=== PATIENT | male | born 1940 | race Caucasian/White ===

== ENCOUNTER → 2018-03-02 02:04 | Outpatient (CLI) | payer MEDICARE, BC, SELFPAY ==
[2018-03-02 11:38] LABS: Hemoglobin A1C 7.3 % (4.5-6.2)
== END ==
DX: E11.9 Type 2 diabetes mellitus without complications (principal)
CPT/HCPCS: 36415; 83036

== ENCOUNTER 2018-08-09 09:39 | Outpatient (CLI) | payer MEDICARE, BC, SELFPAY ==
[2018-08-09 11:16] LABS: HCT 36.9 % (40.0-50.0); HGB 11.6 g/dL (13.5-17.5); Mean Corp. HGB Concentration 31.4 g/dL (32.0-36.0); Mean Corpuscular Hemoglobin 30.1 pg (27.0-33.0); Mean Corpuscular Volume 95.8 fL (80-95); Mean Platelet Volume 10.7 fL (8.0-11.0); Platelet Count 170 x1000/uL (130-400); RBC 3.85 m/cumm (4.50-6.00); White Blood Cell Count 6.81 k/cumm (4.4-10.8)
[2018-08-09 11:45] LABS: Hemoglobin A1C 8.4 % (4.5-6.2)
[2018-08-09 12:01] LABS: ALT 23 U/L (12-78); AST 20 U/L (15-37); Albumin 3.6 g/dL (3.4-5.0); Alkaline Phosphatase 124 U/L (46-116); Anion Gap 9.2 mmol/L (3-11); BUN 42 mg/dL (7-18); Bilirubin, Total 0.6 mg/dL (0.2-1.0); CO2 24.8 mmol/L (21.0-32.0); Calcium 8.9 mg/dL (8.5-10.1); Chloride 106 mmol/L (98-107); Cholesterol 119 mg/dL (50-200); Estimated GFR 32.48 (mL/min/1.73m2); Glucose 217 mg/dL (70-100); HDL Cholesterol 46 mg/dL (40-60); LDL CHOLESTEROL 55 mg/dL (<100); Potassium 5.5 mmol/L (3.5-5.1); Sodium 140 mmol/L (136-145); Total Protein 7.5 g/dL (6.4-8.2); Triglyceride 82 mg/dL (30-150)
== END 2018-08-09 09:59 ==
DX: I10 Essential (primary) hypertension (principal); E11.9 Type 2 diabetes mellitus without complications; E78.5 Hyperlipidemia, unspecified; R06.3 Periodic breathing; R63.4 Abnormal weight loss; E03.9 Hypothyroidism, unspecified; F06.31 Mood disorder due to known physiological condition with depressive features
CPT/HCPCS: 36415; 80053; 80061; 83721; 85027; 83036

== ENCOUNTER 2019-02-19 08:56 | Outpatient (CLI) | payer MEDICARE, BC, SELFPAY ==
[2019-02-19 12:13] LABS: Hemoglobin A1C 8.6 % (4.5-6.2)
[2019-02-19 13:05] LABS: COMMENT (LAB VIEW ONLY) 88.33 mg/dL
[2019-02-19 13:06] LABS: Microalb ug/mg Crea 335.2 ug/mg Cr
[2019-02-19 14:34] LABS: ALT 22 U/L (12-78); AST 12 U/L (15-37); Alkaline Phosphatase 120 U/L (46-116); Anion Gap 11.3 mmol/L (3-11); BUN 44 mg/dL (7-18); Bilirubin, Total 0.8 mg/dL (0.2-1.0); CO2 19.7 mmol/L (21.0-32.0); CREATININE 2.28 mg/dL (0.70-1.30); Calcium 8.1 mg/dL (8.5-10.1); Chloride 106 mmol/L (98-107); Estimated GFR 27.92 (mL/min/1.73m2); Glucose 220 mg/dL (70-100); Magnesium 1.7 mg/dL (1.8-2.4); Potassium 5.3 mmol/L (3.5-5.1); Sodium 137 mmol/L (136-145); Total Protein 7.5 g/dL (6.4-8.2)
== END 2019-02-19 09:16 ==
DX: E11.9 Type 2 diabetes mellitus without complications (principal); E03.9 Hypothyroidism, unspecified; I10 Essential (primary) hypertension
CPT/HCPCS: 36415; 80053; 82043; 82570; 83036; 83735

== ENCOUNTER 2019-04-20 01:32 | Outpatient (CLI) | payer MEDICARE, BC, SELFPAY ==
[2019-04-20 11:16] LABS: Anion Gap 11.9 mmol/L (3-11); BUN 35 mg/dL (7-18); CO2 24.1 mmol/L (21.0-32.0); CREATININE 2.24 mg/dL (0.70-1.30); Calcium 7.8 mg/dL (8.5-10.1); Chloride 107 mmol/L (98-107); Estimated GFR 28.42 (mL/min/1.73m2); Glucose 270 mg/dL (70-100); Sodium 143 mmol/L (136-145)
== END 2019-04-20 01:52 ==
PROVIDERS: Nurse Practitioner
DX: R60.0 Localized edema (principal)
CPT/HCPCS: 36415; 80048

== ENCOUNTER 2019-05-03 01:10 | Outpatient (CLI) | payer MEDICARE, BC, SELFPAY ==
--- NOTE | 2019-05-03 08:30 | ETT_ITS ---
APPROVED REPORT Exam: Exercise Treadmill Patient Location: In-Patient Stress Nurse: Meme Fatima RN Baseline Rhythm: Bradycardia BMI: 27.45 Indications: Patient reports having intermittent chest pressure with exertion that resolves with rest . Medical History Medical History: Diabetes, HTN, Hyperlipidemia Cardiac Medications: Metoprolol tartrate/ Lopressor, Atorvastatin, Aspirin, Nitroglycerin sublingual tablet PRN. Allergies: Penicillin, metoclopramide Cardiac Risk Factors: FHX of CAD, HTN, Hyperlipidemia, DM Previous Cardiac Procedures: CABG--5 way bypass, and stent placement Pretest Chest Pain Characteristics: No chest pain Exercise History: Physically active Lung Sounds: Clear to auscultation Heart Sounds: Murmur Stress Test Details Test: Exercise stress testing was performed using a Jimbo protocol. Rest Stress HR Max Heart Rate (APMHR): 141 bpm Resting HR Supine: 50 bpm Target HR (85% APMHR): 119 bpm Resting HR Standin bpm Max HR Achieved: 122 bpm % of APMHR: 86 HR response to stress: Normal HR response to stress BP Resting BP Supine: 174/68 mmHg Resting BP Standin/70 mmHg Max BP: 190/70 mmHg BP response to stress: Normal blood pressure response to stress. ECG Resting ECG: Sinus Bradycardia with anterior Q-waves ST Change: ST segment depressions Lead(s): II, III, aVF, V4, V5, V6 Time of Change: 0223 Stage: [address] Deviation: 4 mm Arrhythmia: None Recovery ECG: Sinus Bradycardia Recovery ST Change: ST segment changes return to preexercise baseline at 11 minutes 51 seconds of rec overy Clinical Reason for Termination: Leg fatigue Stress Symptoms: Leg Fatigue Exercise duration: 5 min26 sec Highest Stage Achieved: Stage 1: 1.7 mph at 10% grade. Exercise capacity: 7.05 METs Functional Capacity: Mildly deminished capacity Scale: Active Stress ECG Conclusion 1. The patient exercised for 5 minutes and 26 seconds (7 METS) this represents reasonable exercise ca pacity. 2. The patient had no symptoms consistent with ischemia. 3. Patient had significant ST depressions in the inferior leads as well as the precordial leads. The se depressions resolved by 4 minutes into recovery 4. This represents an abnormal exercise stress test results will be relayed to the ordering provider. Test Summary 1 3 minutes 10 1.7 103 170/74 99 2 2.26 12 2.5 1 minute of recovery 106 180/60 3 minutes of recovery 52 180/70 6 minutes of recovery 51 190/70 Postexercise SBP response is delayed. 9 minutes of recovery 58 180/74 12 minutes of recovery 62 168/74 15 minutes of recovery 62 152/74
== END 2019-05-03 01:30 ==
PROVIDERS: Visit Provider Nurse Practitioner
DX: R07.9 Chest pain, unspecified (principal); R94.30 Abnormal result of cardiovascular function study, unspecified; I10 Essential (primary) hypertension; E78.5 Hyperlipidemia, unspecified; E11.9 Type 2 diabetes mellitus without complications; Z95.1 Presence of aortocoronary bypass graft; Z82.49 Family history of ischemic heart disease and other diseases of the circulatory system
CPT/HCPCS: 93016; 93018; 93017

== ENCOUNTER 2019-05-10 02:46 | Outpatient (CLI) | payer MEDICARE, BC, SELFPAY ==
--- NOTE | 2019-05-10 07:23 | DI.US_ITS ---
APPROVED REPORT EXAM: Comprehensive 2D, Doppler, and color-flow Echocardiogram Patient Location: Out-Patient Business Lawyer: [place] [facility] ([place]) Rhythm: Bradycardia Indications: edema r60.9 Conclusion Left Ventricle : The left ventricle is normal size. Left ventricular systolic function is normal. Bor derline concentric left ventricular hypertrophy. There is normal LV segmental wall motion. LVEF is 55 -60%. There is grade 2 diastolic dysfunction. Right Ventricle : The right ventricle is normal size. The right ventricular systolic function is low normal. Atria : Left atrium is mildly dilated. Right atrium is mildly dilated. Aortic Valve : Aortic valve leaflets are sclerotic but open well. Aortic valve is trileaflet. Aortic valve annulus has some calcification. There is no aortic valvular stenosis. No aortic regurgitation i s present. Mitral Valve : The mitral valve is moderately thickened. Mitral valve leaflets appear myxomatous. Mil d mitral annular calcification. No evidence of mitral valve stenosis. Mild to Moderate mitral regurgi tation. There appear to be multiple parallel jets which makes quantification challenging. Tricuspid Valve : Tricuspid valve leaflets are thickened but open well. Mild tricuspid regurgitation. Pulmonic Valve : Pulmonic valve is not well visualized. Great Vessels : The IVC was not well visualized. RVSP is greater than 35 mmHg but cannot say for tommy e without visualizing the IVC. There is no prior echocardiogram available for comparison. Wall motion Left Ventricle The left ventricle is normal size. Left ventricular systolic function is normal Borderline concentric left ventricular hypertrophy. There is normal LV segmental wall motion. There is grade 2 diastolic d ysfunction. LVEF is 55-60%. Right Ventricle The right ventricle is normal size. The right ventricular systolic function is low normal. Atria Left atrium is mildly dilated. Right atrium is mildly dilated. Aortic Valve Aortic valve leaflets are sclerotic but open well. Aortic valve is trileaflet. Aortic valve annulus h as some calcification There is no aortic valvular stenosis. No aortic regurgitation is present. Mitral Valve The mitral valve is moderately thickened. Mitral valve leaflets appear myxomatous. Mild mitral annula r calcification. No evidence of mitral valve stenosis. Mild to Moderate mitral regurgitation. There a ppear to be multiple parallel jets which makes quantification challenging. Tricuspid Valve Tricuspid valve leaflets are thickened but open well. Mild tricuspid regurgitation. TV bend without p rolapse. Pulmonic Valve Pulmonic valve is not well visualized. Trivial to mild pulmonic regurgitation. Great Vessels The aortic root is normal in size. Aortic arch is mildly dilated The IVC was not well visualized. RVS P is greater than 35 mmHg but cannot say for sure without visualizing the IVC. Pericardium There is no pericardial effusion. 2D Dimensions IVSd 1.09 cm M: 0.6-1.2 LV EDV A2C 74.70 mL PWd 1.20 cm M: 0.6 - 1.2 LV EDV A4C 130.80 mL LVDd 5.31 cm M: 4.2 - 5.9 LA Volume Index A2C 32.69 mL/m2 LVDs 3.45 cm M: 2.5 - 4.0 LA Volume Index A4C 49.09 mL/m2 Aortic Root 3.04 cm M: 3.1 - 3.7 LA Volume Index Biplane 40.57 mL/m2 RA Area A4C 19.01 cm2 LA Area A4C 24.07 cm2 LVOT 2.12 cm (M/F) 1.5-2.5 LA Area A2C 19.89 cm2 Ascending Aorta 3.40 cm M: 2.6 - 3.4 EF AP4 63.91 % LVEF (Teich) 63.93 % EF AP2 53.82 % LVEF (Montano's) 59.02 % M: 52 - 72 EF BP 59.02 % LV Volume 76.58 mL M: 62 - 150 LV Volume Index 41.84 mL/m2 M: 34 - 74 FS 35.08 % LV Diastology E Decel Time 227.00 (160-240 msec) E/A Ratio 0.8 MED E' 0.05 (>0.07 m/s) LV E/e MED 19.68 (<14) LAT E' 0.10 (>0.1 m/s) LV E/e LAT 10.17 (<14) Pulm Vein s 0.72 m/s PV S/D Ratio 1.06 Pulm Vein d 0.68 m/s Pulm Vein a 0.30 m/s Aortic Valve LVOT Area 3.55 cm2 LVOT Peak David. 0.88 m/s LVOT Mean David. 0.53 m/s LVOT Peak Gr. 3.08 mmHg AL Vmax Index 1.31 cm2/m2 LVOT Mean Gr. 1.36 mmHg LVOT VTI 0.23 m AL Mean David. Index 1.14 cm2/m2 AoV Peak David. 1.30 (0.5-1.3 m/s) AoV Mean David. 0.91 m/s AO Peak GR. 6.76 mmHg AO Mean GR. 3.60 (<5 mmHg) AO VTI 0.32 (0.18-0.25 m) AL (VTI) 2.47 (2.5-4.5 cm2) AL (VTI) Index 1.35 cm/m2 Mitral Valve MV E Max David. 1.00 (0.4-1.3 m/s) MV A Velocity 1.31 (0.4-1.3 m/s) E/A Ratio 0.76 MV Decel. Time 277.46 (160-240 msec) MV Regurg Volume 62.63 mL MV PHT 80.46 msec MV RF 43.96 % MVA PHT 2.73 cm2 Tricuspid Valve TR P. Velocity 3.01 m/s TV Regurg Vmax 3.01 m/s TR P. Gradient 36.28 mmHg
== END 2019-05-10 03:06 ==
PROVIDERS: Visit Provider Nurse Practitioner
DX: R60.9 Edema, unspecified (principal); I50.1 Left ventricular failure, unspecified; I25.10 Atherosclerotic heart disease of native coronary artery without angina pectoris; R07.89 Other chest pain
CPT/HCPCS: 93306

== ENCOUNTER 2019-05-18 08:40 | Outpatient (CLI) | payer MEDICARE, BC, SELFPAY | END 2019-05-18 09:00 | PROVIDERS: Visit Provider Internal Medicine Cardiovascular Disease | DX: I25.10 Atherosclerotic heart disease of native coronary artery without angina pectoris (principal); Z95.1 Presence of aortocoronary bypass graft; I11.0 Hypertensive heart disease with heart failure; I50.30 Unspecified diastolic (congestive) heart failure; E11.9 Type 2 diabetes mellitus without complications; Z79.84 Long term (current) use of oral hypoglycemic drugs | CPT/HCPCS: 99204; 99215; 93005; 93010 ==

== ENCOUNTER 2019-05-25 01:42 | Outpatient (CLI) | payer MEDICARE, BC, SELFPAY ==
[2019-05-25 10:52] LABS: Anion Gap 10.2 mmol/L (3-11); BUN 43 mg/dL (7-18); CO2 24.8 mmol/L (21.0-32.0); CREATININE 2.18 mg/dL (0.70-1.30); Calcium 8.1 mg/dL (8.5-10.1); Chloride 107 mmol/L (98-107); Estimated GFR 29.33 (mL/min/1.73m2); Glucose 183 mg/dL (74-106); Potassium 4.8 mmol/L (3.5-5.1); Sodium 142 mmol/L (136-145)
== END 2019-05-25 02:02 ==
PROVIDERS: Visit Provider Internal Medicine Cardiovascular Disease
DX: I10 Essential (primary) hypertension (principal)
CPT/HCPCS: 36415; 80048

== ENCOUNTER → 2019-06-21 10:23 | Outpatient (BNVA) | payer MEDICARE, BC, SELFPAY | PROVIDERS: Visit Provider Internal Medicine Cardiovascular Disease | DX: I25.10 Atherosclerotic heart disease of native coronary artery without angina pectoris (principal); E78.5 Hyperlipidemia, unspecified; I11.0 Hypertensive heart disease with heart failure; Z95.1 Presence of aortocoronary bypass graft; R60.0 Localized edema; I50.30 Unspecified diastolic (congestive) heart failure; E11.9 Type 2 diabetes mellitus without complications; Z79.84 Long term (current) use of oral hypoglycemic drugs | CPT/HCPCS: 99214 ==

== ENCOUNTER 2019-08-20 11:36 | Outpatient (CLI) | payer MEDICARE, BC, SELFPAY ==
[2019-08-20 13:38] LABS: ALT 24 U/L (16-63); AST 14 U/L (15-37); Albumin 4.2 g/dL (3.4-5.0); Alkaline Phosphatase 138 U/L (46-116); Anion Gap 11.5 mmol/L (3-11); BUN 59 mg/dL (7-18); Bilirubin, Total 0.8 mg/dL (0.2-1.0); CO2 23.5 mmol/L (21.0-32.0); CREATININE 2.23 mg/dL (0.70-1.30); Calcium 8.7 mg/dL (8.5-10.1); Calculated LDL 73 mg/dL (<100); Chloride 104 mmol/L (98-107); Cholesterol 132 mg/dL (<200); Estimated GFR 28.57 (mL/min/1.73m2); Glucose 235 mg/dL (74-106); HDL Cholesterol 37 mg/dL (40-60); Potassium 4.9 mmol/L (3.5-5.1); Sodium 139 mmol/L (136-145); Total Protein 7.9 g/dL (6.4-8.2); Triglyceride 111 mg/dL (<150)
[2019-08-20 14:01] LABS: Hemoglobin A1C 9.4 % (3.8-5.6)
== END 2019-08-20 11:56 ==
DX: E78.5 Hyperlipidemia, unspecified (principal); E11.9 Type 2 diabetes mellitus without complications; I10 Essential (primary) hypertension
CPT/HCPCS: 36415; 80053; 80061; 83036

== ENCOUNTER → 2019-09-11 15:26 | Outpatient (BNVA) | payer MEDICARE, BC, SELFPAY | PROVIDERS: Visit Provider Internal Medicine Cardiovascular Disease | DX: I25.10 Atherosclerotic heart disease of native coronary artery without angina pectoris (principal); E11.22 Type 2 diabetes mellitus with diabetic chronic kidney disease; N18.4 Chronic kidney disease, stage 4 (severe); I13.0 Hypertensive heart and chronic kidney disease with heart failure and stage 1 through stage 4 chronic kidney disease, or unspecified chronic kidney disease; E78.5 Hyperlipidemia, unspecified; Z95.1 Presence of aortocoronary bypass graft; Z79.84 Long term (current) use of oral hypoglycemic drugs | CPT/HCPCS: 99214 ==

== ENCOUNTER → 2020-03-18 11:31 | Outpatient (BNVA) | payer MEDICARE, BC, SELFPAY | PROVIDERS: Visit Provider Internal Medicine Cardiovascular Disease | DX: I25.10 Atherosclerotic heart disease of native coronary artery without angina pectoris (principal); N18.4 Chronic kidney disease, stage 4 (severe); R60.0 Localized edema; I13.0 Hypertensive heart and chronic kidney disease with heart failure and stage 1 through stage 4 chronic kidney disease, or unspecified chronic kidney disease; Z95.1 Presence of aortocoronary bypass graft; I50.9 Heart failure, unspecified; Z79.84 Long term (current) use of oral hypoglycemic drugs | CPT/HCPCS: 99214 ==

== ENCOUNTER 2020-08-27 02:21 | Outpatient (CLI) | payer MEDICARE, BC, SELFPAY ==
[2020-08-27 12:46] LABS: ALT 38 U/L (16-63); AST 24 U/L (15-37); Albumin 4.2 g/dL (3.4-5.0); Alkaline Phosphatase 113 U/L (46-116); Anion Gap 10.1 mmol/L (3-11); BUN 57 mg/dL (7-18); Bilirubin, Total 0.8 mg/dL (0.2-1.0); CO2 22.9 mmol/L (21.0-32.0); CREATININE 2.2 mg/dL (0.70-1.30); Calcium 8.6 mg/dL (8.5-10.1); Chloride 106 mmol/L (98-107); Estimated GFR 28.94 (mL/min/1.73m2); Glucose 161 mg/dL (74-106); Potassium 5.2 mmol/L (3.5-5.1); Sodium 139 mmol/L (136-145); Total Protein 7.9 g/dL (6.4-8.2)
== END 2020-08-27 02:22 | disposition home or self-care (01) ==
LOC: LOS 02:22
DX: I25.10 Atherosclerotic heart disease of native coronary artery without angina pectoris (principal); I15.2 Hypertension secondary to endocrine disorders; E11.65 Type 2 diabetes mellitus with hyperglycemia; Z79.4 Long term (current) use of insulin
CPT/HCPCS: 36415; 80053

== ENCOUNTER → 2020-09-22 10:52 | Outpatient (BNVA) | payer MEDICARE, BC, SELFPAY | PROVIDERS: Visit Provider Internal Medicine Cardiovascular Disease | DX: I25.810 Atherosclerosis of coronary artery bypass graft(s) without angina pectoris (principal); N18.4 Chronic kidney disease, stage 4 (severe); E11.22 Type 2 diabetes mellitus with diabetic chronic kidney disease; Z79.4 Long term (current) use of insulin; I12.9 Hypertensive chronic kidney disease with stage 1 through stage 4 chronic kidney disease, or unspecified chronic kidney disease; R60.0 Localized edema | CPT/HCPCS: 99214 ==

== ENCOUNTER 2020-11-11 00:52 | Emergency (ER) | payer MEDICARE, BC, SELFPAY ==
[2020-11-11 00:55] VITALS: BP 173/75; PULSE 57; RESP 18; TEMP 36.9; O2SAT 99
--- NOTE | 2020-11-11 01:00 | DI.CT_ITS ---
Exam(s) CT RENAL COLIC WO EXAM: CT RENAL COLIC WO INDICATION: hematuria, new. COMPARISON: CT ABD PELVIS WO CONTRAST from 09/01/2016 TECHNIQUE: CT examination was performed without contrast administration. FINDINGS: Images obtained through the lung bases are unremarkable. There is moderate gastric distention. Prior surgery noted in the epigastric region. Visualized port ions of the liver and spleen appear intact. Visualized portions of the pancreas are unremarkable. Prior cholecystectomy noted. No biliary dilatation. Abdominal aorta is of normal diameter. No significant abdominal wall hernia. No significant abdominal or pelvic adenopathy. Adrenals appear normal bilaterally. The kidneys are normal in size and shape. There is no evidence of a renal mass, hydronephrosis, or n ephrolithiasis. There is an apparent small hyperdense left renal cortical cyst measuring less than 1 cm in diameter. No ureteral dilatation or calcification identified. Urinary bladder is unremarkable in appearance. IMPRESSION: Negative noncontrast abdominal and pelvic CT. No urinary tract calcification or obstruction. RADIATION DOSE DELIVERED: 861.4mGy.cm DLP 861.4mGy.cm Total DLP RADIATION OPTIMIZATION: All CT scans at this facility use at least one of these dose optimization te chniques: automated exposure control; mA and/or kV adjustment per patient size (includes targeted exa ms where dose is matched to clinical indication); or iterative reconstruction.
[2020-11-11 01:17] LABS: Abs Immature Grans 0.01 10^3/uL (0.0-0.06); Absolute Basophil Count 0.05 10^3/uL (0.0-0.2); Absolute Eosinophil Count 0.17 10^3/uL (0.0-0.7); Absolute Lymphocyte Count 1.16 10^3/uL (1.2-3.4); Absolute Monocyte Count 0.53 10^3/uL (0.1-0.8); Absolute Neutrophil Count 3.41 10^3/uL (1.2-6.7); Basophils % 0.9; Eosinophils % 3.2; HCT 38.3 % (40.0-50.0); HGB 12.2 g/dL (13.5-17.5); Immature Grans % 0.2; Lymphocytes % 21.8; MCH 30.1 pg (27.0-33.0); MCHC 31.9 % (32.0-36.0); MCV 94.6 fL (80-95); MPV 10.5 fL (8.0-11.0); Monocytes % 9.9; Nucleated RBC 0 %; Platelet Count 150 10^3/uL (130-400); RBC 4.05 10^6/uL (4.36-5.78); RDW 13.6 % (11.8-14.1); RDW-SD 47.3 fL; WBC 5.33 10^3/uL (4.4-10.8)
--- NOTE | 2020-11-11 01:21 | ED.GENADUL_ITS ---
Discharge Plan Disposition Patient Disposition: HOME Condition: Good Discharge Details Clinical Impression: Hematuria Primary Care Provider: Pricilla Kline ED Provider: Imtiaz Mirza Home Meds and New Rx's Prescriptions: Continued atorvastatin [Lipitor] 40 mg tablet 40 mg PO DAILY Qty: 90 RF: 4 glipizide 10 mg tablet extended release 24hr 10 mg PO DAILY Qty: 90 RF: 3 hydrochlorothiazide 25 mg tablet 25 mg PO DAILY Qty: 90 RF: 3 isosorbide dinitrate 30 mg tablet 30 mg PO DAILY Qty: 90 RF: 4 metoprolol tartrate 50 mg tablet 25 mg PO BID Qty: 90 RF: 4 nitroglycerin [Nitrostat] 0.4 mg tablet, sublingual 0.4 mg Sublingual PRN Qty: 10 RF: 0 (DME) Blood Glucose Test Strip 1 ea Miscellaneous DAILY Qty: 100 RF: 4 (DME) lancets 28 gauge misc 1 ea Miscellaneous DAILY Qty: 100 RF: 4 ASPIRIN 81 MG tablet 1 tab PO DAILY RF: 0 (DME) blood-glucose meter 1 EACH misc 1 ea Miscellaneous DAILY Qty: 1 RF: 0 Discharge Instructions Instructions: Hematuria (ED) Additional Instructions: At this time there is no clear source on our work-up for your bleeding. It is likely from a small polyp or ulcer in your bladder, or potentially from your kidneys. At this time the next step is to follow-up closely with the urologist Dr. Wei, at which point he will likely schedule a cystoscopy of your bladder for further evaluation. Currently your blood levels are normal. If you notice any worsening of your symptoms, lightheadedness, feeling like you are going to pass out, pain, fever, or sensation that your urinary tract is clogged and you cannot urinate please return immediately for reassessment. Please follow-up closely with Dr. Wei's office and your primary care provider. As always it is a pleasure participating in your care today Referrals: Pricilla Kline NP [Primary Care Provider] - Neo Wei MD [ [facility] STAFF PHYSICIAN] - Medical Decision Making 80-year-old male with past medical history of chronic kidney disease, diabetes, previous heart attack, presents today for hematuria. He takes a daily aspirin but no blood thinners. He states that yesterday noticed a small amount of blood around 4 PM, that has continued until this evening when it became fairly notable and profound. He denies any pain in his abdomen flanks or in the urinary tract. He does admit to seeing occasional clots. He denies any history of this in the past. No other complaints no other complaints at this time. No other modifying factors he denies lightheadedness or syncope Genital exam is unremarkable, no abdominal tenderness. Will get labs to make sure hemoglobin is stable, and a CT scan to evaluate for mass or less likely kidney stone. Will monitor closely and reassess. I suspect the patient will need close follow-up with urology. 2:06 AM Laboratory work-up is returned, hemoglobin is notably stable and actually higher than normal at 12.2. Platelets are unremarkable, PT PTT and INR are unremarkable. Electrolytes normal, BUN and creatinine are both elevated at 61 and 2.6 but this actually appears to be at the patient's baseline. Urinalysis shows blood but no evidence of infection. Patient feels well and remains hemodynamically stable, no evidence of tachycardia or hypotension. He has not had any evidence of large clots causing obstruction. No indication for Acevedo at this time. As the patient is notably stable, I do feel that he can be discharged home in the setting of an unremarkable CAT scan. We will place a referral to Dr. Wei for prompt and close follow-up for his hematuria for further evaluation with cystoscopy. Discussed red flags with the patient and his for which to return including signs of obstruction, lightheadedness or worsening of the bleeding. I have extensively reviewed the treatment plan and discharge instructions with the patient and their family. I have addressed all patient concerns at this time. The patient and family was made aware of what symptoms to monitor for that would warrant a return to the emergency department. Discussed the plan with the patient and family, they demonstrate verbal understanding and agreement with our assessment and plan at this time. The documentation in this chart was dictated using SaySwap dictation software. Please excuse any dictation errors. FINDINGS: Minimal subsegmental atelectasis versus scarring Liver: No mass. Gallbladder and bile ducts: Prior cholecystectomy. No ductal dilation. Pancreas: No ductal dilation. Spleen: No splenomegaly. Adrenal glands: Normal. No mass. Kidneys and ureters: Hyperdense cyst in the left kidney No hydronephrosis. Stomach and bowel: Postsurgical changes in the epigastrium/gastroesophageal junction and distal stomach/duodenum No obstruction. Mild mucosal thickening. Colonic diverticulosis noted Appendix: No evidence of appendicitis. Intraperitoneal space: . No free air. No significant fluid collection. Vasculature: No abdominal aortic aneurysm. Lymph nodes: No enlarged lymph nodes. Urinary bladder: Unremarkable as visualized. Reproductive: Unremarkable as visualized. Bones/joints: Degenerative changes in the spine No acute fracture. Soft tissues: Unremarkable. IMPRESSION: No CT evidence for obstructive uropathy Hyperdense cyst in the left kidney Nonspecific nonobstructed bowel gas pattern which may represent enteritis/ileus. No discrete transition point to suggest bowel obstruction Colonic diverticulosis without diverticulitis Thank you for allowing us to participate in the care of your patient. Dictated and Authenticated by: Elder Piper MD 11/11/2020 1:59 AM Eastern Time ([place] & [place]) HPI General Date/Time Provider Initiated Documentation: 11/11/20 00:53 . HPI Narrative: 80-year-old male with past medical history of chronic kidney disease, diabetes, previous heart attack, presents today for hematuria. He takes a daily aspirin but no blood thinners. He states that yesterday noticed a small amount of blood around 4 PM, that has continued until this evening when it became fairly notable and profound. He denies any pain in his abdomen flanks or in the urinary tract. He does admit to seeing occasional clots. He denies any history of this in the past. No other complaints no other complaints at this time. No other modifying factors he denies lightheadedness or syncope Related Data Home Medications Medication Instructions Recorded Confirmed Aspirin 1 tab PO DAILY tab-cap 09/26/12 11/11/20 blood-glucose meter #1 ea 11/04/16 11/11/20 blood sugar diagnostic #100 strip 08/20/19 11/11/20 lancets 28 gauge #100 ea 08/20/19 11/11/20 atorvastatin 40 mg tablet 40 mg PO DAILY #90 tab 08/25/20 11/11/20 glipizide 10 mg tablet, extended 10 mg PO DAILY #90 tab 08/25/20 11/11/20 release 24 hr hydrochlorothiazide 25 mg tablet 25 mg PO DAILY #90 tab 08/25/20 11/11/20 isosorbide dinitrate 30 mg tablet 30 mg PO DAILY #90 tab 08/25/20 11/11/20 metoprolol tartrate 50 mg tablet 25 mg PO BID #90 tab 08/25/20 11/11/20 nitroglycerin 0.4 mg sublingual 0.4 mg SUBLINGUAL PRN #10 tab 08/25/20 11/11/20 tablet Previous Rx's Medication Instructions Recorded blood sugar diagnostic #100 strip 08/20/19 lancets 28 gauge #100 ea 08/20/19 atorvastatin 40 mg tablet 40 mg PO DAILY #90 tab 08/25/20 glipizide 10 mg tablet, extended 10 mg PO DAILY #90 tab 08/25/20 release 24 hr hydrochlorothiazide 25 mg tablet 25 mg PO DAILY #90 tab 08/25/20 isosorbide dinitrate 30 mg tablet 30 mg PO DAILY #90 tab 08/25/20 metoprolol tartrate 50 mg tablet 25 mg PO BID #90 tab 08/25/20 nitroglycerin 0.4 mg sublingual 0.4 mg SUBLINGUAL PRN #10 tab 08/25/20 tablet Allergies Allergy/AdvReac Type Severity Reaction Status Date / Time metoclopramide Allergy Intermediate Verified 11/11/20 00:58 Penicillins Allergy Unknown Verified 11/11/20 00:58 General Stated Complaint: Urinary MANDI: 3 Review of Systems All systems reviewed & are unremarkable except as noted in HPI and below PFSH Medical History Abdominal discomfort (04/12/17) Anxiety Chest pain CKD (chronic kidney disease) stage 4, GFR 15-29 ml/min 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 Stent placement 2001 x1 Family History Mother , 78 Diabetes Essential hypertension Father , 66 Heart disease Sister Diabetes Maternal Grandfather , 93 Diabetes Maternal Grandmother Heart disease Paternal Grandfather , 77 Heart disease Paternal Grandmother No problems noted. Son No problems noted. Social History Smoking/Tobacco Use Status: Never Second Hand Exposure: Yes Smoking risk assessment performed?: Yes Alcohol Intake: never Drug use: Never Substance use type: does not use Counseling given: No Counseling provided: none Caregiver/Support person: No Household members: spouse Housing: house Communication Needs: Hard of Hearing Do you need help understanding health information?: Never Pets and animals: Yes Pets and animals: dog(s) Sexually active: Yes Do you think of yourself as: straight/heterosexual Current gender identity: male What is your relationship status?: How often do you talk on the phone with friends or family?: once per week How often do you get together with friends or relatives?: once per week How often do you attend orthodoxy or alevism services?: decline to answer Do you belong to any clubs or organized social groups?: decline to answer Panel score (0-1 are the most socially isolated patients): 1 What type of physical activity do you participate in: weight lifting Duration: 30-45 minutes/day Frequency: 1-2 times per week Pilar/Yazdanism: Jew Special pilar needs: No Seatbelt use: always Helmet use: Yes Helmet use: always Drive intox or ride w/intox coach tour driver: No Do you feel safe at home: Yes Do you feel safe in your relationship?: Yes Exam Narrative Exam Narrative: 1.Const: Well-nourished, Well-developed, appearing stated age 2.Eyes: PERRL, no conjunctival injection, and symmetrical lids. 3.ENT: Atraumatic external nose and ears. Moist MM. Neck: Symmetric, trachea midline, No thyromegaly. 4.CVS: +S1/S2, No murmurs or gallops. Peripheral pulses 2+ and equal in all extremities. Brisk capillary refill in all extremities. 5.RESP: Unlabored respiratory effort. Clear to auscultation bilaterally. No wheezes rales or rhonchi 6.GI: Soft, Nontender/Nondistended, No hepatosplenomegaly. No guarding or rebound. No flank or CVA tenderness, genital exam demonstrates normal male genitalia, no blood at the urethral meatus. No tenderness for the penis or testicles 7.MSK: Normocephalic/Atraumatic, Extremities w/o deformity or ttp No cyanosis or clubbing, Normal movement of all extremities 8.Skin: Warm, Dry. No rashes or lesions. 9.Neuro: unloader operator II-XII grossly intact. Sensation grossly intact, no focal neurologic deficits. 10.Psych: (AAO) x3. Appropriate mood and affect Course Vital Signs Vital signs: Vital Signs Temperature 36.9 C 11/11/20 00:55 Pulse 57 L 11/11/20 00:55 Respiratory Rate 18 11/11/20 00:55 Blood Pressure 173/75 H 11/11/20 00:55 Pulse Oximetry 99 11/11/20 00:55 Temperature 36.9 C 11/11/20 00:55 Temperature Source Temporal Artery Scan 11/11/20 00:55 Pulse 57 L 11/11/20 00:55 Respiratory Rate 18 11/11/20 00:55 Respiratory Effort Non-Labored 11/11/20 00:59 Blood Pressure 173/75 H 11/11/20 00:55 Pulse Oximetry 99 11/11/20 00:55 Oxygen Delivery Method Room Air 11/11/20 00:55 Oxygen Flow Rate 0 11/11/20 00:55 Pain Level 0 11/11/20 00:59 Lab/Test Results Lab/Test Results: Laboratory Tests Range/Units 11/11/20 01:05 WBC (4.4-10.8) 10^3/uL 5.33 RBC (4.36-5.78) 10^6/uL 4.05 L Hgb (13.5-17.5) g/dL 12.2 L Hct (40.0-50.0) % 38.3 L MCV (80-95) fL 94.6 MCH (27.0-33.0) pg 30.1 MCHC (32.0-36.0) % 31.9 L RDW (11.8-14.1) % 13.6 Plt Count (130-400) 10^3/uL 150 MPV (8.0-11.0) fL 10.5 Immature Gran % 0.2 Neutrophils % 64.0 Lymphocytes % 21.8 Monocytes % 9.9 Eosinophils % 3.2 Basophils % 0.9 Nucleated RBC % % 0 Absolute Neutrophils (1.2-6.7) 10^3/uL 3.41 Absolute Lymphocytes (1.2-3.4) 10^3/uL 1.16 L Absolute Monocytes (0.1-0.8) 10^3/uL 0.53 Absolute Eosinophils (0.0-0.7) 10^3/uL 0.17 Absolute Basophils (0.0-0.2) 10^3/uL 0.05
[2020-11-11 01:29] LABS: ALT 37 U/L (16-63); AST 26 U/L (15-37); Albumin 4.3 g/dL (3.4-5.0); Alkaline Phosphatase 130 U/L (46-116); Anion Gap 10.3 mmol/L (3-11); BUN 61 mg/dL (7-18); Bilirubin, Total 0.6 mg/dL (0.2-1.0); CO2 26.7 mmol/L (21.0-32.0); CREATININE 2.6 mg/dL (0.70-1.30); Calcium 8.5 mg/dL (8.5-10.1); Chloride 105 mmol/L (98-107); Estimated GFR 23.87 (mL/min/1.73m2); Glucose 177 mg/dL (74-106); INR 1.1 (0.9-1.1); PTT Activated 23.3 sec (21.0-27.5); Sodium 142 mmol/L (136-145); Total Protein 8.6 g/dL (6.4-8.2)
[2020-11-11 01:31] LABS: Bilirubin Negative (Negative); Blood Large (Negative); Clarity Cloudy (Clear); Glucose Negative (Negative); Ketones Negative (Negative); Leukocyte Esterase Trace (Negative); Nitrite Negative (Negative); Specific Gravity 1.025 (1.005-1.025); pH 5.5 (5-8)
[2020-11-11 01:40] LABS: C & S Indicated? Yes; RBC >50 HPF (0-2)
--- NOTE | 2020-11-11 02:00 | DI.VRAD_ITS ---
PROCEDURE INFORMATION: Exam: CT Abdomen And Pelvis Without Contrast Exam date and time: 11/11/2020 1:31 AM Age: 80 years old Clinical indication: Patient HX: New onset hematuria TECHNIQUE: Imaging protocol: Computed tomography of the abdomen and pelvis without contrast. Radiation optimization: All CT scans at this facility use at least one of these dose optimization techniques: automated exposure control; mA and/or kV adjustment per patient size (includes targeted exams where dose is matched to clinical indication); or iterative reconstruction. COMPARISON: CT ABD PELVIS WO CONTRAST 09/01/2016 2:39 AM FINDINGS: Minimal subsegmental atelectasis versus scarring Liver: No mass. Gallbladder and bile ducts: Prior cholecystectomy. No ductal dilation. Pancreas: No ductal dilation. Spleen: No splenomegaly. Adrenal glands: Normal. No mass. Kidneys and ureters: Hyperdense cyst in the left kidney No hydronephrosis. Stomach and bowel: Postsurgical changes in the epigastrium/gastroesophageal junction and distal stomach/duodenum No obstruction. Mild mucosal thickening. Colonic diverticulosis noted Appendix: No evidence of appendicitis. Intraperitoneal space: . No free air. No significant fluid collection. Vasculature: No abdominal aortic aneurysm. Lymph nodes: No enlarged lymph nodes. Urinary bladder: Unremarkable as visualized. Reproductive: Unremarkable as visualized. Bones/joints: Degenerative changes in the spine No acute fracture. Soft tissues: Unremarkable. IMPRESSION: No CT evidence for obstructive uropathy Hyperdense cyst in the left kidney Nonspecific nonobstructed bowel gas pattern which may represent enteritis/ileus. No discrete transition point to suggest bowel obstruction Colonic diverticulosis without diverticulitis Dictated and Authenticated by: Elder Piper MD. Ordering:HORTENCIA Kitchen MD
[2020-11-11 02:13] VITALS: BP 173/75; PULSE 57; RESP 18; TEMP 36.9; O2SAT 99
--- NOTE | 2020-11-11 02:15 | NUR.NOTE ---
Referral to Urology Dr. Wei for hematuria follow up by the end of week of 11/10/20.Nursing Note:
== END 2020-11-11 02:28 | disposition home or self-care (01) ==
PROVIDERS: Emergency Provider Student in an Organized Health Care Education/Training Program
DX: R31.0 Gross hematuria (principal)
CPT/HCPCS: 36415; 80053; 99284; 74176; 81003; 81015; 85025; 85610; 85730; 87086

== ENCOUNTER → 2020-11-13 14:44 | Outpatient (BNVA) | payer MEDICARE, BC, SELFPAY | PROVIDERS: Visit Provider Urology | DX: R31.0 Gross hematuria (principal); N18.4 Chronic kidney disease, stage 4 (severe); I12.9 Hypertensive chronic kidney disease with stage 1 through stage 4 chronic kidney disease, or unspecified chronic kidney disease | CPT/HCPCS: 99204; 99215 ==

== ENCOUNTER 2020-11-20 20:03 | Inpatient (IN) | payer MEDICARE, BC, SELFPAY ==
[2020-11-20 20:08] VITALS: BP 136/62; PULSE 86; RESP 20; TEMP 37.1; O2SAT 97
--- NOTE | 2020-11-20 20:45 | DI.CT_ITS ---
Exam(s) CT RENAL COLIC WO EXAM: CT RENAL COLIC WO INDICATION: lower abd pain, fever, uti, r/o pyelo, stone. COMPARISON: CT CT RENAL COLIC WO from 11/11/2020 TECHNIQUE: CT examination was performed without contrast administration. FINDINGS: Images obtained through the lung bases are unremarkable. Visualized portions of the liver and splee n appear intact. Note is made of a prior cholecystectomy and prior surgery in the epigastric region. Note is made of coronary artery calcifications. Visualized portions of the pancreas are unremarkable. Bile ducts are nondilated. Abdominal aorta is of normal diameter. No significant abdominal wall hernia. No significant abdominal or pelvic adenopathy. No focal bowel pathology. Appendix nonvisualized but there is no specific evidence of appendicitis o r diverticulitis. Adrenals appear normal bilaterally. The kidneys are normal in size and shape. There is no evidence of a renal mass, hydronephrosis, or n ephrolithiasis. No ureteral dilatation or calcification identified. Urinary bladder is unremarkable in appearance al though nearly empty.. IMPRESSION: No evidence of acute process on this noncontrast abdominal and pelvic CT. No urinary tract calcifica tion or obstruction. RADIATION DOSE DELIVERED: 780.35mGy.cm DLP 780.35mGy.cm Total DLP RADIATION OPTIMIZATION: All CT scans at this facility use at least one of these dose optimization te chniques: automated exposure control; mA and/or kV adjustment per patient size (includes targeted exa ms where dose is matched to clinical indication); or iterative reconstruction.
[2020-11-20 21:06] LABS: Abs Immature Grans 0.06 10^3/uL (0.0-0.06); Absolute Basophil Count 0.03 10^3/uL (0.0-0.2); Absolute Eosinophil Count 0.04 10^3/uL (0.0-0.7); Absolute Lymphocyte Count 0.26 10^3/uL (1.2-3.4); Absolute Monocyte Count 0.27 10^3/uL (0.1-0.8); Absolute Neutrophil Count 8.46 10^3/uL (1.2-6.7); Basophils % 0.3; Eosinophils % 0.4; HCT 32.9 % (40.0-50.0); HGB 10.9 g/dL (13.5-17.5); Immature Grans % 0.7; Lymphocytes % 2.9; MCH 29.8 pg (27.0-33.0); MCHC 33.1 % (32.0-36.0); MCV 89.9 fL (80-95); MPV 10.9 fL (8.0-11.0); Neutrophils % 92.7; Nucleated RBC 0 %; Platelet Count 179 10^3/uL (130-400); RBC 3.66 10^6/uL (4.36-5.78); RDW 13.4 % (11.8-14.1); RDW-SD 44.2 fL; WBC 9.12 10^3/uL (4.4-10.8)
[2020-11-20 21:07] LABS: Lactate 0.9 mmol/L (0.6-1.4)
[2020-11-20 21:25] LABS: ALT 59 U/L (16-63); AST 29 U/L (15-37); Alkaline Phosphatase 148 U/L (46-116); Anion Gap 12.8 mmol/L (3-11); Bilirubin, Total 0.9 mg/dL (0.2-1.0); CO2 20.2 mmol/L (21.0-32.0); CREATININE 3.5 mg/dL (0.70-1.30); Calcium 8.6 mg/dL (8.5-10.1); Chloride 99 mmol/L (98-107); Estimated GFR 16.94 (mL/min/1.73m2); Glucose 432 mg/dL (74-106); Potassium 5.2 mmol/L (3.5-5.1); Sodium 132 mmol/L (136-145); Total Protein 7.9 g/dL (6.4-8.2)
[2020-11-20 21:28] LABS: BUN 93 mg/dL (7-18)
[2020-11-20] MEDS: Lidocaine 2% Jelly 6 ML SYR (21:30)
--- NOTE | 2020-11-20 21:33 | W.ED.GENAD ---
Discharge Plan Disposition Patient Disposition: [facility] INPATIENT Condition: Stable Discharge Details Clinical Impression: UTI (urinary tract infection), Acute kidney injury superimposed on chronic kidney disease Admit Date/Time: 11/22/20 09:14 Admit Provider: Jahaira Martinez Attending Provider: Jahaira Martinez Primary Care Provider: Unknown,Unknown ED Provider: Aspen Weathers Discharge Data Discharge Date/Time-TO BE ENTERED AT DEPARTURE: 11/20/20 23:15 Medical Decision Making 80-year-old male with a history of chronic kidney disease, diabetes, hypertension, hyperlipidemia presents for fever and bilateral lower groin pain for the past 2 days. He was sent here by [facility] with concern for urosepsis. T-max 103.8 at urgent care today. Temp 98.8 on arrival. Patient appears comfortable and nontoxic. Normal exam. Abdomen soft and nontender. Patient was seen here recently for hematuria and urinalysis noted blood but no infection at that time. Subsequently his urine culture was positive but this was not treated. He recently has seen Dr. Wei with plan for scope on December 04. We will check screening labs and repeat CT renal colic. Labs and imaging reviewed. White blood cell count 9. Sodium 132. Potassium 5.2, which is similar to previous recent results. Bicarb 20. Anion gap 12. BUN 93. Creatinine 3.5. GFR 16. Glucose 432. No acute findings on CT. Patient initially refused straight cath and complained of too much pain. Attempted again with Urojet and Ativan p.o. which he refused again. Able to obtain a clean-catch urine which noted greater than 50 RBCs and WBCs but many epithelial cells and appears contaminated. Patient is refusing any further attempted straight cath. Suspect most likely UTI. He has no other infectious symptoms and denies sore throat, cough, shortness of breath. We will plan for admission for SHAINA on CKD for IV fluids and IV antibiotics with recheck of labs in the a.m. Case discussed with hospitalist accepts patient for admission. Patient and agreeable with plan. Bladder scan noted 80 cc. Patient's Covid swab negative. Medical Records Medical records reviewed: Yes I reviewed the patient's medical records. Imaging Data Radiologic Study: Radiologist's impression: CT Abdomen And Pelvis Without Contrast Exam date and time: 11/20/2020 8:54 PM Age: 80 years old Clinical indication: Abdominal pain; Other: Lower ab pain , fever, UTI, R/O pyelo, stone TECHNIQUE: Imaging protocol: Computed tomography of the abdomen and pelvis without contrast. COMPARISON: CT RENAL COLIC WO 11/11/2020 1:34 AM FINDINGS: Lungs: There is a calcified granuloma within the right lower lobe medially. Heart:? The patient is status post CABG. Liver: The liver is within normal limits. Gallbladder and bile ducts: The patient is status post cholecystectomy. Pancreas:? The pancreas is within normal limits. Spleen: The spleen is within normal limits. Adrenal glands: The adrenal glands are unremarkable. Kidneys and ureters: The kidneys are within normal limits. Stomach and bowel: There is no evidence of bowel obstruction. There are diverticulum the colon. The patient is status post surgery a at the GE junction. Appendix: No evidence of appendicitis. Intraperitoneal space: Unremarkable. No free air. No significant fluid collection. Vasculature: There are coronary artery calcifications. There are arteriosclerotic changes of the aorta. Lymph nodes:? No enlarged lymph nodes. Urinary bladder: The urinary bladder is unremarkable. Reproductive: The prostate and seminal vesicles appear within normal limits. Bones/joints: There are degenerative changes of both hips. There are degenerative changes of the thoracic and lumbar spines. There is a slight levoscoliosis of the lumbar spine. There is degenerative disc disease at multiple levels. The patient is status post sternotomy. Soft tissues: Unremarkable. Other findings: The right hemidiaphragm is elevated. IMPRESSION: Status post sternotomy and CABG. Coronary artery calcifications. Status post cholecystectomy. Osseous findings as above.? Arteriosclerotic changes of the aorta.? Diverticulosis of the colon.? Status post surgery at the GE junction. HPI General Mode of arrival: ambulatory. Date/Time Provider Initiated Documentation: 11/20/20 20:34. Limitations to Documentation: no limitations. Information obtained by: patient. HPI Narrative: Patient is an 80-year-old male with a history of high cholesterol, ND, diabetes, CABG, cholecystectomy presents to the ED with complaint of fever and chills for the past few days. He also admits to some lower abdominal and groin pain. He has been urinating frequently but denies any dysuria. [facility] and they noted a temperature of 103.8 and referred him here for potential urosepsis. Patient denies any chest pain, cough, shortness of breath or known Covid exposures. Patient was seen here last month for hematuria and urinalysis at that time did not note any evidence of infection. Urine culture subsequently did grow greater than 100,000 colonies of gram-negatives but patient was not started on antibiotics. He states he did follow-up with Dr. Wei recently and has a plan for a cystoscopy on December 04. Related Data Home Medications Medication Instructions Recorded Confirmed Aspirin 1 tab PO DAILY tab-cap 09/26/12 11/20/20 blood-glucose meter #1 ea 11/04/16 11/20/20 blood sugar diagnostic #100 strip 08/20/19 11/20/20 lancets 28 gauge #100 ea 08/20/19 11/20/20 atorvastatin 40 mg tablet 40 mg PO DAILY #90 tab 08/25/20 11/20/20 glipizide 10 mg tablet, extended 10 mg PO DAILY #90 tab 08/25/20 11/20/20 release 24 hr hydrochlorothiazide 25 mg tablet 25 mg PO DAILY #90 tab 08/25/20 11/20/20 isosorbide dinitrate 30 mg tablet 30 mg PO DAILY #90 tab 08/25/20 11/20/20 metoprolol tartrate 50 mg tablet 25 mg PO BID #90 tab 08/25/20 11/20/20 nitroglycerin 0.4 mg sublingual 0.4 mg SUBLINGUAL PRN #10 tab 08/25/20 11/20/20 tablet Previous Rx's Medication Instructions Recorded blood sugar diagnostic #100 strip 08/20/19 lancets 28 gauge #100 ea 08/20/19 atorvastatin 40 mg tablet 40 mg PO DAILY #90 tab 08/25/20 glipizide 10 mg tablet, extended 10 mg PO DAILY #90 tab 08/25/20 release 24 hr hydrochlorothiazide 25 mg tablet 25 mg PO DAILY #90 tab 08/25/20 isosorbide dinitrate 30 mg tablet 30 mg PO DAILY #90 tab 08/25/20 metoprolol tartrate 50 mg tablet 25 mg PO BID #90 tab 08/25/20 nitroglycerin 0.4 mg sublingual 0.4 mg SUBLINGUAL PRN #10 tab 08/25/20 tablet Allergies Allergy/AdvReac Type Severity Reaction Status Date / Time metoclopramide Allergy Intermediate Verified 11/20/20 20:18 Penicillins Allergy Unknown Verified 11/20/20 20:18 General Stated Complaint: Urinary MANDI: 3 Review of Systems All systems reviewed & are unremarkable except as noted in HPI and below Constitutional Constitutional: Reports as per HPI, Reports chills and Reports fever(s) Eyes Eyes: Denies blurry vision ENT Ears, Nose, Mouth, and Throat: Denies dizziness, Denies sore throat and Denies throat swelling Cardiovascular Cardiovascular: Denies chest pain and Denies dyspnea Respiratory Respiratory: Denies cough and Denies dyspnea Gastrointestinal Gastrointestinal: Denies abdominal pain, Denies diarrhea and Denies vomiting Genitourinary Genitourinary: Denies hematuria and Denies dysuria Musculoskeletal Musculoskeletal: Denies back pain and Denies numbness Integumentary/Breasts Skin/Breast: Denies lesions and Denies rash Neurologic Neurologic: Denies dizziness, Denies localized weakness and Denies numbness Allergic/Immunologic Allergic/Immunologic: Denies throat swelling [facility] Medical History (Updated 11/22/20 @ 12:34 by Prosper Caballero MD) Abdominal discomfort (04/12/17) Anxiety Chest pain CKD (chronic kidney disease) stage 4, GFR 15-29 ml/min 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 S/P cholecystectomy Stent placement 2001 x1 Family History Mother , 78 Diabetes Essential hypertension Father , 66 Heart disease Sister Diabetes Maternal Grandfather , 93 Diabetes Maternal Grandmother Heart disease Paternal Grandfather , 77 Heart disease Paternal Grandmother No problems noted. Son No problems noted. Social History Smoking/Tobacco Use Status: Never Second Hand Exposure: Yes Smoking risk assessment performed?: Yes Alcohol Intake: never Drug use: Never Substance use type: does not use Counseling given: No Counseling provided: none Caregiver/Support person: No Household members: spouse Housing: house Communication Needs: Hard of Hearing Do you need help understanding health information?: Never Pets and animals: Yes Pets and animals: dog(s) Sexually active: Yes Do you think of yourself as: straight/heterosexual Current gender identity: male What is your relationship status?: How often do you talk on the phone with friends or family?: once per week How often do you get together with friends or relatives?: once per week How often do you attend jainism or oriental orthodox services?: decline to answer Do you belong to any clubs or organized social groups?: decline to answer Panel score (0-1 are the most socially isolated patients): 1 What type of physical activity do you participate in: weight lifting Duration: 30-45 minutes/day Frequency: 1-2 times per week Pilar/Confucianist: Taoism Special pilar needs: No Seatbelt use: always Helmet use: Yes Helmet use: always Drive intox or ride w/intox [employer] company flatbed driver: No Do you feel safe at home: Yes Do you feel safe in your relationship?: Yes Exam Const General: cooperative and no acute distress HENMT Head: normal to inspection Face and sinus: normal facial exam Eyes General: appearance normal, both eyes and all related structures EOM: EOM intact bilaterally Neck Neck: normal visual inspection and No submandibular swelling Lymphatic: no lymphadenopathy noted Chest Chest: normal inspection of the chest and no tenderness Resp Effort & Inspection: normal respiratory effort and able to speak in complete sentences Auscultation: clear to auscultation bilaterally Cardio Rate: regular rate Rhythm: regular rhythm GI Inspection: normal to inspection Palpation: soft, not firm, not rigid and nontender Auscultation: normal bowel sounds Male General Exam: Yes normal external exam Scrotum: scrotum normal Testes: no testicular mass and no testicular swelling Skin General skin exam: no rashes or lesions noted Neuro General: patient alert, patient awake and patient oriented x3 Cognition: normal cognition Speech: speech normal Motor: muscle tone normal throughout Sensory Exam: no sensory deficits noted Extrem General: normal to inspection, full ROM, capillary refill normal, no calf tenderness bilaterally and no edema Psych Appearance: grossly normal Mental Status: mental status grossly normal Speech and Movement: speech and movement normal Affect: normal affect Course Vital Signs Vital signs: Vital Signs Temperature 98.8 F 11/20/20 20:08 Pulse 86 11/20/20 20:08 Respiratory Rate 20 11/20/20 20:08 Blood Pressure 136/62 11/20/20 20:08 Pulse Oximetry 97 11/20/20 20:08 Temperature 98.8 F 11/20/20 20:08 Temperature Source Skin 11/20/20 20:08 Pulse 86 11/20/20 20:08 Respiratory Rate 20 11/20/20 20:08 Respiratory Effort Non-Labored 11/20/20 20:14 Blood Pressure 136/62 11/20/20 20:08 Blood Pressure Position Sitting 11/20/20 20:08 Pulse Oximetry 97 11/20/20 20:08 Oxygen Delivery Method Room Air 11/20/20 20:08 Oxygen Flow Rate 0 11/20/20 20:08 Pain Level 8 11/20/20 20:15 Lab/Test Results Lab/Test Results: Laboratory Tests Range/Units 11/20/20 11/20/20 11/20/20 21:00 21:00 21:00 WBC (4.4-10.8) 10^3/uL 9.12 RBC (4.36-5.78) 10^6/uL 3.66 L Hgb (13.5-17.5) g/dL 10.9 L Hct (40.0-50.0) % 32.9 L MCV (80-95) fL 89.9 MCH (27.0-33.0) pg 29.8 MCHC (32.0-36.0) % 33.1 RDW (11.8-14.1) % 13.4 Plt Count (130-400) 10^3/uL 179 MPV (8.0-11.0) fL 10.9 Immature Gran % 0.7 Neutrophils % 92.7 Lymphocytes % 2.9 Monocytes % 3.0 Eosinophils % 0.4 Basophils % 0.3 Nucleated RBC % % 0 Absolute Neutrophils (1.2-6.7) 10^3/uL 8.46 H Absolute Lymphocytes (1.2-3.4) 10^3/uL 0.26 L Absolute Monocytes (0.1-0.8) 10^3/uL 0.27 Absolute Eosinophils (0.0-0.7) 10^3/uL 0.04 Absolute Basophils (0.0-0.2) 10^3/uL 0.03 VBG Lactate (0.6-1.4) mmol/L 0.9 Sodium (136-145) mmol/L 132 L Potassium (3.5-5.1) mmol/L 5.2 H Chloride (98-107) mmol/L 99 Carbon Dioxide (21.0-32.0) mmol/L 20.2 L Anion Gap (3-11) mmol/L 12.8 H BUN (7-18) mg/dL 93 H* Creatinine (0.70-1.30) mg/dL 3.5 H Estimated GFR/1.73 m2 (mL/min/1.73m2) 16.94 Glucose (74-106) mg/dL 432 H Calcium (8.5-10.1) mg/dL 8.6 Total Bilirubin (0.2-1.0) mg/dL 0.9 AST (15-37) U/L 29 ALT (16-63) U/L 59 Alkaline Phosphatase (46-116) U/L 148 H Total Protein (6.4-8.2) g/dL 7.9 Albumin (3.4-5.0) g/dL 3.0 L
[2020-11-20 21:54] LABS: Bilirubin Negative (Negative); Blood Large (Negative); Clarity Clear (Clear); Glucose 250 mg/dL (Negative); Ketones Negative (Negative); Leukocyte Esterase Trace (Negative); Nitrite Negative (Negative); Urobilinogen 0.2 EU/dL (Up TO 0.2); pH 5.5 (5-8)
[2020-11-20] MEDS: Normal Saline 250 ML 500 ML IV (22:00)
[2020-11-20 22:10] LABS: Bacteria Many HPF (Negative); C & S Indicated? No/Sq. Contamination; Crystals Negative HPF (Negative); Epithelial Cells Many HPF (Negative); Mucus Negative (Negative); Other Cells Negative (Negative); RBC >50 HPF (0-2); WBC >50 HPF (0-5)
--- NOTE | 2020-11-20 22:13 | DI.VRAD_ITS ---
PROCEDURE INFORMATION: Exam: CT Abdomen And Pelvis Without Contrast Exam date and time: 11/20/2020 8:54 PM Age: 80 years old Clinical indication: Abdominal pain; Other: Lower ab pain , fever, UTI, R/O pyelo, stone TECHNIQUE: Imaging protocol: Computed tomography of the abdomen and pelvis without contrast. COMPARISON: CT RENAL COLIC WO 11/11/2020 1:34 AM FINDINGS: Lungs: There is a calcified granuloma within the right lower lobe medially. Heart: The patient is status post CABG. Liver: The liver is within normal limits. Gallbladder and bile ducts: The patient is status post cholecystectomy. Pancreas: The pancreas is within normal limits. Spleen: The spleen is within normal limits. Adrenal glands: The adrenal glands are unremarkable. Kidneys and ureters: The kidneys are within normal limits. Stomach and bowel: There is no evidence of bowel obstruction. There are diverticulum the colon. The patient is status post surgery a at the GE junction. Appendix: No evidence of appendicitis. Intraperitoneal space: Unremarkable. No free air. No significant fluid collection. Vasculature: There are coronary artery calcifications. There are arteriosclerotic changes of the aorta. Lymph nodes: No enlarged lymph nodes. Urinary bladder: The urinary bladder is unremarkable. Reproductive: The prostate and seminal vesicles appear within normal limits. Bones/joints: There are degenerative changes of both hips. There are degenerative changes of the thoracic and lumbar spines. There is a slight levoscoliosis of the lumbar spine. There is degenerative disc disease at multiple levels. The patient is status post sternotomy. Soft tissues: Unremarkable. Other findings: The right hemidiaphragm is elevated. IMPRESSION: Status post sternotomy and CABG. Coronary artery calcifications. Status post cholecystectomy. Osseous findings as above. Arteriosclerotic changes of the aorta. Diverticulosis of the colon. Status post surgery at the GE junction. Dictated and Authenticated by: Harman Loza MD. Ordering:SALAZAR Louise MD
[2020-11-20] MEDS: levoFLOXacin 750 MG/150 ML BAG 100 MG IVPB (22:37)
[2020-11-20 22:38] VITALS: BP 138/59; PULSE 81; RESP 16; O2SAT 99
[2020-11-20 22:42] VITALS: TEMP 38.5
[2020-11-20 22:47] VITALS: TEMP 38.5
[2020-11-20] MEDS: ACETAMINOPHEN 1,000 MG/100 ML BTL 400 MG IVPB (22:47)
[2020-11-20 22:54] LABS: Source Nasal/Nares
[2020-11-20 23:06] LABS: Creatine Kinase 65 U/L (39-308)
[2020-11-20 23:23] LABS: Procalcitonin < 0.1 ng/mL
[2020-11-20 23:33] VITALS: BP 125/64; PULSE 80; RESP 18; TEMP 37.1; O2SAT 100
[2020-11-20 23:39] LABS: COVID-19 PCR Negative (Negative)
--- NOTE | 2020-11-20 23:46 | W.PM.HP.N ---
Date of service: 11/20/20 Time of Service: 23:46 Assessment and Plan Assessment and plan (1) UTI (urinary tract infection): Status: Suspected Assessment and plan: Present on admission; however, the patient denies frequency being new and denies dysuria. Did have hematuria, which has now resolved. Urine C&S x 2 from 2017 positive for Klebsiella. Unfortunately, both samples from 11/11/20 and today are contaminated and patient has been refusing a straight cath sample due to pain on attempted insertion. We will continue empiric levofloxacin initiated in the ED while awaiting blood and urine C&S. Procalcitonin negative. Urinary sx could be caused by diuretics +/- process that caused hematuria other than UTI (bladder tumors can cause urinary sx, but in this patient's case, this has not been confirmed). No evidence of obstructive uropathy or stones on CT (preliminary read). Continue to monitor bladder scans. Consider inpatient urology consult. Does have cystoscopy scheduled for 12/04/[address] Wei. (2) Syncope: Status: Acute Assessment and plan: ?vagal due to dehydration or pain vs cardiogenic. Place on tele. Add troponin, proBNP to ER bloodwork. Check EKG. Obtain echo. Check orthostatics. Hold HCTZ. (3) Acute kidney injury superimposed on chronic kidney disease: Status: Acute Assessment and plan: R/o urinary retention. Hold NSAIDS. IV fluids. Hold HCTZ and recheck kidney function in am. (4) Left shoulder pain: Status: Acute Assessment and plan: post fall - r/o fx. Obtain Xr. Obtain CRP. If elevated, would consider CT vs MRI to r/o infectious etiology of left shoulder pain. (5) Back pain: Status: Acute Assessment and plan: Preceding the fall/syncope, per patient. CT with OA/DJD. C/s PT. Trial lidocaine patch. (6) Acute on chronic blood loss anemia: Status: Acute Assessment and plan: In setting of hematuria. Check anemia studies. Avoid chemical DVT ppx. (7) Hematuria: Status: Acute Assessment and plan: Source unclear at this time. Diagnostic cystoscopy is scheduled for 12/04/[address] Wei. ?Bladder tumor (could also explain urinary sx). (8) Diabetes mellitus: Status: Chronic Assessment and plan: A1C in 08/24 was 7.9. Recheck A1C. Hold glipizide in house and cover with SSI. 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 Recheck in am. (10) DVT prophylaxis: Status: Acute Assessment and plan: Hold chemical DVT ppx in setting of hematuria. TEDS + SCDs. (11) Discharge planning issues: Status: Acute Assessment and plan: Full code PT/OT consults Obs. History of Present Illness History of Present Illness Chief Complaint: Fever, urinary frequency Narrative: Mr Lyons is an 80 year old male with PMHx of CAD s/p CABG x5 and a stent, NIDDM2, HTN, CKD 4, hyperlipidemia, who was sent to [facility] ED today from [facility] where he had presented c/o chills (not fever), and bilateral groin pain and lower back pain. He also reported chronic urinary frequency since being initiated on HCTZ with nocturia (wakes up 10x/night to urinate; initiated on HCTZ in 01/[address] Parra). He did have hematuria, but this has resolved two days after his ER visit on 11/11/20. He is supposed to have a diagnostic cystoscopy on 12/04/[address] Wei. Of note, the patient was seen in the ED on 11/11/20 for hematuria. At that time, a urine C&S grew GNR but was mixed/contaminated, so he was not initiated on abx. On his presentation to [facility], he was indeed febrile to 39.9 rectally. He was afebrile in the ED, but given a documented fever and urine C&S from 11/11, he was initiated on empiric levofloxacin. He was also found to be in SHAINA on CKD with a potassium of 5.2, and a Cr of 3.5, up from 2.6 on 11/11/20 and 2.2, which is his baseline. For this, he was initiated on IVF. The patient has refused a urinary catheter sample. His bladder scan was 84 ccs in the ED. Hospitalist admission was requested. On my conversation with the patient, he is very clear that the urinary frequency is not new and, if anything, it has gotten a little bit better over the last couple of days. His major concern bringing him to express care today was that he was not sure that taking advil for pain was a good idea for him - he has been taking advil for his lower back, groin, and left shoulder pain. He was not aware he was having actual fevers at home, but does endorse chills. He reports lower back pain that has started on both sides, but now lateralized to the left. He states it has been going on for at least one week, but is not clear when this started. Denies trauma. He already had the back pain when he went to the ED on 11/11/20. The groin discomfort remains bilateral, and he can reproduce it when he tries to raise his legs in bed. Denies numbness/tingling. Denies difficulties passing stools. The patient states that 2-3 days ago he had passed out, but he does not think he hit his head. He thinks pain may have contributed to the fainting spell. He does endorse noticing 24 hrs later that his left shoulder was hurting. He is able to point to where it hurts. He states that he had lost his balance and then remembers waking up on the floor and not knowing how he got there. Denies chest pain, shortness of breath. Does endorse feeling dizzy before fainting. Patient is being placed in observation status. 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 S/P cholecystectomy Stent placement 2001 x1 Family History Mother , 78 Diabetes Essential hypertension Father , 66 Heart disease Sister Diabetes Maternal Grandfather , 93 Diabetes Maternal Grandmother Heart disease Paternal Grandfather , 77 Heart disease Paternal Grandmother No problems noted. Son No problems noted. Social History Smoking/Tobacco Use Status: Never Second Hand Exposure: Yes Smoking risk assessment performed?: Yes Alcohol Intake: never Drug use: Never Substance use type: does not use Counseling given: No Counseling provided: none Caregiver/Support person: No Household members: spouse Housing: house Communication Needs: Hard of Hearing Do you need help understanding health information?: Never Pets and animals: Yes Pets and animals: dog(s) Sexually active: Yes Do you think of yourself as: straight/heterosexual Current gender identity: male What is your relationship status?: How often do you talk on the phone with friends or family?: once per week How often do you get together with friends or relatives?: once per week How often do you attend muslim or yarsani services?: decline to answer Do you belong to any clubs or organized social groups?: decline to answer Panel score (0-1 are the most socially isolated patients): 1 What type of physical activity do you participate in: weight lifting Duration: 30-45 minutes/day Frequency: 1-2 times per week Pilar/Voodoo: Bahai Special pilar needs: No Seatbelt use: always Helmet use: Yes Helmet use: always 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 Do you feel safe at home: Yes Do you feel safe in your relationship?: Yes Meds Allergies and Home Medications Allergies Allergy/AdvReac Type Severity Reaction Status Date / Time metoclopramide Allergy Intermediate Verified 11/20/20 20:18 Penicillins Allergy Unknown Verified 11/20/20 20:18 Home Medications Medication Instructions Recorded Confirmed Type Aspirin 1 tab PO DAILY tab-cap 09/26/12 11/20/20 History blood-glucose meter #1 ea 11/04/16 11/20/20 History blood sugar diagnostic #100 strip 08/20/19 11/20/20 Rx lancets 28 gauge #100 ea 08/20/19 11/20/20 Rx atorvastatin 40 mg tablet 40 mg PO DAILY #90 tab 08/25/20 11/20/20 Rx glipizide 10 mg tablet, extended 10 mg PO DAILY #90 tab 08/25/20 11/20/20 Rx release 24 hr hydrochlorothiazide 25 mg tablet 25 mg PO DAILY #90 tab 08/25/20 11/20/20 Rx isosorbide dinitrate 30 mg tablet 30 mg PO DAILY #90 tab 08/25/20 11/20/20 Rx metoprolol tartrate 50 mg tablet 25 mg PO BID #90 tab 08/25/20 11/20/20 Rx nitroglycerin 0.4 mg sublingual 0.4 mg SUBLINGUAL PRN #10 tab 08/25/20 11/20/20 Rx tablet Exam Narrative Exam Narrative: General: Pleasant elderly male who is slightly hard of hearing and tangential in his history, but is able to provide it, appears comfortable in bed Neurological: A&Ox3, ENTERPRISE, very subtly forgetful, no focal deficits Psychiatric: Mildly anxious, appropriate speech pattern/content Skin: Visible skin, including on B feet, intact HEENT: Atraumatic, normocephalic, EOMI, MMM, poor dentition, no submandibular or cervical lymphadenopathy, no goiter or JVD Cardiovascular: RRR, no m/r/g Lungs: CTAB Gastrointestinal: soft,nontender, nondistended Genitourinary: no CVA tenderness; otherwise, deferred. Extremities: no edema BLE's, trace pedal pulses B, limited ROM L shoulder - unable to lift past 90 degrees. TTP deltoid LUE. 5/5 strength BLEs. No lesions on B feet. Results Imaging Additional studies: CT abdomen/pelvis: Status post sternotomy and CABG. Coronary artery calcifications. Status post cholecystectomy. Osseous findings as above.? Arteriosclerotic changes of the aorta.? Diverticulosis of the colon.? Status post surgery at the GE junction. Ordered and pending: EKG, XR L shoulder Labs Result diagrams: 11/20/20 21:00 11/20/20 21:00 Labs: Laboratory Results - last 24 hr 11/20/20 11/20/20 11/20/20 21:00 21:00 21:00 WBC 9.12 RBC 3.66 L Hgb 10.9 L Hct 32.9 L MCV 89.9 MCH 29.8 MCHC 33.1 RDW 13.4 Plt Count 179 MPV 10.9 Immature Gran % 0.7 Neutrophils % 92.7 Lymphocytes % 2.9 Monocytes % 3.0 Eosinophils % 0.4 Basophils % 0.3 Nucleated RBC % 0 Absolute Neutrophils 8.46 H Absolute Lymphocytes 0.26 L Absolute Monocytes 0.27 Absolute Eosinophils 0.04 Absolute Basophils 0.03 VBG Lactate 0.9 Sodium 132 L Potassium 5.2 H Chloride 99 Carbon Dioxide 20.2 L Anion Gap 12.8 H BUN 93 H* Creatinine 3.5 H Estimated GFR/1.73 m2 16.94 Glucose 432 H Calcium 8.6 Total Bilirubin 0.9 AST 29 ALT 59 Alkaline Phosphatase 148 H Creatine Kinase 65 Total Protein 7.9 Albumin 3.0 L Procalcitonin < 0.1 Urine Color Urine Clarity Urine pH Ur Specific Merna Urine Protein Urine Ketones Urine Blood Urine Nitrite Urine Bilirubin Urine Urobilinogen Ur Leukocyte Esterase Urine RBC Urine WBC Ur Epithelial Cells Urine Crystals Urine Bacteria Urine Casts Urine Mucus Urine Other Ur Culture Indicated? Urine Glucose COVID-19 Source SARS-CoV-2 (PCR) 11/20/20 11/20/20 21:50 22:44 WBC RBC Hgb Hct MCV MCH MCHC RDW Plt Count MPV Immature Gran % Neutrophils % Lymphocytes % Monocytes % Eosinophils % Basophils % Nucleated RBC % Absolute Neutrophils Absolute Lymphocytes Absolute Monocytes Absolute Eosinophils Absolute Basophils VBG Lactate Sodium Potassium Chloride Carbon Dioxide Anion Gap BUN Creatinine Estimated GFR/1.73 m2 Glucose Calcium Total Bilirubin AST ALT Alkaline Phosphatase Creatine Kinase Total Protein Albumin Procalcitonin Urine Color Yellow Urine Clarity Clear Urine pH 5.5 Ur Specific Merna 1.020 Urine Protein 100 H Urine Ketones Negative Urine Blood Large H Urine Nitrite Negative Urine Bilirubin Negative Urine Urobilinogen 0.2 Ur Leukocyte Esterase Trace H Urine RBC >50 H Urine WBC >50 H Ur Epithelial Cells Many Urine Crystals Negative Urine Bacteria Many Urine Casts 20-50 fine granular Urine Mucus Negative Urine Other Negative Ur Culture Indicated? No/sq. contamination Urine Glucose 250 H COVID-19 Source Nasal/nares SARS-CoV-2 (PCR) Negative Last Vital Signs Temp 37.1 C 11/20/20 23:33 Pulse 80 11/20/20 23:33 Resp 18 11/20/20 23:33 BP 125/64 11/20/20 23:33 Pulse Ox 100 11/20/20 23:33 COVID-19 Screening Have you, or household traveled for leisure in last 14 days?: No Had IN PERSON contact w/suspected or confirmed C-19 person: No Have you had the following symptoms in the past few days?: Yes Symptoms noted since travel?: Fever
[2020-11-21] VITALS (14 sets, daily range): BP systolic 103–170; BP diastolic 58–101; PULSE 58–139; RESP 15–32; TEMP 36.3–38.7; O2SAT 86–100
--- NOTE | 2020-11-21 00:30 | RT.EKG_ITS ---
APPROVED REPORT Exam: Resting ECG Reason for Exam: syncope Patient Location: I HR:60 bpm ECG Measurements Heart Rate 60 AXIS MN 141 P -81 QRSd 93 QRS 9 QT 459 T 128 QTc 457 Conclusion Sinus rhythm...normal P axis, V-rate 60- 99 Anteroseptal infarct, age indeterminate...Q >35mS, T neg, V1-V2 Abnormal T, consider ischemia, lateral leads...T <-0.20mV, I aVL V5 V6
[2020-11-21] MEDS: Sodium Zirconium Cyclosilicate 10 GM PKT PO ×2 (00:45→06:15)
[2020-11-21] MEDS: Normal Saline 1,000 ML 100 ML IV ×3 (00:46→20:25)
[2020-11-21 02:19] LABS: C-Reactive Protein 16.13 mg/dL (0.0-0.3); NT-proBNP 4934 pg/mL (<300)
[2020-11-21 02:22] LABS: Troponin I 0.13 ng/mL (<0.06)
[2020-11-21] MEDS: Aspirin 325 MG TAB (03:34)
[2020-11-21 07:05] LABS: Abs Immature Grans 0.09 10^3/uL (0.0-0.06); Absolute Basophil Count 0.04 10^3/uL (0.0-0.2); Absolute Eosinophil Count 0.06 10^3/uL (0.0-0.7); Absolute Monocyte Count 0.56 10^3/uL (0.1-0.8); Absolute Neutrophil Count 10.47 10^3/uL (1.2-6.7); Basophils % 0.3; Eosinophils % 0.5; HCT 33.4 % (40.0-50.0); HGB 11.1 g/dL (13.5-17.5); Immature Grans % 0.8; Lymphocytes % 4.3; MCH 30.1 pg (27.0-33.0); MCHC 33.2 % (32.0-36.0); MCV 90.5 fL (80-95); Monocytes % 4.8; Neutrophils % 89.3; Nucleated RBC 0 %; Platelet Count 164 10^3/uL (130-400); RBC 3.69 10^6/uL (4.36-5.78); RDW 13.3 % (11.8-14.1); RDW-SD 44.3 fL; WBC 11.72 10^3/uL (4.4-10.8)
[2020-11-21 07:16] LABS: Anion Gap 11.8 mmol/L (3-11); CO2 21.2 mmol/L (21.0-32.0); CREATININE 3.1 mg/dL (0.70-1.30); Calcium 8.3 mg/dL (8.5-10.1); Chloride 102 mmol/L (98-107); Estimated GFR 19.48 (mL/min/1.73m2); Glucose 341 mg/dL (74-106); Potassium 4.4 mmol/L (3.5-5.1); Sodium 135 mmol/L (136-145)
[2020-11-21 07:19] LABS: BUN 85 mg/dL (7-18)
[2020-11-21 07:30] LABS: Troponin I 0.13 ng/mL (<0.06)
[2020-11-21 07:41] LABS: Ferritin 179 ng/mL (26-388); Folate 13.7 ng/mL (8.6-20.0); Magnesium 1.6 mg/dL (1.8-2.4); Vitamin B12 1759 pg/mL (193-986)
--- NOTE | 2020-11-21 08:29 | DI.RAD_ITS ---
Exam(s) XR SHOULDER LT COMPLETE 2+V EXAM: XR SHOULDER LT COMPLETE 2+V CLINICAL HISTORY: left shoulder pain post fall TECHNIQUE: COMPARISON: No exams were available for comparison FINDINGS: Four views were obtained. There are degenerative changes of the glenohumeral and acromioclavicular j oints. There is no evidence of acute fracture or dislocation. IMPRESSION: RADIATION DOSE DELIVERED: Total DLP
[2020-11-21 08:30] LABS: Hemoglobin A1C 8.3 % (<5.7)
--- NOTE | 2020-11-21 08:30 | RT.EKG_ITS ---
APPROVED REPORT Exam: Resting ECG Reason for Exam: syncope Patient Location: I HR:61 bpm ECG Measurements Heart Rate 61 AXIS SC 152 P -74 QRSd 94 QRS 5 QT 457 T 125 QTc 460 Conclusion Sinus or ectopic atrial rhythm...P axis (-45,135) Anteroseptal infarct, age indeterminate...Q >35mS, T neg, V1-V2 Abnormal T, consider ischemia, lateral leads...T <-0.20mV, I aVL V5 V6
[2020-11-21 08:31] LABS: Iron 18 ug/dL (65-175); Total Iron Binding Capacity 220 ug/dL (250-450); Transferrin Sat 8 % (20-55)
[2020-11-21] MEDS: Isosorbide Dinitrate 10 MG TAB 30 MG PO (08:48)
[2020-11-21] MEDS: Lidocaine 5% Patch 1 PATCH TP (08:48)
[2020-11-21] MEDS: Insulin Aspart 300 UNITS/3 ML PEN SC ×4 (08:49→20:41)
[2020-11-21] MEDS: Metoprolol 50 MG TAB 25 MG PO ×2 (08:49→20:26)
[2020-11-21] MEDS: Pantoprazole 40 MG TABCR PO (08:49)
[2020-11-21] MEDS: Diclofenac 1% Gel 100 GM TUBE TP ×4 (08:50→20:26)
--- NOTE | 2020-11-21 08:50 | OT.INIE ---
Occupational Therapy Notes Inpatient Occupational Therapy Evaluation Date: 11/23/20 Referring Doctor:Jahaira Martinez MD OT Orders: Non-URgent Precautions: Fall, standard, Full PATIENT PROFILE/ADMITTING DIAGNOSIS: Pt is an 80 year old male who was admitted through the ED to Med surg with the following dx including hypomagnesemia, elevated troponin, back pain, (L) Shoulder pain, syncope, hyperkalemia, UTI, hematuria, CKD, serum potassium elevated, HTN, hyperlipidemia, DM. 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 He was able to perform all of his ADLs with increased (I) at baseline. His is supportive of his care and helps him as needed. Equipment owned/DME: None SUBJECTIVE: Pt was sitting in chair when OT arrived. He was agreeable to OT consult. OBJECTIVE: General Observation: pleasant and agreeable to OT session. Mental Status: A&Ox4 Pain: no c/o pain ROM: RUE AROM WFL L UE AROM WFL STRENGTH: RUE 4/5 throughout LUE 4/5 throughout FUNCTIONAL MOBILITY/ADLS: BATHING sitting in chair Bathing UE (I) Face and (B) UE Bathing LE NT DRESSING sitting in chair Dressing UE NT Dressing LE Able to perform with increased performance time. GROOMING AROM available and WFL to be able to perform oral hygiene TOILETING NT EATING NT BALANCE: Static sitting Normal Dynamic Sitting Good SPECIAL TESTS: Daily Activity Limitations Standardized Measure [facility] AM -PAC ?6 clicks? Daily Activity Inpatient Short Form: Raw score: 18 INFORMED CONSENT/EDUCATION: Pt instructed in purpose of OT Consult and plan of care. ASSESSMENT: Patient is a 80 -year-old male referred to occupational therapy services with diagnosis of hypomagnesemia, elevated troponin, back pain, (L) Shoulder pain, syncope, hyperkalemia, UTI, hematuria, CKD, serum potassium elevated, HTN, hyperlipidemia, DM. Patient presents with clinical signs and symptoms consistent with dx, as demonstrated by the following impairment level findings/functional limitations: Decreased functional activity tolerance, decreased standing tolerance, fatigue. Patient is assessed as a Moderate [id number] complexity based on the following: History: see above Examination: see functional limitation as noted above Presentation: evolving Decision Making: moderate complexity GOALS Goals x1 week 1. Transfers (I) 2. Dressing (I) 3. Bathing (I) standing at sink 4. Eating (I) PLAN OF CARE/TREATMENT PLAN: 1x/day, 5 days/ week x 1week Initiate Occupational Therapy Services for bathing, dressing, grooming, toileting, eating, transfer training. DISCHARGE RECOMMENDATIONS Home when medically cleared per MD. TREATMENT TIME/MINUTES/CODES [id number] [facility]
--- NOTE | 2020-11-21 09:18 | W.PM.PROGNOT ---
Date of Service Date of service: 11/21/20 Time of Service: 09:18 Assessment and Plan Assessment and plan (1) Acute kidney injury superimposed on chronic kidney disease: Status: Acute Assessment and plan: acute on chronic renal insufficiency. Etiology uncertain but suspect d/t NSAID use (was using Aleve for groin and back and shoulder pain). Baseline creatinine is around 2.5 but was up to 3.5 last night, now down to 3.1 w/ BUN 85). continue to avoid nephrotoxins. Levaquin dose at Q48hr appropriately adjusted for his SHAINA. No evidence of hydronephrosis or stones on renal CT. He may have some issues w/ urinary retention from BPH. Attempts were made to catheterize him but was too painful and difficult. For now will monitor post void residuals. Ordered by Dr. Martinez for every 6hr. continue iv fluids but can decrease the rate (going at 100 mL/hr) (2) UTI (urinary tract infection): Status: Suspected Assessment and plan: urine w/ hematuria and pyuria and bacteruria but neg. nitrites; many epithelial cells so gross contamination. cont. Levaquin empirically. He says that he had a prostate exam while in [facility] and had no pain with this, however can not exclude prostatitis given his complaints of groin pain. Procalcitonin is <0.1 but his CRP is 16 so I suspect in spite of his urine contamination he in fact has an acute cystitis. Dr. Martinez was concerned of another source of infection i.e. low back or shoulder but clinically neither appears to be acute inflamed. I do not think that an MRI of his spine is warranted. Further, his SHAINA/CKD eliminate receiving any gadolinium which would be needed to evaluate for a disciitis. His back pain is much better today. His groin pain is also improved. Qualifiers: Urinary tract infection type: acute cystitis Hematuria presence: with hematuria Qualified Code(s): N30.01 - Acute cystitis with hematuria (3) Hematuria: Status: Acute Qualifiers: Hematuria type: gross Qualified Code(s): R31.0 - Gross hematuria (4) Hyperkalemia: Status: Acute Assessment and plan: combination of use of NSAID in setting of chronic kidney disease. He is not on an ACEI nor ARB. Dr. Martinez put him on LoKelma. His potassium is already down to 4.4 from 5.2. I will repeat his BMP tomorrow but suspect that wew can stop the LoKelma once his renal function improves. (5) Syncope: Status: Acute Assessment and plan: unclear etiology. He can not recall the events around his syncope other than he awoke next to his pellet stove. Rhythm is NSR w/ occasional PVC's some grouped in trigeminy pattern but no runs of VT or SVT or AF. He should have 14 day cardiac event recorder upon discharge. Qualifiers: Syncope type: unspecified Qualified Code(s): R55 - Syncope and collapse (6) Elevated troponin I level: Status: Acute Assessment and plan: patient has asymptomatic elevation of his troponin I level. The levels have remained unchanged overnight at 0.13. Echo was ordered by Dr. Martinez. Serial EKG's shows anteroseptal infarct of indeterminate age but no dynamic changes. (7) Acute on chronic blood loss anemia: Status: Acute Assessment and plan: He has a mild iron deficiency anemia. Hb 11.1 gm appears to be stable however he has an iron deficiency. I will add oral iron to his regimen. I suspect that part of his anemia is d/t CKD but superimposed on this is his recent hematuria. (8) Diabetes mellitus: Status: Chronic Assessment and plan: poorly controlled. A1c is 8.3%. I have added NPH along w/ his sliding scale. he was on glipizide at home and poorly controlled. Given his renal failure he should be taken off sulfonylureas and put on insulin. I would send him home on NPH twice a day to start then as outpatient novolog or human R can be added at meal times. Lantus could be used in place of NPH but NPH is cheaper and given his renal failure might be better for adjustment than a longer acting insulin. Ideally he should be on an SGLT2 inhibitor to reduce his CV risk and renal risk but that ship has already sailed and w/ his CKD I would be concerned about hypoglycemia. 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 I examined his shoulder and he has small contusion to the muscle probabl sustained in his syncopal event a week or so ago. He has some limited motion of the shoulder which may be a rotator cuff injury. I will use topical Voltaren gel and ask ortho to look at this. He may benefit from corticosteroid injection. Qualifiers: Chronicity: acute Qualified Code(s): M25.512 - Pain in left shoulder (10) Back pain: Status: Acute Assessment and plan: I think that this is a chronic issue for him and he says that this is beter w/ lidoderm. For now I am not going to pursue MRI unless he developes exquisite pain or radicular sx. Even then he can only have noncontrast MRI Qualifiers: Back pain location: low back pain Chronicity: chronic Back pain laterality: left Sciatica presence: without sciatica Qualified Code(s): M54.5 - Low back pain; G89.29 - Other chronic pain (11) Skin lesion: Status: Acute Assessment and plan: patient has a painful growth over the right shoulder. This should be excised but can be done as outpatient. (12) DVT prophylaxis: Status: Acute Objective Last Vital Signs Temp 36.5 C 11/21/20 07:33 Pulse 60 11/21/20 07:33 Resp 17 11/21/20 07:33 BP 152/73 H 11/21/20 07:33 Pulse Ox 100 11/21/20 07:33 Laboratory Results - last 24 hr 11/20/20 11/20/20 11/20/20 21:00 21:00 21:00 WBC 9.12 RBC 3.66 L Hgb 10.9 L Hct 32.9 L MCV 89.9 MCH 29.8 MCHC 33.1 RDW 13.4 Plt Count 179 MPV 10.9 Immature Gran % 0.7 Neutrophils % 92.7 Lymphocytes % 2.9 Monocytes % 3.0 Eosinophils % 0.4 Basophils % 0.3 Nucleated RBC % 0 Absolute Neutrophils 8.46 H Absolute Lymphocytes 0.26 L Absolute Monocytes 0.27 Absolute Eosinophils 0.04 Absolute Basophils 0.03 VBG Lactate 0.9 Sodium 132 L Potassium 5.2 H Chloride 99 Carbon Dioxide 20.2 L Anion Gap 12.8 H BUN 93 H* Creatinine 3.5 H Estimated GFR/1.73 m2 16.94 Glucose 432 H Hemoglobin A1c Calcium 8.6 Magnesium Iron TIBC Transferrin % Sat Ferritin Total Bilirubin 0.9 AST 29 ALT 59 Alkaline Phosphatase 148 H Creatine Kinase 65 Troponin I 0.13 H* C-Reactive Protein 16.13 H NT-Pro-B Natriuret Pep 4934 H Total Protein 7.9 Albumin 3.0 L Vitamin B12 Folate Procalcitonin < 0.1 Urine Color Urine Clarity Urine pH Ur Specific [place] Urine Protein Urine Ketones Urine Blood Urine Nitrite Urine Bilirubin Urine Urobilinogen Ur Leukocyte Esterase Urine RBC Urine WBC Ur Epithelial Cells Urine Crystals Urine Bacteria Urine Casts Urine Mucus Urine Other Ur Culture Indicated? Urine Glucose COVID-19 Source SARS-CoV-2 (PCR) 11/20/20 11/20/20 11/21/20 21:50 22:44 06:50 WBC RBC Hgb Hct MCV MCH MCHC RDW Plt Count MPV Immature Gran % Neutrophils % Lymphocytes % Monocytes % Eosinophils % Basophils % Nucleated RBC % Absolute Neutrophils Absolute Lymphocytes Absolute Monocytes Absolute Eosinophils Absolute Basophils VBG Lactate Sodium Potassium Chloride Carbon Dioxide Anion Gap BUN Creatinine Estimated GFR/1.73 m2 Glucose Hemoglobin A1c Calcium Magnesium Iron 18 L TIBC 220 L Transferrin % Sat 8 L Ferritin Total Bilirubin AST ALT Alkaline Phosphatase Creatine Kinase Troponin I C-Reactive Protein NT-Pro-B Natriuret Pep Total Protein Albumin Vitamin B12 Folate Procalcitonin Urine Color Yellow Urine Clarity Clear Urine pH 5.5 Ur Specific [place] 1.020 Urine Protein 100 H Urine Ketones Negative Urine Blood Large H Urine Nitrite Negative Urine Bilirubin Negative Urine Urobilinogen 0.2 Ur Leukocyte Esterase Trace H Urine RBC >50 H Urine WBC >50 H Ur Epithelial Cells Many Urine Crystals Negative Urine Bacteria Many Urine Casts 20-50 fine granular Urine Mucus Negative Urine Other Negative Ur Culture Indicated? No/sq. contamination Urine Glucose 250 H COVID-19 Source Nasal/nares SARS-CoV-2 (PCR) Negative 11/21/20 11/21/20 11/21/20 06:50 06:50 06:50 WBC 11.72 H RBC 3.69 L Hgb 11.1 L Hct 33.4 L MCV 90.5 MCH 30.1 MCHC 33.2 RDW 13.3 Plt Count 164 MPV 11.0 Immature Gran % 0.8 Neutrophils % 89.3 Lymphocytes % 4.3 Monocytes % 4.8 Eosinophils % 0.5 Basophils % 0.3 Nucleated RBC % 0 Absolute Neutrophils 10.47 H Absolute Lymphocytes 0.50 L Absolute Monocytes 0.56 Absolute Eosinophils 0.06 Absolute Basophils 0.04 VBG Lactate Sodium 135 L Potassium 4.4 Chloride 102 Carbon Dioxide 21.2 Anion Gap 11.8 H BUN 85 H* Creatinine 3.1 H Estimated GFR/1.73 m2 19.48 Glucose 341 H Hemoglobin A1c Calcium 8.3 L Magnesium 1.6 L Iron TIBC Transferrin % Sat Ferritin 179 Total Bilirubin AST ALT Alkaline Phosphatase Creatine Kinase Troponin I C-Reactive Protein NT-Pro-B Natriuret Pep Total Protein Albumin Vitamin B12 1759 H Folate 13.7 Procalcitonin Urine Color Urine Clarity Urine pH Ur Specific [place] Urine Protein Urine Ketones Urine Blood Urine Nitrite Urine Bilirubin Urine Urobilinogen Ur Leukocyte Esterase Urine RBC Urine WBC Ur Epithelial Cells Urine Crystals Urine Bacteria Urine Casts Urine Mucus Urine Other Ur Culture Indicated? Urine Glucose COVID-19 Source SARS-CoV-2 (PCR) 11/21/20 11/21/20 06:50 06:50 WBC RBC Hgb Hct MCV MCH MCHC RDW Plt Count MPV Immature Gran % Neutrophils % Lymphocytes % Monocytes % Eosinophils % Basophils % Nucleated RBC % Absolute Neutrophils Absolute Lymphocytes Absolute Monocytes Absolute Eosinophils Absolute Basophils VBG Lactate Sodium Potassium Chloride Carbon Dioxide Anion Gap BUN Creatinine Estimated GFR/1.73 m2 Glucose Hemoglobin A1c 8.3 H Calcium Magnesium Iron TIBC Transferrin % Sat Ferritin Total Bilirubin AST ALT Alkaline Phosphatase Creatine Kinase Troponin I 0.13 H* C-Reactive Protein NT-Pro-B Natriuret Pep Total Protein Albumin Vitamin B12 Folate Procalcitonin Urine Color Urine Clarity Urine pH Ur Specific [place] Urine Protein Urine Ketones Urine Blood Urine Nitrite Urine Bilirubin Urine Urobilinogen Ur Leukocyte Esterase Urine RBC Urine WBC Ur Epithelial Cells Urine Crystals Urine Bacteria Urine Casts Urine Mucus Urine Other Ur Culture Indicated? Urine Glucose COVID-19 Source SARS-CoV-2 (PCR)
--- NOTE | 2020-11-21 11:40 | PT.INIE ---
Date of service: 11/21/20 Time of Service: 11:40 PT Notes Visit Reasons: FEVER, URINARY FREQUENCY, SUSPECTED UTI Physical Therapy Inpatient Initial Evaluation Date: 11/21/2020 Referring Doctor: Jahaira Martinez MD PT Orders: PT CONSULT: Limited ability Precautions: Fall. Standard. Activity as tolerated. Patient Profile/Admitting Diagnosis: Phil is an 80-year-old male who presented to the ED on 11/20/2020 with fever, bilateral lower groin pain, low back pain, and chronic urinary frequency. Patient is diagnosed with urinary tract infection, syncope, acute kidney injury superimposed on chronic kidney injury, left shoulder pain, back pain, acute on chronic blood loss anemia, hematuria, and hyperkalemia. 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 Equipment Owned/DME: Front wheeled walker, single-point cane Subjective: Agreeable to PT consult. Reports feeling a lot better than he did on admission. Hopeful that he can go home as soon as it is safe to do so. 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 Amenable to the fact that his balance skills need to work. Objective: General Observation: IV in left UE. Telemetry monitoring in place. Mental Status: Alert and oriented as to person, place, time, and purpose. Able to pay attention, focus, and respond appropriately. Pain: 07/13 in low back ROM: Right Upper Extremity: Shoulder Flexion WFL. Shoulder abduction WFL. Shoulder ER/IR WFL. Elbow flexion WFL. Forearm pronation/supination WFL. Wrist flexion WFL. Opening and closing of hand WFL. Left Upper Extremity: Shoulder Flexion WFL. Shoulder abduction WFL. Shoulder ER/IR WFL. Elbow flexion WFL. Forearm pronation/supination WFL. Wrist flexion WFL. Opening and closing of hand WFL. Right Lower Extremity: Hip flexion WFL. Hip abduction WFL. Hip ER/IR WFL. Knee flexion WFL. Knee extension. Ankle dorsiflexion/eversion WFL. Ankle plantarflexion/inversion WFL. Left Lower Extremity: Hip flexion WFL. Hip abduction WFL. Hip ER/IR WFL. Knee flexion WFL. Knee extension. Ankle dorsiflexion WFL. Ankle plantarflexion WFL. Strength: Right Upper Extremity: Shoulder flexors 4/5. Shoulder abductors 4/5. Shoulder ER 4/5. Shoulder IR 4/5. Forearm pronators 5/5. Forearm supinators 5/5. Elbow flexors 5/5. Elbow extensors 5/5. Plug Shaper Hand strong. Left Upper Extremity: Shoulder flexors 4/5. Shoulder abductors 4/5. Shoulder ER 4/5. Shoulder IR 4/5. Forearm pronators 5/5. Forearm supinators 5/5. Elbow flexors 5/5. Elbow extensors 5/5. Plug Shaper Hand strong. Right Lower Extremity: Hip flexors 5/5. Hip abductors 5/5. Hip external rotators 5/5. Hip internal rotators 5/5. Knee flexors 5/5. Knee extensors 5/5. Ankle dorsiflexors/evertors 5/5. Ankle plantarflexors/invertors 5/5. Left Lower Extremity: Hip flexors 5/5. Hip abductors 5/5. Hip external rotators 5/5. HIp internal rotators 5/5. Knee flexors 5/5. Knee extensors 5/5. Ankle dorsiflexors/evertors 5/5. Ankle plantarflexors/invertors 5/5. Bed Mobility/Transfers: Sit to stand contact-guard assist Stand to sit standby assist Bed to chair standby assist Gait: Guided patient through level surface ambulation of about 100 feet using front wheeled walker and full weightbearing requiring standby assist with decreased vanessa and report of pain in the left shoulder and 1?2/10 groin pain, but no report of back pain. No LOB seen. No SOB observed. Balance: Static Sitting: Normal Dynamic Sitting: Normal Static Standing: Fair Dynamic Standing: Fair Special Tests: Mobility Limitations Standardized Measure [facility] 6 clicks [facility] Mobility Inpatient Short Form: Raw Score: 18 CMS Score: 47% deficit 4-stage balance test: Tolerated feet together for 10 seconds but was unable to do so with semitandem, full tandem, and 1 legged stance indicating at risk for falls. Informed Consent/Education: Patient was instructed in purpose of PT consult and plan of care. Agreeable to proceed with established PT POC to achieve personal goals. Assessment: At risk for falls as evidenced by 4 stage balance test results however patient does not want any further skilled services at home and at an outpatient basis as he states that he himself will start working on again improving his balance at home on his own. Decreased activity tolerance limited ambulation performance. Will assess for safety of level surface ambulation without an assistive device in the afternoon session. Patient presents with clinical signs and symptoms consistent with current/admitting diagnoses that have resulted to mobility limitations, gait instability, generalized weakness, and impairment of motor control as demonstrated by the following impairment level findings: 1. Impaired standing balance based on the 4 stage balance test 2. Impaired activity tolerance Impairments are contributing to the following functional limitations: 1. Inability to safely ambulate without assistive device and physical assistance 2. Increase completion time for mobility ADL performance 3. Increased fall risk 4. Inability to negotiate steps alone safely Patient is assessed as a 57086 moderate complexity based on the following: History: 80-year-old male with past medical history as indicated above Examination: Demonstrable impairment in strength, balance, and mobility level with underlying impairments and functional limitations as exhibited above as well as deficit score of 47% utilizing the [employer] Mobility Inpatient Short Form Presentation: Evolving Decision Makin moderate complexity Goals: Goals X1 week 1. Supine-Sit independent 2. Sit-Supine independent 3. Sit-Stand independent 4. Stand-Sit independent 5. Bed-Chair independent 6. Chair-Bed independent 7. Independent gait on level surface with use of no assistive device for at least 200 feet without report of pain nor dyspnea 8. Independent stair negotiation while holding onto 1 rail for at least 5 steps without report of pain nor dyspnea 9. Independent with home exercise program 10. Good static and dynamic standing balance/tolerance Plan of Care/Treatment Plan: 1-2x/day, 7 days/week x 1 week. Plan of care has been reviewed with the CERTIFIED NURSE providing the service under Physical Therapy direction. Initiate Physical Therapy intervention for pain management as needed, strengthening, bed mobility, transfers, gait, stairs, balance training, and use of assistive device. DISCHARGE RECOMMENDATIONS: Home when medically cleared by hospitalist. Outpatient PT services in order to improve dynamic balance skills to reduce fall risk and facilitate return to independent community ambulation without an assistive device TREATMENT CODE/TIME: 9716 2 x 28 minutes beginning at 11:40 AM. Thank you for the opportunity to participate in the care of this patient. Amy Han PT, DPT, CLT [employer] [place], [place]
--- NOTE | 2020-11-21 12:07 | INITIAL_ITS ---
- If Service Date Differs Date of service: 11/21/20 Time of Service: 12:07 Care Management Initial Assess REASON FOR HOSPITALIZATION:: Fever, UTI PAST MEDICAL HISTORY/PAST SURGICAL HISTORY:: Medical History. Abdominal discomfort (04/12/17). Anxiety. Chest pain. CKD (chronic kidney disease) stage 4, GFR 15-29 ml/min. Coronary atherosclerosis of [place] coronary vessel. S/P bypass 1993. 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 Diabetes mellitus (09/27/12). Edema. Excessive cerumen in left ear canal. Hyperlipidemia. Hypertension. Muscle cramps at night. Serum potassium elevated (11/15/16). Skin lesion. Weight loss, unintentional (11/02/16). Surgical History. H/O coronary artery bypass surgery (~01/13/94). SCALES to SVG to LAD; SVG to OM1 and Diagonal; SVG to OM2; SVG to RCA. S/P cholecystectomy. Stent placement. 2001 x1 PREVIOUS FUNCTIONAL STATUS/SOCIAL/FAMILY SUPPORTS:: Yuriy lives in [place] with his , Lula. They have one son, Apollo, who lives locally. 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 He likes to stay busy, and helps care for his sister at times. He is independent at baseline with his ADL's. CURRENT FUNCTIONAL STATUS:: Yuriy was sitting up in his chair when CM met with him. He reported that he is feeling better today than when he arrived. He stated that per MD, he will remain overnight for continued observation, but may be ready for discharge tomorrow. He is not interested in services, as he is very independent. CM will continue to follow. ADVANCE DIRECTIVES:: Not completed and patient is not interested in reviewing the document at this time. Has patient been provided with info about the portal/API?: Yes Did the patient sign up for the portal?: No CODE STATUS:: Full Code INSURANCE COVERAGE / FINANCIAL ISSUES:: MCR/ BCBS CURRENT HOME/COMMUNITY SERVICES/EQUIPMENT:: Patient is independent with ADLs, does not use any assistive equipment and does not have any services in place. PRIMARY CARE PHYSICIAN:: Pricilla Kline POTENTIAL DISCHARGE NEEDS:: Evaluation for further needs, follow up appointments. PATIENT/FAMILY EDUCATION NEEDS:: Review discharge instructions regarding activity levels and medications, discussion of self care needs including ask me three. ANTICIPATED BARRIERS TO DISCHARGE:: None identified at this time. TRANSPORTATION:: Via private vehicle by his . PLAN:: Anticipate Yuriy will return home when medically cleared. He will be driven home via private vehicle by his . He will follow up with his PCP and discharge plan of care. CM will continue to follow.
--- NOTE | 2020-11-21 12:21 | W.INDIABCONS ---
Date of service: 11/21/20 Time of Service: 12:22 Diabetes Inpatient Consult DESCRIPTION/ASSESSMENT: Yuriy is an 80 year old male admitted with elevated troponin and UTI. PMH: CKD4, DM2 CAD, HTN. BMI on low end of normal, hx of unintentional weight loss but has maintained current weight for > 1 year. Home DM meds: glipizide 10 mg qd. A1c: 8.3%. Per ADA 202 recommendation for elderly population an A1c goal of < 8.5% is acceptable. Depending on renal function, may benefit from stopping glipizide and starting either a GLP1i or DPP4r. INTERVENTION: CHO/low potassium diet Unable to provide education today, Yuriy was asleep when visited. PLAN: will monitor po intake,labs and weight Time Spent in Nutritional Counseling and Treatment: 0
--- NOTE | 2020-11-21 13:06 | PTTR_ITS ---
Date of service: 11/21/20 Time of Service: 13:06 PT Notes Visit Reasons: FEVER, URINARY FREQUENCY, SUSPECTED UTI Physical Therapy Inpatient Treatment Note Date: 11/21/2020 Precautions: Fall. Standard. Activity as tolerated. Subjective: Agreeable to trying out trial of level surface ambulation without an assistive device. Amenable that his balance skills need a little bit of work. Hopeful that he could go home tomorrow. Objective: General Observation: IV in left UE.? Telemetry monitoring in place. Mental Status: Alert and oriented as to person, place, time, and purpose. Able to pay attention, focus, and respond appropriately. Pain: 07/13 in low back Gait: Guided patient through level surface ambulation of about 260 feet +150 feet using no assistive device with full weight bearing requiring contact-guard assist with minimal path deviation and one near loss of balance that he was able to self-correct. No report of groin or back pain. Stairs: Tolerated up-and-down 18 x 4 inch steps and 12 x 6 inch steps while holding onto 1 rail requiring standby assist with step over step pattern without pain exacerbation. Balance: Static Sitting: Normal Dynamic Sitting: Normal Static Standing: Fair Dynamic Standing: Fair Assessment: Required contact-guard assist ambulation using no assistive device for safety. Was a little short of breath after activity but this resolved with rest. Plan of Care/Treatment Plan: Will plan on continuing with progressing balance skills as well as safety of unassisted ambulation in anticipation of return to home and to community ambulation. DISCHARGE RECOMMENDATIONS: Home when medically cleared by hospitalist.? Outpatient PT services in order to improve dynamic balance skills to reduce fall risk and facilitate return to independent community ambulation without an assistive device TREATMENT CODE/TIME: 86345 x 44 minutes beginning at 13:06 PM. Thank you for the opportunity to participate in the care of this patient. Amy Han PT, DPT, CLT [facility] [place], [place]
[2020-11-21 16:00] LABS: Potassium 4.2 mmol/L (3.5-5.1)
[2020-11-21 16:13] LABS: Troponin I 0.09 ng/mL (<0.06)
[2020-11-21] MEDS: Insulin NPH-Human 300 UNITS/3 ML PEN 10 UNIT SC (16:53)
[2020-11-21] MEDS: Ferrous Sulfate 325 MG TAB PO (20:26)
[2020-11-21] MEDS: Patch Removal 1 EACH TP (20:31)
[2020-11-21] MEDS: oxyCODONE 5 MG TAB PO (20:39)
[2020-11-21] MEDS: Acetaminophen 325 MG TAB 650 MG PO (21:38)
[2020-11-22] VITALS (11 sets, daily range): BP systolic 131–137; BP diastolic 65–74; PULSE 57–77; RESP 17–20; TEMP 36.7–37.2; O2SAT 92–100
[2020-11-22] MEDS: Normal Saline 1,000 ML 100 ML IV (05:16)
[2020-11-22 07:16] LABS: Abs Immature Grans 0.13 10^3/uL (0.0-0.06); HCT 29.9 % (40.0-50.0); HGB 9.9 g/dL (13.5-17.5); MCH 30.1 pg (27.0-33.0); MCHC 33.1 % (32.0-36.0); MCV 90.9 fL (80-95); MPV 11.1 fL (8.0-11.0); Nucleated RBC 0 %; Platelet Count 141 10^3/uL (130-400); RBC 3.29 10^6/uL (4.36-5.78); RDW 13.5 % (11.8-14.1); RDW-SD 45.7 fL; WBC 17.27 10^3/uL (4.4-10.8)
--- NOTE | 2020-11-22 07:30 | RT.EKG_ITS ---
APPROVED REPORT Exam: Resting ECG Reason for Exam: Elevated troponin Patient Location: I HR:66 bpm ECG Measurements Heart Rate 66 AXIS [place] 157 P -59 QRSd 88 QRS 6 QT 464 T 111 QTc 485 Conclusion Sinus or ectopic atrial rhythm...P axis (-45,135) Anteroseptal infarct, age indeterminate...Q >35mS, T neg, V1-V2
[2020-11-22 07:34] LABS: Anion Gap 12.9 mmol/L (3-11); BUN 69 mg/dL (7-18); CO2 18.1 mmol/L (21.0-32.0); Calcium 7.9 mg/dL (8.5-10.1); Chloride 109 mmol/L (98-107); Estimated GFR 20.24 (mL/min/1.73m2); Glucose 227 mg/dL (74-106); Potassium 4.5 mmol/L (3.5-5.1); Sodium 140 mmol/L (136-145)
[2020-11-22 07:36] LABS: Troponin I 1.28 ng/mL (<0.06)
[2020-11-22 07:48] LABS: Absolute Lymphocyte Count 0.52 10^3/uL (1.2-3.4); Absolute Monocyte Count 0.69 10^3/uL (0.1-0.8); Absolute Neutrophil Count 16.06 10^3/uL (1.2-6.7); Bands % 14
[2020-11-22 07:49] LABS: Diff Comment Manual Differential; RBC Morphology Normal
[2020-11-22] MEDS: Aspirin E.C. 81 MG TABEC PO (08:13)
[2020-11-22] MEDS: Ferrous Sulfate 325 MG TAB PO ×2 (08:14→19:58)
[2020-11-22] MEDS: Isosorbide Dinitrate 10 MG TAB 30 MG PO (08:14)
[2020-11-22] MEDS: Lidocaine 5% Patch 1 PATCH TP (08:14)
[2020-11-22] MEDS: Pantoprazole 40 MG TABCR PO (08:14)
[2020-11-22] MEDS: Acetaminophen 325 MG TAB 650 MG PO ×2 (08:14→21:23)
[2020-11-22] MEDS: Metoprolol 50 MG TAB 25 MG PO ×2 (08:15→19:58)
[2020-11-22] MEDS: Insulin Aspart 300 UNITS/3 ML PEN SC ×4 (08:37→21:24)
--- NOTE | 2020-11-22 09:19 | PT.INTREAT ---
PT Notes Visit Reasons: FEVER, URINARY FREQUENCY, SUSPECTED UTI 11/22/2020 SUBJECTIVE: Hudson stating he would like to go home today. He notes that he did have a fever in the night and didn't sleep well. OBJECTIVE: TRANSFERS Sit to stand: I Stand to sit: S GAIT Device: FWW Weight bearing: Full Assist: SBA Distance: 260' Deviation: none ASSESSMENT: Tolerates level ground ambulation well today. He did prefer to use the walker today. No LOB or significant fatigue noted. PLAN: Continue per POC. Treatment time: 20' [id number] Suki Billings PTA Clinic location: [facility] [place], [place]
[2020-11-22 10:32] LABS: Troponin I 0.96 ng/mL (<0.06)
--- NOTE | 2020-11-22 11:57 | W.PM.PROGNOT ---
Date of Service Date of service: 11/22/20 Time of Service: 11:57 Assessment and Plan Assessment and plan (1) Elevated troponin I level: Status: Acute Assessment and plan: Trended to 1.28 today but now down to 0.96. No chest pain. Repeat EKG unchanged from previous; shows anterolat infarct, age indeterminant. (2) Syncope: Status: Acute Assessment and plan: Pt has no recollection of events prior to finding himself on the floor. Cardiac event? Telemetry; no arrhythmias noted to date. Will order ambulatory monitoring on d/c. Qualifiers: Syncope type: unspecified Qualified Code(s): R55 - Syncope and collapse (3) UTI (urinary tract infection): Status: Suspected Assessment and plan: On Levaquin. Urine cx growing 2 species of gram negative rods. Add dose of Rocephin while waiting for final speciation/sensitivities. Qualifiers: Hematuria presence: with hematuria Urinary tract infection type: acute cystitis Qualified Code(s): N30.01 - Acute cystitis with hematuria (4) Acute kidney injury superimposed on chronic kidney disease: Status: Acute Assessment and plan: Improved creatinine to 3.0. Baseline is 2.2 Cont to avoid nephrotoxic agents. Encourage adequate oral intake. Monitor. (5) Diabetes mellitus: Status: Chronic Assessment and plan: A1c of 8.3 Increased NPH from 10 units BID to 12 d/t ongoing elevations in glucose. Monitor. Sulfonylurea was stopped. Diabetic education. Training with insulin injections and monitoring. Qualifiers: Diabetes mellitus complication status: with hyperglycemia Diabetes mellitus senior care insulin use: with equipment operator intermodal yard use Diabetes mellitus type: type 2 Qualified Code(s): E11.65 - Type 2 diabetes mellitus with hyperglycemia; Z79.4 - nursing home (current) use of insulin (6) Hypomagnesemia: Status: Acute Assessment and plan: Oral replacement Monitor. Subjective Subjective Interval history since last seen: Mr Lyons states he feels better and would like to go home. He did have rigors last PM. No abd pain, N/V. He denies CP/palpitations. Exam Const General: cooperative and no acute distress Nutritional Appearance: average body habitus Resp Effort & Inspection: normal respiratory effort Auscultation: clear to auscultation bilaterally Cardio Rate: regular rate Rhythm: regular rhythm Heart Sounds: S1 normal and S2 normal GI Palpation: soft and nontender Extrem General: no pedal edema and no calf tenderness Objective Last Vital Signs Temp 36.7 C 11/22/20 07:32 Pulse 61 11/22/20 08:36 Resp 18 11/22/20 07:32 BP 131/65 11/22/20 07:32 Pulse Ox 92 11/22/20 07:32 Laboratory Results - last 24 hr 11/21/20 11/21/20 11/22/20 15:50 15:50 06:40 WBC RBC Hgb Hct MCV MCH MCHC RDW Plt Count MPV Immature Gran % Neutrophils % Band Neutrophils % Lymphocytes % Monocytes % Eosinophils % Basophils % Nucleated RBC % Absolute Neutrophils Absolute Lymphocytes Absolute Monocytes Absolute Eosinophils Absolute Basophils RBC Morphology Sodium 140 Potassium 4.2 4.5 Chloride 109 H Carbon Dioxide 18.1 L Anion Gap 12.9 H BUN 69 H Creatinine 3.0 H Estimated GFR/1.73 m2 20.24 Glucose 227 H D Calcium 7.9 L Troponin I 0.09 H* 1.28 H* 11/22/20 11/22/20 06:40 10:00 WBC 17.27 H D RBC 3.29 L Hgb 9.9 L Hct 29.9 L MCV 90.9 MCH 30.1 MCHC 33.1 RDW 13.5 Plt Count 141 MPV 11.1 H Immature Gran % 0.0 Neutrophils % 79.0 Band Neutrophils % 14 Lymphocytes % 3.0 Monocytes % 4.0 Eosinophils % 0.0 Basophils % 0.0 Nucleated RBC % 0 Absolute Neutrophils 16.06 H Absolute Lymphocytes 0.52 L Absolute Monocytes 0.69 Absolute Eosinophils 0.00 Absolute Basophils 0.00 RBC Morphology Normal Sodium Potassium Chloride Carbon Dioxide Anion Gap BUN Creatinine Estimated GFR/1.73 m2 Glucose Calcium Troponin I 0.96 H*
[2020-11-22] MEDS: cefTRIAXone 1 GM/50 ML BAG IVPB (12:25)
[2020-11-22] MEDS: Magnesium Oxide 400 MG TAB PO ×2 (14:40→21:24)
[2020-11-22] MEDS: Normal Saline 500 ML IV (17:00)
[2020-11-22] MEDS: Insulin NPH-Human 300 UNITS/3 ML PEN 12 UNIT SC (17:26)
[2020-11-22 18:23] LABS: Bilirubin Negative (Negative); Blood Moderate (Negative); Clarity Clear (Clear); Glucose Negative (Negative); Ketones Negative (Negative); Leukocyte Esterase Trace (Negative); Nitrite Negative (Negative); Urobilinogen 0.2 EU/dL (Up TO 0.2); pH 5.5 (5-8)
[2020-11-22 18:32] LABS: Bacteria Negative HPF (Negative); C & S Indicated? Yes; Casts 0-2 Coarse Granular LPF (Negative); Crystals Negative HPF (Negative); Epithelial Cells Few HPF (Negative); Mucus Negative (Negative); Other Cells Negative (Negative)
--- NOTE | 2020-11-22 19:11 | CMPROGNOTE_ITS ---
- If Service Date Differs Date of service: 11/22/20 Time of Service: 19:11 Care Management Progress Note S/O: Yuriy was sitting up in his chair when CM met with him. He stated that he would like to return home today. Per MD, his WBC has increased, and he has an elevated troponin. He continues to receive antibiotics while his sensitivities are pending. Per report, he will have a stress test on Tuesday. CM will continue to support discharge planning considerations. A: Yuriy is an 80 year old male admitted to [facility] on 11/20/20 with Fever, UTI. P: Anticipate Yuriy will return home when medically cleared. He will be driven home via private vehicle by his . He will follow up with his PCP and vi danielle plan of care. CM will continue to follow.
[2020-11-22] MEDS: Patch Removal 1 EACH TP (19:59)
[2020-11-22] MEDS: levoFLOXacin 500 MG/100 ML BAG 100 MG IVPB (21:22)
[2020-11-22] MEDS: LORazepam 0.5 MG TAB PO (21:23)
[2020-11-22] MEDS: Tamsulosin 0.4 MG CAPCR PO (21:24)
[2020-11-23] VITALS (11 sets, daily range): BP systolic 112–142; BP diastolic 66–90; PULSE 65–126; RESP 16–20; TEMP 36–37.9; O2SAT 94–99
[2020-11-23 06:39] LABS: Absolute Lymphocyte Count 0.41 10^3/uL (1.2-3.4); Basophils % 0.3; Eosinophils % 0.9; HCT 28.8 % (40.0-50.0); HGB 9.4 g/dL (13.5-17.5); Immature Grans % 0.9; Lymphocytes % 3.5; MCH 29.5 pg (27.0-33.0); MCHC 32.6 % (32.0-36.0); MCV 90.3 fL (80-95); MPV 10.8 fL (8.0-11.0); Monocytes % 4.3; Neutrophils % 90.1; Nucleated RBC 0 %; Platelet Count 135 10^3/uL (130-400); RBC 3.19 10^6/uL (4.36-5.78); RDW 13.5 % (11.8-14.1); RDW-SD 44.9 fL; WBC 11.67 10^3/uL (4.4-10.8)
[2020-11-23 06:41] LABS: BUN 68 mg/dL (7-18); CREATININE 2.8 mg/dL (0.70-1.30); Calcium 7.8 mg/dL (8.5-10.1); Chloride 109 mmol/L (98-107); Estimated GFR 21.91 (mL/min/1.73m2); Glucose 136 mg/dL (74-106); Magnesium 1.3 mg/dL (1.8-2.4); Potassium 4.5 mmol/L (3.5-5.1); Sodium 139 mmol/L (136-145)
[2020-11-23 06:43] LABS: Absolute Basophil Count 0.04 10^3/uL (0.0-0.2); Absolute Eosinophil Count 0.11 10^3/uL (0.0-0.7); Absolute Neutrophil Count 10.51 10^3/uL (1.2-6.7)
[2020-11-23] MEDS: Aspirin E.C. 81 MG TABEC PO (08:01)
[2020-11-23] MEDS: Isosorbide Dinitrate 10 MG TAB 30 MG PO (08:01)
[2020-11-23] MEDS: Pantoprazole 40 MG TABCR PO (08:01)
[2020-11-23] MEDS: Ferrous Sulfate 325 MG TAB PO ×2 (08:01→20:34)
[2020-11-23] MEDS: Metoprolol 50 MG TAB 25 MG PO ×2 (08:02→20:34)
[2020-11-23] MEDS: Insulin NPH-Human 300 UNITS/3 ML PEN 12 UNIT SC ×2 (08:03→17:01)
--- NOTE | 2020-11-23 09:44 | PT.INTREAT ---
PT Notes Visit Reasons: FEVER, URINARY FREQUENCY, SUSPECTED UTI 11/23/2020 SUBJECTIVE: Feeling a little fatigued today. Was up a lot in the night. Is looking forward to going home soon. OBJECTIVE: TRANSFERS Sit to stand: I Stand to sit: I Toilets: I GAIT FWW, SBA for 100' No AD, SBA for 150', wide MARISOL, decreased vanessa ASSESSMENT: Does appear to be more fatigued today but tolerates PT well without LOB during gait. He demonstrates wide MARISOL with ambulation without use of walker although no path deviations noted. PLAN: Continue current POC. Treatment time: Suki Billings, ANALYST COMPETITIVE INTELLIGENCE
[2020-11-23] MEDS: Magnesium Oxide 400 MG TAB PO ×2 (10:00→22:02)
--- NOTE | 2020-11-23 10:12 | CMPROGNOTE_ITS ---
- If Service Date Differs Date of service: 11/23/20 Time of Service: 10:12 Care Management Progress Note S/O: Yuriy was sitting up in his chair when CM met with him. He reported that he spoke to the provider, who would like him to remain at [facility] overnight for monitoring. Yuriy stated that he is a bad patient because he doesn't want to be in the hospital, although he has been pleasant and appropriate in interactions. He explained that he lost trust in hospitals after a negative experience that he had at another hospital, so he feels anxious when he has to be in the hospital. CM empathized, and stated that the provider will discharge him as soon as he is medically ready. CM will continue to follow. A: Yuriy is an 80 year old male admitted to [facility] on 11/20/20 with Fever, UTI. P: Anticipate Yuriy will return home when medically cleared. He will be driven home via private vehicle by his . He will follow up with his PCP and discharge plan of care. CM will continue to follow.
[2020-11-23] MEDS: cefTRIAXone 1 GM/50 ML BAG IVPB (10:18)
--- NOTE | 2020-11-23 10:40 | W.PM.PROGNOT ---
Date of Service Date of service: 11/23/20 Time of Service: 10:43 Assessment and Plan Assessment and plan (1) Hypomagnesemia: Status: Acute Assessment and plan: Mg of 1.3; decreased from yest despite oral Mg. Cont oral MgOxide 400mg BID. IV MgSulfate 2g now. Monitor (2) Elevated troponin I level: Status: Acute Assessment and plan: No CP. Remote h/o 5 vessel bypass. Followed by Dr. Parra who was consulted for tomorrow. (3) Acute on chronic blood loss anemia: Status: Acute Assessment and plan: + iron deficiency. Venofer Monitor. (4) Acute kidney injury superimposed on chronic kidney disease: Status: Acute Assessment and plan: Creatine improving; now 2.8. Baseline creatinine of 2.2. Gave IV NS bolus yesterday d/t diminished urine outpt. Encouraged iincreased fluid intake; pt compliant. (5) Diabetes mellitus: Status: Chronic Assessment and plan: Improved control. 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 Diabetic diet. Qualifiers: Diabetes mellitus type: type 2 Diabetes mellitus residential insulin use: with residential use Diabetes mellitus complication status: with hyperglycemia Qualified Code(s): E11.65 - Type 2 diabetes mellitus with hyperglycemia; Z79.4 - terminal manager (current) use of insulin Subjective Subjective Patient reports: no new complaints, feels better and afebrile; denies diarrhea, nausea, vomiting and shortness of breath Exam Const General: cooperative, no acute distress and well groomed Nutritional Appearance: average body habitus Orientation: oriented x3 Resp Effort & Inspection: normal respiratory effort Auscultation: clear to auscultation bilaterally Cardio Rate: regular rate Rhythm: regular rhythm Heart Sounds: S1 normal and S2 normal GI Palpation: soft and nontender Skin General skin exam: no rashes or lesions noted Extrem General: no pedal edema and no calf tenderness Objective Last Vital Signs Temp 36.9 C 11/23/20 08:00 Pulse 71 11/23/20 08:00 Resp 19 11/23/20 08:00 BP 123/72 11/23/20 08:00 Pulse Ox 97 11/23/20 08:00 Laboratory Results - last 24 hr 11/21/20 11/22/20 11/23/20 23:21 18:12 06:24 WBC RBC Hgb Hct MCV MCH MCHC RDW Plt Count MPV Immature Gran % Neutrophils % Lymphocytes % Monocytes % Eosinophils % Basophils % Nucleated RBC % Absolute Neutrophils Absolute Lymphocytes Absolute Monocytes Absolute Eosinophils Absolute Basophils Sodium 139 Potassium 4.5 Chloride 109 H Carbon Dioxide 18.0 L Anion Gap 12.0 H BUN 68 H Creatinine 2.8 H Estimated GFR/1.73 m2 21.91 Glucose 136 H D Calcium 7.8 L Magnesium 1.3 L Urine Color Cancelled Yellow Urine Clarity Cancelled Clear Urine pH Cancelled 5.5 Ur Specific [place] Cancelled 1.020 Urine Protein Cancelled 30 H Urine Ketones Cancelled Negative Urine Blood Cancelled Moderate H Urine Nitrite Cancelled Negative Urine Bilirubin Cancelled Negative Urine Urobilinogen Cancelled 0.2 Ur Leukocyte Esterase Cancelled Trace H Urine RBC 3-5 H Urine WBC 10-20 H Ur Epithelial Cells Few Urine Crystals Negative Urine Bacteria Negative Urine Casts 0-2 coarse granular Urine Mucus Negative Urine Other Negative Ur Culture Indicated? Yes Urine Glucose Cancelled Negative 11/23/20 06:24 WBC 11.67 H D RBC 3.19 L Hgb 9.4 L Hct 28.8 L MCV 90.3 MCH 29.5 MCHC 32.6 RDW 13.5 Plt Count 135 MPV 10.8 Immature Gran % 0.9 Neutrophils % 90.1 Lymphocytes % 3.5 Monocytes % 4.3 Eosinophils % 0.9 Basophils % 0.3 Nucleated RBC % 0 Absolute Neutrophils 10.51 H Absolute Lymphocytes 0.41 L Absolute Monocytes 0.50 Absolute Eosinophils 0.11 Absolute Basophils 0.04 Sodium Potassium Chloride Carbon Dioxide Anion Gap BUN Creatinine Estimated GFR/1.73 m2 Glucose Calcium Magnesium Urine Color Urine Clarity Urine pH Ur Specific [place] Urine Protein Urine Ketones Urine Blood Urine Nitrite Urine Bilirubin Urine Urobilinogen Ur Leukocyte Esterase Urine RBC Urine WBC Ur Epithelial Cells Urine Crystals Urine Bacteria Urine Casts Urine Mucus Urine Other Ur Culture Indicated? Urine Glucose
[2020-11-23] MEDS: MAGNESIUM SULFATE 2 GM/50 ML BAG IVPB (11:01)
[2020-11-23] MEDS: Insulin Aspart 300 UNITS/3 ML PEN SC ×3 (11:58→22:01)
[2020-11-23] MEDS: IRON SUCROSE COMPLEX 300 MG in Normal Saline 250 ML 176.66 MG IVPB (13:42)
[2020-11-23] MEDS: LORazepam 0.5 MG TAB PO (22:02)
[2020-11-23] MEDS: Tamsulosin 0.4 MG CAPCR PO (22:02)
[2020-11-23] MEDS: Acetaminophen 325 MG TAB 650 MG PO (22:02)
[2020-11-24 06:41] LABS: Abs Immature Grans 0.11 10^3/uL (0.0-0.06); Absolute Basophil Count 0.03 10^3/uL (0.0-0.2); Absolute Eosinophil Count 0.12 10^3/uL (0.0-0.7); Absolute Lymphocyte Count 0.56 10^3/uL (1.2-3.4); Absolute Monocyte Count 0.47 10^3/uL (0.1-0.8); Absolute Neutrophil Count 8.25 10^3/uL (1.2-6.7); Basophils % 0.3; Eosinophils % 1.3; HGB 9.1 g/dL (13.5-17.5); Immature Grans % 1.2; Lymphocytes % 5.9; MCH 29.4 pg (27.0-33.0); MCHC 32.5 % (32.0-36.0); MCV 90.3 fL (80-95); Monocytes % 4.9; Neutrophils % 86.4; Nucleated RBC 0 %; Platelet Count 142 10^3/uL (130-400); RDW 13.8 % (11.8-14.1); RDW-SD 45.4 fL; WBC 9.54 10^3/uL (4.4-10.8)
[2020-11-24 06:52] LABS: Anion Gap 10.4 mmol/L (3-11); BUN 70 mg/dL (7-18); CO2 18.6 mmol/L (21.0-32.0); CREATININE 3.2 mg/dL (0.70-1.30); Calcium 7.7 mg/dL (8.5-10.1); Chloride 109 mmol/L (98-107); Estimated GFR 18.78 (mL/min/1.73m2); Glucose 187 mg/dL (74-106); Magnesium 1.7 mg/dL (1.8-2.4); Potassium 4.7 mmol/L (3.5-5.1); Sodium 138 mmol/L (136-145)
[2020-11-24 07:19] VITALS: BP 123/67; PULSE 70; RESP 16; TEMP 36.1; O2SAT 97
--- NOTE | 2020-11-24 08:19 | DI.US_ITS ---
APPROVED REPORT EXAM: Comprehensive 2D, Doppler, and color-flow Echocardiogram Patient Location: In-Patient Room/Bed: [address] Division Officer Weapons Department: Araceli Heaton RDCS (AE) Indications: Syncope Other Information Study Quality: Adequate Conclusion Left Ventricle : The left ventricle is normal size. Left ventricular systolic function is borderline. There is normal left ventricular wall thickness. There is normal LV segmental wall motion. The diast olic function is abnormal. LVEF is 52%. Right Ventricle : The right ventricle is normal size. The right ventricular systolic function is norm al. The RVSP is 36.0 mmHg. Atria : The left atrium size is normal. The right atrium size is normal. Aortic Valve : The aortic valve is normal in structure. Aortic valve is trileaflet. There is no aorti c valvular stenosis. Mitral Valve : The mitral valve is thickened but opens well. Mild mitral regurgitation. No evidence o f mitral valve stenosis. Great Vessels : The aortic root is normal in size. The ascending aorta is normal in size. Aortic arch is not well visualized. IVC is normal in size and collapses >50% with inspiration. Compared to study from 2019, there is no significant change. Wall motion Left Ventricle The left ventricle is normal size. Left ventricular systolic function is borderline. There is normal left ventricular wall thickness. There is normal LV segmental wall motion. The diastolic function is abnormal. There is no ventricular septal defect visualized. LVEF is 52%. Right Ventricle The right ventricle is normal size. The right ventricular systolic function is normal. The RVSP is 36 .0 mmHg. Atria The left atrium size is normal. The right atrium size is normal. The interatrial septum is intact wit h no evidence for an atrial septal defect. Aortic Valve The aortic valve is normal in structure. Aortic valve is trileaflet. There is no aortic valvular sten osis. No aortic regurgitation is present. Mitral Valve The mitral valve is thickened but opens well. No evidence of mitral valve stenosis. Mild mitral regur gitation. Tricuspid Valve The tricuspid valve is normal in structure. There is no tricuspid valve stenosis. Trace to mild tricu spid regurgitation. Pulmonic Valve The pulmonary valve is normal in structure. There is no pulmonic valvular stenosis. Trace pulmonic re gurgitation. Great Vessels The aortic root is normal in size. The ascending aorta is normal in size. Aortic arch is not well vis ualized. IVC is normal in size and collapses >50% with inspiration. Pericardium There is no pericardial effusion. 2D Dimensions IVSD d PLAX 1.20 cm M: 0.6-1.2 LV Vol A2C d MOD 117.1 mL LVPW d PLAX 1.21 cm M: 0.6 - 1.2 LV Vol A4C d MOD 121.4 mL LVID d PLAX 4.38 cm M: 4.2 - 5.8 LA Area A4C s MOD 24.13 cm2 LVDs 3.20 cm M: 2.5 - 4.0 LA Area A2C s MOD 20.81 cm2 Ao Root d 3.26 cm M: 3.1 - 3.7 LV EF A4C MOD 52.7 % RA Area A4C 13.75 cm2 LV EF A2C MOD 51.2 % Ao Asc Diam d 3.30 cm M: 2.6 - 3.4 LV EF Biplane MOD 51.7 % LV EF Teichholz 52.2 % SV 61.93 mL LVEF (Montano's) 51.68 % M: 52 - 72 LV Volume 119.82 mL M: 62 - 150 LV Vol Biplane MOD 119.8 mL FS 26.55 % M-Mode TAPSE 1.28 cm (M/F) >1.7 LV Diastology MV E' medial 0.044 (>0.07 m/s) E/A Ratio 0.8 LV E/e MED 20.10 (<14) MV E Vmax 0.89 (0.4-1.3 m/s) MV E' lateral 0.075 (>0.1 m/s) MV A Vmax 1.15 (0.4-1.3 m/s) LV E/e LAT 11.75 (<14) MV E/A Ratio 0.76 MV E/E' medial 20.15 MV E/E' lateral 11.77 Aortic Valve LVOT Area 3.34 cm2 AoV Area Vmax 2.79 cm2 LVOT Vmax 1.09 m/s AL Mean David. 2.67 cm2 LVOT Mean David. 0.70 m/s LVOT Peak Grad 4.8 mmHg LVOT Mean Grad 2.3 mmHg LVOT VTI 0.239 m LVOT Diam s 2.05 cm AoV Vmax 1.31 m/s Velocity Ratio 0.83 AoV Mean David. 0.88 m/s AoV Peak Grad 6.9 mmHg LVOT SV 79.85 mL AoV Mean Grad 3.5 mmHg AoV VTI 0.235 m AoV Area VTI 3.40 cm2 Mitral Valve MV DT 287 (160-240 msec) MV PHT 83 msec MV Area PHT 2.64 cm2 MV VTI 0.388 m MV VTI Annulus 0.387 m MV Area VTI 2.05 (4.0-6.0 cm2) Pulmonary Valve PV Vmax 1.22 (0.5-1.5 m/s) RVOT Peak Gr. 5.73 mmHg PV Peak Grad 5.9 mmHg RVOT Mean Gr. 2.80 mmHg PV Mean Grad 3.1 mmHg RVOT VTI 0.205 m PV VTI 0.252 m RVOT Vmax 1.20 m/s Tricuspid Valve TR Peak Grad 32.9 mmHg TR Vmax 2.87 m/s RA Pressure 3.00 mmHg RVSP (TR) 36.0 mmHg
--- NOTE | 2020-11-24 09:26 | W.CARDCONSUL ---
Date of service: 11/24/20 Time of Service: 09:26 Assessment and Plan Assessment and plan (1) Elevated troponin I level: Status: Acute Assessment and plan: 1. Non-STEMI: Likely type II rather than myocardial injury given the rise and fall of troponin. The patient had a 5 vessel coronary bypass surgery in 1993 (SCALES to LAD, SVG to LAD, SVG to OM and diagonal sequentially, SVG to OM 2, SVG to RCA). The patient had a positive treadmill stress test in April 2019 but elected for medical management at that time. He now has an elevated troponin in the setting of urinary tract infection as well as acute on chronic kidney injury. An echocardiogram today is reassuring with a low normal ejection fraction and no new specific wall motion abnormalities. We discussed briefly whether or not he would like to go for a left heart catheterization either now or at some point down the line. He tells me that he is not interested currently and just wants to go home and get some rest and recover from his urinary tract infection. It will be important to keep track of his creatinine as it is continuing to trend up. Today it is 3.2 which is the highest since he has been here. His baseline is somewhere around 2?2.2. Regardless, doing a left heart catheterization with his chronic kidney disease especially in the setting of bypass grafts and something we need to be cautioned about. ?No need to trend troponins as they are now downtrending ?Would start him on 75 mg of daily Plavix in addition to the aspirin. ?Continue isosorbide dinitrate 30 mg daily ?Continue metoprolol 25 mg twice daily ?Continue aspirin ?Continue atorvastatin Please have him follow-up with me in clinic in 1 month. History of Present Illness History of Present Illness Chief Complaint: elevated trop Narrative: Mr. Lyons is an 80-year-old male with past medical history significant for coronary artery disease status post 5 vessel CABG in 1993, diastolic heart failure, hypertension and lower extremity edema who was admitted to the hospital over the weekend with urinary tract infection and acute on chronic kidney injury. He was found to have an elevated troponin which peaked a little over 1.2 and has now started to trend down. From a coronary standpoint he did have an abnormal stress test about a year ago at which time it we elected to not pursue coronary catheterization as it is not within the patient's wishes to be incredibly aggressive with in-hospital procedures. Since that time he had done quite well and we had focused the majority of our meetings on blood pressure control and titrating his hydrochlorothiazide given his urinary troubles. He says he is feeling slightly better and is preparing to go home today. He says his appetite is not quite where he used to be. He still feels as though he is not interested in aggressive therapies at this point is just looking forward to getting home and getting some rest. He denies chest pain nor did he have any episodes of chest pain during this admission. Does not have any significant shortness of breath. Says he just wants to sleep. 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 S/P cholecystectomy Stent placement 2001 x1 Family History Mother , 78 Diabetes Essential hypertension Father , 66 Heart disease Sister Diabetes Maternal Grandfather , 93 Diabetes Maternal Grandmother Heart disease Paternal Grandfather , 77 Heart disease Paternal Grandmother No problems noted. Son No problems noted. Social History Smoking/Tobacco Use Status: Never Second Hand Exposure: Yes Smoking risk assessment performed?: Yes Alcohol Intake: never Drug use: Never Substance use type: does not use Counseling given: No Counseling provided: none Caregiver/Support person: No Household members: spouse Housing: house Communication Needs: Hard of Hearing Do you need help understanding health information?: Never Pets and animals: Yes Pets and animals: dog(s) Sexually active: Yes Do you think of yourself as: straight/heterosexual Current gender identity: male What is your relationship status?: How often do you talk on the phone with friends or family?: once per week How often do you get together with friends or relatives?: once per week How often do you attend rastafarian or faith services?: decline to answer Do you belong to any clubs or organized social groups?: decline to answer Panel score (0-1 are the most socially isolated patients): 1 What type of physical activity do you participate in: weight lifting Duration: 30-45 minutes/day Frequency: 1-2 times per week Pilar/Religious: Scientologist Special pilar needs: No Seatbelt use: always Helmet use: Yes Helmet use: always Drive intox or ride w/intox package delivery driver: No Do you feel safe at home: Yes Do you feel safe in your relationship?: Yes Exam Const General: comfortable and no acute distress HENMT Head: normocephalic and atraumatic Eyes General: appearance normal, both eyes and all related structures Resp Effort & Inspection: normal respiratory effort Auscultation: clear to auscultation bilaterally Cardio Jugular venous pressure: no JVD Palpation: normal PMI Rate: regular rate Rhythm: regular rhythm Heart Sounds: S1 normal and murmur systolic holo and I/ GI Palpation: soft Auscultation: normoactive bowel sounds Skin General skin exam: no rashes or lesions noted Extrem General: normal to inspection and no clubbing, cyanosis or edema Psych Appearance: grossly normal Results Last Vital Signs Temp 36.1 C L 11/24/20 07:19 Pulse 70 11/24/20 07:19 Resp 16 11/24/20 07:19 BP 123/67 11/24/20 07:19 Pulse Ox 97 11/24/20 07:19 Labs Result diagrams: 11/24/20 06:22 11/24/20 06:22 Labs: Laboratory Results - last 24 hr 11/24/20 11/24/20 06:22 06:22 WBC 9.54 RBC 3.10 L Hgb 9.1 L Hct 28.0 L MCV 90.3 MCH 29.4 MCHC 32.5 RDW 13.8 Plt Count 142 MPV 11.0 Immature Gran % 1.2 Neutrophils % 86.4 Lymphocytes % 5.9 Monocytes % 4.9 Eosinophils % 1.3 Basophils % 0.3 Nucleated RBC % 0 Absolute Neutrophils 8.25 H Absolute Lymphocytes 0.56 L Absolute Monocytes 0.47 Absolute Eosinophils 0.12 Absolute Basophils 0.03 Sodium 138 Potassium 4.7 Chloride 109 H Carbon Dioxide 18.6 L Anion Gap 10.4 BUN 70 H Creatinine 3.2 H Estimated GFR/1.73 m2 18.78 Glucose 187 H Calcium 7.7 L Magnesium 1.7 L
[2020-11-24] MEDS: Metoprolol 50 MG TAB 25 MG PO (09:42)
[2020-11-24] MEDS: Isosorbide Dinitrate 10 MG TAB 30 MG PO (09:42)
[2020-11-24] MEDS: Pantoprazole 40 MG TABCR PO (09:42)
[2020-11-24] MEDS: Magnesium Oxide 400 MG TAB PO (09:42)
[2020-11-24] MEDS: Ferrous Sulfate 325 MG TAB PO (09:42)
[2020-11-24] MEDS: Aspirin E.C. 81 MG TABEC PO (09:42)
[2020-11-24] MEDS: cefTRIAXone 1 GM/50 ML BAG IVPB (09:43)
[2020-11-24] MEDS: Insulin Aspart 300 UNITS/3 ML PEN SC ×2 (09:43→12:34)
[2020-11-24] MEDS: Normal Saline Flush 10 ML SYR (09:43)
[2020-11-24] MEDS: Insulin NPH-Human 300 UNITS/3 ML PEN 12 UNIT SC ×2 (09:44→16:44)
[2020-11-24] MEDS: Normal Saline 500 ML IV (10:55)
[2020-11-24 10:59] VITALS: BP 106/62; PULSE 84; RESP 19; TEMP 36.8; O2SAT 93
--- NOTE | 2020-11-24 10:59 | DSE_ITS ---
Date of service: 11/24/20 Time of Service: 11:03 DS: Diagnosis Discharge Diagnosis (1) Elevated troponin I level: Status: Acute Discharge Plan Disposition Patient Disposition: HOME Condition: Good Discharge Details Reason For Visit: FEVER, URINARY FREQUENCY, SUSPECTED UTI Admit Date/Time: 11/22/20 09:14 Admit Provider: Jahaira Martinez Attending Provider: Jahaira Martinez Primary Care Provider: Unknown,Unknown Hospital Course Hospital Course: Mr Lyons is an 80 year old male with PMHx of CAD s/p CABG x5 and a stent, NIDDM2, HTN, CKD 4, hyperlipidemia, who was sent to [facility] ED from [facility] where he had presented c/o chills (not fever), and bilateral groin pain and lower back pain. He also reported chronic urinary frequency since being initiated on HCTZ with nocturia (wakes up 10x/night to urinate; initiated on HCTZ in 01/[address] Parra). He did have hematuria, but this has resolved two days after his ER visit on 11/11/20. He is supposed to have a diagnostic cystoscopy on 12/04/[address] Wei. Of note, the patient was seen in the ED on 11/11/20 for hematuria. At that time, a urine C&S grew GNR but was mixed/contamin ated, so he was not initiated on abx. On his presentation to [facility], he was indeed febrile to 39.9 rectally. He was afebrile in the ED, but given a documented fever and urine C&S from 11/11, he was initiated on empiric levofloxacin. He was also found to be in SHAINA on CKD with a potassium of 5.2, and a Cr of 3.5, up from 2.6 on 11/11/20 and 2.2, which is his baseline. For this, he was initiated on IVF. The patient has refused a urinary catheter sample. His bladder scan was 84 ccs in the ED. Hospitalist admission was requested. On my conversation with the patient, he is very clear that the urinary frequency is not new and, if anything, it has gotten a little bit better over the last couple of days. His major concern bringing him to [facility] today was that he was not sure that taking advil for pain was a good idea for him - he has been taking advil for his lower back, groin, and left shoulder pain. He was not aware he was having actual fevers at home, but does endorse chills. He reports lower back pain that has started on both sides, but now lateralized to the left. He states it has been going on for at least one week, but is not clear when this started. Denies trauma. He already had the back pain when he went to the ED on 11/11/20. The groin discomfort remains bilateral, and he can reproduce it when he tries to raise his legs in bed. Denies numbness/tingling. Denies difficulties passing stools. The patient states that 2-3 days ago he had passed out, but he does not think he hit his head. He thinks pain may have contributed to the fainting spell.? He does endorse noticing 24 hrs later that his left shoulder was hurting. He is able to point to where it hurts. He states that he had lost his balance and then remembers waking up on the floor and not knowing how he got there. Denies chest pain, shortness of breath. Does endorse feeling dizzy before fainting. Rocephin 1 gram IV daily added until urine culture showed growth of quinolone sensitive Kelbsiella pneumoniae. His WBC count normalized and will d/c on a course of Levaquin 500mg po Q48 hours for 3 doses. His levaquin dosing was adjusted for his acute on chronic kidney disease. Regarding his renal function, his presenting creatinine was 3.5; decreased to 2.8, then increased again to 3.2. His oral fluid intake was marginal. A 500ml NS bolus was given on day of discharge. His A1c was noted to be elevated at 8.3. His sulfonylurea was stopped and NPH insulin with SS corrective insulin dosing was initiated. He will d/c on NPH insulin 14units SQ BID. His troponin was 0.96 initially, then increased to 1.28. Subsequent results were 0.09 then 0.13. At no time did he have CP. Telemtry monitoring showed no arrhythmias. EKG showed evidence of an anterolateral infarct, age indeterminent. He will f/u with Dr Parra in 1-2 weeks and his PCP in 1-2 weeks as well. Home Meds and New Rx's Prescriptions: New acetaminophen [Tylenol] 325 mg Tablet 650 mg PO Q4H PRN PRNQty: 0 RF: 0 magnesium oxide 400 mg (241.3 mg magnesium) Tablet 400 mg PO BID@1000,2200 Qty: 0 RF: 0 tamsulosin 0.4 mg Capsule 0.4 mg PO HS Qty: 30 RF: 0 Humulin N NPH Insulin KwikPen 100 unit/mL (3 mL) Insulin Pen 14 unit subcut BID@0800,1700 Qty: 15 RF: 0 levofloxacin 500 mg tablet 500 mg PO Q48H Qty: 3 RF: 0 Continued atorvastatin [Lipitor] 40 mg tablet 40 mg PO DAILY Qty: 90 RF: 4 isosorbide dinitrate 30 mg tablet 30 mg PO DAILY Qty: 90 RF: 4 metoprolol tartrate 50 mg tablet 25 mg PO BID Qty: 90 RF: 4 nitroglycerin [Nitrostat] 0.4 mg tablet, sublingual 0.4 mg Sublingual PRN Qty: 10 RF: 0 ASPIRIN 81 MG tablet 1 tab PO DAILY RF: 0 (DME) blood-glucose meter 1 EACH misc 1 ea Miscellaneous DAILY Qty: 1 RF: 0 (DME) Blood Glucose Test Strip 1 ea Miscellaneous DAILY Qty: 100 RF: 4 (DME) lancets 28 gauge misc 1 ea Miscellaneous DAILY Qty: 100 RF: 4 Discontinued glipizide 10 mg tablet extended release 24hr 10 mg PO DAILY Qty: 90 RF: 3 hydrochlorothiazide 25 mg tablet 25 mg PO DAILY Qty: 90 RF: 3 Discharge Instructions Instructions: Type 2 Diabetes in the Older Adult (DC) Stand Alone Forms: Nursing Discharge Form Referrals: PCP [Other] (Please call your PCP and make a follow up appointment for 1-2 weeks. ) Aris Parra MD [ CONSULTING PHYSICIAN] - 12/11/20 1:00 pm Activity:: Activity as Tolerated Equipment/Supplies:: glucose monitor, needles Diet:: Low Na and diabetic diet Discharge Orders Discharge Orders: Discharge Order (Routine); Ordered 11/24/20 Ordered By: Prosper Caballero DS: Summary Time Spent with Patient providing and/or coordinating discharge services: Greater than 30 minutes Status at Discharge Functional status at discharge: independent ambulation Overall status at discharge: patient is back to baseline Mental Status: mental status grossly normal Speech and Movement: speech and movement normal Mood: congruent mood Affect: normal affect Exam Const General: cooperative and no acute distress Nutritional Appearance: average body habitus Orientation: alert and oriented x3 Neck Neck: full ROM and no JVD Resp Effort & Inspection: normal respiratory effort Auscultation: clear to auscultation bilaterally Cardio Rate: regular rate Rhythm: regular rhythm Heart Sounds: S1 normal and S2 normal GI Palpation: soft and nontender Neuro General: no focal motor deficits Speech: speech normal Extrem General: no pedal edema and no calf tenderness Psych Appearance: grossly normal Mental Status: mental status grossly normal Speech and Movement: speech and movement normal Mood: congruent mood Affect: normal affect Attitude: cooperative DS: Data Vitals/I&O Vitals and I&O: Vital Signs Temperature 36.1 C L 11/24/20 07:19 Temperature Source Tympanic 11/24/20 07:19 Pulse 70 11/24/20 07:19 Pulse Rhythm Regular 11/24/20 05:09 Respiratory Rate 16 11/24/20 07:19 Respiratory Effort Non-Labored 11/24/20 05:09 Respiratory Depth Normal 11/24/20 05:09 Respiratory Pattern Normal 11/24/20 05:09 Blood Pressure 123/67 11/24/20 07:19 Blood Pressure Position Sitting 11/20/20 20:08 Pulse Oximetry 97 11/24/20 07:19 Oxygen Delivery Method Room Air 11/24/20 07:19 Oxygen Flow Rate 0 11/24/20 07:19 Pain Level 0 11/24/20 07:19 Intake & Output 11/23/20 11/23/20 11/24/20 11:59 23:59 11:59 Intake Total 290 / 1285 995 / 1285 240 / 240 Output Total 1000 / 1750 750 / 1750 Balance -710 / -465 245 / -465 240 / 240 Weight 68.4 kg Intake: IV 50 / 365 315 / 365 Oral 240 / 920 680 / 920 240 / 240 Output: Urine 1000 / 1750 750 / 1750 Other: Urine Color Yellow Yellow Urine Appearance Clear Clear Clear Urine Odor Normal None Voiding Methods Toilet Urinal Data Completed and Pending Labs on day of discharge: Labs from last 24 hours 11/24/20 11/24/20 06:22 06:22 WBC 9.54 RBC 3.10 L Hgb 9.1 L Hct 28.0 L MCV 90.3 MCH 29.4 MCHC 32.5 RDW 13.8 Plt Count 142 MPV 11.0 Immature Gran % 1.2 Neutrophils % 86.4 Lymphocytes % 5.9 Monocytes % 4.9 Eosinophils % 1.3 Basophils % 0.3 Nucleated RBC % 0 Absolute Neutrophils 8.25 H Absolute Lymphocytes 0.56 L Absolute Monocytes 0.47 Absolute Eosinophils 0.12 Absolute Basophils 0.03 Sodium 138 Potassium 4.7 Chloride 109 H Carbon Dioxide 18.6 L Anion Gap 10.4 BUN 70 H Creatinine 3.2 H Estimated GFR/1.73 m2 18.78 Glucose 187 H Calcium 7.7 L Magnesium 1.7 L PFSH Medical History Abdominal discomfort (04/12/17) Anxiety Chest pain CKD (chronic kidney disease) stage 4, GFR 15-29 ml/min Coronary atherosclerosis of [place] coronary vessel S/P bypass 1993 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 S/P cholecystectomy Stent placement 2001 x1 Family History Mother , 78 Diabetes Essential hypertension Father , 66 Heart disease Sister Diabetes Maternal Grandfather , 93 Diabetes Maternal Grandmother Heart disease Paternal Grandfather , 77 Heart disease Paternal Grandmother No problems noted. Son No problems noted. Social History Smoking/Tobacco Use Status: Never Second Hand Exposure: Yes Smoking risk assessment performed?: Yes Alcohol Intake: never Drug use: Never Substance use type: does not use Counseling given: No Counseling provided: none Caregiver/Support person: No Household members: spouse Housing: house Communication Needs: Hard of Hearing Do you need help understanding health information?: Never Pets and animals: Yes Pets and animals: dog(s) Sexually active: Yes Do you think of yourself as: straight/heterosexual Current gender identity: male What is your relationship status?: How often do you talk on the phone with friends or family?: once per week How often do you get together with friends or relatives?: once per week How often do you attend cheondoism or tenriism services?: decline to answer Do you belong to any clubs or organized social groups?: decline to answer Panel score (0-1 are the most socially isolated patients): 1 What type of physical activity do you participate in: weight lifting Duration: 30-45 minutes/day Frequency: 1-2 times per week Pilar/Anabaptist: Buddhism Special pilar needs: No Seatbelt use: always Helmet use: Yes Helmet use: always Drive intox or ride w/intox fuel truck driver: No Do you feel safe at home: Yes Do you feel safe in your relationship?: Yes
--- NOTE | 2020-11-24 11:21 | INDS_ITS ---
Date of service: 11/25/20 Time of Service: 11:31 PT Notes Visit Reasons: FEVER, URINARY FREQUENCY, SUSPECTED UTI Physical Therapy Inpatient Discharge Summary Date: 11/21/2020 Date of service: 11/21/2020 through 11/24/2020 Referring Doctor: Jahaira Martinez MD PT Orders: PT CONSULT: Limited ability Precautions: Fall. Standard. Activity as tolerated. Patient Profile/Admitting Diagnosis: Phil is an 80-year-old male who presented to the ED on 11/20/2020 with fever, bilateral lower groin pain, low back pain, and chronic urinary frequency.? Patient is diagnosed with urinary tract infection, syncope, acute kidney injury superimposed on chronic kidney injury, left shoulder pain, back pain, acute on chronic blood loss anemia, hematuria, and hyperkalemia. 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 Equipment Owned/DME: Front wheeled walker, single-point cane Subjective: Determined to go home today. 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 Objective: General Observation:? Telemetry monitoring in place. Mental Status: Alert and oriented as to person, place, time, and purpose. Able to pay attention, focus, and respond appropriately. Pain: 07/13 in low back ROM: Right Upper Extremity: ? Shoulder Flexion WFL. Shoulder abduction WFL. Shoulder ER/IR WFL. Elbow flexion WFL. Forearm pronation/supination WFL. Wrist flexion WFL. Opening and closing of hand WFL. Left Upper Extremity:? Shoulder Flexion WFL. Shoulder abduction WFL. Shoulder ER/IR WFL. Elbow flexion WFL. Forearm pronation/supination WFL. Wrist flexion WFL. Opening and closing of hand WFL. Right Lower Extremity: Hip flexion WFL. Hip abduction WFL. Hip ER/IR WFL. Knee flexion WFL. Knee extension. Ankle dorsiflexion/eversion WFL. Ankle plantarflexion/inversion WFL. Left Lower Extremity: Hip flexion WFL. Hip abduction WFL. Hip ER/IR WFL. Knee flexion WFL. Knee extension. Ankle dorsiflexion WFL. Ankle plantarflexion WFL. Strength: Right Upper Extremity: Shoulder flexors 4/5. Shoulder abductors 4/5. Shoulder ER 4/5. Shoulder IR 4/5. Forearm pronators 5/5. Forearm supinators 5/5. Elbow flexors 5/5. Elbow extensors 5/5. Broadcast Field Supervisor strong. Left Upper Extremity: Shoulder flexors 4/5. Shoulder abductors 4/5. Shoulder ER 4/5. Shoulder IR 4/5. Forearm pronators 5/5. Forearm supinators 5/5. Elbow flexors 5/5. Elbow extensors 5/5. Broadcast Field Supervisor strong. Right Lower Extremity: Hip flexors 5/5. Hip abductors 5/5. Hip external rotators 5/5. Hip internal rotators 5/5. Knee flexors 5/5. Knee extensors 5/5. Ankle dorsiflexors/evertors 5/5. Ankle plantarflexors/invertors 5/5. Left Lower Extremity: Hip flexors 5/5. Hip abductors 5/5. Hip external rotators 5/5. HIp internal rotators 5/5. Knee flexors 5/5. Knee extensors 5/5. Ankle dorsiflexors/evertors 5/5. Ankle plantarflexors/invertors 5/5. Bed Mobility/Transfers: Sit to stand independent Stand to sit independent Bed to chair independent Gait: Guided patient through level surface ambulation of about 300 feet using front wheeled walker and full weight bearing requiring supervision assist with decreased vanessa but no report of back pain.? No LOB seen.? No SOB observed. Balance: Static Sitting: Normal Dynamic Sitting: Normal Static Standing: Good Dynamic Standing: Fair 4-stage balance test: Tolerated feet together for 10 seconds but was unable to do so with semitandem, full tandem, and 1 legged stance indicating at risk for falls. Assessment: At risk for falls as evidenced by 4 stage balance test results however patient does not want any further skilled services at home and at an outpatient basis as he states that he himself will start working on again improving his balance at home on his own.? Decreased activity tolerance limit ambulation performance.? Will benefit from outpatient PT services for continued balance scaling however patient states that he will be able to manage balance retraining at home on his own. Patient continues to present with clinical signs and symptoms consistent with current/admitting diagnoses that have resulted to mobility limitations, gait instability, generalized weakness, and impairment of motor control as demonstrated by the following impairment level findings: 1.? Impaired standing balance based on the 4 stage balance test 2.? Impaired activity tolerance Impairments are continuing to contribute to the following functional limitations: 1.? Increase completion time for mobility ADL performance 2.? Increased fall risk Goals: Goals X1 week 1. Supine-Sit independent MET 2. Sit-Supine independent MET 3. Sit-Stand independent MET 4. Stand-Sit independent MET 5. Bed-Chair independent MET 6. Chair-Bed independent MET 7. Independent gait on level surface with use of no assistive device for at least 200 feet without report of pain nor dyspnea NOT MET 8. Independent stair negotiation while holding onto 1 rail for at least 5 steps without report of pain nor dyspnea 9. Independent with home exercise program NOT MET 10. Good static and dynamic standing balance/tolerance NOT MET DISCHARGE RECOMMENDATIONS: Home when medically cleared by hospitalist.? Outpatient PT services in order to improve dynamic balance skills to reduce fall risk and facilitate return to independent community ambulation without an assistive device TREATMENT CODE/TIME: 00518 x 38 minutes beginning at 11:31 AM. Thank you for the opportunity to participate in the care of this patient. Amy Han PT, DPT, CLT [employer] [place], [place]
--- NOTE | 2020-11-24 12:24 | PDOC.HHF2F ---
Home Health Certification Home Health Certification: 1. Encounter Date and Reason I certify that Phil Riggs Courser was seen by Prosper Caballero MD on 11/24/20 and that I had a [id number] encounter with this patient that meets the physician face to face encounter requirements. 2. Clinical Findings Supporting Skilled Need and Homebound Status I certify that home health services are medically necessary, include either intermittent senior care and/or physical/speech therapy, and that this patient is homebound in that absences from the home require considerable and taxing effort and are infrequent or of short duration, or are attributable to the need to receive medical care. [X] (a) Attached documentation from encounter provides clinical findings supporting skilled need and homebound status (including what assistance patient requires to leave the home). The encounter with the patient was in whole, or in part, for the following medical condition, which is the primary reason for home health care: FEVER, URINARY FREQUENCY, SUSPECTED UTI Half-Way: Monitor diabetes status; new start on insulin. Monitor urinary status; on antibiotics for UTI. Physical Therapy: Speech Therapy: Homebound: 3. Certification and Authentication I certify that I composed the above information based on my clinical judgement relating to this patient's medical condition and, if applicable, clinical findings communicated to me by the NPP or inpatient physician who performed the Home Health Referral. All further orders will be obtained through Pricilla Kline (Community Based Physician - PCP)
--- NOTE | 2020-11-24 14:02 | CHAPLAIN ---
Yuriy was up in his chair, very talkative and shared a lot of personal history. He had some difficult times in his life when he was young and credits his mom with being a strong single mother for Yuriy, and his sister Adriane. Yuriy is from the 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 Yuriy is confident that through out his life he has helped a large number of people, students and athletes and he feels good about that.
[2020-11-24 15:26] VITALS: BP 125/63; PULSE 74; RESP 17; TEMP 36.9; O2SAT 99
[2020-11-24] MEDS: Diclofenac 1% Gel 100 GM TUBE TP (16:04)
--- NOTE | 2020-11-24 17:34 | CMDISCH_ITS ---
- If Service Date Differs Date of service: 11/24/20 Time of Service: 17:34 LACE Index Scoring Tool - Questions: Length of Stay (in days): 3 Acuity (Admit via E.D.?): Yes Comorbidities: Diabetes w/o Complication, Liver or Renal Disease E.D. Visits: 2 - Answers: Total Score: 13 Risk of Readmission: High Risk Care Management Discharge Reason for Hospitalization: Fever, UTI Discharge Plan: Yuriy will return home with new orders for HH RN for his new medic ation regiment to control his diabetes. His will drive him home via private vehicle. He will follow up with his PCP and discharge plan of care. He is happy to be going home. Patient/Family Education Needs: Review discharge instructions regarding activity levels and medications, discussion of self care needs including ask me three. Services Needed at Discharge: Home Health Care Services ([facility] RN)
== END 2020-11-24 17:11 | disposition home or self-care (01) | DRG 682 ==
LOC: ER 22:49 → MS 23:18
PROVIDERS: Family Medicine; Internal Medicine; Admitting Provider Internal Medicine; Emergency Provider Physician Assistant; Visit Provider Internal Medicine
DX: N17.9 Acute kidney failure, unspecified (principal); I21.A1 Myocardial infarction type 2; N30.01 Acute cystitis with hematuria; D62 Acute posthemorrhagic anemia; N18.4 Chronic kidney disease, stage 4 (severe); I12.9 Hypertensive chronic kidney disease with stage 1 through stage 4 chronic kidney disease, or unspecified chronic kidney disease; E11.22 Type 2 diabetes mellitus with diabetic chronic kidney disease; E78.5 Hyperlipidemia, unspecified; R55 Syncope and collapse; E11.65 Type 2 diabetes mellitus with hyperglycemia; E87.5 Hyperkalemia; I25.10 Atherosclerotic heart disease of native coronary artery without angina pectoris; Z95.1 Presence of aortocoronary bypass graft; Z95.5 Presence of coronary angioplasty implant and graft; W18.39XA Other fall on same level, initial encounter; F41.9 Anxiety disorder, unspecified; F32.9 Major depressive disorder, single episode, unspecified; R25.2 Cramp and spasm; R63.4 Abnormal weight loss; Z20.822 Contact with and (suspected) exposure to COVID-19; I25.2 Old myocardial infarction; Z79.4 Long term (current) use of insulin; S40.012A Contusion of left shoulder, initial encounter; M54.5 Low back pain; E83.42 Hypomagnesemia
CPT/HCPCS: 36415; 80048; 80053; 82550; 84145; 87040; 87077; 87635; 93306; 96361; 96365; 96368; 97110; 97162; 97530; 99222; 99285; 73030; 74176; 81003; 81015; 82607; 82728; 82746; 83036; 83540; 83550; 83605; 83735; 83880; 84132; 84484; 85025; 86140; 87086; 87186; 93005; 93010; 99220; 99232; 99233; 99239; G0378; J0131; J0696; J1756; J1956; J3490

== ENCOUNTER 2020-11-20 20:18 | Outpatient (REF) | payer MEDICARE, BC, SELFPAY | END 2020-11-20 20:19 | disposition home or self-care (01) | LOC: LBN 20:18 | PROVIDERS: Visit Provider Nurse Practitioner Family | DX: N39.0 Urinary tract infection, site not specified (principal) | CPT/HCPCS: 87077; 87086; 87186 ==

== ENCOUNTER → 2020-11-24 07:52 | Outpatient (BNVA) | payer MEDICARE, BC, SELFPAY | PROVIDERS: Visit Provider Internal Medicine Cardiovascular Disease | DX: R69 Illness, unspecified (principal) ==

== ENCOUNTER 2020-12-03 09:39 | Observation (INO) | payer MEDICARE, BC, SELFPAY ==
[2020-12-03] VITALS (68 sets, daily range): BP systolic 111–183; BP diastolic 48–79; PULSE 53–70; RESP 9–25; TEMP 36.3–37.1; O2SAT 95–100
--- NOTE | 2020-12-03 09:30 | RT.EKG_ITS ---
APPROVED REPORT Exam: Resting ECG Reason for Exam: chest pain Patient Location: E HR:59 bpm ECG Measurements Heart Rate 59 AXIS WI [id number] P [id number] QRSd 81 QRS 5 QT 457 T 112 QTc 455 Conclusion Atrial fibrillation...? atrial activity Ventricular bigeminy...bigeminy string>4 w/ V complexes Anteroseptal infarct, age indeterminate...Q >35mS, T neg, V1-V2 Abnormal T, consider ischemia, lateral leads...T <-0.20mV, I aVL V5 V6 no acute ischemic changes when compared to 11/22 ekg
--- NOTE | 2020-12-03 09:46 | ED.GENADUL_ITS ---
Discharge Plan Disposition Patient Disposition: [facility] INPATIENT Condition: Stable Discharge Details Clinical Impression: Acute deep vein thrombosis (DVT) of right femoral vein, Hyperkalemia, Chest pain Admit Date/Time: 12/03/20 16:47 Admit Provider: Jahaira Martinez Attending Provider: Jahaira Martinez Primary Care Provider: Pricilla Kline ED Provider: Yong Barba Discharge Data Discharge Date/Time-TO BE ENTERED AT DEPARTURE: 12/03/20 17:21 Medical Decision Making <Joanna Ortiz - Last Filed: 12/04/20 14:33> 80-year-old male past medical history coronary artery disease, CKD stage IV, hyperlipidemia, hypertension, diabetes history of coronary artery bypass surgery in 1993 stents placed presents to the ED with chief complaint of midsternal chest pain which radiated to left side of his chest which began approximately 1 hour prior to arrival. He reports that it started this morning unknown duration and then has since resolved. He is unable to tell me if it happens at rest or during exertion. He was recently admitted to the hospital for hematuria and UTI, discharge proximately 5 days ago. He does take 1 chewable baby aspirin daily. He did take his regular morning meds today. Upon initial presentation he is not complaining of any chest pain. Associated symptoms include fatigue and generalized weakness. EKG was reviewed by [Mitul Ornelas] ER attending, please see his official read and report. Old EKG was available for review. Frequent PVCs, ventricular bigeminy. 1030: Initial troponin 0.20 which has decreased from his last reading at 0.96 on November 22. 1038: D-dimer critically high at 7500. 1047: Received verbal report from radiology department regarding right lower extremity ultrasound positive for DVT in the right common femoral vein positive popliteal vein. EXAM: US LOWER EXTREMITY VENOUS RT CLINICAL HISTORY: RLE swelling, R/O DVT TECHNIQUE: Right lower extremity venous ultrasound performed using grayscale, color-flow, and spectral Doppler analysis. COMPARISON: No exams were available for comparison FINDINGS: There is no evidence of a Bernal cyst. The soft tissues are unremarkable. The right common femoral, femoral and popliteal veins show occlusive hypoechoic thrombus present. There is involvement of the proximal greater saphenous vein and the profunda vein.The posterior tibial veins are patent. IMPRESSION: 1. Extensive deep venous thrombus extending from the common femoral into the popliteal vein. 2. Results of this exam have been verbally communicated with provider. 1139: Discussed ultrasound results with patient and at bedside they verbalized understanding. Discussed risks and benefits of ruling out a PE in the way of CT angiogram chest. At this time Lovenox 1 mg/kg subcu ordered. Patient and family would like to wait on doing the CTA at this time. Patient continues to be chest pain-free. Call out to the wound care coordinator in-house Dr. Prabhakar. Discussed patient case and details with Dr. Prabhakar, he agrees with current treatment and gives no further recommendations at this time. At this time potassium is 5.5, magnesium 1.6, PT 10.9, INR 1.1 APTT 22.5, D- dimer is greater than 7500 BUN 50 creatinine 2.5 GFR 24 glucose 209 calcium 8.4. Magnesium 1 g IV piggyback ordered, insulin 5 units IV, calcium gluconate ordered for hyperkalemia. I am considering pseudo-hyperkalemia due to patient's chronic kidney disease. Will reevaluate BMP after interventions. 1309: Second troponin is 0.19, downtrending. Will page hospitalist for possible admission 1336: Spoke with Dr. Martinez who is on for hospitalist she recommends VQ scan: discussed with Gordon at nuclear medicine that VQ scan would probably not be possible until 5 or 6 PM tonight and possibly tomorrow morning. They do have to get some infusion medicine from [place]. Relayed this information to Dr. Martinez who is requesting an stat echocardiogram to rule out right heart strain. Order placed. Will order a repeat BMP to reevaluate potassium in approximately 3 PM. 1603: Call made to [facility] cardiology regarding echocardiogram. And cardiology consult, cardiology will not read the echo due to the diagnosis of rule out right heart strain per diagnostic imaging department. Awaiting callback. Will recall hospitalist regarding possible admission. 1629: Tip Stitcher has read the echocardiogram which was requested by Dr. Martinez, pending admission, at this time I do recommend admission for anticoagulation and rule out PE. V/Q order placed which can be done in the morning. 1644: Care is to be handed off to oncoming provider CHARY Shaikh pending possible admission. <Gordon Ornelas MD - Last Filed: 12/03/20 14:45> I had a [id number] encounter with the patient. I evaluated the patient. I discussed case with LINE FISHER/PA and I reviewed LINE FISHER/PA note and agree with note as documented. <CHARY Knox - Last Filed: 12/03/20 17:17> I assumed care of this patient at shift change from my colleague KHANH Ortiz. Please see her initial HPI and examination. At time of signout we are awaiting official read of an echocardiogram so that we can determine whether the patient can be safely admitted to our facility or transfer to [facility]. I received the official report of the echocardiogram. The right ventricle is normal in size. Right ventricular global systolic function is probably normal. The estimated pulmonary artery systolic pressure is 33. Global left ventricular wall motion and contractility are probably within normal limits. Prior study not available for comparison. Limited study to evaluate right heart. Hospitalist was paged, I discussed the echocardiogram with Dr. Martinez, who believes that the patient can safely be admitted to our facility. She will admission orders. HPI <Joanna Ortiz - Last Filed: 12/04/20 14:33> General Mode of arrival: wheelchair . Date/Time Provider Initiated Documentation: 12/03/20 09:40 . Limitations to Documentation: no limitations . Information obtained by: patient, RN notes reviewed and old records reviewed . HPI Narrative: 80-year-old male past medical history coronary artery disease, CKD stage IV, hyperlipidemia, hypertension, diabetes history of coronary artery bypass surgery in 1993 stents placed presents to the ED with chief complaint of midsternal chest pain which radiated to left side of his chest which began approximately 1 hour prior to arrival. He reports that it started this morning unknown duration and then has since resolved. He is unable to tell me if it happens at rest or during exertion. He was recently admitted to the hospital for hematuria and UTI, discharge proximately 5 days ago. He does take 1 chewable baby aspirin daily. He did take his regular morning meds today. Upon initial presentation he is not complaining of any chest pain. Associated symptoms include fatigue and generalized weakness. Related Data Home Medications Medication Instructions Recorded Confirmed Aspirin 1 tab PO DAILY tab-cap 09/26/12 12/03/20 atorvastatin 40 mg tablet 40 mg PO DAILY #90 tab 08/25/20 12/03/20 isosorbide dinitrate 30 mg tablet 30 mg PO DAILY #90 tab 08/25/20 12/03/20 metoprolol tartrate 50 mg tablet 25 mg PO BID #90 tab 08/25/20 12/03/20 nitroglycerin 0.4 mg sublingual 0.4 mg SUBLINGUAL PRN #10 tab 08/25/20 12/03/20 tablet Blood Glucose Test #100 strip 11/24/20 acetaminophen [Tylenol] 650 mg PO Q4H PRN PRN #0 tab 11/24/20 blood-glucose meter #1 ea 11/24/20 insulin NPH isoph U-100 human 14 unit SUBCUT BID@0800,1700 #15 ml 11/24/20 12/03/20 [Humulin N NPH Insulin KwikPen] lancets #100 ea 11/24/20 levofloxacin 500 mg PO Q48H #3 tab 11/24/20 magnesium oxide 400 mg PO BID@1000,2200 #0 tab 11/24/20 tamsulosin 0.4 mg PO HS #30 cap 11/24/20 12/03/20 pen needle, diabetic 31 gauge x #100 ea 12/02/2011/16 diphenhydramine-acetaminophen 1 tab PO HS 12/03/20 12/03/20 [Tylenol PM Extra Strength] Previous Rx's Medication Instructions Recorded atorvastatin 40 mg tablet 40 mg PO DAILY #90 tab 08/25/20 isosorbide dinitrate 30 mg tablet 30 mg PO DAILY #90 tab 08/25/20 metoprolol tartrate 50 mg tablet 25 mg PO BID #90 tab 08/25/20 nitroglycerin 0.4 mg sublingual 0.4 mg SUBLINGUAL PRN #10 tab 08/25/20 tablet Blood Glucose Test #100 strip 11/24/20 acetaminophen [Tylenol] 650 mg PO Q4H PRN PRN #0 tab 11/24/20 blood-glucose meter #1 ea 11/24/20 insulin NPH isoph U-100 human 14 unit SUBCUT BID@0800,1700 #15 ml 11/24/20 [Humulin N NPH Insulin KwikPen] lancets #100 ea 11/24/20 levofloxacin 500 mg PO Q48H #3 tab 11/24/20 magnesium oxide 400 mg PO BID@1000,2200 #0 tab 11/24/20 tamsulosin 0.4 mg PO HS #30 cap 11/24/20 pen needle, diabetic 31 gauge x #100 ea 12/02/2011/16 Allergies Allergy/AdvReac Type Severity Reaction Status Date / Time metoclopramide Allergy Intermediate Verified 11/20/20 20:18 Penicillins Allergy Unknown Verified 11/20/20 20:18 General MANDI: 3 Review of Systems <Joanna Ortiz - Last Filed: 12/04/20 14:33> Narrative: Constitutional: Negative for weight loss, alert and oriented, well groomed, normal body habitus, appears comfortable. HEENT: Denies trauma, headaches, blurry vision, nasal discharge, sore throat, trouble swallowing. Chest: Denies palpitations, irregular rhythm, positive chest pain which is since resolved upon initial exam describes as sharp intermittent. Respiratory: Denies Shortness of breath, cough, hemoptysis. GI: Denies abdominal pain, nausea, vomiting, diarrhea, constipation. : Denies dysuria, hematuria, flank pain, rectal bleeding. Neuro: Denies dizziness, blurry vision, syncope, headache or facial numbness. Positive generalized weakness. Hematologic: Denies easy bruising, intolerance to heat or cold, hair loss. 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 S/P cholecystectomy Stent placement 2001 x1 Family History Mother , 78 Diabetes Essential hypertension Father , 66 Heart disease Sister Diabetes Maternal Grandfather , 93 Diabetes Maternal Grandmother Heart disease Paternal Grandfather , 77 Heart disease Paternal Grandmother No problems noted. Son No problems noted. Social History Smoking/Tobacco Use Status: Never Second Hand Exposure: Yes Smoking risk assessment performed?: Yes Alcohol Intake: never Drug use: Never Substance use type: does not use Counseling given: No Counseling provided: none Caregiver/Support person: No Household members: spouse Housing: house Communication Needs: Hard of Hearing Do you need help understanding health information?: Never Pets and animals: Yes Pets and animals: dog(s) Sexually active: Yes Do you think of yourself as: straight/heterosexual Current gender identity: male What is your relationship status?: How often do you talk on the phone with friends or family?: once per week How often do you get together with friends or relatives?: once per week How often do you attend yarsani or spiritism services?: decline to answer Do you belong to any clubs or organized social groups?: decline to answer Panel score (0-1 are the most socially isolated patients): 1 What type of physical activity do you participate in: weight lifting Duration: 30-45 minutes/day Frequency: 1-2 times per week Pilar/Mosque: Adventism Special pilar needs: No Seatbelt use: always Helmet use: Yes Helmet use: always Drive 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 Appears stated age. Normal body habitus. Head: Normocephalic, no trauma. Eyes: Pupils PERRLA, Red reflex noted, EOM's intact. Eyelids symmetrical without lesions, discharge, or swelling. ENT: Bilateral TM's WNL, External ear normal to inspection, no mastoid TTP, swelling, or erythema, Nasal turbinates WNL, no nasal discharge. Normal dentition, Posterior pharynx WNL, no exudate. Chest: Normal S1, S2, distal pulses intact. Cardiac monitoring shows normal sinus rhythm at a rate 56 with frequent PVCs occasional bigeminy. See EKG. Resp: Lungs clear to auscultation bilaterally, no wheezes, rales, or rhonchi. Musculoskeletal: Normal gait, 5/5 strength to all four extremities. Right lower extremity 2+ pitting edema noted no erythema no calf tenderness. Skin: No suspicious rashes or lesions. Capillary refill less than 2 sec. Neurologic: Cranial nerves II-XII intact. Alert and oriented x 3. DTR's intact. Hematologic/Lymphatic: No ecchymosis, no lymphadenopathy. Sign Out <Joanna Ortiz - Last Filed: 12/04/20 14:33> Sign Out Data: Sign Out Comment: Pending Echo and admission Last updated by Joanna Ortiz at 12/03/20 16:52
[2020-12-03 10:02] LABS: Absolute Basophil Count 0.06 10^3/uL (0.0-0.2); Absolute Eosinophil Count 0.08 10^3/uL (0.0-0.7); Absolute Lymphocyte Count 0.82 10^3/uL (1.2-3.4); Absolute Monocyte Count 0.44 10^3/uL (0.1-0.8); Absolute Neutrophil Count 4.95 10^3/uL (1.2-6.7); Basophils % 0.9; Eosinophils % 1.2; HCT 32.7 % (40.0-50.0); HGB 10.5 g/dL (13.5-17.5); Immature Grans % 1.6; Lymphocytes % 12.7; MCH 29.7 pg (27.0-33.0); MCHC 32.1 % (32.0-36.0); MCV 92.6 fL (80-95); MPV 10.6 fL (8.0-11.0); Monocytes % 6.8; Neutrophils % 76.8; Nucleated RBC 0 %; Platelet Count 216 10^3/uL (130-400); RBC 3.53 10^6/uL (4.36-5.78); RDW 13.9 % (11.8-14.1); RDW-SD 46.7 fL; WBC 6.45 10^3/uL (4.4-10.8)
[2020-12-03] MEDS: Aspirin 81 MG CHEW 243 MG CH (10:05)
--- NOTE | 2020-12-03 10:15 | DI.US_ITS ---
Exam(s) US LOWER EXTREMITY VENOUS RT EXAM: US LOWER EXTREMITY VENOUS RT CLINICAL HISTORY: RLE swelling, R/O DVT TECHNIQUE: Right lower extremity venous ultrasound performed using grayscale, color-flow, and spectr al Doppler analysis. COMPARISON: No exams were available for comparison FINDINGS: There is no evidence of a Bernal cyst. The soft tissues are unremarkable. The right common femoral, femoral and popliteal veins show occlusive hypoechoic thrombus present. Th ere is involvement of the proximal greater saphenous vein and the profunda vein.The posterior tibial veins are patent. IMPRESSION: 1. Extensive deep venous thrombus extending from the common femoral into the popliteal vein. 2. Results of this exam have been verbally communicated with provider. DATA REPOSITORY:
[2020-12-03 10:17] LABS: INR 1.1 (0.9-1.1); PTT Activated 22.5 sec (21.0-27.5); Prothrombin Time 10.9 sec (9.3-11.0)
[2020-12-03 10:23] LABS: ALT 30 U/L (16-63); AST 25 U/L (15-37); Albumin 2.8 g/dL (3.4-5.0); Alkaline Phosphatase 113 U/L (46-116); Anion Gap 8.2 mmol/L (3-11); BUN 50 mg/dL (7-18); Bilirubin, Total 0.6 mg/dL (0.2-1.0); CO2 24.8 mmol/L (21.0-32.0); CREATININE 2.5 mg/dL (0.70-1.30); Calcium 8.4 mg/dL (8.5-10.1); Chloride 103 mmol/L (98-107); Estimated GFR 24.97 (mL/min/1.73m2); Glucose 209 mg/dL (74-106); Magnesium 1.6 mg/dL (1.8-2.4); Potassium 5.5 mmol/L (3.5-5.1); Sodium 136 mmol/L (136-145); Total Protein 7.3 g/dL (6.4-8.2)
[2020-12-03 10:39] LABS: D-Dimer > 7500 ng/mlFEU (<500)
--- NOTE | 2020-12-03 10:57 | DI.RAD_ITS ---
Exam(s) XR CHEST 2V PA LATERAL EXAM: XR CHEST 2V PA LATERAL CLINICAL HISTORY: Chest Pain TECHNIQUE: 2D digital imaging was performed. COMPARISON: No exams were available for comparison FINDINGS: MEDIASTINUM: Normal. HEART: Normal. PULMONARY VASCULATURE: Normal. LUNGS: No focal consolidating infiltrates. Mild diffuse interstitial prominence which may be chronic . PLEURAL SPACE: No pleural effusion or pneumothorax. BONE:Within normal limits for the patient's age. Median sternotomy wires. OTHER FINDINGS:Status post CABG. Surgical clips near the gastroesophageal junction. IMPRESSION: No acute pulmonary findings. DATA REPOSITORY: RADIATION DOSE DELIVERED:
[2020-12-03] MEDS: Enoxaparin 80 MG/0.8 ML SYR 69 MG SC (11:47)
--- NOTE | 2020-12-03 12:30 | RT.EKG_ITS ---
APPROVED REPORT Exam: Resting ECG Reason for Exam: CHEST PAIN Patient Location: E HR:64 bpm ECG Measurements Heart Rate 64 AXIS MN 139 P -62 QRSd 83 QRS -39 QT 458 T 137 QTc 473 Conclusion Sinus or ectopic atrial rhythm...P axis (-45,135) Ventricular bigeminy...bigeminy string>4 w/ V complexes Left axis deviation...QRS axis (-30,-90) Anteroseptal infarct, age indeterminate...Q >35mS, T neg, V1-V2 Abnormal T, consider ischemia, lateral leads...T <-0.20mV, I aVL V5 V6 no significant changes from first ekg
[2020-12-03] MEDS: Insulin REGULAR-Human 100 UNITS/ML UNIT IV (13:07)
[2020-12-03 13:08] LABS: Troponin I 0.19 ng/mL (<0.06)
[2020-12-03] MEDS: MAGNESIUM SULFATE 1 GM/100 ML BAG IVPB (13:12)
[2020-12-03] MEDS: Albuterol 2.5 MG/3 ML INH SOLN VIAL UPD (13:13)
--- NOTE | 2020-12-03 14:12 | DI.US_ITS ---
APPROVED REPORT EXAM: Comprehensive 2D, Doppler, and color-flow Echocardiogram Patient Location: Out-Patient Legal Operations Manager: Araceli Heaton RDCS (AE) Indications: ltd right heart follow up/ Prev exam 11/24/20 images sent also Conclusion Limited exam to evaluate right heart. This exam was [place] [facility] See that report for details Wall motion Tricuspid Valve The tricuspid valve is normal in structure. There is no tricuspid valve stenosis. Trace to mild tricu spid regurgitation. Tricuspid Valve TR Peak Grad 30.4 mmHg TR Vmax 2.76 m/s RA Pressure 3.00 mmHg RVSP (TR) 33.4 mmHg
[2020-12-03] MEDS: Normal Saline 1,000 ML 150 ML IV ×2 (14:15→22:23)
[2020-12-03 14:24] LABS: BUN 49 mg/dL (7-18); CREATININE 2.4 mg/dL (0.70-1.30); Calcium 8.4 mg/dL (8.5-10.1); Chloride 106 mmol/L (98-107); Estimated GFR 26.18 (mL/min/1.73m2); Glucose 128 mg/dL (74-106); Potassium 4.9 mmol/L (3.5-5.1); Sodium 138 mmol/L (136-145)
[2020-12-03 15:44] LABS: Source Nasal/Nares
--- NOTE | 2020-12-03 17:58 | HPE_ITS ---
Date of service: 12/03/20 Time of Service: 17:58 Assessment and Plan Assessment and plan (1) Suspected pulmonary embolism: Status: Acute Assessment and plan: The patient had a syncopal episode prior to his last admission with us. The patient has chest pain, elevated D-dimer, acute DVT and a possible urologic malignancy still under investigation. It is very likely he has an underlying PE. I think this is why he had the syncopal episode prior to last admission as well as why he has the elevated trop onin. Monitor on tele. Continue therapeutic lovenox. Await VQ scan in am. (2) Acute deep vein thrombosis (DVT) of right femoral vein: Status: Acute Assessment and plan: As above - continue therapeutic lovenox. (3) H/O hematuria: Status: Resolved Assessment and plan: Will monitor for re-bleeding since he is being initiated on full dose lovenox (4) Hyperkalemia: Status: Resolved Assessment and plan: Recheck in am (5) Hypomagnesemia: Status: Acute Assessment and plan: repleted in ED. Recheck in am (6) Discharge planning issues: Status: Acute Assessment and plan: Full code Possible discharge home tomorrow History of Present Illness History of Present Illness Chief Complaint: chest pain Narrative: Mr Lake is an 80 year old male with PMHx of CAD s/p CABG x 5 and a stent, positive stress test in 2019, and a recent type II NSTEMI, as well as h/o NIDDM2, HTN, CKD 4, and a recent Klebsiella sepsis due to UTI (with bacteremia) for which he just completed treatment as well as a recent syncopal episode (prior to his admission on 11/21/20) who is undergoing workup for hematuria by Urology (cause unknown at this time), who presented to [facility] ED today c/o L-sided chest discomfort that started shortly after he woke up and got up. He cannot describe the discomfort any further. Denies dizziness, shortness of breath, palpitations, or pain on inspiration. The pain resolved in the ED, he stated. The troponin was elevated to 0.2 and repeat troponin was 0.19. His d-dimer was also elevated. CTA could not be performed due to the patient's kidney function, but a venous doppler of RLE was positive for an extensive DVT from R common femoral vein into the popliteal vein. The patient does not know when his RLE got swollen and was not aware that it was swollen at all. The patient had a limited echocardiogram to r/o R heart strain in the ED, which was negative. VQ scan cannot be performed until tomorrow, and a hospitalist admission for a presumed PE was requested. He was initiated on therapeutic lovenox. The patient states he has not had any more hematuria since the initial episode. 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 S/P cholecystectomy Stent placement 2001 x1 Family History Mother , 78 Diabetes Essential hypertension Father , 66 Heart disease Sister Diabetes Maternal Grandfather , 93 Diabetes Maternal Grandmother Heart disease Paternal Grandfather , 77 Heart disease Paternal Grandmother No problems noted. Son No problems noted. Social History Smoking/Tobacco Use Status: Never Second Hand Exposure: Yes Smoking risk assessment performed?: Yes Alcohol Intake: never Drug use: Never Substance use type: does not use Counseling given: No Counseling provided: none Caregiver/Support person: No Household members: spouse Housing: house Communication Needs: Hard of Hearing Do you need help understanding health information?: Never Pets and animals: Yes Pets and animals: dog(s) Sexually active: Yes Do you think of yourself as: straight/heterosexual Current gender identity: male What is your relationship status?: How often do you talk on the phone with friends or family?: once per week How often do you get together with friends or relatives?: once per week How often do you attend pentecostal or nondenominational services?: decline to answer Do you belong to any clubs or organized social groups?: decline to answer Panel score (0-1 are the most socially isolated patients): 1 What type of physical activity do you participate in: weight lifting Duration: 30-45 minutes/day Frequency: 1-2 times per week Pilar/Rastafari: Baptist Special pilar needs: No Seatbelt use: always Helmet use: Yes Helmet use: always Drive intox or ride 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: No Do you feel safe at home: Yes Do you feel safe in your relationship?: Yes Meds Allergies and Home Medications Allergies Allergy/AdvReac Type Severity Reaction Status Date / Time metoclopramide Allergy Intermediate Verified 11/20/20 20:18 Penicillins Allergy Unknown Verified 11/20/20 20:18 Home Medications Medication Instructions Recorded Confirmed Type Aspirin 1 tab PO DAILY tab-cap 09/26/12 12/03/20 History atorvastatin 40 mg tablet 40 mg PO DAILY #90 tab 08/25/20 12/03/20 Rx isosorbide dinitrate 30 mg tablet 30 mg PO DAILY #90 tab 08/25/20 12/03/20 Rx metoprolol tartrate 50 mg tablet 25 mg PO BID #90 tab 08/25/20 12/03/20 Rx nitroglycerin 0.4 mg sublingual 0.4 mg SUBLINGUAL PRN #10 tab 08/25/20 12/03/20 Rx tablet Blood Glucose Test #100 strip 11/24/20 Rx acetaminophen [Tylenol] 650 mg PO Q4H PRN PRN #0 tab 11/24/20 Rx blood-glucose meter #1 ea 11/24/20 Rx insulin NPH isoph U-100 human 14 unit SUBCUT BID@0800,1700 #15 ml 11/24/20 12/03/20 Rx [Humulin N NPH Insulin KwikPen] lancets #100 ea 11/24/20 Rx levofloxacin 500 mg PO Q48H #3 tab 11/24/20 Rx magnesium oxide 400 mg PO BID@1000,2200 #0 tab 11/24/20 Rx tamsulosin 0.4 mg PO HS #30 cap 11/24/20 12/03/20 Rx pen needle, diabetic 31 gauge x #100 ea 12/02/20 Rx 11/16 diphenhydramine-acetaminophen 1 tab PO HS 12/03/20 12/03/20 History [Tylenol PM Extra Strength] Exam Narrative Exam Narrative: General: Pleasant elderly male, MILLE LACS, appears comfortable in bed, mildly anxious Neurological: A&Ox3, no focal deficits Psychiatric: mildly anxious Skin: Visible skin intact HEENT: Atraumatic, normocephalic, EOMI, MMM, clear oropharynx, no submandibular or cervical lymphadenopathy, no goiter or JVD Cardiovascular: RRR, no m/r/g Lungs: CTAB Gastrointestinal: soft, nontender, nondistended Genitourinary: deferred Extremities: trace edema at R ankle, but otherwise no obvious edema, clubbing, or cyanosis, +1 pedal pulses B Results Imaging Additional studies: Venous doppler RLE: 1. Extensive deep venous thrombus extending from the common femoral into the popliteal vein. 2. Results of this exam have been verbally communicated with provider. CXR: No acute pulmonary findings. Echo: no RV strain (final read pending). EKG: NSR, ventricular bigeminy/PVCs, HR 59, no acute ischemia, chronic ST-T abnormalities in anterior leads EKG #2: NSR HR 64, unchanged Labs Result diagrams: 12/03/20 09:45 12/03/20 14:13 Labs: Laboratory Results - last 24 hr 12/03/20 12/03/20 12/03/20 09:45 09:45 09:45 WBC 6.45 RBC 3.53 L Hgb 10.5 L Hct 32.7 L MCV 92.6 MCH 29.7 MCHC 32.1 RDW 13.9 Plt Count 216 MPV 10.6 Immature Gran % 1.6 Neutrophils % 76.8 Lymphocytes % 12.7 Monocytes % 6.8 Eosinophils % 1.2 Basophils % 0.9 Nucleated RBC % 0 Absolute Neutrophils 4.95 Absolute Lymphocytes 0.82 L Absolute Monocytes 0.44 Absolute Eosinophils 0.08 Absolute Basophils 0.06 PT 10.9 INR 1.1 APTT 22.5 D-Dimer > 7500 H Sodium 136 Potassium 5.5 H Chloride 103 Carbon Dioxide 24.8 Anion Gap 8.2 BUN 50 H Creatinine 2.5 H Estimated GFR/1.73 m2 24.97 Glucose 209 H Calcium 8.4 L Magnesium 1.6 L Total Bilirubin 0.6 AST 25 ALT 30 Alkaline Phosphatase 113 Troponin I 0.20 H* Total Protein 7.3 Albumin 2.8 L COVID-19 Source 12/03/20 12/03/20 12/03/20 12:45 14:13 15:40 WBC RBC Hgb Hct MCV MCH MCHC RDW Plt Count MPV Immature Gran % Neutrophils % Lymphocytes % Monocytes % Eosinophils % Basophils % Nucleated RBC % Absolute Neutrophils Absolute Lymphocytes Absolute Monocytes Absolute Eosinophils Absolute Basophils PT INR APTT D-Dimer Sodium 138 Potassium 4.9 Chloride 106 Carbon Dioxide 27.0 Anion Gap 5.0 BUN 49 H Creatinine 2.4 H Estimated GFR/1.73 m2 26.18 Glucose 128 H D Calcium 8.4 L Magnesium Total Bilirubin AST ALT Alkaline Phosphatase Troponin I 0.19 H* Total Protein Albumin COVID-19 Source Nasal/nares Last Vital Signs Temp 36.3 C L 12/03/20 17:10 Pulse 61 12/03/20 17:10 Resp 16 12/03/20 17:10 BP 137/63 12/03/20 17:10 Pulse Ox 99 12/03/20 17:10 COVID-19 Screening Have you, or household traveled for leisure in last 14 days?: No Had IN PERSON contact w/suspected or confirmed C-19 person: No
[2020-12-03 19:34] LABS: Procalcitonin 1.7 ng/mL
[2020-12-03] MEDS: Metoprolol 50 MG TAB 25 MG PO (20:31)
[2020-12-03 20:53] LABS: COVID-19 PCR Negative (Negative)
[2020-12-03] MEDS: Tamsulosin 0.4 MG CAPCR PO (21:42)
[2020-12-03] MEDS: Insulin Aspart 300 UNITS/3 ML PEN SC (21:44)
[2020-12-03] MEDS: Acetaminophen 325 MG TAB 650 MG PO (23:28)
[2020-12-04] VITALS (7 sets, daily range): BP systolic 117–147; BP diastolic 56–75; PULSE 52–62; RESP 17–20; TEMP 36.6–37.2; O2SAT 97–100
[2020-12-04] MEDS: Normal Saline 1,000 ML 150 ML IV (04:39)
[2020-12-04 05:49] LABS: Abs Immature Grans 0.09 10^3/uL (0.0-0.06); Absolute Basophil Count 0.06 10^3/uL (0.0-0.2); Absolute Lymphocyte Count 0.82 10^3/uL (1.2-3.4); Absolute Monocyte Count 0.44 10^3/uL (0.1-0.8); Absolute Neutrophil Count 4.01 10^3/uL (1.2-6.7); Basophils % 1.1; Eosinophils % 1.8; HCT 27.4 % (40.0-50.0); HGB 8.5 g/dL (13.5-17.5); Immature Grans % 1.6; Lymphocytes % 14.9; MCH 29.1 pg (27.0-33.0); MCV 93.8 fL (80-95); MPV 10.6 fL (8.0-11.0); Neutrophils % 72.6; Nucleated RBC 0 %; Platelet Count 166 10^3/uL (130-400); RBC 2.92 10^6/uL (4.36-5.78); RDW 13.7 % (11.8-14.1); RDW-SD 47.2 fL; WBC 5.52 10^3/uL (4.4-10.8)
[2020-12-04 05:57] LABS: Anion Gap 7.7 mmol/L (3-11); BUN 40 mg/dL (7-18); CO2 24.3 mmol/L (21.0-32.0); CREATININE 2.4 mg/dL (0.70-1.30); Calcium 7.6 mg/dL (8.5-10.1); Chloride 109 mmol/L (98-107); Estimated GFR 26.18 (mL/min/1.73m2); Glucose 205 mg/dL (74-106); Magnesium 1.5 mg/dL (1.8-2.4); Potassium 5.5 mmol/L (3.5-5.1); Sodium 141 mmol/L (136-145)
[2020-12-04 06:03] LABS: Anisocytosis 1+
[2020-12-04] MEDS: Isosorbide Dinitrate 10 MG TAB 30 MG PO (08:40)
[2020-12-04] MEDS: Insulin Aspart 300 UNITS/3 ML PEN SC ×3 (08:41→16:42)
[2020-12-04] MEDS: Metoprolol 50 MG TAB 25 MG PO ×2 (08:41→19:36)
[2020-12-04] MEDS: Atorvastatin 40 MG TAB PO (08:41)
[2020-12-04] MEDS: Aspirin 81 MG CHEW PO (08:41)
[2020-12-04] MEDS: Insulin NPH-Human 300 UNITS/3 ML PEN 14 UNIT SC ×2 (08:43→16:42)
[2020-12-04] MEDS: Sodium Zirconium Cyclosilicate 10 GM PKT PO ×3 (09:51→21:22)
--- NOTE | 2020-12-04 11:56 | W.PM.PROGNOT ---
Date of Service Date of service: 12/04/20 Time of Service: 11:56 Assessment and Plan Assessment and plan (1) Suspected pulmonary embolism: Status: Ruled-out Assessment and plan: VQ scan negative for PE (2) Acute deep vein thrombosis (DVT) of right femoral vein: Status: Acute Assessment and plan: continue therapeutic lovenox. (3) H/O hematuria: Status: Resolved Assessment and plan: Will monitor for re-bleeding since he is being initiated on full dose lovenox add UA (4) Hyperkalemia: Status: Resolved Assessment and plan: ongoing. change to renal diet [facility] ordered repeat level in am (5) Hypomagnesemia: Status: Acute Assessment and plan: repleted in ED, will continue repletion and recheck in am (6) CKD (chronic kidney disease) stage 4, GFR 15-29 ml/min: Status: Acute Assessment and plan: creatinine stable at 2.4 and is at or below baseline of 2.2-3.0 avoid nephrotoxic drugs, renal dosing on medication follow closely (7) Anemia: Status: Chronic Assessment and plan: drop from 10.5 to 8.5 overnight was on IV fluids will check h/h at noon. no obvious source of bleeding but was having hematuria outpatient. will check stool ob, UA, found in november to have severe iron deficiency with iron level 18 % sat 8, TICB 220 ferritin 179 folate 13.7 B12 level 1759 (8) Discharge planning issues: Status: Acute Assessment and plan: Full code case management following. will change to inpatient tomorrow if new and ongoing lab abnormalities and awaiting blood culture results. discussed with DR Martinez Subjective Subjective Patient reports: no new complaints Interval history since last seen: drop in H/H asymptomatic no obvious source of bleeding did not sleep well last night no fever or sob or chest pain Exam Narrative Exam Narrative: Constitutional: Alert and oriented x3. Appears stated age. Normal body habitus. Head: Normocephalic, no trauma. Eyes: EOM's intact. Eyelids symmetrical ENT: no drainage . CV: regular rate and rhythm Resp: Lungs clear respirations even and unlabored Musculoskeletal: trace edema to right lower extremity, moves all extremities Skin: No suspicious rashes or lesions. Capillary refill less than 2 sec. Neurologic: Alert and oriented x 3 Hematologic/Lymphatic: No ecchymosis, no evidence of bleeding Objective Last Vital Signs Temp 36.9 C 12/04/20 03:41 Pulse 55 L 12/04/20 07:00 Resp 17 12/04/20 03:41 BP 117/64 12/04/20 03:41 Pulse Ox 97 12/04/20 03:41 Laboratory Results - last 24 hr 12/03/20 12/03/20 12/03/20 09:45 12:45 14:13 WBC RBC Hgb Hct MCV MCH MCHC RDW Plt Count MPV Immature Gran % Neutrophils % Lymphocytes % Monocytes % Eosinophils % Basophils % Nucleated RBC % Absolute Neutrophils Absolute Lymphocytes Absolute Monocytes Absolute Eosinophils Absolute Basophils RBC Morphology Anisocytosis Sodium 136 138 Potassium 5.5 H 4.9 Chloride 103 106 Carbon Dioxide 24.8 27.0 Anion Gap 8.2 5.0 BUN 50 H 49 H Creatinine 2.5 H 2.4 H Estimated GFR/1.73 m2 24.97 26.18 Glucose 209 H 128 H D Calcium 8.4 L 8.4 L Magnesium 1.6 L Total Bilirubin 0.6 AST 25 ALT 30 Alkaline Phosphatase 113 Troponin I 0.20 H* 0.19 H* Total Protein 7.3 Albumin 2.8 L Procalcitonin COVID-19 Source SARS-CoV-2 (PCR) 12/03/20 12/03/20 12/03/20 15:40 17:45 17:45 WBC RBC Hgb Hct MCV MCH MCHC RDW Plt Count MPV Immature Gran % Neutrophils % Lymphocytes % Monocytes % Eosinophils % Basophils % Nucleated RBC % Absolute Neutrophils Absolute Lymphocytes Absolute Monocytes Absolute Eosinophils Absolute Basophils RBC Morphology Anisocytosis Sodium Potassium Chloride Carbon Dioxide Anion Gap BUN Creatinine Estimated GFR/1.73 m2 Glucose Calcium Magnesium Total Bilirubin AST ALT Alkaline Phosphatase Troponin I 0.20 H* Total Protein Albumin Procalcitonin 1.7 COVID-19 Source Nasal/nares SARS-CoV-2 (PCR) Negative 12/04/20 12/04/20 05:30 05:30 WBC 5.52 RBC 2.92 L Hgb 8.5 L Hct 27.4 L MCV 93.8 MCH 29.1 MCHC 31.0 L RDW 13.7 Plt Count 166 MPV 10.6 Immature Gran % 1.6 Neutrophils % 72.6 Lymphocytes % 14.9 Monocytes % 8.0 Eosinophils % 1.8 Basophils % 1.1 Nucleated RBC % 0 Absolute Neutrophils 4.01 Absolute Lymphocytes 0.82 L Absolute Monocytes 0.44 Absolute Eosinophils 0.10 Absolute Basophils 0.06 RBC Morphology See below Anisocytosis 1+ Sodium 141 Potassium 5.5 H Chloride 109 H Carbon Dioxide 24.3 Anion Gap 7.7 BUN 40 H D Creatinine 2.4 H Estimated GFR/1.73 m2 26.18 Glucose 205 H D Calcium 7.6 L Magnesium 1.5 L Total Bilirubin AST ALT Alkaline Phosphatase Troponin I Total Protein Albumin Procalcitonin COVID-19 Source SARS-CoV-2 (PCR)
[2020-12-04] MEDS: Enoxaparin 80 MG/0.8 ML SYR 70 MG SC (12:47)
[2020-12-04 12:59] LABS: HCT 29.6 % (40.0-50.0); HGB 9.3 g/dL (13.5-17.5)
[2020-12-04 13:08] LABS: Anion Gap 7.9 mmol/L (3-11); BUN 38 mg/dL (7-18); CO2 23.1 mmol/L (21.0-32.0); CREATININE 2.3 mg/dL (0.70-1.30); Calcium 7.9 mg/dL (8.5-10.1); Chloride 108 mmol/L (98-107); Glucose 188 mg/dL (74-106); Potassium 5.2 mmol/L (3.5-5.1); Sodium 139 mmol/L (136-145)
[2020-12-04] MEDS: Ferrous Sulfate 325 MG TAB PO ×2 (13:20→19:36)
--- NOTE | 2020-12-04 13:24 | DI.NM_ITS ---
Exam(s) NM LUNG SCAN VENT PERF GRP EXAM: NM LUNG SCAN VENT PERF GRP CLINICAL HISTORY: chest pain, elevated d dimer, suspected pe,acute dvt, syncopal episode. TECHNIQUE: Injected Dose: Ventilation: 32.5 mCi Tc-99m DTPA via inhalation Perfusion: 5 mCi Tc-99m MAA via IV COMPARISON: CR XR CHEST 2V PA LATERAL from 12/03/2020 FINDINGS: Chest X-Ray: Clear lungs. Perfusion: Normal. Ventilation:Normal Mild clumping of the radiopharmaceutical near the patrizia. Otherwise normal. IMPRESSION: 1. Low probability VQ examination. 2. Findings discussed with the hospitalist at 1:19 p.m. on 12/04/2020. Modified PIOPED II criteria Probability Criteria High Two or more segments of V/Q mismatch Low Normal Perfusion, Non segmental perfusion abnormalitie s, pleural effusion in at least 1/3 of pleural cavity with no other defect Radiograph/perfusion matched defect in mid to upper lung confined to segment, one to three small segmental perfusion defects (<25% of segment) Perfusion defect smaller than corresponding radiogra phic lesion. Intermediate All other findings DATA REPOSITORY:
[2020-12-04] MEDS: MAGNESIUM SULFATE 2 GM/50 ML BAG IVPB (14:20)
--- NOTE | 2020-12-04 14:51 | CHAPLAIN ---
Yuriy Villarreal was here about five days ago and said he returned to the ED last night. He was frustrated that after spending many hours (he said 8) on a stretcher in the ED, he was finally admitted. This morning he was taken for a nuclear test and when he returned staff began taking his blood, checking his insulin levels and checking his blood pressure all at once, and on top of that he missed lunch. He asked for lunch and was just eating a sandwich when I got there. He said he didn't order any thing for dinner, but that was ok. I assured him someone bring him dinner.
[2020-12-04 17:39] LABS: Bilirubin Negative (Negative); Blood Small (Negative); Clarity Sl Cloudy (Clear); Glucose Negative (Negative); Ketones Negative (Negative); Leukocyte Esterase Small (Negative); Nitrite Negative (Negative); Urobilinogen 0.2 EU/dL (Up TO 0.2); pH 5.5 (5-8)
--- NOTE | 2020-12-04 17:44 | PDOC.CMIN ---
- If Service Date Differs Date of service: 12/04/20 Time of Service: 17:44 Care Management Initial Assess REASON FOR HOSPITALIZATION:: Acute DVT, suspected PE, chest pain PAST MEDICAL HISTORY/PAST SURGICAL HISTORY:: Medical History. Abdominal discomfort (04/12/17). Anxiety. Chest pain. CKD (chronic kidney disease) stage 4, GFR 15-29 ml/min. Coronary atherosclerosis of [place] coronary vessel. S/P bypass 1993. 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 Diabetes mellitus (09/27/12). Edema. Excessive cerumen in left ear canal. Hyperlipidemia. Hypertension. Muscle cramps at night. Serum potassium elevated (11/15/16). Skin lesion. Weight loss, unintentional (11/02/16). Surgical History. H/O coronary artery bypass surgery (~01/13/94). SCALES to SVG to LAD; SVG to OM1 and Diagonal; SVG to OM2; SVG to RCA. S/P cholecystectomy. Stent placement. 2001 x1 PREVIOUS FUNCTIONAL STATUS/SOCIAL/FAMILY SUPPORTS:: Yuriy lives in [place] with his , Lula. They have one son, Apollo, who lives locally. 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 He likes to stay busy, and helps care for his sister at times. He is independent at baseline with his ADL's. CURRENT FUNCTIONAL STATUS:: Yuriy was sitting up in bed when CM met with him. He reported that he is feeling much better today, although he did not get good rest, as he is in the hospital. He stated that he has been kept very busy with tests today. He prefers to be home, but is agreeable to staying in order to determine an appropriate plan. He is hoping his is able to visit today after she gets out of work. CM will continue to follow. ADVANCE DIRECTIVES:: Not completed and patient is not interested in reviewing the document at this time. Has patient been provided with info about the portal/API?: Yes Did the patient sign up for the portal?: No CODE STATUS:: Full Code INSURANCE COVERAGE / FINANCIAL ISSUES:: MCR/ BCBS CURRENT HOME/COMMUNITY SERVICES/EQUIPMENT:: Patient is independent with ADLs, does not use any assistive equipment and does not have any services in place. PRIMARY CARE PHYSICIAN:: Pricilla Kline POTENTIAL DISCHARGE NEEDS:: Evaluation for further needs, follow up appointments. PATIENT/FAMILY EDUCATION NEEDS:: Review discharge instructions regarding activity levels and medications, discussion of self care needs including ask me three. ANTICIPATED BARRIERS TO DISCHARGE:: None identified. TRANSPORTATION:: Via private vehicle by his . PLAN:: Anticipate [place] will return home when medically cleared with a resumption of HH services. He will be driven home via private vehicle by his . He will follow up with his PCP and discharge plan of care. CM will continue to follow.
[2020-12-04 17:48] LABS: WBC 20-50 HPF (0-5)
[2020-12-04 17:49] LABS: Bacteria Moderate HPF (Negative); C & S Indicated? Yes; Casts 0-2 Hyaline LPF (Negative); Crystals Negative HPF (Negative); Epithelial Cells Rare HPF (Negative); Mucus Trace (Negative)
[2020-12-04] MEDS: Melatonin 3 MG TAB 6 MG PO (21:22)
[2020-12-04] MEDS: Tamsulosin 0.4 MG CAPCR PO (21:26)
[2020-12-05 00:05] VITALS: BP 121/66; PULSE 53; RESP 17; TEMP 36.3; O2SAT 97
[2020-12-05 03:49] VITALS: BP 116/55; PULSE 55; RESP 17; TEMP 36.8; O2SAT 97
[2020-12-05] MEDS: Sodium Zirconium Cyclosilicate 10 GM PKT PO ×2 (05:53→14:29)
[2020-12-05 06:59] LABS: Abs Immature Grans 0.09 10^3/uL (0.0-0.06); Absolute Basophil Count 0.08 10^3/uL (0.0-0.2); Absolute Eosinophil Count 0.12 10^3/uL (0.0-0.7); Absolute Lymphocyte Count 0.75 10^3/uL (1.2-3.4); Absolute Neutrophil Count 4.37 10^3/uL (1.2-6.7); Basophils % 1.4; Eosinophils % 2.1; HGB 9.6 g/dL (13.5-17.5); Immature Grans % 1.5; Lymphocytes % 12.9; MCH 28.9 pg (27.0-33.0); MCV 93.4 fL (80-95); MPV 10.6 fL (8.0-11.0); Monocytes % 6.9; Neutrophils % 75.2; Nucleated RBC 0 %; Platelet Count 177 10^3/uL (130-400); RBC 3.32 10^6/uL (4.36-5.78); RDW 13.5 % (11.8-14.1); RDW-SD 46.5 fL; WBC 5.81 10^3/uL (4.4-10.8)
[2020-12-05 07:00] VITALS: PULSE 49
[2020-12-05 07:15] LABS: Anion Gap 9.2 mmol/L (3-11); BUN 34 mg/dL (7-18); CO2 22.8 mmol/L (21.0-32.0); CREATININE 2.2 mg/dL (0.70-1.30); Calcium 7.8 mg/dL (8.5-10.1); Chloride 106 mmol/L (98-107); Estimated GFR 28.94 (mL/min/1.73m2); Glucose 124 mg/dL (74-106); Potassium 4.6 mmol/L (3.5-5.1); Sodium 138 mmol/L (136-145)
[2020-12-05 07:58] VITALS: BP 129/67; PULSE 50; RESP 18; TEMP 36.1; O2SAT 99
[2020-12-05] MEDS: Aspirin 81 MG CHEW PO (08:42)
[2020-12-05] MEDS: Atorvastatin 40 MG TAB PO (08:43)
[2020-12-05] MEDS: Isosorbide Dinitrate 10 MG TAB 30 MG PO (08:43)
[2020-12-05] MEDS: Insulin NPH-Human 300 UNITS/3 ML PEN 14 UNIT SC (08:43)
[2020-12-05] MEDS: Ferrous Sulfate 325 MG TAB PO (08:43)
[2020-12-05] MEDS: Metoprolol 50 MG TAB 25 MG PO (08:44)
[2020-12-05] MEDS: Apixaban 5 MG TAB 10 MG PO (09:47)
[2020-12-05 11:20] VITALS: BP 98/52; PULSE 57; RESP 18; TEMP 36.4; O2SAT 99
--- NOTE | 2020-12-05 12:45 | DM INPTCON_ITS ---
Date of service: 12/05/20 Time of Service: 12:46 Diabetes Inpatient Consult DESCRIPTION/ASSESSMENT: [place] admitted with DVT and anemia with PHM: CAB, CABG x 5, NSTEMI, HTN, CKD. BMI wnl, stable. Home Dm meds: NPH insulin 14 u 0800, 1700. Most recent A1c : 8.3% (11/21/20) indicating acceptable glycemic management in view of advanced age and co morbidities. [place] asleep when came by to visit. Currently on diabetic diet and meeting 100% nutrient and fluid needs. Not considered at nutritional risk. No additional diet education needed at this time. PLAN: continue current meal plan Home Dm meds controlling DM2 well. Time Spent in Nutritional Counseling and Treatment: 0
--- NOTE | 2020-12-05 13:29 | DSE_ITS ---
Date of service: 12/05/20 Time of Service: 13:30 DS: Diagnosis Discharge Diagnosis (1) Suspected pulmonary embolism: Status: Ruled-out Asessment and Plan: ruled out by VQ scan blood cultures negative (2) Acute deep vein thrombosis (DVT) of right femoral vein: Status: Acute Asessment and Plan: will be discharged home on eliquis blood cultures negative (3) H/O hematuria: Status: Resolved Asessment and Plan: to follow up outpatient with dr crain as previously scheduled (4) Hyperkalemia: Status: Resolved Asessment and Plan: resolved. received [facility] follow outpatient with labs on TuesdayDecember 08 (5) Hypomagnesemia: Status: Acute Asessment and Plan: repleted and resolved (6) CKD (chronic kidney disease) stage 4, GFR 15-29 ml/min: Status: Acute Asessment and Plan: stable at baseline 2.4 (7) Anemia: Status: Chronic Asessment and Plan: iron deficiency, started on oral iron supplementation. Discharge Plan Disposition Patient Disposition: HOME W/HOME HEALTH SERVICE Condition: Stable Discharge Details Reason For Visit: Acute DVT Suspected PE Chest Pain Admit Date/Time: 12/03/20 16:47 Admit Provider: Jahaira Martinez Attending Provider: Jahaira Martinez Primary Care Provider: Pricilla Kline Hospital Course Hospital Course: Mr Lake is an 80 year old male with PMHx of CAD s/p CABG x 5 and a stent, positive stress test in 2019, and a recent type II NSTEMI, as well as h/o NIDDM2, HTN, CKD 4, and a recent Klebsiella sepsis due to UTI (with bacteremia) for which he just completed treatment as well as a recent syncopal episode (prior to his admission on 11/21/20) who is undergoing workup for hematuria by Urology (cause unknown at this time), who presented to [facility] ED with c/o L-sided chest discomfort that started shortly after he woke up and got up. He cannot describe the discomfort any further. Denies dizziness, shortness of breath, palpitations, or pain on inspiration. The pain resolved in the ED, he stated. The troponin was elevated to 0.2 and repeat troponin was 0.19. His d-dimer was also elevated. CTA could not be performed due to the patient's kidney function, but a venous doppler of RLE was positive for an extensive DVT from R common femoral vein into the popliteal vein. The patient does not know when his RLE got swollen and was not aware that it was swollen at all. The patient had a limited echocardiogram to r/o R heart strain in the ED, which was negative. VQ scan was performed while on observation and negative for PE. He was initiated on therapeutic lovenox and will be discharged home on eliquis. The patient states he has not had any more hematuria since the initial episode. his blood cultures negative. will be discharged home with resumption of home health services. discharge discussed with Dr Martinez Papillion Meds and New Rx's Prescriptions: New Eliquis 5 mg Tablet 10 mg PO BID Qty: 68 RF: 0 ferrous sulfate 325 mg (65 mg iron) Tablet 325 mg PO BID Qty: 60 RF: 0 Continued atorvastatin [Lipitor] 40 mg tablet 40 mg PO DAILY Qty: 90 RF: 4 isosorbide dinitrate 30 mg tablet 30 mg PO DAILY Qty: 90 RF: 4 metoprolol tartrate 50 mg tablet 25 mg PO BID Qty: 90 RF: 4 nitroglycerin [Nitrostat] 0.4 mg tablet, sublingual 0.4 mg Sublingual PRN Qty: 10 RF: 0 ASPIRIN 81 MG tablet 1 tab PO DAILY RF: 0 acetaminophen [Tylenol] 325 mg Tablet 650 mg PO Q4H PRN PRNQty: 0 RF: 0 magnesium oxide 400 mg (241.3 mg magnesium) Tablet 400 mg PO BID@1000,2200 Qty: 0 RF: 0 tamsulosin 0.4 mg Capsule 0.4 mg PO HS Qty: 30 RF: 0 Humulin N NPH Insulin KwikPen 100 unit/mL (3 mL) Insulin Pen 14 unit subcut BID@0800,1700 Qty: 15 RF: 0 diphenhydramine-acetaminophen [Tylenol PM Extra Strength] 25-500 mg Tablet 1 tab PO HS RF: 0 Discontinued levofloxacin 500 mg tablet 500 mg PO Q48H Qty: 3 RF: 0 No Action (DME) pen needle, diabetic [BD Ultra-Fine Short Pen Needle] 31 gauge x 5/16 needle See Rx Instructions .ROUTE .MEDSUPPLY Qty: 100 RF: 0 (DME) blood-glucose meter 1 EACH misc 1 ea Miscellaneous DAILY Qty: 1 RF: 0 (DME) Blood Glucose Test Strip 1 ea Miscellaneous DAILY Qty: 100 RF: 4 (DME) lancets 28 gauge misc 1 ea Miscellaneous DAILY Qty: 100 RF: 4 Discharge Instructions Instructions: Potassium Content of Foods List (DC), Deep Vein Thrombosis (DC), Anemia (DC) Stand Alone Forms: Nursing Discharge Form Referrals: Janine Bolaños NP [NURSE PRACTITIONER] - 12/15/20 3:40 pm Panchito Emmanuel [EDUCATION PROGRAM SPECIALIST] - Activity:: Activity as Tolerated Equipment/Supplies:: No Equipment Needed Diet:: low potassium Discharge Orders Discharge Orders: Discharge Order (Routine); Ordered 12/05/20 Ordered By: Shanika Sanchez Other Ambulatory Orders: Basic Metabolic Panel (Routine) Timeframe: 20201208 Location: None Selected Ordered By: Shanika Sanchez Complete Blood Count w/Diff (Routine) Timeframe: 20201208 Location: None Selected Ordered By: Shanika Sanchez Discharge Data Discharge Date/Time-TO BE ENTERED AT DEPARTURE: 12/05/20 16:35 DS: Summary Time Spent with Patient providing and/or coordinating discharge services: Greater than 30 minutes Status at Discharge Functional status at discharge: independent ambulation Overall status at discharge: patient is progressing back to baseline Mental Status: mental status grossly normal Speech and Movement: speech and movement normal Mood: congruent mood Affect: normal affect Exam Narrative Exam Narrative: Constitutional: Alert and oriented x3. Appears stated age. Normal body habitus. Head: Normocephalic, no trauma. Eyes: EOM's intact. Eyelids symmetrical ENT: no drainage . CV: regular rate and rhythm Resp: Lungs clear respirations even and unlabored Musculoskeletal: trace edema to right lower extremity, moves all extremities Skin: No suspicious rashes or lesions. Capillary refill less than 2 sec. Neurologic: Alert and oriented x 3 Hematologic/Lymphatic: No ecchymosis, no evidence of bleeding Psych Mental Status: mental status grossly normal Speech and Movement: speech and movement normal Mood: congruent mood Affect: normal affect DS: Data Vitals/I&O Vitals and I&O: Vital Signs Temperature 36.4 C L 12/05/20 11:20 Temperature Source Tympanic 12/05/20 11:20 Pulse 57 L 12/05/20 11:20 Pulse Rhythm Regular 12/05/20 08:38 Pulse 59 L 12/03/20 16:50 Respiratory Rate 18 12/05/20 11:20 Respiratory Effort Non-Labored 12/05/20 08:38 Respiratory Depth Normal 12/05/20 08:38 Respiratory Pattern Normal 12/05/20 08:38 Blood Pressure 98/52 L 12/05/20 11:20 Blood Pressure Mean 87 12/03/20 16:46 Blood Pressure Position Supine 12/03/20 09:47 Pulse Oximetry 99 12/05/20 11:20 Oxygen Delivery Method Room Air 12/05/20 11:20 Oxygen Flow Rate 0 12/05/20 11:20 Pain Level 0 12/05/20 11:20 Comment 12/05/20 11:20 Intake & Output 12/04/20 12/05/20 12/05/20 23:59 11:59 23:59 Intake Total 480 / 3910 1540 / 1540 Output Total 450 / 1350 600 / 600 Balance 30 / 2560 940 / 940 Weight 67.9 kg Intake: IV 1000 / 1000 Oral 480 / 970 540 / 540 Output: Urine 450 / 1350 600 / 600 Other: Urine Color Yellow Yellow Urine Appearance Clear Clear Urine Odor None Voiding Methods Urinal Toilet Data Completed and Pending Labs on day of discharge: Labs from last 24 hours 12/05/20 12/05/20 12/04/20 06:47 06:47 17:30 WBC 5.81 RBC 3.32 L Hgb 9.6 L Hct 31.0 L MCV 93.4 MCH 28.9 MCHC 31.0 L RDW 13.5 Plt Count 177 MPV 10.6 Immature Gran % 1.5 Neutrophils % 75.2 Lymphocytes % 12.9 Monocytes % 6.9 Eosinophils % 2.1 Basophils % 1.4 Nucleated RBC % 0 Absolute Neutrophils 4.37 Absolute Lymphocytes 0.75 L Absolute Monocytes 0.40 Absolute Eosinophils 0.12 Absolute Basophils 0.08 Sodium 138 Potassium 4.6 Chloride 106 Carbon Dioxide 22.8 Anion Gap 9.2 BUN 34 H Creatinine 2.2 H Estimated GFR/1.73 m2 28.94 Glucose 124 H Calcium 7.8 L Urine Color Yellow Urine Clarity Sl cloudy Urine pH 5.5 Ur Specific [place] 1.020 Urine Protein Trace H Urine Ketones Negative Urine Blood Small H Urine Nitrite Negative Urine Bilirubin Negative Urine Urobilinogen 0.2 Ur Leukocyte Esterase Small H Urine RBC 3-5 H Urine WBC 20-50 H Ur Epithelial Cells Rare Urine Crystals Negative Urine Bacteria Moderate Urine Casts 0-2 hyaline Urine Mucus Trace Ur Culture Indicated? 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 S/P cholecystectomy Stent placement 2001 x1 Family History Mother , 78 Diabetes Essential hypertension Father , 66 Heart disease Sister Diabetes Maternal Grandfather , 93 Diabetes Maternal Grandmother Heart disease Paternal Grandfather , 77 Heart disease Paternal Grandmother No problems noted. Son No problems noted. Social History Smoking/Tobacco Use Status: Never Second Hand Exposure: Yes Smoking risk assessment performed?: Yes Alcohol Intake: never Drug use: Never Substance use type: does not use Counseling given: No Counseling provided: none Caregiver/Support person: No Household members: spouse Housing: house Communication Needs: Hard of Hearing Do you need help understanding health information?: Never Pets and animals: Yes Pets and animals: dog(s) Sexually active: Yes Do you think of yourself as: straight/heterosexual Current gender identity: male What is your relationship status?: How often do you talk on the phone with friends or family?: once per week How often do you get together with friends or relatives?: once per week How often do you attend zoroastrian or tenriism services?: decline to answer Do you belong to any clubs or organized social groups?: decline to answer Panel score (0-1 are the most socially isolated patients): 1 What type of physical activity do you participate in: weight lifting Duration: 30-45 minutes/day Frequency: 1-2 times per week Pilar/Mandaeism: Amish Special pilar needs: No Seatbelt use: always Helmet use: Yes Helmet use: always Drive intox or ride w/intox 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
[2020-12-05 15:35] VITALS: PULSE 69
--- NOTE | 2020-12-05 16:15 | CMDISCH_ITS ---
- If Service Date Differs Date of service: 12/05/20 Time of Service: 16:15 LACE Index Scoring Tool - Questions: Length of Stay (in days): 2 Acuity (Admit via E.D.?): Yes Comorbidities: Diabetes w/o Complication, Liver or Renal Disease E.D. Visits: 3 - Answers: Total Score: 13 Risk of Readmission: High Risk Care Management Discharge Reason for Hospitalization: Acute DVT, suspected PE, chest pain Discharge Plan: Yuriy will return home with no services today. He has new [employer], and CM provided a free 30 day coupon for his first month. He will follow up with the community nutrition educator when his is able to be there for caregiver support. His will drive him home via private vehicle. He will follow up with his PCP and discharge plan of care. He is happy to be going home. Patient/Family Education Needs: Review discharge instructions regarding activity levels and medications, discussion of self care needs and goals of care.
== END 2020-12-05 16:35 | disposition home health service (06) ==
LOC: ER 17:00 → MS 17:25
PROVIDERS: Nurse Practitioner Acute Care; Registered Nurse Emergency; Admitting Provider Internal Medicine; Emergency Provider Physician Assistant; Visit Provider Internal Medicine
DX: I82.411 Acute embolism and thrombosis of right femoral vein (principal); E87.5 Hyperkalemia; E83.42 Hypomagnesemia; N18.4 Chronic kidney disease, stage 4 (severe); D50.9 Iron deficiency anemia, unspecified; I25.10 Atherosclerotic heart disease of native coronary artery without angina pectoris; Z95.1 Presence of aortocoronary bypass graft; Z95.5 Presence of coronary angioplasty implant and graft; I25.2 Old myocardial infarction; E11.22 Type 2 diabetes mellitus with diabetic chronic kidney disease; I12.9 Hypertensive chronic kidney disease with stage 1 through stage 4 chronic kidney disease, or unspecified chronic kidney disease; R31.9 Hematuria, unspecified; E78.5 Hyperlipidemia, unspecified; G47.62 Sleep related leg cramps
CPT/HCPCS: 36415; 78582; 80048; 80053; 84145; 87040; 87635; 93005; 93306; 93308; 94640; 96365; 96368; 96372; 96375; 99285; 71046; 81003; 81015; 83735; 84484; 85014; 85018; 85025; 85379; 85610; 85730; 87086; 93010; 93971; 99217; 99220; 99226; 99284; G0378; J0610; J1650; J3475; J7613

== ENCOUNTER 2020-12-08 08:45 | Outpatient (CLI) | payer MEDICARE, BC, SELFPAY ==
[2020-12-08 09:09] LABS: Absolute Basophil Count 0.07 10^3/uL (0.0-0.2); Absolute Eosinophil Count 0.12 10^3/uL (0.0-0.7); Absolute Monocyte Count 0.63 10^3/uL (0.1-0.8); Absolute Neutrophil Count 5.06 10^3/uL (1.2-6.7); Eosinophils % 1.8; HCT 28.5 % (40.0-50.0); HGB 8.9 g/dL (13.5-17.5); Immature Grans % 1.5; Lymphocytes % 11.8; MCH 29.7 pg (27.0-33.0); MCHC 31.2 % (32.0-36.0); MPV 10.2 fL (8.0-11.0); Monocytes % 9.3; Neutrophils % 74.6; Nucleated RBC 0 %; Platelet Count 218 10^3/uL (130-400); RDW 13.9 % (11.8-14.1); RDW-SD 48.7 fL; WBC 6.78 10^3/uL (4.4-10.8)
[2020-12-08 09:25] LABS: Anion Gap 8.7 mmol/L (3-11); BUN 40 mg/dL (7-18); CO2 25.3 mmol/L (21.0-32.0); CREATININE 2.5 mg/dL (0.70-1.30); Calcium 7.7 mg/dL (8.5-10.1); Chloride 106 mmol/L (98-107); Estimated GFR 24.97 (mL/min/1.73m2); Glucose 164 mg/dL (74-106); Potassium 4.5 mmol/L (3.5-5.1); Sodium 140 mmol/L (136-145)
== END 2020-12-08 08:46 | disposition home or self-care (01) ==
LOC: LBO 08:46
PROVIDERS: Visit Provider Nurse Practitioner Acute Care
DX: I82.411 Acute embolism and thrombosis of right femoral vein (principal); I25.2 Old myocardial infarction; Z79.01 Long term (current) use of anticoagulants
CPT/HCPCS: 36415; 80048; 85025

== ENCOUNTER 2020-12-22 03:37 | Outpatient (CLI) | payer MEDICARE, BC, SELFPAY ==
--- NOTE | 2020-12-22 09:00 | NS.NUTBLAN_ITS ---
ASSESSMENT: Phil ( 80y/o M) presents with referral for DM 2. He also requires dietary counseling r/t CKD 4 and lF diet choices r/t hx arthrosclerosis. He was accompanied by his at this encounter for support with any nutrition recommendations and to help with diet hx. Patient stated that he only eats 1x/day. She keeps meticulous records of daily fingersticks ( 1x/day in AM) which showed Glucose readings for the last month between 110 and 189mg/dl. EMR reveals BG 164 mg/dl (12/08/20). He reports no Hx hypoglycemia. Noted: GFR 24.97 (H) BUN 40 (H) and Creatinine 24.97(H) on 12/08/20. They are both interested in appropriate food choices to help mitigate complications with DM, CKD4 and CAD. His insulin regimen is14 units Humalin BID AM +HS. NUTRITION DIAGNOSIS: Food and nutrition related knowledge deficit r/t DM2, CKD4, CAD AEB: ABN Labs INTERVENTION: Provided education on K+ content of foods with sample menus and evidence based literature from [facility] to help with food choices and portion sizes r/t CKD4. Reviewed desirable BG ranges and time in range to reiterate the importance of BG monitoring r/t long-term complications of DM. Explained the relationship between CKD and DM. Explained the importance of small meals throughout the day to help with glucose variability, educated patient and caregiver on CHO intake goals per meal. Reviewed CHO counting techniques and provided literature and phone onofre recommendation. suggested another fingerstick 1.5-2hrs postprandial alternating meals/days along with FBG 1x/day to help with BG trend tracking. MONITOR/EVAL: Phil receives very good support from his spouse who is able to help keep him on track and was very adept at understanding concepts noted above. Both the patient and are well educated with scince backgrounds. This patient may be a good candidate for CGM per MD approval to help with mindfulness and nocturnal BG patterns. Time Spent Face to Face: 1 Hour /4 units
== END 2020-12-22 03:38 | disposition home or self-care (01) ==
LOC: DS 03:37
PROVIDERS: Visit Provider Dietitian, Registered
DX: E11.9 Type 2 diabetes mellitus without complications (principal); Z79.4 Long term (current) use of insulin; N18.4 Chronic kidney disease, stage 4 (severe); Z71.3 Dietary counseling and surveillance
CPT/HCPCS: 97802

== ENCOUNTER → 2021-01-01 09:47 | Outpatient (BNVA) | payer MEDICARE, BC, SELFPAY | PROVIDERS: Visit Provider Internal Medicine Cardiovascular Disease | DX: I25.10 Atherosclerotic heart disease of native coronary artery without angina pectoris (principal); I82.411 Acute embolism and thrombosis of right femoral vein; Z79.01 Long term (current) use of anticoagulants; N18.4 Chronic kidney disease, stage 4 (severe); Z95.5 Presence of coronary angioplasty implant and graft; I11.0 Hypertensive heart disease with heart failure; I50.9 Heart failure, unspecified | CPT/HCPCS: 99214 ==

== ENCOUNTER 2021-01-06 03:56 | Outpatient (CLI) | payer MEDICARE, BC, SELFPAY ==
[2021-01-06 12:43] LABS: HCT 31.8 % (40.0-50.0); HGB 9.7 g/dL (13.5-17.5); MCH 29.8 pg (27.0-33.0); MCHC 30.5 % (32.0-36.0); MCV 97.8 fL (80-95); Platelet Count 128 10^3/uL (130-400); RBC 3.25 10^6/uL (4.36-5.78); RDW 14.9 % (11.8-14.1); WBC 3.87 10^3/uL (4.4-10.8)
[2021-01-06 14:05] LABS: ALT 35 U/L (16-63); AST 19 U/L (15-37); Albumin 3.6 g/dL (3.4-5.0); Alkaline Phosphatase 113 U/L (46-116); Anion Gap 12.2 mmol/L (3-11); BUN 43 mg/dL (7-18); Bilirubin, Total 0.5 mg/dL (0.2-1.0); CO2 21.8 mmol/L (21.0-32.0); CREATININE 2.5 mg/dL (0.70-1.30); Calcium 8.2 mg/dL (8.5-10.1); Chloride 109 mmol/L (98-107); Estimated GFR 24.97 (mL/min/1.73m2); Glucose 126 mg/dL (74-106); Potassium 4.5 mmol/L (3.5-5.1); Sodium 143 mmol/L (136-145); Total Protein 7.2 g/dL (6.4-8.2)
== END 2021-01-06 03:57 | disposition home or self-care (01) ==
PROVIDERS: Visit Provider Nurse Practitioner Family
DX: I82.411 Acute embolism and thrombosis of right femoral vein (principal); R63.4 Abnormal weight loss
CPT/HCPCS: 36415; 80053; 85027

== ENCOUNTER 2021-02-23 09:57 | Outpatient (REF) | payer MEDICARE, BC, SELFPAY ==
[2021-02-23 16:29] LABS: Anion Gap 8.8 mmol/L (3-11); BUN 45 mg/dL (7-18); CO2 26.2 mmol/L (21.0-32.0); CREATININE 2.4 mg/dL (0.70-1.30); Chloride 107 mmol/L (98-107); Estimated GFR 26.18 (mL/min/1.73m2); Glucose 174 mg/dL (74-106); Potassium 4.6 mmol/L (3.5-5.1); Sodium 142 mmol/L (136-145)
== END 2021-02-23 09:58 | disposition home or self-care (01) ==
LOC: LBN 09:57
DX: N18.4 Chronic kidney disease, stage 4 (severe) (principal)
CPT/HCPCS: 80048

== ENCOUNTER 2021-05-05 02:05 | Outpatient (CLI) | payer MEDICARE, BC, SELFPAY ==
[2021-05-05 12:13] LABS: HCT 38.7 % (40.0-50.0); HGB 11.8 g/dL (13.5-17.5); MCH 30.5 pg (27.0-33.0); MCHC 30.5 % (32.0-36.0); MPV 10.9 fL (8.0-11.0); Platelet Count 152 10^3/uL (130-400); RBC 3.87 10^6/uL (4.36-5.78); RDW 13.1 % (11.8-14.1); RDW-SD 47.8 fL; WBC 7.04 10^3/uL (4.4-10.8)
[2021-05-05 12:31] LABS: ALT 24 U/L (16-63); AST 17 U/L (15-37); Albumin 3.8 g/dL (3.4-5.0); Alkaline Phosphatase 129 U/L (46-116); Anion Gap 10.4 mmol/L (3-11); BUN 38 mg/dL (7-18); Bilirubin, Total 0.5 mg/dL (0.2-1.0); CO2 24.6 mmol/L (21.0-32.0); CREATININE 2.1 mg/dL (0.70-1.30); Calculated LDL 62 mg/dL (<100); Chloride 107 mmol/L (98-107); Cholesterol 118 mg/dL (<200); Estimated GFR 30.46 (mL/min/1.73m2); Glucose 106 mg/dL (74-106); HDL Cholesterol 45 mg/dL (40-60); Potassium 4.4 mmol/L (3.5-5.1); Sodium 142 mmol/L (136-145); Total Protein 7.4 g/dL (6.4-8.2); Triglyceride 57 mg/dL (<150)
== END 2021-05-05 02:06 | disposition home or self-care (01) ==
DX: E78.5 Hyperlipidemia, unspecified; E87.5 Hyperkalemia; N18.4 Chronic kidney disease, stage 4 (severe); I10 Essential (primary) hypertension; D62 Acute posthemorrhagic anemia
CPT/HCPCS: 36415; 80053; 80061; 85027

== ENCOUNTER 2021-06-09 14:13 | Outpatient (REF) | payer MEDICARE, BC, SELFPAY ==
--- NOTE | 2021-06-09 08:08 | SKI_PTH ---
PATIENT: Phil Lyons LOC: [facility] U#:[id number] AGE/SX: 81/M ROOM: RE06/09/[address]: Pricilla Kline APRN : 1940 BED: DIS: 06/09/2021 SPEC #: [id number] RECD: 06/09/21 18:08 STATUS: CAROLE CRUZ #: [id number] GUI: 06/09/21 08:[address]: Pricilla Kline DEPT: Surgical Specimen RECD BY: Yamileth Dixon Tissues: 1 - SKIN BIOPSY(SHAVE/PUNCH) Procedures: SKIN LEVEL 4 Comments: [id number]
== END 2021-06-09 14:14 | disposition home or self-care (01) ==
LOC: LBN 14:13
DX: C44.529 Squamous cell carcinoma of skin of other part of trunk (principal)
CPT/HCPCS: 88305

== ENCOUNTER → 2021-06-25 07:35 | Outpatient (BNVA) | payer MEDICARE, BC, SELFPAY | PROVIDERS: Visit Provider Physical Therapy Assistant | DX: L98.9 Disorder of the skin and subcutaneous tissue, unspecified (principal); D09.9 Carcinoma in situ, unspecified; Z79.01 Long term (current) use of anticoagulants; E11.22 Type 2 diabetes mellitus with diabetic chronic kidney disease; N18.9 Chronic kidney disease, unspecified; I10 Essential (primary) hypertension | CPT/HCPCS: 99214 ==

== ENCOUNTER → 2021-07-03 09:46 | Outpatient (BNVA) | payer MEDICARE, BC, SELFPAY | PROVIDERS: Visit Provider Physical Therapy Assistant | DX: C44.529 Squamous cell carcinoma of skin of other part of trunk (principal) | CPT/HCPCS: 11603 ==

== ENCOUNTER 2021-07-03 11:25 | Outpatient (REF) | payer MEDICARE, BC, SELFPAY ==
--- NOTE | 2021-07-03 10:45 | SKI_PTH ---
PATIENT: Phil Lyons LOC: [facility] U#:[id number] AGE/SX: 81/M ROOM: RE07/03/[address]: CHARY Richey : 1940 BED: DIS: 07/03/2021 SPEC #: [id number] RECD: 07/03/21 12:15 STATUS: CAROLE RECam #: [id number] GUI: 07/03/21 10:[address]: Meredith Ornelas DEPT: Surgical Specimen RECD BY: Mayte Rodgers ENTERED: 07/03/21 12:16 SP TYPE: RYLEE KEYS DR: Pricilla Kline APRN Tissues: 1 - SKIN BIOPSY(SHAVE/PUNCH) Procedures: SKIN LEVEL 4 Comments: [id number]
== END 2021-07-03 11:26 | disposition home or self-care (01) ==
LOC: LBN 11:25
PROVIDERS: Visit Provider Physical Therapy Assistant
DX: C44.529 Squamous cell carcinoma of skin of other part of trunk (principal)
CPT/HCPCS: 88305

== ENCOUNTER → 2021-07-13 08:51 | Outpatient (BNVA) | payer MEDICARE, BC, SELFPAY | PROVIDERS: Visit Provider Physical Therapy Assistant | DX: Z48.02 Encounter for removal of sutures (principal) ==

== ENCOUNTER 2021-08-17 16:58 | Emergency (ER) | payer MEDICARE, BC, SELFPAY ==
[2021-08-17] VITALS (12 sets, daily range): BP systolic 162–191; BP diastolic 63–80; PULSE 47–100; RESP 11–23; TEMP 36.4; O2SAT 98–100
--- NOTE | 2021-08-17 17:45 | DI.RAD_ITS ---
Exam(s) XR CLAVICLE LT EXAM: XR CLAVICLE LT CLINICAL HISTORY: fall 4 days ago, ttp lt AC. TECHNIQUE: 2D digital imaging was performed. COMPARISON: No exams were available for comparison FINDINGS: There is a nondisplaced fracture in the lateral aspect of the left clavicle. No other fractures iden tified. Degenerative changes in the ipsilateral AC joint and glenohumeral joint are noted. IMPRESSION: Nondisplaced fracture of the lateral left clavicle. DATA REPOSITORY: RADIATION DOSE DELIVERED:
--- NOTE | 2021-08-17 17:45 | DI.RAD_ITS ---
Exam(s) XR CHEST 2V PA LATERAL EXAM: XR CHEST 2V PA LATERAL CLINICAL HISTORY: fall 4 days ago, ecchomosis lt upper ant chest. TECHNIQUE: 2D digital imaging was performed. COMPARISON: CR XR CHEST 2V PA LATERAL from 12/03/2020 FINDINGS: Again noted are sternotomy wires and evidence of CABG. Air within interposed bowel loop subjacent to the right hemidiaphragm again noted. These are somewhat distended, more so than previous. Heart size is normal. The mediastinum is not widened. Lungs are clear. No infiltrates nor pleural effusions. IMPRESSION: No acute pulmonary findings.Abdominal findings as above. DATA REPOSITORY: RADIATION DOSE DELIVERED:
[2021-08-17 18:05] LABS: Absolute Lymphocyte Count 1.08 10^3/uL (1.2-3.4); Absolute Neutrophil Count 3.61 10^3/uL (1.2-6.7); HCT 35.3 % (40.0-50.0); HGB 11.1 g/dL (13.5-17.5); MCH 30.2 pg (27.0-33.0); MCHC 31.4 % (32.0-36.0); MCV 96.2 fL (80-95); MPV 10.7 fL (8.0-11.0); Neutrophils % 66.9; Platelet Count 142 10^3/uL (130-400); RBC 3.67 10^6/uL (4.36-5.78); RDW 13.1 % (11.8-14.1); RDW-SD 46.4 fL
[2021-08-17 18:06] LABS: Abs Immature Grans 0.02 10^3/uL (0.0-0.06); Absolute Basophil Count 0.06 10^3/uL (0.0-0.2); Absolute Eosinophil Count 0.16 10^3/uL (0.0-0.7); Absolute Monocyte Count 0.46 10^3/uL (0.1-0.8); Basophils % 1.1; Immature Grans % 0.4; Monocytes % 8.5; Nucleated RBC 0 %
[2021-08-17 18:19] LABS: ALT 19 U/L (16-63); AST 23 U/L (15-37); Albumin 3.8 g/dL (3.4-5.0); Alkaline Phosphatase 110 U/L (46-116); Anion Gap 7.1 mmol/L (3-11); BUN 33 mg/dL (7-18); Bilirubin, Total 0.8 mg/dL (0.2-1.0); CO2 25.9 mmol/L (21.0-32.0); CREATININE 2.1 mg/dL (0.70-1.30); Calcium 8.3 mg/dL (8.5-10.1); Chloride 105 mmol/L (98-107); Estimated GFR 30.46 (mL/min/1.73m2); Glucose 94 mg/dL (74-106); Potassium 4.7 mmol/L (3.5-5.1); Sodium 138 mmol/L (136-145); Total Protein 7.6 g/dL (6.4-8.2); Troponin I < 50 ng/L (<or=60)
--- NOTE | 2021-08-17 18:30 | W.ED.GENAD ---
Discharge Plan Disposition Patient Disposition: HOME Condition: Stable Discharge Details Clinical Impression: Closed fracture of distal clavicle Primary Care Provider: Pricilla Kline ED Provider: Benigno Loera Home Meds and New Rx's Prescriptions: Continued atorvastatin [Lipitor] 40 mg tablet 40 mg PO DAILY Qty: 90 4RF isosorbide dinitrate 30 mg tablet 30 mg PO DAILY Qty: 90 4RF metoprolol tartrate 50 mg tablet 25 mg PO BID Qty: 90 4RF nitroglycerin [Nitrostat] 0.4 mg tablet, sublingual 0.4 mg Sublingual PRN Qty: 10 0RF Label Comments: never used Humulin N NPH Insulin KwikPen 100 unit/mL (3 mL) insulin pen 12 - 14 unit subcut BID@0800,1700 Qty: 15 6RF Rx Instructions: 14units in AM & 12units in PM lorazepam 1 mg tablet 1 mg PO ONCE PRN (Reason: anxiety) Qty: 1 0RF Rx Instructions: Take 1 tablet with water 20-30 mins prior to skin lesion excision procedure. lidocaine-epinephrine 1 %-1:100,000 solution 9 ml intradermal ONCE Qty: 9 0RF Eliquis 2.5 mg tablet 2.5 mg PO BID Qty: 180 3RF ferrous sulfate 325 mg (65 mg iron) tablet 325 mg PO DAILY Qty: 60 0RF aspirin [Adult Aspirin Regimen] 81 mg tablet,delayed release (DR/EC) 81 mg PO DAILY 0RF (DME) Blood Glucose Test Strip 1 ea Miscellaneous DAILY Qty: 100 4RF Rx Instructions: FOR ONE TOUCH ULTRA MINI Dx E11.9 : BID (DME) pen needle, diabetic [BD Ultra-Fine Short Pen Needle] 31 gauge x 5/16 needle See Rx Instructions .ROUTE .MEDSUPPLY Qty: 100 8RF Rx Instructions: 2 x daily - E11.9 magnesium oxide 400 mg (241.3 mg magnesium) Tablet 400 mg PO BID@1000,2200 Qty: 0 0RF Hold Instructions: Home Medication placed on hold at Doctor's office Label Comments: only takes whatever's on the list (DME) blood-glucose meter 1 EACH misc 1 ea Miscellaneous DAILY Qty: 1 0RF Rx Instructions: ONE TOUCH ULTRA MINI DIAGNOSIS CODE E11.9 (DME) lancets 28 gauge misc 1 ea Miscellaneous DAILY Qty: 100 4RF Rx Instructions: FOR ONE TOUCH ULTRA MINI METER. NO INSULIN. DIAGNOSIS CODE E11.9 Discharge Instructions Instructions: Clavicle Fracture (ED) Additional Instructions: Please use sling. Please follow-up with orthopedics. Return to the emergency department for any worsening or new concerning symptoms. Referrals: [facility] [Provider Group] Discharge Data Discharge Date/Time-TO BE ENTERED AT DEPARTURE: 08/17/21 20:23 Medical Decision Making 1835??81-year-old male here for to 5 days after slip and fall on ice with injury to left shoulder, significant ecchymosis over clavicle extending to left anterior chest, concern from PCP it with decreased breath sounds left lung. Patient is on anticoagulant. No head trauma. Patient does have significant ecchymosis over his left anterior upper chest and clavicle. He is tender over his AC joint. I suspect AC sprain versus clavicle fracture. No tenderness laterally and has good range of motion of the shoulder. He has no spinal tenderness. Lungs are clear to auscultation bilaterally. Bedside [id number] ultrasound was performed by id and no pneumothorax or pleural effusion present. Plan to obtain chest x-ray and left clavicle x-ray. --Chest x-ray reviewed and interpreted by radiology: No acute cardiopulmonary abnormality. No acute fractures identified. Left clavicle x-ray was interpreted by radiology: Nondisplaced distal clavicle fracture. All results discussed with patient. Plan to treat with sling and have him follow-up with orthopedics. Usual customary discharge instructions were reviewed with patient. Patient was informed of elevated blood pressure and advised to follow-up with his pcp. HPI General Date/Time Provider Initiated Documentation: 08/17/21 17:26. 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 Patient also notes left shoulder pain. Patient notes he fell onto his side and back on ice approximately 4 to 5 days ago. He has had pain in his left clavicle area since the fall. Patient notes increased ecchymosis left anterior shoulder and upper chest over the past 4 days. Patient denies head trauma. No neck or back pain. No difficulty breathing. No abdominal pain. No pelvic pain. Related Data Home Medications Medication Instructions Recorded Confirmed atorvastatin 40 mg tablet (Lipitor) 40 mg PO DAILY #90 tab 08/25/20 08/17/21 isosorbide dinitrate 30 mg tablet 30 mg PO DAILY #90 tab 08/25/20 08/17/21 metoprolol tartrate 50 mg tablet 25 mg PO BID #90 tab 08/25/20 08/17/21 nitroglycerin 0.4 mg sublingual 0.4 mg SUBLINGUAL PRN #10 tab 08/25/20 08/17/21 tablet (Nitrostat) blood-glucose meter #1 ea 11/24/20 08/17/21 lancets 28 gauge #100 ea 11/24/20 08/17/21 magnesium oxide 400 mg (241.3 mg 400 mg PO BID@1000,2200 #0 tab 11/24/20 08/17/21 magnesium) tablet aspirin 81 mg tablet,delayed 81 mg PO DAILY 12/15/20 08/17/21 release (Adult Aspirin Regimen) ferrous sulfate 325 mg (65 mg 325 mg PO DAILY #60 tab 12/15/20 08/17/21 iron) tablet apixaban 2.5 mg tablet (Eliquis) 2.5 mg PO BID #180 tab 01/01/21 08/17/21 blood sugar diagnostic (Blood #100 strip 01/22/21 08/17/21 Glucose Test) pen needle, diabetic 31 gauge x #100 ea 01/22/21 08/17/21 5/16 (BD Ultra-Fine Short Pen Needle) insulin NPH isoph U-100 human 100 12 - 14 unit (0.12 - 0.14 mL) 05/25/21 08/17/21 unit/mL (3 mL) subcutaneous pen SUBCUT BID@0800,1700 #15 ml (Humulin N NPH U-100 Insulin KwikPen) lorazepam 1 mg tablet 1 mg PO ONCE PRN #1 tab 06/29/21 08/17/21 Previous Rx's Medication Instructions Recorded atorvastatin 40 mg tablet (Lipitor) 40 mg PO DAILY #90 tab 08/25/20 isosorbide dinitrate 30 mg tablet 30 mg PO DAILY #90 tab 08/25/20 metoprolol tartrate 50 mg tablet 25 mg PO BID #90 tab 08/25/20 nitroglycerin 0.4 mg sublingual 0.4 mg SUBLINGUAL PRN #10 tab 08/25/20 tablet (Nitrostat) blood-glucose meter #1 ea 11/24/20 lancets 28 gauge #100 ea 11/24/20 magnesium oxide 400 mg (241.3 mg 400 mg PO BID@1000,2200 #0 tab 11/24/20 magnesium) tablet ferrous sulfate 325 mg (65 mg 325 mg PO DAILY #60 tab 12/15/20 iron) tablet apixaban 2.5 mg tablet (Eliquis) 2.5 mg PO BID #180 tab 01/01/21 blood sugar diagnostic (Blood #100 strip 01/22/21 Glucose Test) pen needle, diabetic 31 gauge x #100 ea 01/22/2111/16 (BD Ultra-Fine Short Pen Needle) insulin NPH isoph U-100 human 100 12 - 14 unit (0.12 - 0.14 mL) 05/25/21 unit/mL (3 mL) subcutaneous pen SUBCUT BID@0800,1700 #15 ml (Humulin N NPH U-100 Insulin KwikPen) lorazepam 1 mg tablet 1 mg PO ONCE PRN #1 tab 06/29/21 Allergies Allergy/AdvReac Type Severity Reaction Status Date / Time metoclopramide Allergy Intermediate Verified 08/17/21 17:11 Penicillins Allergy Unknown Verified 08/17/21 17:11 General Stated Complaint: GenMedical MANDI: 3 Review of Systems All systems reviewed & are unremarkable except as noted in HPI and below Cardiovascular Cardiovascular: Denies chest pain Musculoskeletal Musculoskeletal: Reports as per HPI PFSH All Active Problems (Updated 08/17/21 @ 20:11 by Benigno Loera MD) Closed fracture of distal clavicle (Acute) Squamous cell carcinoma in situ (Acute) On anticoagulant therapy (Acute) Back pain (Chronic) Acute on chronic blood loss anemia (Acute) Hyperkalemia (Acute) Acute kidney injury superimposed on chronic kidney disease (Acute) Skin lesion (Acute) SQUAMOUS CELL in suto per punch biopsy - upper right back 06/09/21 CKD (chronic kidney disease) stage 4, GFR 15-29 ml/min (Acute) Muscle cramps at night (Chronic) History of intravascular stent placement (Acute) Anxiety (Acute) Coronary atherosclerosis of mechoopda coronary vessel (Acute) 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 S/P cholecystectomy Stent placement 2001 x1 Family History Mother , 78 Diabetes Essential hypertension Father , 66 Heart disease Sister Diabetes Maternal Grandfather , 93 Diabetes Maternal Grandmother Heart disease Paternal Grandfather , 77 Heart disease Paternal Grandmother No problems noted. Son No problems noted. Social History Smoking/Tobacco Use Status: Never Second Hand Exposure: Yes Smoking risk assessment performed?: Yes Alcohol Intake: never Drug use: Never Substance use type: does not use Counseling given: No Counseling provided: none Caregiver/Support person: No Household members: spouse Housing: house Communication Needs: Hard of Hearing Do you need help understanding health information?: Never Pets and animals: Yes Pets and animals: dog(s) Sexually active: Yes Do you think of yourself as: straight/heterosexual Current gender identity: male What is your relationship status?: How often do you talk on the phone with friends or family?: once per week How often do you get together with friends or relatives?: once per week How often do you attend shinto or denominational services?: decline to answer Do you belong to any clubs or organized social groups?: decline to answer Panel score (0-1 are the most socially isolated patients): 1 What type of physical activity do you participate in: weight lifting Duration: 30-45 minutes/day Frequency: 1-2 times per week Pilar/Orthodoxy: Anabaptist Special pilar needs: No Seatbelt use: always Helmet use: Yes Helmet use: always Drive intox or ride w/intox class a regional drivers: No Do you feel safe at home: Yes Do you feel safe in your relationship?: Yes Exam Const General: cooperative and no acute distress HENMT Head: normocephalic and atraumatic Mouth: moist mucous membranes Eyes Conjunctivae: normal conjunctivae Sclera: normal sclerae Neck Neck: trachea midline and supple Chest Chest: no crepitus, no tenderness and other (Ecchymosis left upper chest and clavicle) Resp Auscultation: clear to auscultation bilaterally, no rales, no rhonchi and no wheezes Cardio Rate: regular rate and not tachycardic Rhythm: regular rhythm GI Palpation: soft, not firm, no guarding, no masses, not rigid and nontender Back/Spine/Pelvis Cervical Spine: cervical ROM normal, No cervical spinal tenderness and No step off deformity Thoracic/Lumbar Spine: thoracic and lumbar spine normal to inspection Skin General skin exam: ecchymosis (As noted above) Neuro General: patient alert, patient awake, patient oriented x3 and tone normal Extrem General: no edema Left upper extremity: shoulder/upper arm Details: tenderness Location: of the A-C joint; Negative for not of the proximal humerus, axillary nerve sensory function normal and normal ROM; Negative for no swelling Psych Mental Status: mental status grossly normal Speech and Movement: speech and movement normal Course Vital Signs Vital signs: Vital Signs Temperature 36.4 C L 08/17/21 17:07 Pulse 56 L 08/17/21 17:07 Respiratory Rate 16 08/17/21 17:07 Blood Pressure 189/75 H 08/17/21 17:07 Pulse Oximetry 99 08/17/21 17:07 Temperature 36.4 C L 08/17/21 17:07 Temperature Source Skin 08/17/21 17:07 Pulse 52 L 08/17/21 18:02 Pulse 100 H 08/17/21 18:10 Respiratory Rate 23 08/17/21 18:10 Respiratory Effort Non-Labored 08/17/21 17:45 Respiratory Depth Normal 08/17/21 17:45 Respiratory Pattern Normal 08/17/21 17:45 Blood Pressure 173/71 H 08/17/21 18:02 Blood Pressure Mean 98 08/17/21 18:02 Blood Pressure Position Sitting 08/17/21 17:07 Pulse Oximetry 99 08/17/21 18:02 Oxygen Delivery Method Room Air 08/17/21 17:07 Oxygen Flow Rate 0 08/17/21 17:07 Pain Level 8 08/17/21 17:07 Lab/Test Results Lab/Test Results: Laboratory Tests Range/Units 08/17/21 08/17/21 15:35 15:35 WBC (4.4-10.8) 10^3/uL 5.40 RBC (4.36-5.78) 10^6/uL 3.67 L Hgb (13.5-17.5) g/dL 11.1 L Hct (40.0-50.0) % 35.3 L MCV (80-95) fL 96.2 H MCH (27.0-33.0) pg 30.2 MCHC (32.0-36.0) % 31.4 L RDW (11.8-14.1) % 13.1 Plt Count (130-400) 10^3/uL 142 MPV (8.0-11.0) fL 10.7 Immature Gran % 0.4 Neutrophils % 66.9 Lymphocytes % 20.0 Monocytes % 8.5 Eosinophils % 3.0 Basophils % 1.1 Nucleated RBC % % 0 Absolute Neutrophils (1.2-6.7) 10^3/uL 3.61 Absolute Lymphocytes (1.2-3.4) 10^3/uL 1.08 L Absolute Monocytes (0.1-0.8) 10^3/uL 0.46 Absolute Eosinophils (0.0-0.7) 10^3/uL 0.16 Absolute Basophils (0.0-0.2) 10^3/uL 0.06 Sodium (136-145) mmol/L 138 Potassium (3.5-5.1) mmol/L 4.7 Chloride (98-107) mmol/L 105 Carbon Dioxide (21.0-32.0) mmol/L 25.9 Anion Gap (3-11) mmol/L 7.1 BUN (7-18) mg/dL 33 H Creatinine (0.70-1.30) mg/dL 2.1 H Estimated GFR/1.73 m2 (mL/min/1.73m2) 30.46 Glucose (74-106) mg/dL 94 Calcium (8.5-10.1) mg/dL 8.3 L Total Bilirubin (0.2-1.0) mg/dL 0.8 AST (15-37) U/L 23 ALT (16-63) U/L 19 Alkaline Phosphatase (46-116) U/L 110 Troponin I (<or=60) ng/L < 50 Total Protein (6.4-8.2) g/dL 7.6 Albumin (3.4-5.0) g/dL 3.8
--- NOTE | 2021-08-17 19:38 | DI.VRAD_ITS ---
PROCEDURE INFORMATION: Exam: XR Chest Exam date and time: 08/17/2021 5:54 PM Age: 81 years old Clinical indication: Other: Fall 4 days ago, ecchomosis lt upper ant chest; Prior surgery; Surgery date: 6+ months; Surgery type: Stent, bypass TECHNIQUE: Imaging protocol: XR of the chest. Views: 2 views. COMPARISON: CR XR CHEST 2V PA LATERAL 12/03/2020 10:51 AM FINDINGS: Lungs: Unremarkable. No consolidation. Pleural spaces: Unremarkable. No pleural effusion. No pneumothorax. Heart/Mediastinum: Multiple mediastinal surgical clips. Several other surgical clips at the gastroesophageal junction. No cardiomegaly. Diaphragm: Eventration of the right hemidiaphragm with hepatic flexure colon immediately inferior. Bones/joints: Prior median sternotomy. No fracture identified. IMPRESSION: 1. No acute cardiopulmonary abnormality. 2. No acute fracture identified. 3. Prior CABG. Dictated and Authenticated by: Aris Xiong MD. Ordering:GHADA Pelaez MD
--- NOTE | 2021-08-17 19:40 | DI.VRAD_ITS ---
PROCEDURE INFORMATION: Exam: XR Left Clavicle, Complete Exam date and time: 08/17/2021 5:54 PM Age: 81 years old Clinical indication: Injury or trauma; Blunt trauma (contusions or hematomas); Shoulder; Left; Injury date: 08/13/21; Injury details: Fall 4 days ago, ttp lt ac TECHNIQUE: Imaging protocol: XR Left clavicle complete. Views: Any number of views. COMPARISON: CR XR CHEST 2V PA LATERAL 08/17/2021 6:41 PM FINDINGS: Bones/joints: Nondisplaced fracture of the distal left clavicle. Mild acromioclavicular joint degenerative disease. Moderate inferior glenohumeral joint degenerative change. Heart/Mediastinum: Prior CABG. Soft tissues: Unremarkable. IMPRESSION: 1. Nondisplaced extra-articular distal left clavicular fracture. 2. Moderate left glenohumeral joint degenerative disease. Dictated and Authenticated by: Aris Xiong MD. Ordering:GHADA Pelaez MD
== END 2021-08-17 20:23 | disposition home or self-care (01) ==
PROVIDERS: Emergency Provider Student in an Organized Health Care Education/Training Program
DX: S42.032A Displaced fracture of lateral end of left clavicle, initial encounter for closed fracture (principal); S20.212A Contusion of left front wall of thorax, initial encounter; W00.0XXA Fall on same level due to ice and snow, initial encounter
CPT/HCPCS: 36415; 80053; 86850; 86900; 86901; 99284; 71046; 73000; 84484; 85025; 99283

== ENCOUNTER 2021-08-26 09:20 | Outpatient (CLI) | payer MEDICARE, BC, SELFPAY ==
--- NOTE | 2021-08-26 09:15 | DI.RAD_ITS ---
Exam(s) XR CLAVICLE LT EXAM: XR CLAVICLE LT CLINICAL HISTORY: L DISTAL CLAVICLE FRACTURE TECHNIQUE: 2D digital imaging was performed. COMPARISON: CR,XR XR CLAVICLE LT from 08/17/2021 FINDINGS: No change alignment distal clavicle fracture. Degenerative changes are again noted at the AC joint a nd glenohumeral joint. IMPRESSION: Stable appearance of distal clavicle fracture. DATA REPOSITORY: RADIATION DOSE DELIVERED:
== END 2021-08-26 09:21 | disposition home or self-care (01) ==
LOC: DIORS 09:20
PROVIDERS: Visit Provider Physician Assistant
DX: S42.032A Displaced fracture of lateral end of left clavicle, initial encounter for closed fracture; W19.XXXA Unspecified fall, initial encounter
CPT/HCPCS: 99213; 73000

== ENCOUNTER 2021-09-23 10:25 | Outpatient (CLI) | payer MEDICARE, BC, SELFPAY ==
--- NOTE | 2021-09-23 10:15 | DI.RAD_ITS ---
Exam(s) XR CLAVICLE LT EXAM: XR CLAVICLE LT CLINICAL HISTORY: left clavicle fx f/u. TECHNIQUE: 2D digital imaging was performed. COMPARISON: CR,XR XR CLAVICLE LT from 08/17/2021 CR XR CLAVICLE LT from 08/26/2021 FINDINGS: Two views Fracture line in the lateral aspect clavicle still visible and although displaced, it appears slightl y widened. AC joint again exhibits changes no diastasis. Acromial space is not diminished. IMPRESSION: As above. Appropriate continued follow-up recommended. DATA REPOSITORY: RADIATION DOSE DELIVERED:
== END 2021-09-23 10:26 | disposition home or self-care (01) ==
LOC: DIORS 10:25
PROVIDERS: Visit Provider Student in an Organized Health Care Education/Training Program
DX: S42.032A Displaced fracture of lateral end of left clavicle, initial encounter for closed fracture (principal); X58.XXXA Exposure to other specified factors, initial encounter
CPT/HCPCS: 99213; 73000

== ENCOUNTER → 2022-02-01 10:16 | Outpatient (BNVA) | payer MEDICARE, BC, SELFPAY | PROVIDERS: Visit Provider Surgery | DX: L72.9 Follicular cyst of the skin and subcutaneous tissue, unspecified (principal) | CPT/HCPCS: 99214 ==

== ENCOUNTER → 2022-02-24 08:42 | Outpatient (BNVA) | payer MEDICARE, BC, SELFPAY | PROVIDERS: Visit Provider Surgery | DX: D04.5 Carcinoma in situ of skin of trunk (principal); D22.5 Melanocytic nevi of trunk; C44.519 Basal cell carcinoma of skin of other part of trunk; L82.1 Other seborrheic keratosis | CPT/HCPCS: 11606 ==

== ENCOUNTER 2022-02-24 10:13 | Outpatient (REF) | payer MEDICARE, BC, SELFPAY ==
--- NOTE | 2022-02-24 09:15 | SKI_PTH ---
PATIENT: Phil Lyons LOC: [facility] U#:[id number] AGE/SX: 81/M ROOM: RE02/24/[address]: Adolfo Carver MD : 1940 BED: DIS: 02/24/2022 SPEC #: [id number] RECD: 02/24/22 12:39 STATUS: CAROLE REQ #: [id number] GUI: 02/24/22 09:[address]: Adolfo Carver DEPT: Surgical Specimen RECD BY: Yamileth Dixon ENTERED: 02/24/22 12:39 SP TYPE: RYLEE KEYS DR: Pricilla Kline APRN Tissues: 1 - SKIN BIOPSY(SHAVE/PUNCH) Procedures: SKIN LEVEL 4 Comments: [id number]
== END 2022-02-24 10:14 | disposition home or self-care (01) ==
LOC: LBN 10:13
PROVIDERS: Visit Provider Surgery
DX: D04.5 Carcinoma in situ of skin of trunk (principal); C44.519 Basal cell carcinoma of skin of other part of trunk; D22.5 Melanocytic nevi of trunk; L82.1 Other seborrheic keratosis
CPT/HCPCS: 88305

== ENCOUNTER → 2022-03-05 08:50 | Outpatient (BNVA) | payer MEDICARE, BC, SELFPAY | PROVIDERS: Visit Provider Surgery | DX: D22.5 Melanocytic nevi of trunk (principal); L82.1 Other seborrheic keratosis; Z48.02 Encounter for removal of sutures ==

== ENCOUNTER 2022-03-19 01:19 | Outpatient (CLI) | payer MEDICARE, BC, SELFPAY ==
--- OUTSIDE RECORDS SUMMARY | 2022-03-19 01:23 | XMS_ITS | Encounter Summary ---
:1940 Author Organization [facility] Address [address] [place] [address] Care Team Providers Name Role Phone Pricilla Kline NP Primary Care Provider Reason for Visit Reason Onset Date Comments Prior Auth, Medication 07/12/2016 Encounter Details Date Type Department Care Team Description 07/12/2016 Telephone [facility] Case Amanda Boucher Prior Auth, Medication Management - Main [facility] [address] [place] [address] Social History Tobacco Use Types Packs/Day Years Used Date Never Smoker Alcohol Use Standard Drinks/Week Comments No 0 (1 standard drink = 0.6 oz pure alcoho l) Sex Assigned at Date Recorded Not on file documented as of this encounter Functional Status Functional Status Response Date of Assessment Are you deaf or do you have serious difficulty hearing? No 07/02/2016 Are you blind or do you have serious difficulty seeing, Yes 07/02/2016 even when wearing glasses? Do you have serious difficulty walking or climbing No 07/02/2016 stairs? (5 years old or older) Do you have difficulty dressing or bathing? (5 years old Yes 07/02/2016 or older) Because of a physical, mental, or emotional condition, do No 07/02/2016 you have difficulty doing errands alone such as visiting a doctor's office or shopping? (15 years old or older) Cognitive Status Response Date of Assessment Because of a physical, mental, or emotional condition, do No 07/02/2016 you have serious difficulty concentrating, remembering, or making decisions? (5 years old or older) documented as of this encounter Miscellaneous Notes Telephone Encounter - Amanda Boucher - 07/12/2016 1243 EST CM Note Follow up on PA for prevacid disintegrating tablet which was noted by CM to be done over weekend. Called [facility] pt ID #[id number]. Spoke with Tee who stated there was no previous information about this prior auth received, so CM proceeded with information needed by insurer to consider medication needed by patient. Order # for auth is [id number] - needs to be reviewed by [facility] pharmacistand they will call. MD office/CM to be informed within 24 hours of approval/denial of medication (ptwill get a letter in the mail so we will have to inform him in order to get medication filled in timely manner). If denied, pt has 60 days to appeal. Milagros Boucher RN CM [id number] documented in this encounter Plan of Treatment Not on filedocumented as of this encounter Visit Diagnoses Not on filedocumented in this encounter Care Teams Industrial Maintenance Repairer Helper Relationship Specialty Start Date End Date Pricilla Kline, NURSE NAVIGATOR PCP - General 06/08/16 [address] [place] [address] documented as of this encounter
--- OUTSIDE RECORDS SUMMARY | 2022-03-19 01:23 | XMS_ITS | Encounter Summary ---
:1940 Author Organization [facility] Address [address] [place] [id number] Care Team Providers Name Role Phone Pricilla Kline NP Primary Care Provider Reason for Visit Reason Onset Date Comments Follow-up Diagnostic PSG 01/11/2017 Encounter Details Date Type Department Care Team Description 01/11/2017 Telephone [facility] Pedro Luis Acuna w-up Diagnostic General Surgery - Nika Foy [address] [address] [address], [place] [address] (Wo rk) Social History Tobacco Use Types Packs/Day Years [...] of a physical, mental, or emotional condition, No 12/30/2016 does this person have difficulty doing errands alone such as visiting a doctor's office or shopping? Cognitive Status Response Date of Assessment Because of a physical, mental, or emotional condition, No 12/30/2016 does this person have serious difficulty concentrating, remembering, or making decisions? documented as of this encounter Miscellaneous Notes Telephone Encounter - Gifty Vieira - 01/11/2017 1603 [facility] Gifty Vieira at 01/11/2017 16:04 EDTdocumented in this encounter Plan of Treatment Not on filedocumented as of this encounter Visit Diagnoses Not on filedocumented in this encounter Care Teams Health Facilities Surveyor Relationship Specialty Start Date End Date Pricilla Kline, KHANH PCP - General 06/08/[address] [place] [phone] documented as of this encounter
--- OUTSIDE RECORDS SUMMARY | 2022-03-19 01:23 | XMS_ITS | Encounter Summary ---
:1940 Author Organization [facility] Address [address] [place] [address] Care Team Providers Name Role Phone Curtis Bauer MD, Nahid Primary Care Provider Reason for Referral - Closed Specialty Diagnoses / Procedures Referred By Contact Refer red To Contact Diagnoses Coronary artery disease, unspecified vessel or lesion type, unspecified whether angina present, unspecified whether [place] or transplanted heart Joanna Ortiz APRN Procedures [place] [facility] [address] [place] [address] [place] [address] Referral ID Status Reason Start Date Expiration Date Visits Requ ested Visits Authorized [id number] Closed 12/03/2020 12/03/2021 1 1 Reason for Visit - Closed Specialty Diagnoses / Procedures Referred By Contact Refer red To Contact Diagnoses Coronary artery disease, unspecified vessel or lesion type, unspecified whether angina present, unspecified whether [place] or transplanted heart Joanna Ortiz APRN Procedures [address] [place] [address] Referral ID Status Reason Start Date Expiration Date Visits Requ ested Visits Authorized [id number] Closed 12/03/2020 12/03/2021 1 1 Encounter Details Date Type Department Care Team Description 12/03/2020 Hospital Encounter Mobile Joanna Ortiz Coron junaid artery Echocardiography SUSAN [place] disease, unspecified [address] vessel or lesion Drive [place], type, unspecified [facility] [address] whether angina [phone] present, unspecified whether [place] or [phone] transplanted he art (Fax) Social History Tobacco Use Types Packs/Day Years Used Date Never Assessed Sex Assigned at Date Recorded Not on file documented as of this encounter Medications at Time of Discharge Medication Sig Dispensed Refills Start Date End Date CIS Free Text Med - Chika Low Strength 0 12/28/2005 metFORMIN (GLUCOPHAGE) 1,000 mg tablet 0 12/28/2005 atorvastatin (LIPITOR) 40 mg tablet 0 12/28/2005 glyBURIDE (DIABETA) 5 mg tablet 0 12/03 atenolol (TENORMIN) 50 mg tablet 0 isosorbide mononitrate (IMDUR) 30 mg 24 hr 0 12/28/2005 tablet Garlic 500 mg Tab 0 12/28/2005 vitamin E 400 unit capsule 0 6 nitroGLYcerin (NITROSTAT) 0.4 mg SL tablet 0 12/28/2005 folic acid (FOLVITE) 1 mg tablet 0 losartan (COZAAR) 25 mg tablet 0 12/28 documented as of this encounter Plan of Treatment Not on filedocumented as of this encounter Procedures Procedure Name Priority Date/Time Associated Diagnosis Comme nts ECHOCARDIOGRAM LMTD Routine 12/03/2020 4:05 Coronary artery Re sults for this W/O CON W LMTD SPEC PM EDT disease, unspecified procedure are in DOPP, COLOR DOPP vessel or lesion the res ults type, unspecified section. whether angina present, unspecified whether [place] or transplanted heart documented in this encounter Results ECHOCARDIOGRAM LMTD W/O CON W LMTD SPEC DOPP, COLOR DOPP (12/03/2020 4:05 PM EDT) Anatomical Region Laterality Modality Other Specimen (Source) Anatomical Location Collection Method / Collectio n Time Received Time / Laterality Volume 12/03/2020 Narrative 12/03/2020 4:19 PM EDT Procedure: ?Transthoracic Echocardiogram Patient: ?Courser Phil W ?(Age): 1940(80y) Med Rec#: ? [id number] ?Sex: ?M ? Site Loc: ? [facility] ??H t / Wt: ??167.64(cm)/69.4 Pt. Loc: ?ED ?BSA: ?1.78 Study Date: ?? 12/03/2020 ?Pt. Type: Emergency Patient Tape: ? 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 126/61 SUMMARY: 1. Limited study to evaluate right heart . 2. The right ventricle is normal in size . Right ventricular global systolic function is probably normal. Th e estimated pulmonary artery systolic pressure is 33 mmHg. 3. Global left ventricular wall motion a nd contractility are probably within normal limits. 4. Prior study not available for compari son. Findings ? : Study Quality: ? Adequate Left Ventricle: ? Global left ventri cular wall motion and contractility are probably within normal limits. Right Ventricle: ? The right ventric le is normal in size. ?Right ventricular global systolic function is probably normal. ?The estimated pulmonary artery sys tolic pressure is 33 mmHg. ?The estimated right atrial pressur e is 3 mmHg. Right Atrium: ? The right atrium is probably normal in size. Tricuspid Valve: ? The tricuspid betsey ve is probably normal. ?There is mild (1+/4+) tricuspid re gurgitation present. Venous: ? The inferior vena cava is poorly visualized. Misc: ? Two-dimensional echo, limite d spectral Doppler and color Doppler performed. Tricuspid Valve ?Value ?Units (Range) ? TV VTI ?27.4 ? cm ? TR Vmax ? 2.76 ? m/sec ? TR peak gradient ?30.43 ?mmHg ? RAP ? 3 ?mmHg ? RVSP ?33 ? mmHg ? This report has been electronically sign ed by: _ Aniceto Siddiqui MD ? 12/03/2020 16:18 :32 Images reviewed and interpretation verif ied [facility] Cardiac Ultrasound Laboratory Procedure Note Aniceto Siddiqui MD - 12/03/2020Formattin g of this note might be different from the original. Procedure: Transthoracic Echocardiogram Patient: Courser Phil Riggs (Age): (80y) Med Rec#: [id number] Sex: M Site Loc: [facility] Ht / Wt: 167.64(cm)/69.4 Pt. Loc: ED BSA: 1.78 Study Date: 12/03/2020 Pt. 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 Limited study to evaluate right heart . 2. The right ventricle is normal in size . Right ventricular global systolic function is probably normal. Th e estimated pulmonary artery systolic pressure is 33 mmHg. 3. Global left ventricular wall motion a nd contractility are probably within normal limits. 4. Prior study not available for compari son. Findings : Study Quality: Adequate Left Ventricle: Global left ventricular wall motion and contractility are probably within normal limits. Right Ventricle: The right ventricle is normal in size. Right ventricular global systolic funct ion is probably normal. The estimated pulmonary artery systolic pressure is 33 mmHg. The estimated right atrial pressure is 3 mmHg. Right Atrium: The right atrium is probab ly normal in size. Tricuspid Valve: The tricuspid valve is probably normal. There is mild (1+/4+) tricuspid regurgi tation present. Venous: The inferior vena cava is poorly visualized. Misc: Two-dimensional echo, limited spec tral Doppler and color Doppler performed. Tricuspid Valve Value Units (Range) TV VTI 27.4 cm TR Vmax 2.76 m/sec TR peak gradient 30.43 mmHg RAP 3 mmHg RVSP 33 mmHg This report has been electronically sign ed by: _ Aniceto Siddiqui MD 12/03/2020 16:18:32 Images reviewed and interpretation verif ied [facility] Cardiac Ultrasound Laboratory Joanna Ortiz APRN ECHO ORDERABLES documented in this encounter Visit Diagnoses Diagnosis Coronary artery disease, unspecified ves juhi or lesion type, unspecified whether angina present, unspecified whether jennifer ve or transplanted heart documented in this encounter Care Teams Research Director Relationship Specialty Start Date End Date Nahid Acevedo MD PCP - General 05/26/10 [address] [place] [address] documented as of this encounter
--- OUTSIDE RECORDS SUMMARY | 2022-03-19 01:23 | XMS_ITS | Encounter Summary ---
:1940 Author Organization [facility] [place] [address] Care Team Providers Name Role Phone Curtis Bauer MD, John Primary Care Provider Encounter Details Date Type Department Care Team Description 12/03/2020 External Results [place] [phone] Social History Tobacco Use Types Packs/Day Years Used Date Never Assessed Sex Assigned at Date Recorded Not on file documented as of this encounter Plan of Treatment Not on filedocumented as of this encounter Procedures Procedure Name Priority Date/Time Associated Diagnosis Comme nts ECG SCAN Routine 12/03/2020 Results for thi s procedure are in the resu lts section. documented in this encounter Results Scan Doc: ECG (12/03/2020) Narrative This result has an attachment that is no t available. Historical Provider MEDIA MGR SCAN EXT ORDR/RSLT documented in this encounter Visit Diagnoses Not on filedocumented in this encounter Care Teams Customer Retention Specialist Relationship Specialty Start Date End Date Nahid Acevedo MD PCP - General 05/26/10 [address] [place] [address] documented as of this encounter
--- OUTSIDE RECORDS SUMMARY | 2022-03-19 01:23 | XMS_ITS | Encounter Summary ---
:1940 Author Organization [facility] [place] [address] Care Team Providers Name Role Phone Curtis Bauer MD, Nahid Primary Care Provider Reason for Visit - Closed Specialty Diagnoses / Procedures Referred By Contact Refer red To Contact Procedures Joanna Ortiz APRN Film Library- Storage Only [address] [place] [address] [place] [address] Referral ID Status Reason Start Date Expiration Date Visits Requ ested Visits Authorized [id number] Closed 12/03/2020 12/03/2021 1 1 Encounter Details Date Type Department Care Team Description 12/03/2020 Ancillary Procedure [facility] [address] [place] [phone] (Wo rk) Social History Tobacco Use Types Packs/Day Years Used Date Never Assessed Sex Assigned at Date Recorded Not on file documented as of this encounter Plan of Treatment Not on filedocumented as of this encounter Procedures Procedure Name Priority Date/Time Associated Comments Diagnosis FILM LIBRARY STORAGE Routine 12/03/2020 8:37 PM R esults for this ONLY ULTRASOUND EDT procedure ar e in STUDY the results section. documented in this encounter Results Film Library- Storage Only Ultrasound Study (12/03/2020 8:37 PM EDT) Specimen (Source) Anatomical Location Collection Method / Collectio n Time Received Time / Laterality Volume Narrative RAD - 12/03/2020 8:37 PM EDT This exam is auto-finalizing. It's purpo se is for storage only. Joanna Ortiz APRN IMG FILM LIBRARY ORDERABLES Performing Organization Address City/State/ZIP Code Phon e Number [facility] [place], [place] documented in this encounter Visit Diagnoses Not on filedocumented in this encounter Care Teams Medical Center Representative Relationship Specialty Start Date End Date Nahid Acevedo MD PCP - General 05/26/10 [address] [place] [address] documented as of this encounter
--- OUTSIDE RECORDS SUMMARY | 2022-03-19 01:23 | XMS_ITS | Encounter Summary ---
:1940 Author Organization [facility] Address [address] [place] [address] Care Team Providers Name Role Phone Pricilla Kline NP Primary Care Provider Reason for Visit Reason Onset Date Comments Other 07/06/2017 Calling to ask if th e patient need UGI as he had done elsewhere? Encounter Details Date Type Department Care Team Description 07/06/2017 Telephone [facility] Pedro Luis Acuna Other (Calling to ask General Surgery - Nika Foy if the patient need [facility] [address] [facility] UGI as he had done [address] [facility] elsewhere? ) [place] [address] [facility] [place] [phone] (Wo rk) Social History Tobacco Use Types [...] this encounter Miscellaneous Notes Telephone Encounter - Milagros Hurley RN - 07/07/2017 1615 EST Patient wants to reschedule appointment on 07/11/17. Per , she wants it scheduled in September or October. UGI and appointment with Dr. Acuna have been rescheduled to 09/22/17. Patient to check in at registration at 10:00 for a 10:30 test, NPO after midnight. Appointment with Dr. Acuna will be at 11:45. Patient's has been given above information and knows to come up to the office after the test. documented in this encounter Plan of Treatment Not on filedocumented as of this encounter Visit Diagnoses Diagnosis S/P repair of paraesophageal hernia - Pr imary Other postprocedural status documented in this encounter Care Teams Senior Boiler Operator Relationship Specialty Start Date End Date Pricilla Kline NP PCP - General 06/08/[address] [place] [phone] documented as of this encounter
--- OUTSIDE RECORDS SUMMARY | 2022-03-19 01:23 | XMS_ITS | Encounter Summary ---
:1940 Author Organization [facility] Address [address] [place] [address] Care Team Providers Name Role Phone Raisa Pricilla Hill NP Primary Care Provider Encounter Details Date Type Department Care Team Description 02/24/2022 Lab Requisition [facility] Adolfo Carver Enc ounter for other Pathology & MD general examination Laboratory Medicine - [address] [place] [address] [address] [facility] [phone] [place], [place] [id number] Social History Tobacco Use Types Packs/Day Years Used Date Never Smoker Smokeless Tobacco: Never Used Alcohol Use Standard Drinks/Week Comments No 0 [...] making decisions? documented as of this encounter Plan of Treatment Not on filedocumented as of this encounter Procedures Procedure Name Priority Date/Time Associated Diagnosis Comme nts SURGICAL PATHOLOGY Today 02/24/2022 9:15 EDT Encounter for o ther Results for this general examination procedur e are in the results section. documented in this encounter Results SURGICAL PATHOLOGY (02/24/2022 9:15 EDT) Note to Patient The following [facility] pathology results CENTER have been interpreted LABORATORY by your pathologist SERVICES and may be available to you before your health provider has had the opportunity to review them. Please allow time for your provider to receive these results and explore management options, if applicable. Final Diagnosis A. SKIN OF BACK, EXCISION: [facility] - Squamous cell carcinoma in situ. See comment. CENTER - Margins of excision negative. LABORATOR Y - Incidental basal cell carcinoma, superficial multice ntric type. SERVICES - Margins of excision negative. - Incidental melanocytic nevus, intradermal type. - Incidental seborrheic keratosis. Diagnosis Comment Deeper levels have [facility] been examined on CENTER block A 4. LABORATORY SERVICES Attestation By the signature [facility] Electronica lly below, the attending CENTER signed by Mignon physician certifies LABORATORY Micaela gandara MD on that they have 1) SERVICES 02/26/2022 at 1548 personally conducted a gross and/or microscopic examination of the described specimen(s), and/or personally interpreted the results of laboratory testing of the described specimen(s), and 2) personally rendered or confirmed the above diagnosis. Clinical History Skin lesion [facility] Gross Description A. [facility] Received in formalin simona d with proper patient identification (initials C, C) and skin lesion back is an oriented elliptical excision of light sharp skin with a single suture designating lateral tip CENTER and a double suture designat ing towards head, (3.2 cm from lateral tip to medial tip, 1.5 cm from craniad to caudad, and is excised to a depth of 0.7 cm). There is a sharp-brown nodular lesion that measur LABORATORY es (0.8 x 0.7 x 0.2 cm). The craniad margin is inked blue and the caudad margin is inked black. The specimen is serially sectioned from lateral to medial and is entirely submitted as follows: SERVICES BLOCK AMIN A1- lateral tip, reverse en face A2-A6- central sections A7- medial tip, reverse en face CHARY MASSEY(ASCP) 02/24/2022 18:21 Performing Lab [facility] Scanned Images [facility] Specimen Tissue - Skin (tissue) specimen (specime n) Performing Organization Address City/State/ZIP Code Phon e Number [facility] [address] [place] [address] SERVICES documented in this encounter Visit Diagnoses Diagnosis Encounter for other general examination documented in this encounter Care Teams Guest Request Runner Relationship Specialty Start Date End Date Pricilla Kline [employer] PCP - General 06/08/[address] [place] [phone] documented as of this encounter
--- OUTSIDE RECORDS SUMMARY | 2022-03-19 01:23 | XMS_ITS | Encounter Summary ---
:1940 Author Organization [facility] Address [address] [place] [address] Care Team Providers Name Role Phone Pricilla Kline NP Primary Care Provider Reason for Visit Reason Onset Date Comments Appointment Related 01/11/2017 Encounter Details Date Type Department Care Team Description 01/11/2017 Telephone [facility] Pedro Luis cAuna ntment Related General Surgery - [facility] Will paez MD [address] [address] [address], [place] [phone] (Wo rk) Social History Tobacco Use Types [...] Telephone Encounter - Gifty Vieira - 01/11/2017 1612 EDT Called pt to have ugi on follow up same day with Armand, Nothing to eat or drink after midnight. documented in this encounter Plan of Treatment Not on filedocumented as of this encounter Visit Diagnoses Not on filedocumented in this encounter Care Teams Vp Director Of Finance Relationship Specialty Start Date End Date Pricilla Kline NP PCP - General 06/08/[address] [place] [phone] documented as of this encounter
--- OUTSIDE RECORDS SUMMARY | 2022-03-19 01:23 | XMS_ITS | Clinical Summary ---
:1940 Author Organization [facility] Address [address] [place] [address] Care Team Providers Name Role Phone Pricilla Kline TEST DEVELOPMENT ENGINEER Primary Care Provider Allergies Active Allergy Reactions Severity Noted Date Comments Metoclopramide Other (See Comments) 06/21/2016 Was t old to stop taking by Doctors Penicillins Rash 06/21/2016 Medications Medication Sig Dispensed Refills Start Date End Date Status isosorbide dinitrate Take 30 mg by mouth 0 Active (ISORDIL) 30 mg daily. tablet atorvastatin Take 40 mg by mouth 0 Active (LIPITOR) 40 mg daily. tablet glipiZIDE (GLUCOTROL) Take 25 mg by mouth 0 Active 10 mg tablet daily. aspirin chewable 81 Take 81 mg by mouth 0 Active mg tablet daily. vitamin E 400 unit Take 1 Cap by mouth 1 Cap 0 07/09/2016 Active capsule daily. HOLD THIS MEDICATION UNTIL DISCUSSED AT YOUR FOLLOW UP Additional Information Patient not taking. Reported on 10/04/2016 oxyCODONE (ROXICODONE) 5 mg/5 Take 5 mL by mouth every 100 mL 0 07/09/2016 Active mL solution 4 hours as needed for Pain. Daily Max: 30 mg Additional Information Patient not taking. Reported on 07/26/2016 DIAZepam (VALIUM) 5 mg/5 mL Take 5 mL by mouth every 8 25 mL 0 07/10/2016 Active (1 mg/mL, 5 mL) solution hours as needed for Pain (cramping pain). Daily Max: 15 mg Additional Information Patient not taking. Reported on 07/26/2016 losartan (COZAAR) 25 mg tablet Take 25 mg by mouth 0 Active daily. metoprolol (LOPRESSOR) 25 mg Take 25 mg by mouth 2 0 Active tablet times daily. lansoprazole (PREVACID) 15 mg Take 15 mg by mouth 0 Active capsule daily. Reported on 10/04/2016 ondansetron (ZOFRAN ODT) 4 mg Take 1 Tab by mouth every 12 Tab 5 10/04/2016 Active disintegrating tablet 6 hours. Additional Information Patient not taking. Reported on 12/30/2016 PEPSIN/AMOR/OXBILE/PANCREAT/BET (NGBVKC-BXW-RX Take 125 mg by mouth 0 Active [id number]-PAP ORAL) daily. 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 Encounters Date Type Specialty Care Team Description 02/24/2022 Lab Requisition Clinical Laboratory Adolfo Carver, En counter for other MD general examina tion from Last 3 Months Surgical History Surgery Date Site/Laterality Comments CARDIAC SURGERY HERNIA REPAIR Medical History Medical History Date Comments CAD (coronary artery disease) Diabetes mellitus (HCC) Heart attack ([facility]) (HCC) Family History Medical History Relation Name Comments Heart Disease Father Diabetes Mother Diabetes Sister Relation Name Status Comments Father Mother Sister Social History Tobacco Use Types Packs/Day Years Used Date Never Smoker Smokeless Tobacco: Never Used Alcohol Use Standard Drinks/Week Comments No 0 (1 standard drink = 0.6 oz pure alcoho l) Sex Assigned at Date Recorded Not on file Last Filed Vital Signs Vital Sign Reading Time Taken Comments Blood Pressure 130/64 09/22/2017 1205 EDT Pulse 52 09/22/2017 1205 EDT Temperature 36 ??C (96.8 ??F) 07/10/2016 0912 EST Respiratory Rate 18 09/22/2017 1205 EDT Oxygen Saturation 96% 07/10/2016 0912 EST Inhaled Oxygen Concentration - - Weight 64.4 kg (142 lb) 09/22/2017 1205 EDT Height 167.6 cm (5' 6) 09/22/2017 1205 EDT Body Mass Index 22.92 09/22/2017 1205 EDT Plan of Treatment Health Maintenance Due Date Last Done Comments COVID-19 Vaccine (#1) 1940 Fall Risk Screening 10/04/2017 10/04/2016 Procedures Procedure Name Priority Date/Time Associated Diagnosis Comme nts SURGICAL PATHOLOGY Today 02/24/2022 9:15 EDT Encounter for o ther Results for this general examination procedur e are in the results section. from Last 3 Months Results SURGICAL PATHOLOGY (02/24/2022 9:15 EDT) Note to Patient The following [facility] pathology results CENTER have been interpreted LABORATORY by your pathologist SERVICES and may be available to you before your health provider has had the opportunity to review them. Please allow time for your provider to receive these results and explore management options, if applicable. Final Diagnosis A. 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 CENTER - Margins of excision negative. LABORATOR Y - Incidental basal cell carcinoma, superficial multice ntric type. SERVICES - Margins of excision negative. - Incidental melanocytic nevus, intradermal type. - Incidental seborrheic keratosis. Diagnosis Comment Deeper levels have [facility] been examined on CENTER block A 4. LABORATORY SERVICES Attestation By the signature [facility] Electronica lly below, the attending CENTER signed by Mignon, physician certifies LABORATORY Micaela gandara MD on that they have 1) SERVICES 02/26/2022 at 1548 personally conducted a gross and/or microscopic examination of the described specimen(s), and/or personally interpreted the results of laboratory testing of the described specimen(s), and 2) personally rendered or confirmed the above diagnosis. Clinical History Skin lesion [facility] Gross Description A. [facility] Received in formalin simona d with proper [...] face CHARY MASSEY(ASCP) 02/24/2022 18:21 Performing Lab [facility] Scanned Images [facility] Specimen Tissue - Skin (tissue) specimen (specime n) Performing Organization Address City/State/ZIP Code Phon e Number [facility] [address] [place] [address] SERVICES from Last 3 Months Insurance Payer Benefit Plan / Subscriber ID Effective Dates Phone Addre ss Type Group MEDICARE MEDICARE A/B [id number] 2005-Prese [id number] [facility] [address] [place] [id number] 2019-Presen [address] [place] [address] [place] [address] Courser,Phil Personal/Famil Self [address] ([place]) [place] [address] Courser,Phil Personal/Famil Self [address] [place] [address] Courser,Phil Personal/Famil Self [address] (Home) [place] [address] Courser,Phil Personal/Famil Self [address] [place] ([place]) [place] [address] Courser,Phil Personal/Famil Self [address] [place] [address] Courser,Phil Personal/Famil Self [address] (Home) [place] [phone] Courser,Phil Personal/Famil Self 1940 [address] (Home) [place] [phone] Advance Directives For more information, please contact: [phone] Latest Code Status on File Code Status Date Activated Date Inactivated Comments Full Code 07/02/2016 19:27 07/10/2016 18:19 Reason for decision includes: Full code consistent with over all plan of care Who participated in the discussion? Not Discussed Full Code 07/02/2016 19:27 07/02/2016 19:27 Reason for decision includes: Full code consistent with over all plan of care Who participated in the discussion? Not Discussed Care Teams Plastic Joint Maker Relationship Specialty Start Date End Date Pricilla Kline, TEST DEVELOPMENT ENGINEER PCP - General 06/08/[address] [place] [phone]
--- OUTSIDE RECORDS SUMMARY | 2022-03-19 01:23 | XMS_ITS | Encounter Summary ---
:1940 Author Organization [facility] Address [address] [place] [address] Care Team Providers Name Role Phone Pricilla Kline NP Primary Care Provider Encounter Details Date Type Department Care Team Description 07/06/2021 Lab Requisition [facility] Meredith Ornelas, Encounter for other Pathology & PA-C general examination Laboratory Medicine [address] [place] [phone] Social History Tobacco Use Types Packs/Day Years [...] Associated Diagnosis Comme nts SURGICAL PATHOLOGY Today 07/03/2021 10:45 Encounter for othe r Results for this EST general examination procedur e are in the results section. documented in this encounter Results SURGICAL PATHOLOGY (07/03/2021 10:45 EST) Note to Patient The following [facility] pathology results have CENTER been interpreted by LABORATORY your pathologist and SERVICES may be available to you before your health provider has had the opportunity to review them. Please allow time for your provider to receive these results and explore management options, if applicable. Final Diagnosis A. 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 LABORATORY - Margins negative for squamous cell carcinoma in situ . SERVICES - Epidermal ulceration and reparative change, consiste nt with biopsy site. Attestation By the signature below, [facility] Elec tronically the attending physician CENTER sign ed by David, certifies that they LABORATORY Myranda Carson MD on have 1) personally SERVICES 07/07/2021 at 1121 conducted a gross and/or microscopic examination of the described specimen(s), and/or personally interpreted the results of laboratory testing of the described specimen(s), and 2) personally rendered or confirmed the above diagnosis. Microscopic The stratum corneum is [facility] Description thickened by CENTER orthokeratosis and LABORATORY parakeratosis. The SERVICES epidermis is of variable thickness with areas of relative hyperplasia. The keratinocytes show a variable degree of nuclear atypia that focally involves the full thickness of the epidermis. There is nuclear enlargement, dispolarity and overlap. Mitotic figures are noted in superficial layers of the epidermis. The dermis is marked by solar elastosis, vascular ectasia, and a lymphohistiocytic infiltrate. Clinical History Skin lesion [facility] re-excision; squamous CENTER cell right upper back LABORATORY SERVICES Gross Description A. [facility] Received in formalin simona d with proper patient identification (initials C, C) and skin lesion is an oriented elliptical excision of sharp-pink wrinkled skin marked with a double suture on 1 side priya CENTER gnating superior per requisi tion. The specimen is 4.1 cm medial to lateral, 2.6 cm superior to inferior, and excised to a depth of 0.4 cm. There is a central ovoid pink granular raised plaque (1.7 x 1.2 LABORATORY cm) that is 0.4 cm to the c losest superior margin. The superior margin is inked blue and the inferior margin is inked black. The specimen is sectioned from lateral to medial and is submitted entirely as follows: SERVICES BLOCK AMIN: A1- lateral tip, reverse en face A2-A9- 13 central sections A10- medial tip, reverse en face CHARY ORTIZ(ASCP) 07/06/2021 9:46 Performing Lab [facility] Scanned Images [facility] Specimen Tissue - Skin (tissue) specimen (specime n) Performing Organization Address City/State/ZIP Code Phon e Number [facility] [address] [place] [address] SERVICES documented in this encounter Visit Diagnoses Diagnosis Encounter for other general examination documented in this encounter Care Teams Gold Frame Assembler Relationship Specialty Start Date End Date Pricilla Kline NP PCP - General 06/08/[address] [place] [phone] documented as of this encounter
--- OUTSIDE RECORDS SUMMARY | 2022-03-19 01:23 | XMS_ITS | Encounter Summary ---
:1940 Author Organization [facility] Address [address] [place] [address] Care Team Providers Name Role Phone Pricilla Kline ATHLETIC EQUIPMENT MANAGER Primary Care Provider Encounter Details Date Type Department Care Team Description 06/10/2021 Lab Requisition [facility] Pricilla Kline, KHANH Pathology & Laboratory [address] [place], [place] [address] [facility] [phone] [place], [place] [address] [phone] Social History Tobacco Use Types Packs/Day Years [...] Associated Diagnosis Comme nts SURGICAL PATHOLOGY Today 06/09/2021 8:08 EST Re sults for this procedure are i n the results section. documented in this encounter Results SURGICAL PATHOLOGY (06/09/2021 8:08 EST) Note to Patient The following [facility] pathology results CENTER have been interpreted LABORATORY by your pathologist SERVICES and may be available to you before your health provider has had the opportunity to review them. Please allow time for your provider to receive these results and explore management options, if applicable. Final Diagnosis A. SKIN OF BACK, RIGHT UPPER, PUNCH BIOPSY: [facility] -Squamous cell carcinoma in situ, involving peripheral edges. CENTER LABORATORY SERVICES Attestation By the signature [facility] Electronica lly below, the attending CENTER signed by Miguel, physician certifies LABORATORY Heidy Maher MD on that they have 1) SERVICES 06/11/2021 at 0837 personally conducted a gross and/or microscopic examination of the described specimen(s), and/or personally interpreted the results of laboratory testing of the described specimen(s), and 2) personally rendered or confirmed the above diagnosis. Clinical History Right upper back [facility] suspicious skin CENTER lesion LABORATORY SERVICES Gross Description A. [facility] Received in formalin simona d with proper patient identification (initials C, C) and 4 mm punch biopsy lesion on back is a dull sharp circular skin, 0.4 cm in diameter and excised to a depth of 0.5 cm. Entirely submitted in A1. [facility] CHARY DAY(ASCP) 06/10/2021 10:23 SE RVICES Performing Lab [facility] SERVICES Scanned Images [facility] LAB[facility] SERVICES Specimen Tissue - Skin (tissue) specimen (specime n) Performing Organization Address City/State/ZIP Code Phon e Number [facility] [address] [place] [address] SERVICES documented in this encounter Visit Diagnoses Not on filedocumented in this encounter Care Teams Detector Car Operator Relationship Specialty Start Date End Date Pricilla Kline, KHANH PCP - General 06/08/[address] [place] [phone] documented as of this encounter
--- OUTSIDE RECORDS SUMMARY | 2022-03-19 01:23 | XMS_ITS | Encounter Summary ---
:1940 Author Organization [facility] Address [address] [place] [address] Care Team Providers Name Role Phone Pricilla Kline NP Primary Care Provider Reason for Visit Reason Comments Post-OP Follow Up 1st POV Paraesophageal Herni a Surg Follow Up (Other (Specify in Question)) - Closed Specialty Diagnoses / Procedures Referred By Contact Refer red To Contact General Surgery Diagnoses Paraesophageal hernia Niall Higgins, Pedro Luis Acuna MD, MD [address] [place] [address] [email or web address], [address] [place] [address] Phone: Fax: Referral ID Status Reason Start Date Expiration Date Visits V isits Requested Authorized [id number] Closed Specialty 07/09/2016 1 1 Services Required Encounter Details Date Type Department Care Team Description 07/26/2016 Post-op Visit [facility] Pedro Luis Acuna Para esophageal hernia General Surgery - Nika Foy (Primary Dx) [address] [address] [address], [place] [address] (Wo rk) Social History Tobacco Use Types Packs/Day Years Used Date Never Smoker Alcohol Use Standard Drinks/Week Comments No 0 (1 standard drink = 0.6 oz pure alcoho l) Sex Assigned at Date Recorded Not on file documented as of this encounter Last Filed Vital Signs Vital Sign Reading Time Taken Comments Blood Pressure 126/78 07/26/2016912 EST Pulse 92 07/26/2016912 EST Temperature - - Respiratory Rate - - Oxygen Saturation - - Inhaled Oxygen Concentration - - Weight 60.8 kg (134 lb) 07/26/2016912 EST Height 167.6 cm (5' 6) 07/26/2016912 EST Body Mass Index 21.63 07/26/2016 09 EST documented in this encounter Functional Status Functional Status Response [...] or older) documented as of this encounter Progress Notes Pedro Luis Acuna MD - 07/26/2016 0917 EST I am seeing Phil Allyr in the office today in followup almost 3 weeks out from his laparoscopic paraesophageal hernia repair with mesh and a Toupet fundoplication as well as a concurrent laparoscopic cholecystectomy and a laparoscopic repair of a duodenal ulcer. This was done semi-urgently as the patient had had a known large hiatal hernia, but had a gastric outlet obstruction from this. We found a large ulcer at the duodenal bulb at the time of surgery, and we repaired that primarily with a linear stapler. He has done relatively well at home. He stayed for a few days after surgery. He has nopain now. He is still on a soft blenderized diet. He has no reflux symptoms. He has not had any significant dysphagia, but as he slowly advances his diet, he can belch, has only minor gas bloat. OBJECTIVE: On exam, abdomen is soft. I removed the drain, which was serosanguineous. Incisions are healing well. ASSESSMENT AND PLAN: Doing well after his laparoscopic paraesophageal hernia repair with Toupet fundoplication and a laparoscopic cholecystectomy and repair of a duodenal ulcer. He is recovering nicely. PLAN: Avoid any heavy lifting for another 10 weeks, slowly advance diet. I counseled him on wound care. Follow up in early October. cc: Pricilla Kline, [facility]- Law Schaffer, DO Benedict Bedoya - 07/26/2016 0945 EST ..Gastroesophageal Reflux Disease Scale [facility] Surgery Patient Name: Phil Lyons Date: 07/26/2016 GERD-HRQL SCALE Patient symptoms are noted as follows: How bad is your heartburn? 0 = No symptoms Heartburn when lying down? 0 = No symptoms Heartburn when standing up? 0 = No symptoms Heartburn after meals? 0 = No symptoms Does heartburn change your diet? 0 = No symptoms Does heartburn wake you from sleep? 0 = No symptoms Do you have difficulty swallowing? 0 = No symptoms Do you have pain with swallowing? 0 = No symptoms Do you have gassy or bloating feelings? 1 = Symptoms noticeable, but not bothersome If you take medication, does it affect your daily life? 0 = No symptoms How satisfied are you with your present condition? Satisfied HRQL Total= 1 documented in this encounter Plan of Treatment Not on filedocumented as of this encounter Visit Diagnoses Diagnosis Paraesophageal hernia - Primary Diaphragmatic hernia without mention of obstruction or gangrene documented in this encounter Historical Medications This list may reflect changes made after this encounter. Medication Sig Dispensed Refills Start Date End Date lansoprazole (PREVACID) 15 Take 15 mg by mouth 0 mg capsule daily. Reported on 10/04/2016 metoprolol (LOPRESSOR) 25 Take 25 mg by mouth 2 0 mg tablet times daily. losartan (COZAAR) 25 mg Take 25 mg by mouth 0 tablet daily. added in this encounter Care Teams Pencil Sorter Relationship Specialty Start Date End Date Pricilla Kline, MANAGER WIND PCP - General 06/08/[address] [place] [phone] documented as of this encounter
--- OUTSIDE RECORDS SUMMARY | 2022-03-19 01:23 | XMS_ITS | Encounter Summary ---
:1940 Author Organization [facility] Address [address] [place] [address] Care Team Providers Name Role Phone Pricilla Kline NP Primary Care Provider Reason for Visit Reason Onset Date Comments Other 07/16/2016 wants to make sure O riginal Surgery date for 07/20 is cancelled- Patient had emergent surgery with 07/06. Encounter Details Date Type Department Care Team Description 07/16/2016 Telephone [facility] Pedro Luis Acuna Other (wants to make General Surgery - Nika Foy sure Original Surgery [place] [address] [facility] date for 07/20 is [address] [facility], Main cancelled- [place] [address] [address], [address] emergent surgery with [phone] [place], [place] .) [phone] (Wo rk) Social History Tobacco Use Types [...] or older) documented as of this encounter Plan of Treatment Not on filedocumented as of this encounter Visit Diagnoses Not on filedocumented in this encounter Care Teams Special Events Manager Relationship Specialty Start Date End Date Pricilla Kline NP PCP - General 06/08/[address] [place] [phone] documented as of this encounter
--- OUTSIDE RECORDS SUMMARY | 2022-03-19 01:23 | XMS_ITS | Encounter Summary ---
:1940 Author Organization [facility] Address [address] [place] [id number] Care Team Providers Name Role Phone Raisa Pricilla Sergio FINANCIAL ANALYSIS MANAGER Primary Care Provider Reason for Referral Radiology Services (Routine) - Specialty Report Received Specialty Diagnoses / Procedures Referred By Contact Refer red To Contact Diagnoses Paraesophageal hernia Pedro Luis Martinez Procedures FL UGI AIR CONTRAST W/O KIMMIE Foy MD [address] [place] [phone] Referral ID Status Reason Start Date Expiration Date Visits V isits Requested Authorized [id number] Specialty 09/22/2017 1 1 Report Received Encounter Details Date Type Department Care Team Description 09/22/2017 Orders Only [facility] Pedro Luis Martinez Parae sophageal hernia General Surgery - Nika Foy (Primary Dx) [address] [phone] [phone] (Wo rk) Social History Tobacco Use [...] Name Priority Date/Time Associated Diagnosis Comme nts FL UGI AIR Routine 09/22/2017 14:18 Paraesophageal hernia Re sults for this CONTRAST W/O KUB EDT procedure a re in the results section. documented in this encounter Results FL UGI AIR CONTRAST W/O KUB (09/22/2017 14:18 EDT) Anatomical Region Laterality Modality Other Specimen Narrative [facility] - 09/22/2017 15:05 EDT FL UGI AIR CONTRAST W/O KUB ??09/22/2017 2:18 PM Signs and Symptoms/Comments: ?? K44.9-Diaphragmatic hernia without obstr uction or [id number]; /p lap paraesophageal hernia repair, par tial gastrectomy Technique: Single and double-contrast vi ews of the thoracic esophagus, stomach, duodenal bulb and sw eep were obtained. Comparison: Outside GI study September 22, upper GI July 09, 2016 Findings: Occupational Safety And Health Manager KUB shows a stomach distended with air and extending into the pelvis. Multiple surgical clips are seen within the epigastrium as well as the right upper quadrant from la paroscopic paraesophageal hernia repair with mesh and toupee fundo plication as well as cholecystectomy. The patient has also haynes d a duodenal ulcer repair. Study shows a normally-distensible thora cic esophagus. A focal impression is seen on the distal 3rd eso phagus which may be related to adjacent mediastinal structures. The stomach is elongated with significan t material within it. There is a delay in gastric emptying, and comb ination of gravity and rolled positioning was used to aid in th e emptying of contrast. A small amount of contrast was seen enteri ng the duodenum. The proximal duodenum appears significantly narrowed. Only the 1st and 2nd portions of the duo denum are seen on the sweep despite 20 minute delay, however, a smal l amount of contrast was seen in the distal small bowel on the fu ll field views. Impression: 1. Intact appearance of paraesophageal h ernia repair with the gastroesophageal junction below the diap hragm. No significant narrowing is seen at the gastroesophagea l junction. 2. Elongated, distended, fluid-filled st omach with delayed gastric emptying. A combination of gravity and r olled orientation had to be used to assist in emptying. 3. Long segment narrowing at the gastric outlet, likely involving the proximal duodenum with minimal passa ge of contrast more distally in the duodenum Dr. Tony Valerio discussed prelimin junaid findings with PEDRO LUIS MARTINEZ MD at 09/22/2017 2:29 PM. I have personally reviewed the images an d the above interpretation and agree with the findings. Procedure Note Tony Valerio MD - 09/22/2017 FL UGI AIR CONTRAST W/O KUB 09/22/2017 2: 18 PM Signs and Symptoms/Comments: K44.9-Diaphragmatic hernia without obstr uction or [id number]; /p lap paraesophageal hernia repair, par tial gastrectomy Technique: Single and double-contrast vi ews of the thoracic esophagus, stomach, duodenal bulb and sw eep were obtained. Comparison: Outside GI study September 22, upper GI July 09, 2016 Findings: Occupational Safety And Health Manager KUB shows a stomach distended with air and extending into the pelvis. Multiple surgical clips are seen within the epigastrium as well as the right upper quadrant from la paroscopic paraesophageal hernia repair with mesh and toupee fundo plication as well as cholecystectomy. The patient has also haynes d a duodenal ulcer repair. Study shows a normally-distensible thora cic esophagus. A focal impression is seen on the distal 3rd eso phagus which may be related to adjacent mediastinal structures. The stomach is elongated with significan t material within it. There is a delay in gastric emptying, and comb ination of gravity and rolled positioning was used to aid in th e emptying of contrast. A small amount of contrast was seen enteri ng the duodenum. The proximal duodenum appears significantly narrowed. Only the 1st and 2nd portions of the duo denum are seen on the sweep despite 20 minute delay, however, a smal l amount of contrast was seen in the distal small bowel on the fu ll field views. Impression: 1. Intact appearance of paraesophageal h ernia repair with the gastroesophageal junction below the diap hragm. No significant narrowing is seen at the gastroesophagea l junction. 2. Elongated, distended, fluid-filled st omach with delayed gastric emptying. A combination of gravity and r olled orientation had to be used to assist in emptying. 3. Long segment narrowing at the gastric outlet, likely involving the proximal duodenum with minimal passa ge of contrast more distally in the duodenum Dr. Tony Valerio discussed prelimin junaid findings with PEDRO LUIS MARTINEZ MD at 09/22/2017 2:29 PM. I have personally reviewed the images an d the above interpretation and agree with the findings. Performing Organization Address City/State/ZIP Code Phon e Number [facility] documented in this encounter Visit Diagnoses Diagnosis Paraesophageal hernia - Primary Diaphragmatic hernia without mention of obstruction or gangrene documented in this encounter Care Teams Insurance Account Executive Relationship Specialty Start Date End Date Pricilla Kline, FINANCIAL ANALYSIS MANAGER PCP - General 06/08/[address] [place] [phone] documented as of this encounter
--- OUTSIDE RECORDS SUMMARY | 2022-03-19 01:23 | XMS_ITS | Encounter Summary ---
:1940 Author Organization [facility] Address [address] [place] [address] Care Team Providers Name Role Phone Pricilla Kline NP Primary Care Provider Encounter Details Date Type Department Care Team Description 09/23/2016 Results Only Imaging [facility]- Unknown, PRISM Provider, Social History Tobacco Use Types Packs/Day Years [...] as of this encounter Plan of Treatment Pending Results Name Type Priority Associated Diagnoses Date/Ti me OUTSIDE IMAGES - OTHER Imaging 09/23 15:30 EDT BODY OUTSIDE IMAGES - CT BODY Imaging 15:30 EDT OUTSIDE IMAGES - OTHER Imaging 09/23 15:30 EDT BODY OUTSIDE IMAGES - FLUORO Imaging 09/02 15:30 EDT BODY documented as of this encounter Visit Diagnoses Not on filedocumented in this encounter Care Teams Graphic Design Professor Relationship Specialty Start Date End Date Pricilla Kline NP PCP - General 06/08/[address] [place] [phone] documented as of this encounter
--- OUTSIDE RECORDS SUMMARY | 2022-03-19 01:23 | XMS_ITS | Encounter Summary ---
:[address] [facility] Address [address] [place] [address] Care Team Providers Name Role Phone Pricilla Kline NP Primary Care Provider Reason for Visit Reason Comments Follow-up f/u s/p lap peh repair Encounter Details Date Type Department Care Team Description 10/04/2016 [facility] Pedro Luis Acuna sophageal hernia General Surgery - Nika Foy (Primary Dx) [place] [address] [address] [place] [address] (Wo rk) Social History Tobacco Use Types Packs/Day Years Used Date Never Smoker Alcohol Use Standard Drinks/Week Comments No 0 (1 standard drink = 0.6 oz pure alcoho l) Sex Assigned at Date Recorded Not on file documented as of this encounter Last Filed Vital Signs Vital Sign Reading Time Taken Comments Blood Pressure 124/66 10/04/2016 0912 EDT Pulse 70 10/04/2016 0912 EDT Temperature - - Respiratory Rate - - Oxygen Saturation - - Inhaled Oxygen Concentration - - Weight 60.8 kg (134 lb) 10/04/2016 0912 EDT Height 167.6 cm (5' 5.98) 10/04/2016 0912 EDT Body Mass Index 21.64 10/04/2016 0912 EDT documented in this encounter Functional Status Functional [...] a physical, mental, or emotional condition, No 10/04/2016 does this person have difficulty doing errands alone such as visiting a doctor's office or shopping? Cognitive Status Response Date of Assessment Because of a physical, mental, or emotional condition, No 10/04/2016 does this person have serious difficulty concentrating, remembering, or making decisions? documented as of this encounter Ordered Prescriptions Prescription Sig Dispensed Refills Start Date End Date ondansetron (ZOFRAN ODT) 4 Take 1 Tab by mouth 12 Tab 5 10/04/2016 mg disintegrating tablet every 6 hours. documented in this encounter Progress Notes Pedro Luis Acuna MD - 10/04/2016 0907 EDT I am seeing Phil Lyons in the office today in followup. It has been 3 months since his laparoscopic paraesophageal hernia repair, his laparoscopically cholecystectomy, and closure of a pyloric ulcer. He was recently in the hospital with gastric distention and had an NG tube decompression. It wasthought that he might have a small-bowel obstruction, but an upper GI study was negative for obstruction. His stomach was still distended and his small bowel was normal caliber. The patient had lost a significant amount of weight, almost 50 pounds, but has regained about 9 pounds since his ojsé weight. He is not vomiting. He can belch. He does pass excess flatus. He has no heartburn symptoms. OBJECTIVE: On exam, his abdomen is soft, tympanitic in the epigastric region, nondistended, nontender. I reviewed his upper GI study, and contrast did pass into the small bowel. It was thought that theremight be some narrowing there. Of note, the patient states that when he lies on his right side, he does feel a lot better after a short period of time. It is likely that the stomach is emptying better with gravity. ASSESSMENT AND PLAN: Status post laparoscopic paraesophageal hernia repair with repair of a duodenalulcer and a cholecystectomy. He is having some delayed gastric emptying. This could be a functional problem due to the large nature of this hiatal hernia preoperatively. It also could be related to a mechanical obstruction. We did pass the scope before we fired his stapler to close his ulcer at the time of surgery. He states it is not impacting his quality of life significantly to undergo an endoscopy. There is a risk of endoscopy, especially if there is a dilatation, which can include perforation. He did not want there to be any problem, and he states that since he has been in the hospital, he has been doing relatively well. He is avoiding carbonation, bread, and salad. I would eat multiple small meals, avoid carbonation, avoid uncooked vegetables, but he can eat breadnow. Last night for dinner, he had chicken and baked potato and he is actually regaining some weight. I think he might be improving from his initial postop period. I told him to remember that he is only 90 days out from surgery. No lifting restriction. An upper GI study routinely to evaluate for a recurrent hiatal hernia next July. I will see him in 3 months for a weight check in and see how he is doing and if it is impacting his quality of life, then we can perform an endoscopy with possible dilatation at that time. Jessica Cabrera - 10/04/2016 0930 EDT [facility] General Surgery Services Patient Name: Phil Lyons Date: 10/04/2016 GERD-HRQL SCALE Patient symptoms are noted as follows: How bad is your heartburn? 0 = No symptoms Heartburn when lying down? 0 = No symptoms Heartburn when standing up? 0 = No symptoms Heartburn after meals? 0 = No symptoms Does heartburn change your diet? 0 = No symptoms Does heartburnwake you from sleep? 0 = No symptoms Do you have difficulty swallowing? 0 = No symptoms Do you have pain with swallowing? 0 = No symptoms Do you have gassy or bloatingfeelings? 3 = Symptoms bothersome everyday If you take medication, does it affect your daily life? 0 = No symptoms How satisfied are you with your present condition? Dissatisfied documented in this encounter Plan of Treatment Not on filedocumented as of this encounter Visit Diagnoses Diagnosis Paraesophageal hernia - Primary Diaphragmatic hernia without mention of obstruction or gangrene documented in this encounter Care Teams Coal Hauler Operator Relationship Specialty Start Date End Date Pricilla Kline, KHANH PCP - General 06/08/[address] [place] [phone] documented as of this encounter
--- OUTSIDE RECORDS SUMMARY | 2022-03-19 01:23 | XMS_ITS | Encounter Summary ---
:1940 Author Organization [facility] [place] [address] Care Team Providers Name Role Phone Curtis Bauer MD, Nahid Primary Care Provider Reason for Visit - Closed Specialty Diagnoses / Procedures Referred By Contact Refer red To Contact Procedures Joanna Ortiz APRN Film Library- Storage Only DX [address] [facility] [place] [address] Referral ID Status Reason Start Date Expiration Date Visits Requ ested Visits Authorized [id number] Closed 12/03/2020 12/03/2021 1 1 Encounter Details Date Type Department Care Team Description 12/03/2020 Ancillary Procedure [facility] [address] [place] [phone] (Wo rk) Social History Tobacco Use Types Packs/Day Years Used Date Never Assessed Sex Assigned at Date Recorded Not on file documented as of this encounter Plan of Treatment Not on filedocumented as of this encounter Procedures Procedure Name Priority Date/Time Associated Diagnosis Comme nts FILM LIBRARY Routine 12/03/2020 8:36 PM Results f or this STORAGE ONLY DX EDT procedure ar e in CHEST the results section. documented in this encounter Results Film Library- Storage Only DX Chest (12/03/2020 8:36 PM EDT) Specimen (Source) Anatomical Location Collection Method / Collectio n Time Received Time / Laterality Volume Narrative [facility] - 12/03/2020 8:36 PM EDT This exam is auto-finalizing. It's purpo se is for storage only. Joanna Ortiz APRN IMG FILM LIBRARY ORDERABLES Performing Organization Address City/State/ZIP Code Phon e Number [facility] [place], [place] documented in this encounter Visit Diagnoses Not on filedocumented in this encounter Care Teams Rock Breaker Relationship Specialty Start Date End Date Nahid Acevedo MD PCP - General 05/26/10 [address] [place] [address] documented as of this encounter
--- OUTSIDE RECORDS SUMMARY | 2022-03-19 01:23 | XMS_ITS | Encounter Summary ---
:1940 Author Organization [facility] Address [address] [place] [id number] Care Team Providers Name Role Phone Pricilla Kline ROLL EXAMINER Primary Care Provider Reason for Visit Reason Comments Follow-up f/u s/p lap peh repair Encounter Details Date Type Department Care Team Description 12/30/2016 Office Visit [facility] Gene Acuna MD [address] [place] [phone] Postoperative follow-up (Primary Dx); General Surgery - Shyla Browne NP [address] [place] [phone] Paraesophageal hernia [address] Social History Tobacco Use Types Packs/Day Years Used Date Never Smoker Alcohol Use Standard Drinks/Week Comments No 0 (1 standard drink = 0.6 oz pure alcoho l) Sex Assigned at Date Recorded Not on file documented as of this encounter Last Filed Vital Signs Vital Sign Reading Time Taken Comments Blood Pressure 118/76 12/30/2016 1444 EDT Pulse 78 12/30/2016 1444 EDT Temperature - - Respiratory Rate - - Oxygen Saturation - - Inhaled Oxygen Concentration - - Weight 61.5 kg (135 lb 8 oz) 12/30/2016 1444 EDT Height 167.6 cm (5' 5.98) 12/30/2016 1444 EDT Body Mass Index 21.88 12/30/2016 1444 EDT documented in this encounter Functional Status [...] making decisions? documented as of this encounter Discharge Diagnoses Diagnosis Z09 Encntr for f/u exam aft trtmt for co nd oth than malig neoplm-Z09[ICD-10-CM] K44.9 Diaphragmatic hernia without obstr uction or gangrene-K44.9[ICD-10-CM] documented in this encounter Discharge Disposition Disposition Code Departure Means Destination Auto Discharge documented in this encounter Progress Notes Shyla Browne, KHANH - 12/30/2016 1530 EDT FOLLOW UP OFFICE VISIT Today's date: 12/30/2016 CC: Postoperative follow up; hx of paraesophageal hernia; hx of duodenal ulcer Surgery: SERVICE DATE: 07/06/2016 PROCEDURE: 1. Laparoscopic paraesophageal hernia repair with mesh and Toupet fundoplication. 2. Laparoscopic cholecystectomy. 3. Laparoscopic repair of duodenal ulcer. ?? SURGEON: Pedro Luis Acuna MD FACS Subjective: Patient reports that he has been doing very well since his last visit. He is now tolerating tolerating solid foods without dysphagia, odynophagia, nausea or vomiting. He was laying on his right side for a half an hour after eating but no longer has to do this. Patient notes that he most rec ently los 10 pounds after having a mini stroke but has gained some weight back. He states that he has no deficits from this event. Overall he is eating what he wants, whenever he wants. Staying away from foods with peels. He denies bloating or excessive flatulence. He can belch. Bowels are regular. Continues to take his PPI. No dark tarry stools. Objective: BP 118/76 Pulse 78 Ht 167.6 cm (65.98) Wt 61.5 kg (135 lb 8 oz) BMI 21.88 kg/m2 Physical exam: General Appearance: NAD, thin, appears stated age Abdomen: Soft, concave abdomen, nontender, nondistended, no hernias or masses appreciated Incision(s)/Wound(s): Lap site well healed Assessment/Plan: Overall improved since last visit with Dr. Acuna. Continue smaller more frequentmeals, and sitting upright after eating. Will have him follow up in [address] Acuna. Shyla Browne NP 12/30/2016 15:37 essica Alexandre - 12/30/2016 1530 EDT [facility] General Surgery Services Patient Name: Phil Lyons Date: 12/30/2016 GERD-HRQL SCALE Patient symptoms are noted as [...] symptoms Do you have gassy or bloatingfeelings? 0 = No symptoms If you take medication, does it affect your daily life? 0 = No symptoms How satisfied are you with your present condition? Satisfied documented in this encounter Plan of Treatment Not on filedocumented as of this encounter Visit Diagnoses Diagnosis Postoperative follow-up - Primary Follow-up examination, following unspeci fied surgery Paraesophageal hernia Diaphragmatic hernia without mention of obstruction or gangrene documented in this encounter Care Teams Hotel Operation Manager Relationship Specialty Start Date End Date Pricilla Kline, ROLL EXAMINER PCP - General 06/08/[address] [place] [phone] documented as of this encounter
--- OUTSIDE RECORDS SUMMARY | 2022-03-19 01:24 | XMS_ITS | Encounter Summary ---
:1940 Author Organization [facility] Address [address] [place] [address] Care Team Providers Name Role Phone RaisaPricilla Sergio SKIDDER LOADER Primary Care Provider Reason for Referral (Routine) - Closed Specialty Diagnoses / Procedures Referred By Contact Refer red To Contact Niall Higgins MD [address] [place] [id number] Referral ID Status Reason Start Date Expiration Date Visits V isits Requested Authorized [id number] Closed Specialty 07/10/2016 1 1 Services Required Comments See Spencer Genao MD. Please c all for an appointment. (Routine) - Closed Specialty Diagnoses / Procedures Referred By Contact Refer red To Contact Niall Higgins MD [address] [place] [phone] Referral ID Status Reason Start Date Expiration Date Visits V isits Requested Authorized [id number] Closed Specialty 07/10/2016 1 1 Services Required Comments Chest pain (angina) Dizziness or fainting Decreased urine output Fever greater than 101.5 or chills Inability to swallow or increasing diffi culty swallowing Increased or new pain Nausea or vomiting Pain unrelieved by medication Signs of infection such as pain, redness , swelling or drainage at procedure or wound site (Routine) - Closed Specialty Diagnoses / Procedures Referred By Contact Refer red To Contact Niall Higgins MD [address] [place] [address] Referral ID Status Reason Start Date Expiration Date Visits V isits Requested Authorized [id number] Closed Specialty 07/10/2016 1 1 Services Required Comments We are currently collecting quality data on patients having surgery. You may receive a phone call, email, and/or letter about your surgery asking you a series of follow up questions to evaluate specifics aspec ts of your care. Thank you for your participation. ollow Up (Other (Specify in Question)) - Closed Specialty Diagnoses / Procedures Referred By Contact Refer red To Contact General Surgery Diagnoses Paraesophageal hernia Niall Higgins Borrazzo, Edward MD Christopher, MD [address] [place] [address], [facility] [address] [place] [address] Phone: Fax: Referral ID Status Reason Start Date Expiration Date Visits V isits Requested Authorized [id number] Closed Specialty 07/09/2016 1 1 Services Required Question Answer Reason for Request: Follow up after paraesophage al hernia repair with partial gastrectomy for perforation, follow up with [facility] in 2 weeks please Reason for Visit Reason Comments Emesis Patient scheduled for gallbl adder removal and hiatal hernia repair . Patient arrives today with c/o of inability to keep any po fluids down and abdominal pains. Encounter Details Date Type Department Care Team Description 07/02/2016 - [facility] Мария Willis PA-C [address] [place] [address] [address] [place] [address] Intestinal obstruction, unspecified type (Primary Dx); 07/10/2016 Encounter General Surgery Trisha Valverde MD [address] [place] [address], [facility] [address] [place] [address] Dehydration; Paula Quach MD [address] [place] [address] [address] [place] [id number] Acute kidney injury ([facility]); [address] [place] [address] Spencer Mansfield MD [address] [place] [address] 5 [place] [address] [place] [address] Social History Tobacco Use Types Packs/Day Years Used Date Never Smoker Alcohol Use Standard Drinks/Week Comments No 0 (1 standard drink = 0.6 oz pure alcoho l) Sex Assigned at Date Recorded Not on file documented as of this encounter Last Filed Vital Signs Vital Sign Reading Time Taken Comments Blood Pressure 130/60 07/10/2016 0912 EST Pulse 60 07/08/2016 1400 EST Temperature 36 ??C (96.8 ??F) 07/10/2016 0912 EST Respiratory Rate 16 07/10/2016 0912 EST Oxygen Saturation 96% 07/10/2016 0912 EST Inhaled Oxygen Concentration - - Weight 64.9 kg (143 lb 1.3 oz) 07/08/2016 1733 EST Height 167.6 cm (5' 6) 07/02/2016 1944 EST Body Mass Index 23.09 07/02/2016 1944 EST documented in this encounter Functional Status [...] or older) documented as of this encounter Discharge Diagnoses Diagnosis K44.0 Diaphragmatic hernia with obstruct ion, without gangrene-K44.0[ICD-10-CM] K85.10 Biliary acute pancreatitis withou t necrosis or infection-K85.10[ICD-10-CM] N17.9 Acute kidney failure, unspecified- N17.9[ICD-10-CM] E87.2 ACIDOSIS[ICD-10-CM] J90 Pleural effusion, not elsewhere clas sified-J90[ICD-10-CM] K26.9 Duodenal ulcer, unspecified as acu te or chronic, without hemorrhage or perforation-K26.9[ICD-10-CM] E86.0 DEHYDRATION[ICD-10-CM] I25.10 Atherosclerotic heart disease of [place] coronary artery without angina pectoris-I25.10[ICD-10-CM] I25.2 Old myocardial infarction-I25.2[IC D-10-CM] E11.9 Type 2 diabetes mellitus without c omplications-E11.9[ICD-10-CM] R63.4 Abnormal weight loss-R63.4[ICD-10- CM] Z68.22 Body mass index (BMI) 22.0-22.9, adult-Z68.22[ICD-10-CM] Z95.5 Presence of coronary angioplasty i mplant and graft-Z95.5[ICD-10-CM] Z79.82 prison (current) use of aspiri n-Z79.82[ICD-10-CM] Z79.84 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 Dehydration 07/02/2016 ??? Intestinal obstruction 07/02/2016 ??? Acute kidney injury 07/02/2016 Resolved Hospital Problems Diagnosis Date Noted Date Resolved No resolved problems to display. Principal Procedure: laparoscopic paraesophageal hernia repair, toupet fundoplication, partial gastrectomy, and cholecystectomy Date: 07/06/16 Secondary Procedures: none Hospital Course Phil Lyons is a 76-year-old gentleman with past medical history significant for CAD (s/p CABG, s/p PCI w/ stenting 2001), DM and known paraesophageal hernia who presented to [facility] on 07/02/16 with abdominal pain, vomiting and inability to tolerate PO intake. On arrival, the patient was hemodynamically stable with labs pertinent for SHAINA, hyperkalemia, elevated lipase and elevated lactic acid (5.4). An NGT was placed with almost immediate relief of symptoms, he was aggressively rehydrated and his multiple lab abnormalities improved. On 07/06 Mr. Lyons was taken to the OR. Intra-operatively a small gastric perforation was identified. The surgery included; laparoscopic paraesophageal hernia repair, toupet fundoplication, partial gastrectomy, and cholecystectomy. He recovered well post operatively. He underwent UGI on 07/09/16, which d emonstrated contrast passing into the small bowel. Pt was advanced to a low residual diet which he tolerated well. He was discharged to home on 07/10/16. Allergies and Immunizations Allergies Allergen Reactions ??? Metoclopramide Other (See Comments) Was told to stop taking by Doctors ??? Penicillins Rash There is no immunization history on file for this patient. Transition of Care Plans Condition at Discharge Improved Assessment at Discharge Vital signs: Patient Vitals for the past 12 hrs: BP Resp Temp SpO2 O2 Device 07/10/16 0912 130/60 16 36 ??C (96.8 ??F) 96 % None 07/10/16 0705 - - 35.9 ??C (96.6 ??F) - - 07/10/16 0624 128/55 16 35.8 ??C (96.4 ??F) 97 % None Discharge Medications: START taking these medications Sig DIAZepam 5 mg/5 mL (1 mg/mL, 5 mL) solution Commonly known as: VALIUM Take 5 mL by mouth every 8 hours as needed for Pain (cramping pain). Daily Max: 15 mg lansoprazole 15 mg disintegrating tablet Commonly known as: PREVACID SOLUTAB Take 1 Tab by mouth daily for 10 days. oxyCODONE 5 mg/5 mL solution Commonly known as: ROXICODONE Take 5 mL by mouth every 4 hours as needed for Pain. Daily Max: 30 mg CHANGE how you take these medications Sig vitamin E 400 unit capsule What changed: additional instructions Take 1 Cap by mouth daily. HOLD THIS MEDICATION UNTIL DISCUSSED AT YOUR FOLLOW UP CONTINUE taking these medications Sig aspirin chewable 81 mg tablet Take 81 mg by mouth daily. atorvastatin 40 mg tablet Commonly known as: LIPITOR Take 40 mg by mouth daily. glipiZIDE 10 mg tablet Commonly known as: GLUCOTROL Take 10 mg by mouth 2 times daily. isosorbide dinitrate 30 mg tablet Commonly known as: ISORDIL Take 30 mg by mouth 4 times daily. STOP taking these medications losartan 25 mg tablet Commonly known as: COZAAR metoprolol 25 mg tablet Commonly known as: LOPRESSOR Patient provided with 4 days of lansoprazole dissolving tablets for a total of 14 days. Results Pending at Discharge Test results still pending from this admission None Relevant Studies at Discharge UGI 07/09/16: 1. Distended stomach with delayed emptying. 2. Curvilinear contour in the right upper quadrant adjacent to the diaphragm may represent transverse colon, although small amount of free air after abdominal surgery could be expected. If there is high clinical concern for pneumoperitoneum, lateral decubitus of the abdomen right side up could be obtai sebas . 3. No evidence of leak. If clinical suspicions persist for duodenal leak, CT abdomen and pelvis could be obtained. Discharge Follow Up Appointments Scheduled with [facility] in the next 3 months Appointments and Procedures Recommended to Patient Follow-up appointments and procedures Amb Consult/Follow Up General Surgery Reason for Request: Follow up after paraesophageal hernia repair with partial gastrectomy for perforation, follow up with [facility] in 2 weeks please Authorizing Provider: Niall Higgins MD Appointment Discharge Instructions See Spencer Genao MD. Please call for an appointment. Authorizing Provider: Niall Higgins MD Please notify your doctor for the following symptoms: Chest pain (angina) Dizziness or fainting Decreased urine output Fever greater than 101.5 or chills Inability to swallow or increasing difficulty swallowing Increased or new pain Nausea or vomiting Pain unrelieved by medication Signs of infection such as pain, redness, swelling or drainage at procedure or wound site Authorizing Provider: Niall Higgins MD Quality Discharge Instructions We are currently collecting quality data on patients having surgery. You may receive a phone call, email, and/or letter about your surgery asking you a series of follow up questions to evaluate specifics aspects of your care. Thank you for your participation. Authorizing Provider: Niall Higgins MD Studies We Will Schedule Maia Shi MD 07/10/2016 14:55 documented in this encounter Discharge Instructions Discharge Instr - Shyla Castorena SKIDDER LOADER - 07/09/2016 9:15 EST DIET AFTER LAPAROSCOPIC SARIKA FUNDOPLICATION Blenderized diet for a minimum of 3 days ??? this includes all NON-carbonated beverages, baby food, apple sauce, yogurt, cream of wheat, thin soups, etc. Remember to stay well hydrated (at least 2 quarts/day). Advance diet every week to more solid food as tolerated. Okay to swallow pills if smaller than a pea unless tolerated, otherwise crush all pills or open capsules. Week 1: Introduce soft foods like oatmeal, mashed potatoes, soft cooked vegetables, pasta, scrambledeggs, and cottage cheese, etc. Week 2: Introduce more solid foods such as cheeses and fruit. Week 3: Introduce ground meats and tuna fish. Week 4 and beyond: Introduce solid meats (steak), chicken, fish, bread, crackers, rice, shrimp, lobster, and raw vegetables, etc. By week 5, most foods are unrestricted. However, some patients still experience some difficulty swallowing certain foods at this time. If this should happen, drink liquids to help the food pass and do not try this food again for 3 days. After the swelling around the surgical site subsides, swallowing will become easier. POINTS TO REMEMBER 1) ABSOLUTELY NO CARBONATED BEVERAGES OR STRAWS 2) AVOID GUM (this causes you to swallow air) 3) Blenderized diet for a minimum of 3 days. 4) NO BREAD, UNGROUND MEAT, CHICKEN OR FISH FOR AT LEAST 2 WEEKS. 5) Sit in a chair at the table when eating. Avoid eating in lounge chairs, sofas, in the car, or while walking around. This is when you should be concentrating well while eating. 6) You will feel well after the first week, and yet still have difficulty swallowing certain foods. BE CAREFUL NOT TO ADVANCE YOUR DIET TOO QUICKLY. Please call the office at to speak with a nurse if you have any questions or concerns. To schedule a follow up appointment please call . documented in this encounter Medications at Time of Discharge Medication Sig Dispensed Refills Start Date End Date aspirin chewable 81 mg Take 81 mg by mouth 0 tablet daily. atorvastatin (LIPITOR) 40 Take 40 mg by mouth 0 mg tablet daily. DIAZepam (VALIUM) 5 mg/5 Take 5 mL by mouth 25 mL 0 01/2017 mL (1 mg/mL, 5 mL) every 8 hours as solution needed for Pain (cramping pain). Daily Max: 15 mg glipiZIDE (GLUCOTROL) 10 Take 25 mg by mouth 0 mg tablet daily. isosorbide dinitrate Take 30 mg by mouth 0 (ISORDIL) 30 mg tablet daily. oxyCODONE (ROXICODONE) 5 Take 5 mL by mouth 100 mL 0 12/2016 mg/5 mL solution every 4 hours as needed for Pain. Daily Max: 30 mg vitamin E 400 unit Take 1 Cap by mouth 1 Cap 0 07/09/19 17 capsule daily. HOLD THIS MEDICATION UNTIL DISCUSSED AT YOUR FOLLOW UP lansoprazole (PREVACID Take 1 Tab by mouth 10 Tab 0 01/201707/20/2016 SOLUTAB) 15 mg daily for 10 days. disintegrating tablet documented as of this encounter Ordered Prescriptions Prescription Sig Dispensed Refills Start Date End Date DIAZepam (VALIUM) 5 mg/5 Take 5 mL by mouth 25 mL 0 01/2017 mL (1 mg/mL, 5 mL) every 8 hours as solution needed for Pain (cramping pain). Daily Max: 15 mg oxyCODONE (ROXICODONE) 5 Take 5 mL by mouth 100 mL 0 12/2016 mg/5 mL solution every 4 hours as needed for Pain. Daily Max: 30 mg vitamin E 400 unit Take 1 Cap by mouth 1 Cap 0 07/09/19 17 capsule daily. HOLD THIS MEDICATION UNTIL DISCUSSED AT YOUR FOLLOW UP lansoprazole (PREVACID Take 1 Tab by mouth 10 Tab 0 /0 01/201707/20/2016 SOLUTAB) 15 mg daily for 10 days. disintegrating tablet lansoprazole (PREVACID Take 1 Tab by mouth 14 Tab 0 /0 12/201607/10/2016 SOLUTAB) 15 mg daily for 14 days. disintegrating tablet ondansetron (ZOFRAN-ODT) Take 1 Tab by mouth 12 Tab 1 07/10/2016 4 mg disintegrating every 4 hours as tablet needed for Nausea. documented in this encounter Discharge Disposition Disposition Code Departure Means Destination Home or Self Care documented in this encounter Progress Notes Amanda Boucher - 07/10/2016 1617 EST CM DC Note Pt discharged home to self care Milagros Boucher RN CM 4010 Meredith Maki - 07/10/2016 1429 EST Cm initiated a Prior auth for prevacid with [employer] [phone] option 2 twice ID #[id number]. Cm had to leave a detailed message with pt and medication info. CM please follow up on Tuesday withPrior Auth. The pt is aware it needs a prior auth and will Pay for 3 days of the med totaling $59.14. Email sent to covering cm. Meredith SAUCEDO RN, CM Pager #[phone] Mena Braxton MD - 07/10/2016 0208 EST Surgery Progress Note Service Date: 07/10/2016 Admit Date: 07/02/2016 19:27 Procedure: Laparoscopic paraesophageal hernia repair, partial gastrectomy, lap cholecystectomy Chief Complaint: incarcerated paraesophageal hernia 24 Hour Events: ?? NAEO Subjective/Objective Subjective Had a hard time sleeping last night, didn't like the change in his medications. Had some abd muscle cramping. No CP, SOB, N/V, F/C. Objective Vital Signs Temp: [35.7 ??C (96.3 ??F)-36 ??C (96.8 ??F)] (), Heart Rate: -- (), Resp: [16- 18] (), BP: (115-156)/(63-78) (), SpO2: [94 %-97 %] () I&O: In: 340 mL UOP 300 Drain 60 mL serosang Physical Exam General Appearance: alert, cooperative, no distress Lung: clear to auscultation bilaterally, non labored breathing Heart: regular rate and rhythm Abdomen: soft, non-tender to palpation, BS present, scaphoid, lap incisions C/D/I covered with Steri-strips. JOSE ALEJANDRO drain in RUQ with SS output Extremities: Warm and well perfused Skin: Skin color, temperature, turgor normal. No rashes or lesions Imagin. Distended stomach with delayed emptying. ?? 2. Curvilinear contour in the right upper quadrant adjacent to the ?? diaphragm may represent transverse colon, although small amount of ?? free air after abdominal surgery could be expected. If there is high ?? clinical concern for pneumoperitoneum, lateral decubitus of the ?? abdomen right side up could be obtained . ?? 3. No evidence of leak. If clinical suspicions persist for duodenal ?? leak, CT abdomen and pelvis could be obtained. Assessment/Plan Assessment Phil Riggs Courser is a 76-year-old gentleman w/ PMH s/f CAD (NSTEMI, s/p CABG early , s/p PCI w/ stenting 2001), DM, and known large paraesophageal hernia admitted for incarcerated paraesophagealhernia, now POD #4 s/p laparoscopic paraesophageal hernia repair, partial gastrectomy, lap cholecyste ctomy. Course complicated by SHAINA, resolved. Elevated LFTs in setting of biliary pancreatitis, now resolved.Recovering well, tolerating clears, will advance today. UGI shows contrast passing into the small bowel. Possible discharge home today or tmrw. Plan Active Problems: Dehydration Intestinal obstruction Acute kidney injury -- resolved #Incarcerated paraesophageal hernia Low residue regular diet, encourage PO intake Tylenol, valium, and oxycodone for pain SSI - glc 100ss Good UOP - trend lytes/Cr given SHAINA FARM LOAN REPRESENTATIVE lopressor (IV while NPO) -- hold parameters HR<60, SBP <100 VTE Prophylaxis Pharmacologic Prophylaxis: Heparin 5000 units SQ Bid Discharge Plan Uncertain at this time Niall Higgins MD 07/10/2016 2:08 Attestation statement: I saw and examined the patient with the surgical orderly / blue team. I agree with the findings, assessment, and plan as outlined above. Doing well, no complaints. No N /V. Pain under control. AV S S. (+ ) GI Fx. Cont current MGT. D/C planning Niall Higgins MD - 07/09/2016 0701 EST Surgery Progress Note Service Date: 07/09/2016 Admit Date: 07/02/2016 19:27 Procedure: Laparoscopic paraesophageal hernia repair, partial gastrectomy, lap cholecystectomy Chief Complaint: incarcerated paraesophageal hernia 24 Hour Events: ?? Some chest pressure yesterday, EKG not concerning for acute SD ?? Lopressor held x2 for HR in 50-60s Subjective/Objective Subjective Had the best night yet, back pain improved, got some great sleep. Had a small BM and is passing gas. Walked 3x. No CP, SOB, N/V, F/C. Tolerated some grape juice with no issue. Objective Vital Signs Temp: [35.5 ??C (95.9 ??F)-36.2 ??C (97.2 ??F)] (), Heart Rate: -- (), Resp: [16-18] (), BP: (125-193)/(60-82) (), SpO2: [95 %-98 %] () I&O: In: 2183 mL UOP 450 + 2 mL Drain 95 mL serosang Physical Exam General Appearance: alert, cooperative, no distress Lung: clear to auscultation bilaterally, non labored breathing Heart: regular rate and rhythm Abdomen: soft, non-tender to palpation, BS present, scaphoid, lap incisions C/D/I covered with Steri-strips. JOSE ALEJANDRO drain in RUQ with SS output Extremities: Warm and well perfused Skin: Skin color, temperature, turgor normal. No rashes or lesions Imaging: No leak, Toupet intact, no herniation. Stomach distended with air. Assessment/Plan Assessment Phil Riggs Courser is a 76-year-old gentleman w/ PMH s/f CAD (NSTEMI, s/p CABG early , s/p PCI w/ stenting 2001), DM, and known large paraesophageal hernia admitted for incarcerated paraesophagealhernia, now POD #3 s/p laparoscopic paraesophageal hernia repair, partial gastrectomy, lap cholecyste ctomy. Course complicated by SHAINA, now resolving. Elevated LFTs in setting of biliary pancreatitis, now resolved. Feeling much better this morning, no complaints at present. UGI showing intact wrap. Plan Active Problems: Dehydration Intestinal obstruction Acute kidney injury -- resolved #Incarcerated paraesophageal hernia Switched medications to liquid from IV as possible Low residue regular diet Continue IVF until increased PO intake SSI - glc 100ss Good UOP - trend lytes/Cr given SHAINA [employer] LOAN REPRESENTATIVE lopressor (IV while NPO) -- hold parameters HR<60, SBP <100 VTE Prophylaxis Pharmacologic Prophylaxis: Heparin 5000 units SQ Bid Discharge Plan Uncertain at this time Niall Higgins MD 07/09/2016 7:01 Nahid English MD - 07/08/2016 0932 EST Surgery Progress Note Service Date: 07/08/2016 Admit Date: 07/02/2016 19:27 Procedure: Laparoscopic paraesophageal hernia repair, partial gastrectomy, lap cholecystectomy Chief Complaint: incarcerated paraesophageal hernia 24 Hour Events: ?? DACIA Subjective/Objective Subjective Couldn't sleep overnight, anxious overall. Most comfortable up in chair. Complains of pressure over bilateral lower ribcage and persistent productive cough (previously blood-tinged, now clear). Voidingwell, passing flatus, no BM yet. Denies any nausea, fevers/chills. Objective Vital Signs Temp: [36 ??C (96.8 ??F)-36.8 ??C (98.2 ??F)] (), Heart Rate: [65 BPM] (), Resp: [16-18] (), BP: (137-153)/(62-88) (), SpO2: [96 %-100 %] () I&O (since midnight): UOP 800 mL Drain 130 mL Physical Exam General Appearance: alert, cooperative, no distress Lung: clear to auscultation bilaterally, non labored breathing Heart: regular rate and rhythm Abdomen: soft, non-tender to palpation, BS present, scaphoid, lap incisions C/D/I covered with Steri-strips. JOSE ALEJANDRO drain in RUQ with SS output Extremities: Warm and well perfused Skin: Skin color, temperature, turgor normal. No rashes or lesions Assessment/Plan Assessment Phil Riggs Courser is a 76-year-old gentleman w/ PMH s/f CAD (NSTEMI, s/p CABG early , s/p PCI w/ stenting 2001), DM, and known large paraesophageal hernia admitted for incarcerated paraesophagealhernia, now POD #2 s/p laparoscopic paraesophageal hernia repair, partial gastrectomy, lap cholecyste ctomy. Course complicated by SHAINA, now resolving. Elevated LFTs in setting of biliary pancreatitis, now resolved. Cont'd emotional stress over hospital course, pressure over lower chest appears musculoskeletal. Plan Active Problems: Dehydration Intestinal obstruction Acute kidney injury -- resolved #Incarcerated paraesophageal hernia UGI today to evaluate wrap EKG given chest pressure Valium IV for muscle pains Keep NPO - will go slow with diet in setting of partial gastrectomy Continue IVF SSI - glc in 200s Good UOP - trend lytes/Cr given SHAINA [employer] LO[employer] REPRESENTATIVE lopressor (IV while NPO) -- hold parameters HR<60, SBP <100 F/u final stress test results VTE Prophylaxis Pharmacologic Prophylaxis: Heparin 5000 units SQ Bid Discharge Plan Uncertain at this time Nahid Leung MD 07/08/2016 9:32 Nahid English MD - 07/07/2016 0855 EST Surgery Progress Note Service Date: 07/07/2016 Admit Date: 07/02/2016 19:27 Procedure: Laparoscopic paraesophageal hernia repair, partial gastrectomy, lap cholecystectomy Chief Complaint: incarcerated paraesophageal hernia 24 Hour Events: ?? OR for above Subjective/Objective Subjective Feels well, fatigued overall. Tried getting out of bed yesterday. Denies any belching, nausea/emesis, fevers/chills, chest pain/dyspnea. Objective Vital Signs Temp: [34.5 ??C (94.1 ??F)-36 ??C (96.8 ??F)] (), Heart Rate: [69 BPM-105 BPM] (), Resp: [8-19] (), BP: (119-150)/(56-77) (), SpO2: [97 %-100 %] () I&O (since midnight): UOP 575 mL Drain 55 mL Physical Exam General Appearance: alert, cooperative, no distress Lung: clear to auscultation bilaterally, non labored breathing Heart: regular rate and rhythm Abdomen: soft, non-tender to palpation, BS present, scaphoid, lap incisions C/D/I covered with Steri-strips. JOSE ALEJANRDO drain in RUQ with SS output Extremities: Warm and well perfused Skin: Skin color, temperature, turgor normal. No rashes or lesions CXR per radiology report dated 07/05/16: 1. Large hiatal hernia 2. Left lower lobe subsegmental atelectasis 3. Small left pleural effusion EKG ok Nuc med stress test PRELIM report Impressions: - Abnormal study after pharmacologic stress. - Incidental SPECT findings: large gastric hernia?? Summary: 1. Myocardial perfusion imaging: There is a small sized, mildly intense, fully reversible defect involving the inferior wall(s). This suggests??small ischemia in the distribution of the right coronary artery. There is a small sized, moderately intense, fully reversible defect??involving the anterolateral wall(s). This suggests small ischemia in the distribution of the left anterior descending coronary artery.?? 2. The calculated left ventricular ejection fraction after stress: 52%.??LV global systolic functionis low normal. 3. Stress ECG conclusions: The stress ECG is positive. Occasional atrial??ectopy. Occasional ventricular ectopy. 4. Stress: There is resting hypertension. The patient experienced no chest pain during stress. Assessment/Plan Assessment Phil W Courser is a 76-year-old gentleman w/ PMH s/f CAD (NSTEMI, s/p CABG early , s/p PCI w/ stenting 2001), DM, and known large paraesophageal hernia admitted for incarcerated paraesophagealhernia, now POD #1 s/p laparoscopic paraesophageal hernia repair, partial gastrectomy, lap cholecyste ctomy. Tolerated procedure well. Course complicated by SHAINA, now resolving and elevated LFTs in setting of elevated lipase, concern for possible biliary pancreatitis, now improving. Plan Active Problems: Dehydration Intestinal obstruction Acute kidney injury -- resolved #Incarcerated paraesophageal hernia Keep NPO - will go slow with diet in setting of partial gastrectomy Continue IVF SSI - glc in 200s, will stop D5 infusion. Watch for hypoglycemia - no further episodes Trend LFTs D/C frost; due to void FARM LOAN REPRESENTATIVE lopressor (IV while NPO) -- hold parameters HR<60, SBP <100 F/u final stress test results VTE Prophylaxis Pharmacologic Prophylaxis: Heparin 5000 units SQ Bid Discharge Plan Uncertain at this time Nahid Leung MD 07/07/2016 8:55 Esteban Hollingsworth MD - 07/07/2016 0008 EST Post Op Check Admit Date: 07/02/2016 Hospital Day: LOS: 4 days Date of Service: 07/07/2016 Procedure: Laparoscopic paraesophageal hernia repair, lap cholecystectomy Complications: Multiple pleural perforations, closed with roxy Subjective/ROS: Mr. Lyons is doing well. His pain and nausea are controlled. He denies fevers, chills, LENZ, N/V, diarrhea. MAR reviewed Objective VS: Blood pressure 119/56, pulse 60, temperature 35.8 ??C (96.4 ??F), temperature source Tympanic, resp. rate 16, height 167.6 cm (66), weight 62.2 kg (137 lb 1.6 oz), SpO2 100 %. Exam: Gen - Awake and alert, no distress, cooperative Resp - CTAB Cards - RRR Abd - soft, non tender, non distended, +BS. Surgical sites non-erythematous. Ext - WWP, no edema, +2 DPs Labs: No new labs. Assessment: Mr. Courser is a 76 yo M who is POD#0 s/p Laparoscopic paraesophageal hernia repair, lap cholecystectomy. His pain and nausea are well controlled and he is currently afebrile. He is hemodynamically stable. Plan: - Dilaudid IV for pain management - Zofran for nausea - Continue frost overnight - 24 hours of periop abx Esteban Prado MD 07/07/2016 0:08 Sonia Petit MD - 07/06/2016 0757 EST Surgery Progress Note Service Date: 07/06/2016 Admit Date: 07/02/2016 19:27 Chief Complaint: incarcerated paraesophageal hernia 24 Hour Events: ?? NAEON ?? BG in 100s to low 200s Subjective/Objective Subjective Overall feeling well, quite anxious for surgery. Denies nausea/vomiting, fevers/chills. Having bowelmovements (loose after stress test yesterday). Objective Vital Signs Temp: [35.7 ??C (96.3 ??F)-37 ??C (98.6 ??F)] (), Heart Rate: -- (), Resp: [18- 20] (), BP: (143-167)/(64-79) (), SpO2: [98 %-99 %] () I&O (since midnight): UOP 525 cc NGT 150 cc (07/05/16) Physical Exam General Appearance: alert, cooperative, no distress Lung: clear to auscultation bilaterally, non labored breathing Heart: regular rate and rhythm Abdomen: soft, non-tender to palpation, BS present, scaphoid appearing Extremities: Warm and well perfused Skin: Skin color, temperature, turgor normal. No rashes or lesions Incision(s)/Wound(s): NA Psych: anxious demeanor CXR per radiology report dated 07/05/16: 1. Large hiatal hernia 2. Left lower lobe subsegmental atelectasis 3. Small left pleural effusion EKG ok Nuc med stress test--read pending Assessment/Plan Assessment Phil Riggs Courser is a 76-year-old gentleman w/ PMH s/f CAD (NSTEMI, s/p CABG early , s/p PCI w/ stenting 2001), diabetes and known large paraesophageal hernia admitted for incarcerated paraesophageal hernia. To OR this week for repair, optimizing pre-operatively, managing w/ NGT for now. Additional hospital complications include SHAINA likely 2/2 dehydration (now resolved), episodes of hypoglycemia (night of 07/04/16, resolved w/ D5 1/2 NS IVF). Plan Active Problems: Dehydration Intestinal obstruction Acute kidney injury -- resolved #Incarcerated paraesophageal hernia To OR for repair this week Continue NGT, keep NPO, ok to be off suction for short walk FARM LOAN REPRESENTATIVE lopressor (IV while NPO) -- hold parameters HR<60, SBP <100 Pre-operative management -- T&S (may need updated pending when to OR), records from [facility] ([facility]) in chart, awaiting [facility] records for cardiac history, OK for heparin dose in AM prior to OR F/u stress test results No further episodes of hypoglycemia -- IVF D5 1/2 NS @ 75 cc/hr VTE Prophylaxis Pharmacologic Prophylaxis: Heparin 5000 units SQ Bid Discharge Plan Uncertain at this time Sonia Saucedo MD 07/06/2016 7:57 anda Lozada - 07/05/2016 1112 EST Initial Case Management/Social Work Assessment and Discharge Plan/Readmission Risk Assessment REASON FOR ADMISSION: Incarcerated paraesophageal hernia Patient understands reason for admission: Yes PATIENT CONTACT INFO VERIFIED: Yes LIVING ARRANGEMENTS AND ACCESSIBILITY ISSUES: Living Arrangements: Private residence, Spouse What in home social supports are available to the patient? Spouse, Son Is 24/01 care available? ADVANCED DIRECTIVES, POA &/or COLST IN PLACE: Healthcare Directive: No, patient does not have advance directive for healthcare treatment Information Provided on Healthcare Directives: No Information on Healthcare Directives Requested: No DIRECTIVES FOR FINANCES: TRANSPORTATION: Family CULTURAL, TAOIST and/or LANGUAGE factors affecting health care/discharge planning: Spiritual/Cultural Requests: None Any factors affecting health care/discharge planning?: No Insurance in Place: Yes Medical Insurance: Yes Type of insurance: Medicare, Supplemental plan to Medicare Medicare type: A, B Supplemental: BC/BS of CT DISCHARGE RISK ASSESSMENT: Diagnosis of Diabetes; Polypharmacy, > 7 medications Total # selected above: Score of 1 - 2: This patient is at LOW RISK for re-hospitalization Tentative plan to address the risk of re-hospitalization for those at HIGH MODERATE RISK: RAPT TOOL: Age: >75 Gender: Male Ambulation distance: 2 or more blocks (600ft) Gait device: None Community Services: Home health, MOW, SASH-none Will you live with someone who will care for you?: Yes RAPT Tool Score: 10 Patient expects to be discharged to: home FUNCTIONAL STATUS: Activities patient requires assistance: None Assistive Device: None Independent and very active at baseline; 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 Likely will be able to dc home with family support without need for skilled services. Requests to see nutrition for diet instruction before discharge. Milagros Boucher RN CM [id number] Sonia Petit MD - 07/05/2016 0951 EST Surgery Progress Note Service Date: 07/05/2016 Admit Date: 07/02/2016 19:27 Chief Complaint: incarcerated paraesophageal hernia 24 Hour Events: ?? No acute events overnight ?? Glucose 67 -> D50 -> 164 Subjective/Objective Subjective No subjective concerns this AM, overall tired. Keeps exercising by walking around unit. Objective Vital Signs Temp: [35.8 ??C (96.4 ??F)-36.5 ??C (97.7 ??F)] (), Heart Rate: [50 BPM-53 BPM] (), Resp: [16-18] (), BP: (124-153)/(56-73) (), SpO2: [99 %-100 %] () I&O (since midnight): UOP 550 cc NGT 0 cc recorded Physical Exam General Appearance: alert, cooperative, no distress Lung: clear to auscultation bilaterally, non labored breathing Heart: regular rate and rhythm Abdomen: soft, non-tender to palpation, BS present, scaphoid appearing Extremities: Warm and well perfused Skin: Skin color, temperature, turgor normal. No rashes or lesions Incision(s)/Wound(s): NA Assessment/Plan Assessment 76-year-old gentleman w/ PMH s/f CAD (NSTEMI date unknown, s/p CABG date unknown, s/p PCI w/ stenting 2001), diabetes and known large paraesophageal hernia admitted for incarcerated paraesophageal hernia. Managed conservatively with NGT with resolution of symptoms. Additional hospital complications include SHAINA likely 2/2 dehydration, which has now resolved. Plan Active Problems: Dehydration Intestinal obstruction Acute kidney injury -- resolved #Incarcerated paraesophageal hernia OR scheduled for tomorrow 07/06/15 for repair Continue NGT, keep NPO, ok to be off suction for short walk FARM LOAN REPRESENTATIVE lopressor (IV while NPO) -- being held consistently for HRs in 50s Pre-operative management -- T&S tomorrow AM, CXR & nuc med stress test ordered, obtaining records from [facility] ([facility]) and [facility] for cardiac history, EKG OK, OK for heparin dose tomorrow AM Episode of hypoglycemia overnight, treated w/ D50 -- changed fluids this AM to D5 1/2 NS 75 cc/hr, electrolytes have normalized VTE Prophylaxis Pharmacologic Prophylaxis: Heparin 5000 units SQ Bid Discharge Plan Uncertain at this time Sonia Saucedo MD 07/05/2016 9:51 Chandra Mosqueda MD - 07/04/2016 0716 EST Surgery Progress Note Service Date: 07/04/2016 Admit Date: 07/02/2016 19:27 HD: 2 Chief Complaint: incarcerated paraesophageal hernia 24 Hour Events: ?? No acute events Subjective/Objective Subjective Continues to be asymptomatic. NGT annoying. Walked 1/2 mile this AM. Objective Vital Signs Temp: [36.1 ??C (97 ??F)-37.1 ??C (98.8 ??F)] (), Heart Rate: -- (), Resp: [16- 18] (), BP: (130-152)/(62-68) (), SpO2: [98 %-100 %] () Physical Exam General Appearance: alert, cooperative, no distress Lung: clear to auscultation bilaterally, non labored breathing Heart: regular rate and rhythm Abdomen: scaphoid, soft, non-tender Extremities: Warm and well perfused Skin: Skin color, temperature, turgor normal. No rashes or lesions Incision(s)/Wound(s): NA EKG ok Assessment/Plan Assessment 76 y.o. male admitted with incarcerated paraesophageal hernia. Symptoms resolved after NGT placement. Acute kidney injury continues to improve. Plan Active Problems: Dehydration Intestinal obstruction Acute kidney injury Continue NGT Decrease fluids Tentative plan for surgery Tuesday with partial wrap as manometry never completed Encourage ambulation- ok to be off suction for short periods of time to walk Lopressor IV SSI VTE Prophylaxis Pharmacologic Prophylaxis: Heparin 5000 units SQ Bid Discharge Plan Uncertain at this time Joycelyn Akhtar MD 07/04/2016 7:16 General Surgery Staff Note Attestation statement: I saw and examined the patient. I agree with the resident's/fellow's findingsand plans as documented. Any additions/exceptions are noted below. Up ambulating the halls this morning. No new complaints. Labs normalized with exception of Cr which will take a little longer. Chandra Lundberg MD 10:07 07/04/2016 Joycelyn Qiu MD - 07/03/2016 0745 EST Surgery Progress Note Service Date: 07/03/2016 Admit Date: 07/02/2016 18:02 HD: 1 Chief Complaint: incarcerated paraesophageal hernia 24 Hour Events: ?? Seen in ER ?? NGT placed with almost 3L out immediately and relief of symptoms ?? Admitted to floor ?? Improvement in labs Subjective/Objective Subjective Feels 100% better. No pain, nausea, CP, SOB. Objective Vital Signs Temp: [35.6 ??C (96.1 ??F)-36.6 ??C (97.9 ??F)] (), Heart Rate: [58 BPM] (), Resp: [16-18] (), BP: (138-166)/(60-88) (), SpO2: [79 %-100 %] () Physical Exam General Appearance: alert, cooperative, no distress Lung: clear to auscultation bilaterally, non labored breathing Heart: regular rate and rhythm Abdomen: scaphoid, soft, non-tender Extremities: Warm and well perfused Skin: Skin color, temperature, turgor normal. No rashes or lesions Incision(s)/Wound(s): NA Assessment/Plan Assessment 76 y.o. male admitted with incarcerated paraesophageal hernia. Symptoms resolved after NGT placement. Lactic acidosis resolved with rehydration. Suspect SHAINA to be resolving as well. Plan Active Problems: Dehydration Intestinal obstruction Acute kidney injury Continue NGT F/u labs and decrease fluids if improved May need fluids with D5 if finger sticks continue to be low Tentative plan for surgery Tuesday with partial wrap as manometry never completed Anesthesia consult for pre-op clearance- was going to have stress test yesterday Encourage ambulation- ok to be off suction for short periods of time to walk Lopressor IV SSI VTE Prophylaxis Pharmacologic Prophylaxis: Heparin 5000 units SQ Bid Discharge Plan Uncertain at this time Joycelyn Akhtar MD 07/03/2016 7:45 documented in this encounter H&P Notes Chandra Lundberg MD - 07/02/2016 6337 EST General Surgery History and Physical CC: Abdominal pain and vomiting Subjective: Patient is a 76 y.o. male who was seen in clinic by Dr Acuna pn 06/21 for gallstones and large paraesophageal hernia. He was booked for lap jono and paraesophageal hernia repair. He has been maintained on a blendarized diet but hasn't been doing well eating since that appointment. The past 2-3 days, however, he has been unable to even take a sip of water without vomiting. Last night he had terrible upper abdominal pain and didn't think [he] was going to make it. His called Dr Acuna this morning and he was advised to come to the ER. Initial lab work showed several derangements including acute kidney injury, hyperkalemia, elevated lipase, and lactic acid of 5.4. He denies fevers, chills, chest pain, SOB. He is still passing flatus, last BM was yesterday and normal. +Decreased urine output. The patient Past Medical History Diagnosis Date ??? CAD (coronary artery disease) ??? Diabetes mellitus ??? Heart attack The patient's Past Surgical History Procedure Laterality Date ??? Cardiac surgery ??? Hernia repair Current Facility-Administered Medications Medication Dose Route Frequency Provider Last Rate Last Dose ??? sodium chloride 0.9 % BOLUS 1,000 mL 1,000 mL intravenous Now Мария Willis PA Current Outpatient Prescriptions Medication Sig Dispense Refill ??? aspirin chewable 81 mg tablet Take 81 mg by mouth daily. ??? atorvastatin (LIPITOR) 40 mg tablet Take 40 mg by mouth daily. ??? glipiZIDE (GLUCOTROL) 10 mg tablet Take 10 mg by mouth 2 times daily. ??? isosorbide dinitrate (ISORDIL) 30 mg tablet Take 30 mg by mouth 4 times daily. ??? losartan (COZAAR) 25 mg tablet Take 25 mg by mouth daily. ??? metoprolol (LOPRESSOR) 25 mg tablet Take 25 mg by mouth 2 times daily. ??? vitamin E 400 unit capsule Take 400 Units by mouth daily. All: Allergies Allergen Reactions ??? Metoclopramide Other (See Comments) Was told to stop taking by Doctors ??? Penicillins Rash The patient Social History Social History ??? Marital status: Spouse name: N/A ??? Number of children: N/A ??? Years of education: N/A Social History Main Topics ??? Smoking status: Never Smoker ??? Smokeless tobacco: None ??? Alcohol use No ??? Drug use: No ??? Sexual activity: Yes Partners: Female Other Topics Concern ??? None Social History Narrative Family History Problem Relation Age of Onset ??? Diabetes Mother ??? Heart Disease Father ??? Diabetes Sister Review of Systems A ten point review of systems was performed. Pertinent positives are listed below, all others are negative: abdominal pain, emesis as per HPI Objective: Blood pressure (!) 151/88, pulse 101, temperature 36.6 ??C (97.9 ??F), temperature source Tympanic, resp. rate 18, weight 62.6 kg (138 lb), SpO2 100 %. General appearance: alert, cooperative, mild distress Skin: decreased skin turgor Head: Normocephalic, without obvious abnormality, atraumatic Eyes: negative Neck: supple, symmetrical, trachea midline and no JVD Lungs: clear to auscultation bilaterally, non labored breathing Heart: regular rate and rhythm Abdomen: firm mass in upper abdomen- tender to palpation without guarding; benign lower abdomen Extremities: extremities warm Data Review CBC: Lab Results Component Value Date WBC 6.08 07/02/2016 RBC 4.67 07/02/2016 HGB 14.1 07/02/2016 HCT 42.1 07/02/2016 MCV 90 07/02/2016 MCH 30.2 07/02/2016 MCHC 33.5 07/02/2016 PLT 198 07/02/2016 NEUTROABS 5.29 07/02/2016 BMP: Lab Results Component Value Date NA 142 07/02/2016 K 5.3 (H) 07/02/2016 CL 92 (L) 07/02/2016 CO2 30 07/02/2016 BUN 39 (H) 07/02/2016 CREATININE 2.48 (H) 07/02/2016 CALCIUM 10.5 07/02/2016 LABALBU 4.5 07/02/2016 LFT: Lab Results Component Value Date TBIL 0.8 07/02/2016 ALKPHOS 111 07/02/2016 AST 21 07/02/2016 ALT 17 (L) 07/02/2016 LIPASE 5467 (H) 07/02/2016 Lactic acid 5.4 Imaging: AAS: NGT in good position but likely still with majority of stomach in chest Assessment: 76 yo M with likely incarcerated paraesophageal hernia. NGT placed in ER with almost 3L removed immediately. Patient with almost immediate symptom relief and return to soft, non-distended stomach. Abnormal laboratory values likely related to dehydration and suspect they will return to normal with IV fluids. Plan: Admit to Dr Acuna Potential add on for repair on Tuesday Continue NG tube until then IVF, recheck lactate and electrolytes at [place], lipase in AM Protonix for old bloody NG output Unable to get pre-op stress test, will check with anesthesia about pre-op clearance Hold home meds except lopressor- switch to IV SSI Discussed with Dr Acuna and Dr Melendez (Dr Melendez covering for emergent issues tonight) Joycelyn Akhtar MD 18:08 General Surgery Staff Note Attestation statement: I saw and examined the patient. I agree with the resident's/fellow's findingsand plans as documented. Any additions/exceptions are noted below. Doing well this morning. Greatly relieved with placement of the NG tube. Labs normalizing with resuscitation. Chandra Lundberg MD 13:07 07/03/2016 documented in this encounter Procedure Notes Alejandrina Jones RN - 07/05/2016 1450 EST Preliminary Pharmacologic Stress Lab Report Date: 07/05/2016 Time: 14:50 Procedure: Heart rate and Blood pressure response to Regadenoson was normal. Symptoms included: abdominal pressure. The EKG had positive changes. Arrhythmias were absent. Follow Up: Images pending Alejandrina Jones RN 07/05/2016 14:50 documented in this encounter Consult Notes Dominga Mcclellan - 07/03/2016 1753 EST Nutrition Diet Rx: NPO Meds: aspart, protonix, D5 NS w/Kcl Labs: Hgb/Hct:10.8/32.2 (07/03 659) Na/K/Cl/CO2/Gluc/M/3.9/99/33/401/-- (07/02 1528-07/03 659) Blood Glucose (Lab Resulted): 122 (07/03 1807) BUN/Cr/Phos/AlkPhos/Ca/CalcCa/TG/CRP:32/1.71/--/111/10.5/10.1/--/-- (07/02 1528- 07/03 659) Wt Readings from Last 5 Encounters: 07/03/16 62.2 kg (137 lb 1.6 oz) 06/21/16 65.2 kg (143 lb 12.8 oz) Body mass index is 22.13 kg/(m^2). A: 76 yo male w/PMHx CAD, DM admitted with abd pain and vomiting r/t incarcerated paraesophageal hernia. Consult rec'd for wgt loss, unable to connect with pt today, RD to f/u. Chart reviewed. Seen in clinic 06/21 with plan for lap jono and paraesophageal hernia repair. Has been consuming soft foods, often blenderized, however tolerating poorly with minimal PO for several days. Plan for OR next week, currently NPO with IVF changed to D5 2/2 low BG. Given poor PO, recent wgt loss and pending surgery, would consider parenteral nutrition support to prevent further catabolism, support healing. Suggestadd thiamine to support CHO metabolism. Labs noted, suggest check Mg and Phos as pt at risk for abnormalities. Plan: Advance diet as clinically indicated Suggest consider TPN Please add 100 mg thiamine IV for CHO metabolism Please check Mg and Phos Monitor wgt, intake, labs, skin, bowels RD following Dominga Mcclellan MS, RD Weekend x-cover pager [phone] documented in this encounter OR Notes OR Surgeon - Spencer Acuna MD - 07/07/2016 1210 EST OPERATIVE REPORT SERVICE DATE: 07/06/2016 PREOPERATIVE DIAGNOSES: 1. Paraesophageal hernia. 2. Gallstone pancreatitis. POSTOPERATIVE DIAGNOSES: 1. Paraesophageal hernia. 2. Gallstone pancreatitis. 3. Duodenal ulcer. PROCEDURE: 1. Laparoscopic paraesophageal hernia repair with mesh and Toupet fundoplication. 2. Laparoscopic cholecystectomy. 3. Laparoscopic repair of duodenal ulcer. SURGEON: Spencer Acuna MD FACS LVN HOME HEALTH: 1. Niall Higgins MD 2. Esteban Prado MD 3. Harjinder Hughes MD FACS ANESTHESIA: General endotracheal and local. ESTIMATED BLOOD LOSS: Minimal. FLUIDS: See anesthesia sheet. DRAINS: One 15-Greek Jeovany drain in the right upper quadrant of the abdomen to bulb suction. COMPLICATIONS: None. INDICATIONS: This is a 76-year-old man with a history of intermittent abdominal pain who was diagnosed with a large hiatal hernia as well as gallstone pancreatitis. He has been vomiting occasionally since April and has had a 30- pound weight loss over the last 2 months. He was scheduled for elective repair, but started to have severe abdominal pain and vomiting and was admitted to the hospital with severe dehydration, gallstone pancreatitis, an incarcerated hiatal hernia and acute kidney injury. Hewas hydrated and scheduled for repair in the hospital. FINDINGS: Necrotic ulceration in the duodenal bulb. Hiatal defect of approximately 7 cm in diameter.A primary closure with ProGrip mesh onlay was performed. NARRATIVE: The patient was taken to the operating room, placed supine on the operating table, identified as [place] Courser. I was present for the entire case. After induction of general anesthesia, the abdomen was prepped and draped in the usual sterile fashion. We made an incision in the left subcostal region and using a Veress needle, the abdomen was accessed and insufflated to 14 mmHg using carbon dioxide. A 12 mm optical trocar was placed in this location followed by a 3D laparoscope, which was used to examine the abdomen. We placed an additional 4 ports for standard laparoscopic foregut surgery. The falciform ligament was divided off the abdominal wall and the left lateral segment of the liver was then elevated. We gained access to the hiatal hernia. The entire stomach was up in the chest.This was gently retracted. It appeared to be somewhat twisted. We cut the gastrohepatic ligament with the Harmonic scalpel up to the right renee of the diaphragm. We cut the gastrosplenic ligament up tothe left renee of the diaphragm. Upon starting dissection of the hernia sac, the duodenum and antrum was up on the right side of the hernia. This was reduced. We could see that there was a necrotic ulceration of more than a centimeter in the duodenal bulb. We were able to lyse some adhesions and get this reduced with the stomach in a normal configuration. The stomach was very large. We performed an endoscopy after occluding the ulcered area suspended with transcutaneous sutures and Redfield clamps. Jess performed the upper endoscopy for us and was able to traverse this area and placed the endoscope into the 2nd portion of the duodenum. We then closed the ulcer with a black load of the Endo stapler after placing a 15 mm port at the umbilical site. We closed it transversely. There was some necrotic tissue distally. We then suspended it again and restapled the area. All this while the endoscope was in place, keeping the lumen patent. Both of these pieces of a duodenum were removed and sent to pathology. The staple line was inspected and there was no bubbling after insufflation. We then turned our attention to the hernia sac. We dissected some more of the stomach, got into the lesser sac and saw some saponification from previous pancreatitis. We dissected the hernia sac from left to right out of the mediastinum and removed it off the cardia of the stomach. The esophagus was then encircled with a Tim drain for retraction. Mediastinal dissection of the esophagus was then undertaken in its lower portion to allow adequate length of the esophagus in the abdomen. The vagus nerves were preserved along their course. Endoscopy was again performed and there was no injury to the esophagus or stomach after filling with methylene blue and visual inspection. There was adequate length of the esophagus in the abdomen without tension. The diaphragmatic crura were then reapproximated posterior to the esophagus with multiple interrupted 0 Surgidac sutures using the Endostitch device. Sutures were reinforced with Roberth pledgets. We also placed a suture anteriorly. A 5 x 5 cm ProGrip mesh was then used as an onlay to cover the repair. Care was taken to avoid anterior displacement of the mesh towards the esophagus. We then tacked it in place with the universal stapler, 65 degree. Thefalciform ligament was then rotated underneath the left lateral segment of the liver and tacked to the diaphragm, completely covering the mesh. The fundus of the stomach was then brought posterior to the esophagus and we performed a partial posterior fundoplication in a Toupet fashion using 3 stitches of 2-0 Surgidac suture using the Endostitch device on each side of the esophagus for a 240-degree wrap. The left upper quadrant was irrigated with saline and effluent was clear. Attention was turned towards the gallbladder. The gallbladder fundus was retracted over the dome of the liver. The infundibulum was grasped and retracted laterally. Calot triangle and cholecystohepaticwindow were dissected. The critical view was obtained. We clipped the cystic duct and divided it. Wedoubly clipped the cystic artery and divided it. We then used electrocautery to dissect the gallbladder from its liver bed. It was placed in an Endocatch bag. The right upper quadrant was then irrigated with saline and effluent was clear. The gallbladder and the bag were taken out through the umbilical port site. A 15- Greek Jeovany drain was then placed in the gallbladder fossa extending into the right upper quadrant. It was taken out through the lateralmost 5 mm port site on the right side. It was sutured in place with a 2-0 nylon suture. The pneumoperitoneum was then released, the ports were removed. The liver retractor had also been removed prior to the cholecystectomy. The fascia at each of the10 mm, 12 mm, and 15 mm ports was closed with 0 Vicryl suture. Each wound was then irrigated and infiltrated with local anesthesia, and the skin was then closed with 3-0 Vicryl and 4-0 Monocryl suture.Steri-Strips and dressings were applied. Sponge, needle and instrument counts were correct at the end of the case. The patient was awoken from anesthesia, extubated and taken to the recovery room in stable condition. Unless otherwise noted, there were no complications, no blood loss, no cultures obtained, no specimens removed, and no drains retained. Spencer Acuna MD FACS 08 15 AM / Spencer Acuna MD FACS en Confirmation: [id number] Dictation ID: [id number] cc:Law Reyeseen FlorentinSelect [facility] Spencer Acuna MD FACS documented in this encounter ED Aris Murray - 07/02/2016 1815 EST IAris, notified Patricio Josiejessica of Lactic Acid of 3.7 on 07/02/2016 at 18:15. Paula Vallejo MD - 07/02/2016 1730 EST America Ga, am scribing for Dr. Paula Ramos while she is personally performing the service. America Chan 07/02/2016 17:[address] Trisha Valverde's note for additional details on pt's history, ROS, and PE. Phil Riggs Courser is a 76 y.o. male with a history of DM, CAD, and heart attack who presents to theED with 3 days of central abdominal pain, nausea, and emesis. Care and work-up prior to sign out includes physical exam, labs, US, fluids, and pain medication. Acute abdominal series x-ray was suggestive of bowel obstruction. I assumed care of patient from Dr. Trisha Valverde with CT pending. 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 NG tube placed by surgery. Pt admitted to general surgery under the care of Dr. Spencer Acuna. The patient remained hemodynamically stable pending admission. This documentation is recorded by America Chan acting as Scribe under the direction and presence of Dr. Paula Ramos. Dr. Paula Ramos: I personally performed the services recorded by the scribe in my presence. I confirm the scribe's documentation has been reviewed by me to accurately and completely record my work, treatment, procedures, and medical decision making. Niall Staley RN - 07/02/2016 1711 EST Nursing report to CAROL Celaya and care transferred. Arley Griffin - 07/02/2016 1631 EST Arley Ga, notified Dr. WILLIS of LIPASE 5,467 on 07/02/2016 at 16:31. Arley Griffin - 07/02/2016 1612 EST Arley Ga, notified Dr. willis of lactic acid 5.4 on 07/02/2016 at 16:12. Eyal Louis - 07/02/2016 1545 EST Blood drawn via saline lock per protocol, tiger, purple and green tube(s) sent to lab per order. Мария Willis PA - 07/02/2016 1528 EST DOS: 07/02/2016 Chief Complaint Patient presents with ??? Emesis Patient scheduled for gallbladder removal and hiatal hernia repair . Patient arrives today with c/o of inability to keep any po fluids down and abdominal pains. HPI The patient is a 76 y.o. male who presents today with Emesis (Patient scheduled for gallbladder removal and hiatal hernia repair . Patient arrives today with c/o of inability to keep any po fluids down and abdominal pains. ) HPI Comments: 76-year-old male presents with complaints of generalized abdominal pain, nausea and uncontrolled vomiting. Patient states he developed gradual onset centralized abdominal pain 3-4 days ago that has been constant and worsening, described as crampy and sharp. Patient has had nausea and began vomiting yesterday, with uncontrolled vomiting today. States he cannot tolerate any fluids. He hashad decreased urine output. Believes he has had some chills. Denies fever. Denies previous abdominalsurgeries or history of bowel obstruction. Patient states he had a bowel movement yesterday morning without blood, diarrhea or melanotic stool. States he is passing a lot of gas. Does note some upper abdominal distention. Denies shortness of breath or chest pain. Denies feeling lightheaded or dizzy. Pain does not radiate to his back. He is scheduled for elective cholecystectomy and hiatal hernia repair on July 20, with cholelithiasis recently diagnosed on CT scan due to upper abdominal pain that he describes as different than current pain. The history is provided by the patient. Emesis Associated symptoms: abdominal pain and chills Associated symptoms: no diarrhea Review of Systems Review of Systems Constitutional: Positive for chills and unexpected weight change. Negative for fever. Respiratory: Negative for shortness of breath. Cardiovascular: Negative for chest pain. Gastrointestinal: Positive for abdominal distention, abdominal pain, nausea and vomiting. Negative for blood in stool, constipation and diarrhea. Genitourinary: Positive for decreased urine volume. Negative for dysuria. Musculoskeletal: Negative for back pain. Neurological: Negative for dizziness and light-headedness. All other systems reviewed and are negative. The patient's past medical, family and social history was reviewed and updated as needed. Allergies Allergen Reactions ??? Metoclopramide Other (See Comments) Was told to stop taking by Doctors ??? Penicillins Rash Vital Signs Temp: 36.2 ??C (97.2 ??F) Temp src: Tympanic Pulse: 54 Heart Rate: 58 BPM Resp: 18 SpO2: 100 % BP: 141/64 BP Device: BP Machine Patient Position: Semi fowlers BP Cuff Location: Left arm O2 Flow Rate (L/min): 2 l/min O2 Device: None (Room air) Physical Exam Constitutional: He is oriented to person, place, and time. He appears well- developed and well-nourished. No distress. HENT: Head: Normocephalic and atraumatic. Mouth/Throat: Mucous membranes are dry. Eyes: EOM are normal. Neck: Normal range of motion. Cardiovascular: Normal rate, regular rhythm, normal heart sounds and intact distal pulses. Pulses: Radial pulses are 2+ on the right side, and 2+ on the left side. Dorsalis pedis pulses are 2+ on the right side, and 2+ on the left side. HR 90 Pulmonary/Chest: Effort normal and breath sounds normal. No respiratory distress. Abdominal: He exhibits distension. Bowel sounds are increased. There is tenderness in the right upper quadrant, epigastric area and left lower quadrant. There is guarding. There is no rebound and no CVA tenderness. Pulsatile abdomen Distended, tense upper abdomen Neurological: He is alert and oriented to person, place, and time. He has normal strength. Gait normal. Skin: Skin is warm and dry. He is not diaphoretic. No erythema. No pallor. Psychiatric: He has a normal mood and affect. His behavior is normal. Nursing note and vitals reviewed. RESULTS EKG orders: EKG 12-LEAD Radiology orders: POCT US AORTA CT ABDOMEN, PELVIS WO CONTRAST ACUTE ABDOMEN SERIES Imaging Reviewed. ED Lab Results Labs Reviewed COMPREHENSIVE METABOLIC PANEL (CMP) - Abnormal Result Value Status Potassium 5.3 (*) Final Chloride 92 (*) Final ALT 17 (*) Final Creatinine 2.48 (*) Final GFR, Calculated 24 (*) Final BUN 39 (*) Final Glucose, Serum 401 (*) Final Sodium 142 Final CO2 30 Final Total Alkaline Phosphatase 111 Final Bilirubin, Total 0.8 Final AST 21 Final Albumin 4.5 Final Total Protein 8.1 Final Calcium 10.5 Final Calculated Calcium 10.1 Final Fasting? Unknown Final LIPASE - Abnormal Lipase 5467 (*) Final HEMAGRAM AND DIFFERENTIAL - Abnormal ABS Lymphs 0.39 (*) Final ABS Eosinophils 0.00 (*) Final WBC 6.08 Final RBC 4.67 Final Hemoglobin 14.1 Final HCT 42.1 Final MCV 90 Final MCH 30.2 Final MCHC 33.5 Final RDW-CV 13.2 Final RDW-SD 43.5 Final PLT 198 Final MPV 11.0 Final Neutrophils 87.0 Final Lymphocytes 6.4 Final Monocytes 5.9 Final Eosinophils 0.0 Final Basophils 0.2 Final Immature Grans 0.5 Final ABS Neutrophils 5.29 Final ABS Monocytes 0.36 Final ABS Basophils 0.01 Final ABS Immature Grans 0.03 Final Type of Diff: Automated Final LACTIC ACID - Abnormal Lactic Acid 5.4 (*) Final LACTIC ACID - Abnormal Lactic Acid 3.7 (*) Final GLUCOSE, GLUCOMETER - Abnormal Glucose, Fingerstick 247 (*) Final Concrete Float Maker ID [id number] Final ELECTROLYTES - Abnormal CO2 35 (*) Final Sodium 142 Final Potassium 4.7 Final Chloride 100 Final GLUCOSE, GLUCOMETER - Abnormal Glucose, Fingerstick 116 (*) Final Concrete Float Maker ID [id number] Final BUN - Abnormal BUN 32 (*) Final CREATININE - Abnormal Creatinine 1.71 (*) Final GFR, Calculated 38 (*) Final ELECTROLYTES - Abnormal CO2 33 (*) Final Sodium 138 Final Potassium 3.9 Final Chloride 99 Final LIPASE - Abnormal Lipase 1842 (*) Final HEMAGRAM AND DIFFERENTIAL - Abnormal RBC 3.53 (*) Final Hemoglobin 10.8 (*) Final HCT 32.2 (*) Final ABS Lymphs 0.67 (*) Final ABS Eosinophils 0.02 (*) Final WBC 9.49 Final MCV 91 Final MCH 30.6 Final MCHC 33.5 Final RDW-CV 13.2 Final RDW-SD 43.8 Final PLT 157 Final MPV 11.1 Final Neutrophils 87.9 Final Lymphocytes 7.1 Final Monocytes 4.2 Final Eosinophils 0.2 Final Basophils 0.1 Final Immature Grans 0.5 Final ABS Neutrophils 8.34 Final ABS Monocytes 0.40 Final ABS Basophils 0.01 Final ABS Immature Grans 0.05 Final Type of Diff: Automated Final GLUCOSE, GLUCOMETER - Abnormal Glucose, Fingerstick 44 (*) Final Concrete Float Maker ID [id number] Final GLUCOSE, GLUCOMETER - Abnormal Glucose, Fingerstick 51 (*) Final Concrete Float Maker ID [id number] Final GLUCOSE, GLUCOMETER - Abnormal Glucose, Fingerstick 55 (*) Final Concrete Float Maker ID [id number] Final GLUCOSE, GLUCOMETER - Abnormal Glucose, Fingerstick 101 (*) Final Concrete Float Maker ID [id number] Final LACTIC ACID Lactic Acid 0.9 Final GLUCOSE, GLUCOMETER Glucose, Fingerstick 99 Final Concrete Float Maker ID [id number] Final GLUCOSE, GLUCOMETER Glucose, Fingerstick 74 Final Concrete Float Maker ID [id number] Final POCT GLUCOSE POCT GLUCOSE POCT GLUCOSE TYPE AND SCREEN ABO O Final Rh Factor Negative Final Antibody Screen Negative Final Specimen Expires: 07/05/2016 @ 23:59 Final Relevant Data Procedures ED COURSE A medical screening exam was performed. Patient presents with abdominal pain, distension and uncontrolled nausea / vomiting. Does have upper abdominal distension and is notably tender with a firm abdomen. Given IVf. Lactate, creatinine elevated. He was seen by General Surgery who placed an NG tube with large amount of return. Patient feels much improved after NG tube. Admitted to General Surgery. ASSESSMENT AND PLAN Final diagnoses: Intestinal obstruction, unspecified type Dehydration Acute kidney injury DISPOSITION: Admitted The patient's pain was managed to an adequate level weighing risk vs. benefit of further medications. Upon departure from the Emergency Department, the patient's pain was 5 on a zero to ten scale. Condition at departure from the Emergency Department: Improved PCP: Pricilla Jennings [facility] Number of Diagnoses or Management Options Acute kidney injury: Dehydration: Intestinal obstruction, unspecified type: Amount and/or Complexity of Data Reviewed Clinical lab tests: ordered and reviewed Tests in the radiology section of CPT??: ordered and reviewed Review and summarize past medical records: yes Discuss the patient with other providers: yes (General Surgery ) Trisha Valverde was consulted and agrees with treatment plan. 07/03/2016 12:35 No flowsheet data found. Trisha Felix MD - 07/02/2016 1522 EST I, Yoan Kim, am scribing for Trisha Valverde MD while he/she is personally performing the service. Yoan Kim 07/02/2016 15:22 I performed a history and exam of this patient and discussed the case with the PA. I reviewed this individual's note and I concur with the documented findings and plan of care except as documented differently. ROS as per PA chart. Phil Riggs Courser is a 76 y.o. male with a history of coronary artery disease, myocardial infarction, and diabetes mellitus who presents with 3-4 days of centralized abdominal pain, as well as nausea and vomiting. Patient has been unable to keep food or fluids down for several days. He endorses decreased urination and chills, though he presents afebrile today. He also states that he has lost over 30pounds in the past several months. He reports being able to pass gas. He denies lightheadedness, dizziness, back pain, or other urinary symptoms. I performed a bedside aorta/abdominal ultrasound. Findings include distended loops of bowel, large amounts of air interiorly, and no free fluid identified, no aortic dilatation. Images obtained, reviewed, and interpreted independently by myself. Please see formal report in the [facility] Images section. Images saved in PACS. Patient care assumed by Dr. Ramos at sign out pending CT Abdomen/Pelvis without contrast and admission to general surgery. This documentation is recorded by Yoan Kim acting as Scribe under the direction and presence of Trisha Valverde MD. Trisha Valverde MD: I personally performed the services recorded by the scribe in my presence. I confirm the scribe's documentation has been reviewed by me to accurately and completely record my work, treatment, procedures, and medical decision making. documented in this encounter Miscellaneous Notes Plan of Care - Catina Fonseca RN - 07/10/2016 1607 EST Problem: Daily Care Plan Goals Goal: Care Plan Documentation Outcome: Met This Shift 07/10/16 0912 Care Plan Focus Area of Focus Discharge Plan Goal This Shift Pt will d/c today Nursing Discharge Note D: Patient noted with discharge orders to: Home. A: Prescriptions provided to patient. Reviewed discharge instructions and prescriptions with Patient IV d/c'd. Belongings collected and sent home with patient. R: Patient verbalized understanding of discharge instructions and denied further questions. Catina Fonseca RN 07/10/2016 16:03 lan of Salvatore - Jennifer Velarde RN - 07/10/2016 0515 EST Problem: Daily Care Plan Goals Goal: Care Plan Documentation Outcome: Ongoing 07/09/16 2100 Care Plan Focus Area of Focus Sleep Goal This Shift adequate sleep Data: Pt with intestinal obstruction, dehydration, SHAINA. Had UGI yesterday, still on clear liquid diet, tolerating well. Pt takes ativan for anxiety, changed from IV to oral solution. Action: Gave prn Ativan solution per pt request Response: Pt reported he did not like the taste of the solution and would like pills instead, also states the solution didn't work. Notified MD, will continue to monitor. Jennifer Velarde RN 07/10/2016 5:11 lan of [place] - Catina Fonseca RN - 07/09/2016 1906 EST Problem: Daily Care Plan Goals Goal: Care Plan Documentation Data: pt A&O x3, ambulating in halls independently, rating pain 3/10, no complaints of nausea, tolerating regular diet, passing flatus, and + BM, voiding, JOSE ALEJANDRO drain. Action: assess and medicate for pain and nausea, as needed, encourage pt to ambulate, monitor I&O's, Response: Will continue to monitor. Catina Fonseca RN 07/09/2016 19:04 lan of Radha Woo RN - 07/09/2016 0433 EST Problem: Daily Care Plan Goals Goal: Care Plan Documentation Data: POD#3 s/p paraesophageal hernia repair, partial gastrectomy and cholecystectomy. Pt reporting he is discouraged about hospital stay and his recovery. +Flatus and small BM. Action: Helped pt OOB to bathroom and with repositioning. Provided emotional support. PRN Valium administered with evening medications, see MAR. Clustered care to promote rest. Response: Pt able to sleep comfortably between nursing care. Call galeas with in reach, will continue to monitor. Radha Avendano RN 07/09/2016 4:29 lan of Philomena Lezama - 07/08/2016 1320 EST Problem: Daily Care Plan Goals Goal: Care Plan Documentation Outcome: Met This Shift Data: Pain level of 5 reported by pt, also expressed as a pressing feeling in my stomach Action:Offered PRN pain meds, assessed pain hourly, provided warm blankets, educated about splintingthe area with a blanket, encourage ambulation and sitting upright in chair. Response: Pt refused pain meds, preferring to avoid as long as pain was tolerable, reported a pain level of 4 throughout shift. Rested comfortably in chair. Philomena Cai 07/08/2016 13:16 lan of Radha Woo RN - 07/08/2016 0631 EST Problem: Daily Care Plan Goals Goal: Care Plan Documentation Data: Pt POD#2 s/p paraesophageal hernia repair, partial gastrectomy and cholecystectomy. Pt anxiousand tearful, I don't know how I'm ever going to pay for all of this. Pt oxygen saturation variablethroughout the night, occasionally dipping into the 80s. Masimo machine reading lower oxygen saturati on then Dynamap. Pt reporting tightness, not pain in abdomen. Coughing up clear and thick sputum frequently. Pt unable to sleep due to noises in room (fan, machine, alaris.) Action: Provided emotional support for patient, will pass along to day nurse case management will follow up with pt. Sat pt up in chair. Using IS independently. Provided earplugs and clustered care to promote rest. Switched Masimo to ear probe early this morning- appears to be reading well. Response: Pt unable to sleep for most of the night. Pt still anxious about hospital stay. Pt currently reports being comfortable up in the chair. Curent oxygen saturation 98% on room air. Will continueto monitor. Radha Avendano RN 07/08/2016 6:14 lan of Care - Odette Bagley RN - 07/07/2016 2153 EST Problem: Daily Care Plan Goals Goal: Care Plan Documentation Outcome: Ongoing 07/07/16 1719 Care Plan Focus Area of Focus GI//Elimination Goal This Shift patient will have return of bowel function Data: Patient POD#1 s/p paraesophageal hernia repair, partial gastrectomy and cholecystectomy. Upon assumption of care patient reports no flatus, hypoactive bowel sounds. Plan for UGI tomorrow morning.Patient reports 4/10 abdominal pain. Action: Medicated with PRN Dilaudid for pain. Ambulated in hallway with patient; and encouraged continued mobility. Encouraged IS use each hour while awake. Response: Patient tolerated ambulation well. Reports that pain is well controlled, has been resting comfortably between nursing care. Will continue to monitor. Odette Bagley RN 07/07/2016 21:48 lan of Care - Stephanie Jones RN - 07/07/2016 0738 EST Problem: Daily Care Plan Goals Goal: Care Plan Documentation 07/07/16 0039 Care Plan Focus Area of Focus Sleep Goal This Shift Cluster care, monitor, promote sleep. Data: Patient arrived to unit at 0030 drowsy, oriented x 3, denies pain nausea. Action: Patient assessed, monitored, medications administered as ordered, care clustered sleep promoted. 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 Report given to day RN. Stephanie Jones RN 07/07/2016 7:34 rief Op Note - Niall Higgins MD - 07/06/2016 1428 EST Brief Post-Op Note Date of Surgery: 07/06/2016 Surgeon: Spencer Acuna MD Sql Server Bi Developer: Niall Higgins MD and Elvis James Procedure: Laparoscopic paraesophageal hernia repair, partial gastrectomy, lap cholecystectomy Findings: Necrotic perforation in distal stomach. Multiple pleural perforations, closed with roxy. Anesthesia Type: General Estimated Blood Loss: Unless otherwise noted, there was no blood loss, specimens removed, cultures obtained, or drains retained. The estimated blood loss was less than 100 mL Complications: Multiple pleural perforations, closed with roxy Disposition and Condition: Phil Riggs Courser was sent to Back to Original Floor in Stable condition. Plan: - Dilaudid IV for pain management - Zofran for nausea - NPO/NGT to LCWS - Continue frost overnight - 24 hours of periop abx Niall Higgins MD 07/06/2016 14:28 lan of Care - Joon Tolentino RN - 07/06/2016 0104 EST Problem: Daily Care Plan Goals Goal: Care Plan Documentation Outcome: Ongoing 07/06/16 0017 Care Plan Focus Area of Focus Sleep Goal This Shift Promote rest at night Data: Patient is resting comfortably in bed. Respirations are regular, even and unlabored. There areno visible signs or symptoms of discomfort or pain. Action: Routine hourly rounds are ongoing. Vital signs are monitored as ordered. Environmental stimuli are decreased to promote rest. Response: Patient is resting comfortably with call light within reach. Plan on reviewing daily plan of care when awake. Continue to encourage adequate rest at night during hospital stay. Joon Tolentino RN 07/06/2016 1:04 lan of Care - Leanna Michel RN - 07/05/2016 5599 EST Problem: Daily Care Plan Goals Goal: Care Plan Documentation Pt reported conversation with Dr. Acuna indicated surgery rescheduled for Tuesday, pt feeling discouraged he will have to be hospitalized even longer. Remains NPO. NGT to LCWS, 75 ml clear out. IVF infusing. Pt amb on unit with contact guard. Denied pain or nausea throughout shift. IV benadryl administered as sleep aid, see eMAR. Pt able to make needs known. lan of Care - Ca Reyes RN - 07/05/2016 1235 EST Problem: Daily Care Plan Goals Goal: Care Plan Documentation 07/05/16 0737 Care Plan Focus Area of Focus GI//Elimination Goal This Shift monitor urine color Data: a very active 75 year old admitted with a paraesohageal hernia. Npo, pt had an NG placed yesterday and had 3 liters of output.. Pt has a history of diabetes and takes oral mediations for this at home. Pt has IV fluids running at 75 an hour and 50 and hour of D10. Pt has a cardiac history and he is awaiting a stress test today Action: Monitoring urine output for color. Response: pt urine less daren in color today. OR in am. Ca Reyes RN 07/05/2016 12:31 lan of Care - Odette Thomason RN - 07/05/2016 0155 EST Problem: Daily Care Plan Goals Goal: Care Plan Documentation Critical Value Data: FSBG 67 mg/dl @ 1907. Reports feeling cold. MD Elena notified @ 1913 regarding glucose criticalvalue. Action: Abnormal Glucose Treatment: RN Notified, Notified, IV D50. Provided warm blankets. Recheck FSBG in 15 and 60 min. Response: FSBG 164 mg/dl @ 1930. IV fluids changed to D10 and NS with 20KCl. Appears comfortable. Odette Thomason RN 07/05/2016 1:53 lan of Catina Aguilera RN - 07/04/2016 1748 EST Problem: Daily Care Plan Goals Goal: Care Plan Documentation Critical Value Data: FSBG 46 mg/dl @ 1638 /EN Elena notified @ 1640 regarding glucose critical value. Action: Abnormal Glucose Treatment: RN Notified. Recheck FSBG in 15 and 60 min. Response: FSBG 84 mg/dl @ 1710. Patient feeling fine. Catina Fonseca RN 07/04/2016 17:46 lan of Catina Aguilera RN - 07/04/2016 1250 EST Problem: Daily Care Plan Goals Goal: Care Plan Documentation Critical Value Data: FSBG 49 mg/dl @ 1227 /EN Elena notified @ 1240 regarding glucose critical value. Action: Abnormal Glucose Treatment: MD Notified, RN Notified, D50. Recheck FSBG in 15 and 60 min. Response: FSBG 127 mg/dl @ 1243. Patient feeling cold and hungary. Catina Fonseca RN 07/04/2016 12:42 lan of Catina Aguilera RN - 07/04/2016 1055 EST Problem: Daily Care Plan Goals Goal: Care Plan Documentation 07/04/16 0844 Care Plan Focus Area of Focus Mobility Goal This Shift pt will ambulate in halls x3 Data: Pt A&O x3, ambulating in halls independently, NPO IVF infusing, voiding, rating pain, 2/10, no complaints of nausea, NG tube to low wall suction, Action: encourage pt to ambulate, offer assistance as needed, call light with in reach, bed in lowest position. Response: Pt ambulating, Will continue to monitor. Catina Fonseca RN 07/04/2016 10:53 lan of Care - Sonia Patterson RN - 07/04/2016 0117 EST Problem: Daily Care Plan Goals Goal: Care Plan Documentation 07/03/16 2107 Care Plan Focus Area of Focus Sleep Goal This Shift Pt will get adequate rest Data: Pt A&Ox3. NGT to LWS. IVF. Voiding minimal but adequate amounts. No flatus. No BM. Absent BS. Ambulated in hallway. O2 dipping to upper 60s when sleeping. Placed on 1L NC. O2 > 93% Action: Clustered care. Lights turned off and door shut. Response: Pt using calbell appropriately. Currently sleeping. Sonia Patterson RN 07/04/2016 1:11 lan of Care - Samira Granados RN - 07/03/2016 1518 EST Problem: Daily Care Plan Goals Goal: Care Plan Documentation Outcome: Ongoing 07/03/16 0937 Care Plan Focus Area of Focus GI//Elimination Goal This Shift free from nausea Data: Pt A+Ox3, denies pain throughout the day. Pt continues on IV fluids, with NG tube in place. Pre Op EKG completed. Pt OOB to bathroom, ambulating in hallway with contact guard assist. Action: EKG reports pt with Acute SD. Dr Akhtar aware. No action at this time peer Dr Akhtar as result determined by previous pt cardiac history. Pt denies any symptoms of shortness of breath, chest pain, dizzyness or sweating. Vital signs stable. Response: Pt resting quietly in bed, denies needs. Call galeas within reach, supportive family at bedside. Samira Granados RN 07/03/2016 15:13 lan of Care - Maria G Hernandez RN - 07/03/2016 0743 EST Problem: Daily Care Plan Goals Goal: Care Plan Documentation Outcome: Ongoing Critical Value Data: FSBG 44 mg/dl @ 0621. 1/2 amp D50 given. Giovana ALVARADO notified @ 0627 regarding glucose critical value. Pt asymptomatic Action: Abnormal Glucose Treatment: Notified, RN Notified, D50 given. FSBG 51 mg/dl @0625. FSBG 55 mg/dl @ 0650. Response: FSBG 99 mg/dl @ 0729. Patient feeling great. Notified oncoming RN to recheck FSBG @0830. Maria G Hernandez RN 07/03/2016 7:38 lan of Care - Maria G Hernandez RN - 07/03/2016 0400 EST Problem: Daily Care Plan Goals Goal: Care Plan Documentation Outcome: Ongoing 07/02/161937 Care Plan Focus Area of Focus GI//Elimination Goal This Shift Pt will have bowel rest Data: Pt admitted to B6 with abdominal pain, recent weight loss of 60lbs, n/v, and low UOP. 3L of IVF boluses given in ED. Pt with high NGT output after placement. NGT with thick brown output. Abdominal series showing possible obstruction. Plan for NPO w/bowel rest and surgery Tuesday. No c/o nausea. Pt de-satting to 79% when awake. Action: Oriented pt to floor and room. Admission data base complete. Nutrition consult placed. Gave scheduled IV Lopressor as appropriate. Started IVF. Flushed NGT with NS as needed. Encourage deep breaths and assisted with use of IS. 2L O2 via NC applied overnight satting 100%. Voided 100cc, MD notified. Response: Pt sleeping on and off overnight. No c/o nausea or pain. Will continue to monitor I&Os. Maria G Hernandez RN 07/03/2016 3:52 documented in this encounter Plan of Treatment Scheduled Referrals Name Type Priority Associated Diagnoses Order S chedule AMB CONS/FOLLOW UP Outpatient Routine Paraesophageal hernia Ordered: GENERAL SURGERY Referral 07/09/2016 PROVIDER FOLLOW-UP Outpatient Routine Ordered: INSTRUCTIONS Referral 07/10/2016 PROVIDER FOLLOW-UP Outpatient Routine Ordered: INSTRUCTIONS Referral 07/10/2016 PROVIDER FOLLOW-UP Outpatient Routine Ordered: INSTRUCTIONS Referral 07/10/2016 documented as of this encounter Procedures Procedure Name Priority Date/Time Associated Diagnosis Comme nts IMPLANT RECORD - 07/15/2016 11:46 SCANNED EST ECG REPORT - SCANNED 07/15/2016 11:07 EST ECG REPORT - SCANNED 07/15/2016 11:07 EST IMPLANT RECORD - 07/15/2016 11:07 SCANNED EST STRESS TEST - SCANNED 07/15/2016 8:28 EST ECG REPORT - SCANNED 07/14/2016 11:25 EST GLUCOSE, GLUCOMETER Routine 07/10/2016 13:20 Resu lts for this EST procedure are i n the results section. GLUCOSE, GLUCOMETER Routine 07/10/2016 8:10 Resul ts for this EST procedure are i n the results section. COMPLETE BLOOD COUNT Routine 07/10/2016 6:19 Resu lts for this EST procedure are i n the results section. BUN Routine 07/10/2016 6:19 Results for this EST procedure are i n the results section. CREATININE Routine 07/10/2016 6:19 Results for this EST procedure are i n the results section. ELECTROLYTES Routine 07/10/2016 6:19 Results for this EST procedure are i n the results section. GLUCOSE, GLUCOMETER Routine 07/09/2016 21:12 Resu lts for this EST procedure are i n the results section. GLUCOSE, GLUCOMETER Routine 07/09/2016 18:33 Resu lts for this EST procedure are i n the results section. FL UGI WO AIR WO KUB Routine 07/09/2016 16:31 Res ults for this EST procedure are i n the results section. ECG REPORT - SCANNED 07/09/2016 12:32 EST GLUCOSE, GLUCOMETER Routine 07/09/2016 12:10 Resu lts for this EST procedure are i n the results section. GLUCOSE, GLUCOMETER Routine 07/09/2016 9:40 Resul ts for this EST procedure are i n the results section. BUN Routine 07/09/2016 6:59 Results for this EST procedure are i n the results section. CREATININE Routine 07/09/2016 6:59 Results for this EST procedure are i n the results section. ELECTROLYTES Routine 07/09/2016 6:59 Results for this EST procedure are i n the results section. GLUCOSE, GLUCOMETER Routine 07/09/2016 5:47 Resul ts for this EST procedure are i n the results section. GLUCOSE, GLUCOMETER Routine 07/09/2016 0:06 Resul ts for this EST procedure are i n the results section. GLUCOSE, GLUCOMETER Routine 07/08/2016 18:46 Resu lts for this EST procedure are i n the results section. GLUCOSE, GLUCOMETER Routine 07/08/2016 11:48 Resu lts for this EST procedure are i n the results section. EKG 12-LEAD Routine 07/08/2016 10:28 Results for this EST procedure are i n the results section. INPATIENT ADD-ON STAT 07/08/2016 9:40 Results for this EST procedure are i n the results section. GLUCOSE, GLUCOMETER Routine 07/08/2016 6:59 Resul ts for this EST procedure are i n the results section. COMPLETE BLOOD COUNT Routine 07/08/2016 6:23 Resu lts for this EST procedure are i n the results section. TOTAL & DIRECT Routine 07/08/2016 6:23 Results fo r this BILIRUBIN EST procedure are i n the results section. BUN Routine 07/08/2016 6:23 Results for this EST procedure are i n the results section. ALT Routine 07/08/2016 6:23 Results for this EST procedure are i n the results section. AST Routine 07/08/2016 6:23 Results for this EST procedure are i n the results section. ALKALINE PHOSPHATASE Routine 07/08/2016 6:23 Resu lts for this EST procedure are i n the results section. LIPASE Routine 07/08/2016 6:23 Results for this EST procedure are i n the results section. CREATININE Routine 07/08/2016 6:23 Results for this EST procedure are i n the results section. ELECTROLYTES Routine 07/08/2016 6:23 Results for this EST procedure are i n the results section. GLUCOSE, GLUCOMETER Routine 07/08/2016 0:08 Resul ts for this EST procedure are i n the results section. GLUCOSE, GLUCOMETER Routine 07/07/2016 17:46 Resu lts for this EST procedure are i n the results section. GLUCOSE, GLUCOMETER Routine 07/07/2016 12:13 Resu lts for this EST procedure are i n the results section. INPATIENT ADD-ON Routine 07/07/2016 10:40 Results for this EST procedure are i n the results section. TOTAL & DIRECT Routine 07/07/2016 8:31 Results fo r this BILIRUBIN EST procedure are i n the results section. BUN Routine 07/07/2016 8:31 Results for this EST procedure are i n the results section. ALT Routine 07/07/2016 8:31 Results for this EST procedure are i n the results section. AST Routine 07/07/2016 8:31 Results for this EST procedure are i n the results section. ALKALINE PHOSPHATASE Routine 07/07/2016 8:31 Resu lts for this EST procedure are i n the results section. CREATININE Routine 07/07/2016 8:31 Results for this EST procedure are i n the results section. ELECTROLYTES Routine 07/07/2016 8:31 Results for this EST procedure are i n the results section. GLUCOSE, GLUCOMETER Routine 07/07/2016 5:53 Resul ts for this EST procedure are i n the results section. GLUCOSE, GLUCOMETER Routine 07/07/2016 0:21 Resul ts for this EST procedure are i n the results section. GLUCOSE, GLUCOMETER Routine 07/06/2016 23:06 Resu lts for this EST procedure are i n the results section. GLUCOSE, GLUCOMETER Routine 07/06/2016 22:13 Resu lts for this EST procedure are i n the results section. GLUCOSE, GLUCOMETER Routine 07/06/2016 17:50 Resu lts for this EST procedure are i n the results section. GLUCOSE, GLUCOMETER Routine 07/06/2016 13:20 Resu lts for this EST procedure are i n the results section. GLUCOSE, GLUCOMETER Routine 07/06/2016 12:07 Resu lts for this EST procedure are i n the results section. SURGICAL PATHOLOGY Routine 07/06/2016 9:34 Result s for this EST procedure are i n the results section. GLUCOSE, GLUCOMETER Routine 07/06/2016 6:21 Resul ts for this EST procedure are i n the results section. GLUCOSE, GLUCOMETER Routine 07/06/2016 0:19 Resul ts for this EST procedure are i n the results section. GLUCOSE, GLUCOMETER Routine 07/05/2016 18:12 Resu lts for this EST procedure are i n the results section. NM CARDIAC SPECT Routine 07/05/2016 13:30 Results for this STUDY WAVEFORM EST procedure are in the results section. INPATIENT ADD-ON Routine 07/05/2016 13:00 Results for this EST procedure are i n the results section. GLUCOSE, GLUCOMETER Routine 07/05/2016 11:55 Resu lts for this EST procedure are i n the results section. TYPE AND SCREEN Routine 07/05/2016 11:33 Results for this EST procedure are i n the results section. PREPARE RED BLOOD Routine 07/05/2016 11:00 Result s for this CELLS EST procedure are i n the results section. PREPARE RED BLOOD Routine 07/05/2016 11:00 Result s for this CELLS EST procedure are i n the results section. COMPLETE BLOOD COUNT Routine 07/05/2016 8:16 Resu lts for this EST procedure are i n the results section. BUN Routine 07/05/2016 8:16 Results for this EST procedure are i n the results section. ALT Routine 07/05/2016 8:16 Results for this EST procedure are i n the results section. AST Routine 07/05/2016 8:16 Results for this EST procedure are i n the results section. ALKALINE PHOSPHATASE Routine 07/05/2016 8:16 Resu lts for this EST procedure are i n the results section. LIPASE Routine 07/05/2016 8:16 Results for this EST procedure are i n the results section. CREATININE Routine 07/05/2016 8:16 Results for this EST procedure are i n the results section. BILIRUBIN, TOTAL Routine 07/05/2016 8:16 Results for this EST procedure are i n the results section. ELECTROLYTES Routine 07/05/2016 8:16 Results for this EST procedure are i n the results section. CHEST PA AND LATERAL Routine 07/05/2016 7:50 Resu lts for this EST procedure are i n the results section. GLUCOSE, GLUCOMETER Routine 07/05/2016 5:29 Resul ts for this EST procedure are i n the results section. GLUCOSE, GLUCOMETER Routine 07/05/2016 1:57 Resul ts for this EST procedure are i n the results section. GLUCOSE, GLUCOMETER Routine 07/04/2016 23:50 Resu lts for this EST procedure are i n the results section. GLUCOSE, GLUCOMETER Routine 07/04/2016 20:19 Resu lts for this EST procedure are i n the results section. GLUCOSE, GLUCOMETER Routine 07/04/2016 19:31 Resu lts for this EST procedure are i n the results section. GLUCOSE, GLUCOMETER Routine 07/04/2016 19:07 Resu lts for this EST procedure are i n the results section. GLUCOSE, GLUCOMETER Routine 07/04/2016 17:10 Resu lts for this EST procedure are i n the results section. GLUCOSE, GLUCOMETER Routine 07/04/2016 16:38 Resu lts for this EST procedure are i n the results section. GLUCOSE, GLUCOMETER Routine 07/04/2016 13:36 Resu lts for this EST procedure are i n the results section. GLUCOSE, GLUCOMETER Routine 07/04/2016 12:44 Resu lts for this EST procedure are i n the results section. GLUCOSE, GLUCOMETER Routine 07/04/2016 12:29 Resu lts for this EST procedure are i n the results section. GLUCOSE, GLUCOMETER Routine 07/04/2016 12:27 Resu lts for this EST procedure are i n the results section. GLUCOSE, GLUCOMETER Routine 07/04/2016 6:16 Resul ts for this EST procedure are i n the results section. BUN Routine 07/04/2016 5:24 Results for this EST procedure are i n the results section. CREATININE Routine 07/04/2016 5:24 Results for this EST procedure are i n the results section. ELECTROLYTES Routine 07/04/2016 5:24 Results for this EST procedure are i n the results section. GLUCOSE, GLUCOMETER Routine 07/04/2016 1:54 Resul ts for this EST procedure are i n the results section. GLUCOSE, GLUCOMETER Routine 07/03/2016 23:42 Resu lts for this EST procedure are i n the results section. GLUCOSE, GLUCOMETER Routine 07/03/2016 18:07 Resu lts for this EST procedure are i n the results section. EKG 12-LEAD Routine 07/03/2016 12:37 Results for this EST procedure are i n the results section. GLUCOSE, GLUCOMETER Routine 07/03/2016 12:21 Resu lts for this EST procedure are i n the results section. GLUCOSE, GLUCOMETER Routine 07/03/2016 8:37 Resul ts for this EST procedure are i n the results section. GLUCOSE, GLUCOMETER Routine 07/03/2016 7:29 Resul ts for this EST procedure are i n the results section. COMPLETE BLOOD COUNT Routine 07/03/2016 6:59 Resu lts for this AND DIFFERENTIAL EST procedure a re in the results section. BUN Routine 07/03/2016 6:59 Results for this EST procedure are i n the results section. LIPASE Routine 07/03/2016 6:59 Results for this EST procedure are i n the results section. CREATININE Routine 07/03/2016 6:59 Results for this EST procedure are i n the results section. ELECTROLYTES Routine 07/03/2016 6:59 Results for this EST procedure are i n the results section. GLUCOSE, GLUCOMETER Routine 07/03/2016 6:50 Resul ts for this EST procedure are i n the results section. GLUCOSE, GLUCOMETER Routine 07/03/2016 6:25 Resul ts for this EST procedure are i n the results section. GLUCOSE, GLUCOMETER Routine 07/03/2016 6:21 Resul ts for this EST procedure are i n the results section. LACTIC ACID Routine 07/03/2016 0:06 Results for this EST procedure are i n the results section. ELECTROLYTES Routine 07/03/2016 0:06 Results for this EST procedure are i n the results section. GLUCOSE, GLUCOMETER Routine 07/02/2016 23:58 Resu lts for this EST procedure are i n the results section. TYPE AND SCREEN Routine 07/02/2016 19:59 Paraesophageal hernia Results for this EST procedure are i n the results section. GLUCOSE, GLUCOMETER Routine 07/02/2016 19:45 Resu lts for this EST procedure are i n the results section. CT ABDOMEN, PELVIS WO STAT 07/02/2016 18:58 Re sults for this CONTRAST EST procedure are i n the results section. POCT US AORTA STAT 07/02/2016 18:44 Results fo r this EST procedure are i n the results section. LACTIC ACID Routine 07/02/2016 17:49 Results for this EST procedure are i n the results section. ACUTE ABDOMEN SERIES STAT 07/02/2016 17:44 Res ults for this EST procedure are i n the results section. LACTIC ACID STAT 07/02/2016 15:28 Results for this EST procedure are i n the results section. COMPLETE BLOOD COUNT STAT 07/02/2016 15:28 Res ults for this AND DIFFERENTIAL EST procedure a re in the results section. LIPASE STAT 07/02/2016 15:28 Results for this EST procedure are i n the results section. COMPREHENSIVE STAT 07/02/2016 15:28 Results fo r this METABOLIC PANEL (CMP) EST proced ure are in the results section. documented in this encounter Results (ABNORMAL) GLUCOSE, GLUCOMETER (07/10/2016 13:20 EST) Glucose, 154 (H) 70 - 100 [facility] Fingerstick mg/dl LABORATORY SERVICES Concrete Float Maker ID [id number]: [facility] Test Performed by LABORATORY Nursing Services SERVICES Specimen Blood Performing Organization Address [facility] Phon e Number [facility] [address] [place] [address] SERVICES (ABNORMAL) GLUCOSE, GLUCOMETER (07/10/2016 8:10 EST) Glucose, 139 (H) 70 - 100 [facility] Fingerstick mg/dl LABORATORY SERVICES Concrete Float Maker [place] [id number]: [facility] Test Performed by LABORATORY Nursing Services SERVICES Specimen Blood Performing Organization Address [facility] Phon e Number [facility] [address] [place] [address] SERVICES CREATININE (07/10/2016 6:19 EST) Creatinine 1.16 0.66 - 1.25 [facility] mg/dl LABORATORY SERVICES GFR, Calculated 61 >60 [facility] Comment: ml/min/1.73m2 LABORATORY eGFR calculated using CKD-EPI equation for SERVICES non Americans. Multiply eGFR by 1.16 for Americans. Specimen Blood specimen (specimen) - Blood Performing Organization Address [facility] Phon e Number [facility] [address] [place] [address] SERVICES BUN (07/10/2016 6:19 EST) Pathologist Sig nature BUN 23 10 - 26 mg/dl [facility] LABORATO RY SERVICES Specimen Blood specimen (specimen) - Blood Performing Organization Address [facility] Phon e Number [facility] [address] [place] [address] SERVICES ELECTROLYTES (07/10/2016 6:19 EST) Pathologist Sig nature Sodium 141 136 - 145 mEq/L [facility] LABORATORY SERVICES Potassium 4.0 3.5 - 5.0 mEq/L [facility] LABORATORY SERVICES Chloride 101 96 - 110 mEq/L [facility] LABORATORY SERVICES CO2 30Comment: Note new 22 - 32 mEq/L [facility] reference range LABORATORY SERVICES 04/20/16 Specimen Blood specimen (specimen) - Blood Performing Organization Address [facility]/ZIP [facility] Phon e Number [facility] [address] [place] [address] SERVICES (ABNORMAL) HEMAGRAM (07/10/2016 6:19 EST) Pathologist Sig nature WBC 3.57 (L) 4.0 - 10.4 K/cmm [facility] LABORATORY SERVICES RBC 3.19 (L) 4.36 - 5.78 M/cmm [facility] LABORATORY SERVICES Hemoglobin 9.7 (L) 13.8 - 17.3 gm/dl [facility] LABORATORY SERVICES HCT 28.8 (L) 39.5 - 50.2 % [facility] LABORATORY SERVICES MCV 90 81 - 95 fl [facility] LABORATORY SERVICES MCH 30.4 27.6 - 33.0 pg [facility] LABORATORY SERVICES MCHC 33.7 32.8 - 36.4 gm/dl [facility] LABORATORY SERVICES RDW-CV 13.1 11.8 - 14.1 % [facility] LABORATORY SERVICES RDW-SD 43.4 36.5 - 45.9 fl [facility] LABORATORY SERVICES PLT 158 141 - 377 K/cmm [facility] LABORATORY SERVICES MPV 10.0 9.5 - 12.7 fl [facility] LABORATORY SERVICES Specimen Blood specimen (specimen) - Blood Performing Organization Address City/[facility]/ZIP Code Phon e Number [facility] [address] [place] [address] SERVICES (ABNORMAL) GLUCOSE, GLUCOMETER (07/09/2016 21:12 EST) Glucose, 150 (H) 70 - 100 [facility] Fingerstick mg/dl LABORATORY SERVICES Concrete Float Maker ID [id number]: [facility] Test Performed by LABORATORY Nursing Services SERVICES Specimen Blood Performing Organization Address City/State/ZIP Code Phon e Number [facility] [address] [place] [address] SERVICES (ABNORMAL) GLUCOSE, GLUCOMETER (07/09/2016 18:33 EST) Glucose, 150 (H) 70 - 100 [facility] Fingerstick mg/dl LABORATORY SERVICES Concrete Float Maker [place] [id number]: [facility] Test Performed by LABORATORY Nursing Services SERVICES Specimen Blood Performing Organization Address City/[facility]/ZIP Code Phon e Number [facility] [address] [place] [address] SERVICES FL UGI WO AIR WO KUB (07/09/2016 16:31 EST) Anatomical Region Laterality Modality Other Specimen Narrative [facility] - 07/09/2016 17:16 EST FL UGI WO AIR WO KUB ??07/09/2016 4:31 PM Signs and Symptoms/Comments: ?? s/p lap paraesophageal hernia repair, pa rtial gastrectomy Comparison: Upper GI performed July. Technique: Single contrast views of the thoracic es ophagus, stomach, duodenal bulb and sweep were obtained. Multiple d elays films of the abdomen were performed, last 4 hours after the i nitial study. Findings: Small amount of contrast is seen in the colon related to prior upper GI study performed the day before. The study shows a normally distensible t horacic esophagus. No gastroesophageal reflux was elicited. No hiatal hernia was seen. The stomach is distended with air. There is delayed emptying of the stomach and small amount of oral contras t is seen in the small bowel after several hours. There is no evidence of duodenal leak. In the portable AP supine view of the ab domen there is a linear contour in the right upper quadrant trey cent to the diaphragm. Impression: 1. Distended stomach with delayed emptyi ng. 2. Curvilinear contour in the right uppe r quadrant adjacent to the diaphragm may represent transverse colon , although small amount of free air after abdominal surgery could b e expected. If there is high clinical concern for pneumoperitoneum, l ateral decubitus of the abdomen right side up could be obtained . 3. No evidence of leak. If clinical susp icions persist for duodenal leak, CT abdomen and pelvis could be obt ained. I have personally reviewed the images an d the above interpretation and agree with the findings. Procedure Note Chin Acuña MD - 07/09/2016 FL UGI WO AIR WO KUB 07/09/2016 4:31 PM Signs and Symptoms/Comments: s/p lap paraesophageal hernia repair, pa rtial gastrectomy Comparison: Upper GI performed July. Technique: Single contrast views of the thoracic es ophagus, stomach, duodenal bulb and sweep were obtained. Multiple d elays films of the abdomen were performed, last 4 hours after the i nitial study. Findings: Small amount of contrast is seen in the colon related to prior upper GI study performed the day before. The study shows a normally distensible t horacic esophagus. No gastroesophageal reflux was elicited. No hiatal hernia was seen. The stomach is distended with air. There is delayed emptying of the stomach and small amount of oral contras t is seen in the small bowel after several hours. There is no evidence of duodenal leak. In the portable AP supine view of the ab domen there is a linear contour in the right upper quadrant trey cent to the diaphragm. Impression: 1. Distended stomach with delayed emptyi ng. 2. Curvilinear contour in the right uppe r quadrant adjacent to the diaphragm may represent transverse colon , although small amount of free air after abdominal surgery could b e expected. If there is high clinical concern for pneumoperitoneum, l ateral decubitus of the abdomen right side up could be obtained . 3. No evidence of leak. If clinical susp icions persist for duodenal leak, CT abdomen and pelvis could be obt ained. I have personally reviewed the images an d the above interpretation and agree with the findings. Performing Organization Address [facility]/ZIP Code Phon e Number [facility] RADIOLOGY [facility]IN [facility]US (ABNORMAL) GLUCOSE, GLUCOMETER (07/09/2016 12:10 EST) Glucose, 154 (H) 70 - 100 [facility] Fingerstick mg/dl LABORATORY SERVICES Concrete Float Maker ID [id number]: [facility] Test Performed by LABORATORY Nursing Services SERVICES Specimen Blood Performing Organization Address [facility]/ZIP [facility] Phon e Number [facility] LABORATORY [address] [place] [address] SERVICES GLUCOSE, GLUCOMETER (07/09/2016 9:40 EST) Glucose, 98 70 - 100 [facility] Fingerstick mg/dl LABORATORY SERVICES Concrete Float Maker [place] [id number]: [facility] Test Performed by LABORATORY Nursing Services SERVICES Specimen Blood Performing Organization Address [facility]/ZIP [facility] Phon e Number [facility] LABORATORY [address] [place] [address] SERVICES CREATININE (07/09/2016 6:59 EST) Creatinine 1.12 0.66 - 1.25 [facility] mg/dl LABORATORY SERVICES GFR, Calculated 63 >60 [facility] Comment: ml/min/1.73m2 LABORATORY eGFR calculated using CKD-EPI equation for SERVICES non Americans. Multiply eGFR by 1.16 for Americans. Specimen Blood specimen (specimen) - Blood Performing Organization Address [facility]/ZIP [facility] Phon e Number [facility] LABORATORY [address] [place] [address] SERVICES BUN (07/09/2016 6:59 EST) Pathologist Sig nature BUN 21 10 - 26 mg/dl [facility] LABORATO RY SERVICES Specimen Blood specimen (specimen) - Blood Performing Organization Address City/[facility]/ZIP Code Phon e Number [facility] LABORATORY [address] [place] [address] SERVICES ELECTROLYTES (07/09/2016 6:59 EST) Pathologist Sig nature Sodium 138 136 - 145 mEq/L [facility] LABORATORY SERVICES Potassium 4.0 3.5 - 5.0 mEq/L [facility] LABORATORY SERVICES Chloride 101 96 - 110 mEq/L [facility] LABORATORY SERVICES CO2 27Comment: Note new 22 - 32 mEq/L [facility] reference range LABORATORY SERVICES 04/20/16 Specimen Blood specimen (specimen) - Blood Performing Organization Address City/[facility]/ZIP Code Phon e Number [facility] LABORATORY [address] [place] [address] SERVICES (ABNORMAL) GLUCOSE, GLUCOMETER (07/09/2016 5:47 EST) Glucose, 117 (H) 70 - 100 [facility] Fingerstick mg/dl LABORATORY SERVICES Concrete Float Maker ID [id number]: [facility] Test Performed by LABORATORY Nursing Services SERVICES Specimen Blood Performing Organization Address City/State/ZIP Code Phon e Number [facility] LABORATORY [address] [place] [address] SERVICES (ABNORMAL) GLUCOSE, GLUCOMETER (07/09/2016 0:06 EST) Glucose, 143 (H) 70 - 100 [facility] Fingerstick mg/dl LABORATORY SERVICES Concrete Float Maker [place] [id number]: [facility] Test Performed by LABORATORY Nursing Services SERVICES Specimen Blood Performing Organization Address City/State/ZIP Code Phon e Number [facility] LABORATORY [address] [place] [address] SERVICES (ABNORMAL) GLUCOSE, GLUCOMETER (07/08/2016 18:46 EST) Glucose, 140 (H) 70 - 100 [facility] Fingerstick mg/dl LABORATORY SERVICES Concrete Float Maker [place] [id number]: [facility] Test Performed by LABORATORY Nursing Services SERVICES Specimen Blood Performing Organization Address City/[facility]/ZIP Code Phon e Number [facility] LABORATORY [address] [place] [address] SERVICES (ABNORMAL) GLUCOSE, GLUCOMETER (07/08/2016 11:48 EST) Glucose, 132 (H) 70 - 100 [facility] Fingerstick mg/dl LABORATORY SERVICES Concrete Float Maker [place] [id number]: [facility] Test Performed by LABORATORY Nursing Services SERVICES Specimen Blood Performing Organization Address City/State/ZIP Code Phon e Number [facility] LABORATORY [address] [place] [address] SERVICES EKG 12-LEAD (07/08/2016 10:28 EST) Specimen Narrative [facility] EKG - 07/12/2016 17:3 7 EST ? [facility] ? Test Date: ?2016-07-08 Pat Name: ? PHIL COURSER ? Department: ?? Ruiz 6 ? Room: ? B694 Gender: ? 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 Requested By: RAO Zavala Number: [id number] ? Anna ALVARADO: ?? YOHANNES GRAY MD ? Measurements Intervals ?[place]den ? Rate: ? 59 ? P: ?-1 [place]: ? 125 ?QRS: ?-3 QRSD: ? 94 ? T: ?54 QT: ? 424 ? QTc: ?423 ? Interpretive Statements SINUS BRADYCARDIA WITH OCCASIONAL SUPRAV ENTRICULAR PREMATURE COMPLEXES POSSIBLE LEFT ATRIAL ENLARGEMENT POSSIBLE ANTERIOR MYOCARDIAL INFARCTION, OF INDETERMINATE AGE Compared to ECG 07/03/2016 12:37:11 No significant changes I reviewed the tracing and have either a greed or edited the findings in this report. Electronically Signed On 17:37:49 EST by YOHANNES GRAY MD. Procedure Note Yohannes Gray MD - 07/12/[address] [facility] Test Date: 2016-07-08 [facility] Gender: M [employer] Operator: [id number] : 1940 Requested By: RAO LEGGETT Order Number: [id number] Anna MD: Serenity GRAY MD Measurements Intervals Hayden Rate: 59 P: -1 [place]: 125 QRS: -3 QRSD: 94 T: 54 QT: 424 QTc: 423 Interpretive Statements SINUS BRADYCARDIA WITH OCCASIONAL SUPRAV ENTRICULAR PREMATURE COMPLEXES POSSIBLE LEFT ATRIAL ENLARGEMENT POSSIBLE ANTERIOR MYOCARDIAL INFARCTION, OF INDETERMINATE AGE Compared to ECG 07/03/2016 12:37:11 No significant changes I reviewed the tracing and have either a greed or edited the findings in this report. Electronically Signed On 17:37:49 EST by YOHANNES GRAY MD. Performing Organization Address City/[facility]/ZIP Code Phon e Number [facility] EKG INPATIENT ADD-ON (07/08/2016 9:40 EST) Pathologist Sig nature Tests to be added ELECTROLYTES,BU [facility] N,CREATININE LABORATORY SERVICES Number for problems 21001 B6 [facility] LABORATORY SERVICES Accession number [id number] [facility] LYT,BUN,CREAT LABORATORY SERVICES Specimen Other Performing Organization Address [facility] Phon e Number [facility] LABORATORY [address] [place] [address] SERVICES (ABNORMAL) GLUCOSE, GLUCOMETER (07/08/2016 6:59 EST) Glucose, 133 (H) 70 - 100 [facility] Fingerstick mg/dl LABORATORY SERVICES Concrete Float Maker ID [id number]: [facility] Test Performed by LABORATORY Nursing Services SERVICES Specimen Blood Performing Organization Address [facility]/ZIP [facility] Phon e Number [facility] LABORATORY [address] [place] [phone] SERVICES ELECTROLYTES (07/08/2016 6:23 EST) Pathologist Sig nature Sodium 137 136 - 145 mEq/L [facility] LABORATORY SERVICES Potassium 4.4 3.5 - 5.0 mEq/L [facility] Comment: LABORATORY SERVICES Interpret results with caution. Prolonged sample storage may alter result. Chloride 102 96 - 110 mEq/L [facility] LABORATORY SERVICES CO2 26 22 - 32 mEq/L [facility] Comment: LABORATORY SERVICES Note new reference range 04/20/16 Interpret results with caution. Prolonged sample storage may alter result. Specimen Blood Performing Organization Address [facility]/ZIP [facility] Phon e Number [facility] LABORATORY [address] [place] [address] SERVICES CREATININE (07/08/2016 6:23 EST) Creatinine 1.14 0.66 - 1.25 [facility] mg/dl LABORATORY SERVICES GFR, Calculated 62 >60 [facility] Comment: ml/min/1.73m2 LABORATORY eGFR calculated using CKD-EPI equation for SERVICES non Americans. Multiply eGFR by 1.16 for Americans. Specimen Blood Performing Organization Address City/State/ZIP Code Phon e Number [facility] LABORATORY [address] [place] [address] SERVICES BUN (07/08/2016 6:23 EST) Pathologist Sig nature BUN 19 10 - 26 mg/dl [facility] LABORATO RY SERVICES Specimen Blood Performing Organization Address [facility]/ZIP Code Phon e Number [facility] LABORATORY [address] [place] [address] SERVICES (ABNORMAL) HEMAGRAM (07/08/2016 6:23 EST) Pathologist Sig nature WBC 5.36 4.0 - 10.4 K/cmm [facility] LABORATORY SERVICES RBC 3.61 (L) 4.36 - 5.78 M/cmm [facility] LABORATORY SERVICES Hemoglobin 10.9 (L) 13.8 - 17.3 gm/dl [facility] LABORATORY SERVICES HCT 31.9 (L) 39.5 - 50.2 % [facility] LABORATORY SERVICES MCV 88 81 - 95 fl [facility] LABORATORY SERVICES MCH 30.2 27.6 - 33.0 pg [facility] LABORATORY SERVICES MCHC 34.2 32.8 - 36.4 gm/dl [facility] LABORATORY SERVICES RDW-CV 13.1 11.8 - 14.1 % [facility] LABORATORY SERVICES RDW-SD 42.6 36.5 - 45.9 fl [facility] LABORATORY SERVICES PLT 151 141 - 377 K/cmm [facility] LABORATORY SERVICES MPV 11.0 9.5 - 12.7 fl [facility] LABORATORY SERVICES Specimen Blood specimen (specimen) - Blood Performing Organization Address City/State/ZIP Code Phon e Number [facility] LABORATORY [address] [place] [address] SERVICES TOTAL & DIRECT BILIRUBIN (07/08/2016 6:23 EST) Pathologist Sig nature Conjugated Bilirubin 0.0 0.0 - 0.3 mg/dl [facility] R LABORATORY SERVICES Unconjugated Bilirubin 0.3 0.0 - 1.1 mg/dl [facility] TER LABORATORY SERVICES Bilirubin, Total <0.5 <1.4 mg/dl [facility] LABORATORY SERVICES Specimen Blood specimen (specimen) - Blood Performing Organization Address City/[facility]/ZIP Code Phon e Number [facility] LABORATORY [address] [place] [address] SERVICES LIPASE (07/08/2016 6:23 EST) Pathologist Sig nature Lipase 119 <251 U/L [facility] LABORATOR Y SERVICES Specimen Blood specimen (specimen) - Blood Performing Organization Address [facility]/ZIP [facility] Phon e Number [facility] LABORATORY [address] [place] [address] SERVICES AST (07/08/2016 6:23 EST) Pathologist Sig nature AST 22 15 - 46 U/L [facility] LABORATOR Y SERVICES Specimen Blood specimen (specimen) - Blood Performing Organization Address [facility]/ZIP [facility] Phon e Number [facility] LABORATORY [address] [place] [address] SERVICES ALT (07/08/2016 6:23 EST) Pathologist Sig nature ALT 26 21 - 72 U/L [facility] LABORATOR Y SERVICES Specimen Blood specimen (specimen) - Blood Performing Organization Address [facility] Phon e Number [facility] LABORATORY [address] [place] [address] SERVICES ALKALINE PHOSPHATASE (07/08/2016 6:23 EST) Pathologist Sig nature Total Alkaline 70 38 - 126 U/L [facility] Phosphatase LABORATORY SERVICES Specimen Blood specimen (specimen) - Blood Performing Organization Address [facility] Phon e Number [facility] LABORATORY [address] [place] [address] SERVICES (ABNORMAL) GLUCOSE, GLUCOMETER (07/08/2016 0:08 EST) Glucose, 153 (H) 70 - 100 [facility] Fingerstick mg/dl LABORATORY SERVICES Concrete Float Maker [place] [id number]: [facility] Test Performed by LABORATORY Nursing Services SERVICES Specimen Blood Performing Organization Address [facility]/ZIP Code Phon e Number [facility] LABORATORY [address] [place] [address] SERVICES (ABNORMAL) GLUCOSE, GLUCOMETER (07/07/2016 17:46 EST) Glucose, 167 (H) 70 - 100 [facility] Fingerstick mg/dl LABORATORY SERVICES Concrete Float Maker [place] [id number]: [facility] Test Performed by LABORATORY Nursing Services SERVICES Specimen Blood Performing Organization Address [facility]/ZIP Code Phon e Number [facility] LABORATORY [address] [place] [address] SERVICES (ABNORMAL) GLUCOSE, GLUCOMETER (07/07/2016 12:13 EST) Glucose, 183 (H) 70 - 100 [facility] Fingerstick mg/dl LABORATORY SERVICES Concrete Float Maker [place] [id number]: [facility] Test Performed by LABORATORY Nursing Services SERVICES Specimen Blood Performing Organization Address [facility]/ZIP [facility] Phon e Number [facility] LABORATORY [address] [place] [address] SERVICES INPATIENT ADD-ON (07/07/2016 10:40 EST) Pathologist Sig nature Tests to be added ELECTROLYTES,BU [facility] N,CREATININE LABORATORY SERVICES Number for problems [address] [facility] LABORATORY SERVICES Accession number [id number] [facility] LABORATORY SERVICES Specimen Other Performing Organization Address [facility] Phon e [facility] LABORATORY [address] [place] [address] SERVICES ELECTROLYTES (07/07/2016 8:31 EST) Pathologist Sig nature Sodium 136 136 - 145 mEq/L [facility] LABORATORY SERVICES Potassium 5.0 3.5 - 5.0 mEq/L [facility] LABORATORY SERVICES Chloride 101 96 - 110 mEq/L [facility] LABORATORY SERVICES CO2 22Comment: Note new 22 - 32 mEq/L [facility] reference range LABORATORY SERVICES 04/20/16 Specimen Blood Performing Organization Address [facility] Phon e Number [facility] LABORATORY [address] [place] [address] SERVICES (ABNORMAL) CREATININE (07/07/2016 8:31 EST) Creatinine 1.22 0.66 - 1.25 [facility] mg/dl LABORATORY SERVICES GFR, Calculated 57 (L) >60 [facility] Comment: ml/min/1.73m2 LABORATORY eGFR calculated using CKD-EPI equation for SERVICES non Americans. Multiply eGFR by 1.16 for Americans. Specimen Blood Performing Organization Address City/[facility]/ZIP Code Phon e Number [facility] LABORATORY [address] [place] [phone] SERVICES BUN (07/07/2016 8:31 EST) Pathologist Sig nature BUN 19 10 - 26 mg/dl [facility] LABORATO RY SERVICES Specimen Blood Performing Organization Address City/[facility]/ZIP Code Phon e Number [facility] LABORATORY [address] [place] [address] SERVICES TOTAL & DIRECT BILIRUBIN (07/07/2016 8:31 EST) Pathologist Sig nature Conjugated Bilirubin 0.0 0.0 - 0.3 mg/dl [facility] LABORATORY SERVICES Unconjugated Bilirubin 0.2 0.0 - 1.1 mg/dl [facility] LABORATORY SERVICES Bilirubin, Total 0.8 <1.4 mg/dl [facility] LABORATORY SERVICES Specimen Blood specimen (specimen) - Blood Performing Organization Address [facility]/ZIP Code Phon e Number [facility] LABORATORY [address] [place] [address] SERVICES AST (07/07/2016 8:31 EST) Pathologist Sig nature AST 40 15 - 46 U/L [facility] LABORATOR Y SERVICES Specimen Blood specimen (specimen) - Blood Performing Organization Address [facility]/ZIP [facility] Phon e Number [facility] LABORATORY [address] [place] [address] SERVICES ALT (07/07/2016 8:31 EST) Pathologist Sig nature ALT 37 21 - 72 U/L [facility] LABORATOR Y SERVICES Specimen Blood specimen (specimen) - Blood Performing Organization Address [facility]/ZIP [facility] Phon e Number [facility] LABORATORY [address] [place] [address] SERVICES ALKALINE PHOSPHATASE (07/07/2016 8:31 EST) Pathologist Sig nature Total Alkaline 63 38 - 126 U/L [facility] Phosphatase LABORATORY SERVICES Specimen Blood specimen (specimen) - Blood Performing Organization Address [facility]/ZIP [facility] Phon e Number [facility] LABORATORY [address] [place] [address] SERVICES (ABNORMAL) GLUCOSE, GLUCOMETER (07/07/2016 5:53 EST) Glucose, 245 (H) 70 - 100 [facility] Fingerstick mg/dl LABORATORY SERVICES Concrete Float Maker [place] [id number]: [facility] Test Performed by LABORATORY Nursing Services SERVICES Specimen Blood Performing Organization Address City/[facility]/ZIP Code Phon e Number [facility] LABORATORY [address] [place] [address] SERVICES (ABNORMAL) GLUCOSE, GLUCOMETER (07/07/2016 0:21 EST) Glucose, 261 (H) 70 - 100 [facility] Fingerstick mg/dl LABORATORY SERVICES Concrete Float Maker ID [id number]: [facility] Test Performed by LABORATORY Nursing Services SERVICES Specimen Blood Performing Organization Address City/State/ZIP Code Phon e Number [facility] LABORATORY [address] [place] [address] SERVICES (ABNORMAL) GLUCOSE, GLUCOMETER (07/06/2016 23:06 EST) Glucose, 240 (H) 70 - 100 [facility] Fingerstick mg/dl LABORATORY SERVICES Concrete Float Maker ID [id number]: [facility] Test Performed by LABORATORY Nursing Services SERVICES Specimen Blood Performing Organization Address City/State/ZIP Code Phon e Number [facility] LABORATORY [address] [place] [address] SERVICES (ABNORMAL) GLUCOSE, GLUCOMETER (07/06/2016 22:13 EST) Glucose, 203 (H) 70 - 100 [facility] Fingerstick mg/dl LABORATORY SERVICES Concrete Float Maker ID [id number]: [facility] Test Performed by LABORATORY Nursing Services SERVICES Specimen Blood Performing Organization Address City/[facility]/ZIP Code Phon e Number [facility] LABORATORY [address] [place] [address] SERVICES (ABNORMAL) GLUCOSE, GLUCOMETER (07/06/2016 17:50 EST) Glucose, 186 (H) 70 - 100 [facility] Fingerstick mg/dl LABORATORY SERVICES Concrete Float Maker [place] [id number]: [facility] Test Performed by LABORATORY Nursing Services SERVICES Specimen Blood Performing Organization Address City/[facility]/ZIP Code Phon e Number [facility] LABORATORY [address] [place] [address] SERVICES (ABNORMAL) GLUCOSE, GLUCOMETER (07/06/2016 13:20 EST) Glucose, 142 (H) 70 - 100 [facility] Fingerstick mg/dl LABORATORY SERVICES Concrete Float Maker ID [id number]: [facility] Test Performed by LABORATORY Nursing Services SERVICES Specimen Blood Performing Organization Address City/[facility]/ZIP Code Phon e Number [facility] LABORATORY [address] [place] [address] SERVICES (ABNORMAL) GLUCOSE, GLUCOMETER (07/06/2016 12:07 EST) Glucose, 179 (H) 70 - 100 [facility] Fingerstick mg/dl LABORATORY SERVICES Concrete Float Maker ID [id number]: [facility] Test Performed by LABORATORY Nursing Services SERVICES Specimen Blood Performing Organization Address City/State/ZIP Code Phon e Number [facility] LABORATORY [address] [place] [address] SERVICES SURGICAL PATHOLOGY (07/06/2016 9:34 EST) Pathology Report: SURGICAL PATHOLOGY REPORT [facility] Reports generated via electronic interface contain ashlyn ginal data; LABORATORY however they are lacking the format of the original re port. SERVICES Caution should be taken when reading/interpreting unfo rmatted reports. Name: ? COURSER, ALEENA Chayito Oneil ? Accession #: ? [id number] ? : ? 1940 (Age: [age]) ??M ? Collect Date: ? 07/06/2016 ? Location: ? B006 ? Receive Date: ? Provider: SPENCER ACUNA MD Copy to: [facility] TRISHA RAMOS MD ? Final Pathologic Diagnosis: A. STOMACH, PARAESOPHAGEAL HERNIA REPAIR: - Duodenum with foveolar met aplasia, Indra's gland hyperplasia, and ulceration consistent with peptic injury. 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 B. GALLBLADDER, CHOLECYSTECTOMY: - Cholecystitis. - Cholelithiasis. Document reviewed and electronically signed by: CABRERA BREEN MD Report ??Date: 07/09/2016 13:28 By the signature above, the attending physician certif ies that he/she has personally conducted a gross and/or microscopic examin ation of the described specimens and rendered or confirmed the above diagnosi s. Specimen(s) Received: A. ??Portion of stomach B. ??Gallbladder and contents Clinical History: Paraesophageal hernia Gross Description: A. ?Received in anel l saline labelled with proper patient identification (initials C, C) and portion of stomach are three hosea riented irregular to tubular portions of stomach (4.4 x 1.7 x 1.3 cm to 4.9 x 2.7 x 1.4 cm). Two of the specimens are received closed and stapled in multi ple places, and the largest specimen is partially opened at one aspect. ? The serosa is sharp-pin k, smooth and glistening. The mucosa is sharp-pink and smooth. The wall thickness ranges from 0.2 cm to 0.4 cm. The outer surface is inked blue. ? Slitting Machine Operator Helper sections from each portion of [facility] are submitted as A1-A3, respectively. B. ?Received in anel l saline labelled with proper patient identification (initials C, C) and gallbladder and contents is a pr eviously disrupted gallbladder (8.7 x 3.0 x 1.5 cm) with an attached segment of cystic duct (0.3 cm in length x 0.3 cm in diameter). ? The serosa is sharp-pin k, smooth and glistening. The mucosa is sharp-green and velvety and the wall is 0.6 cm in thickness. The cystic duct lumen is patent. The cystic duct margin is inked blue. Multiple black, smooth and irregular choleliths are present measuring 2.4 x 1.3 x 0.7 cm in aggregate. ? Two customer account representative se ctions and the inked en face cystic duct margin are submitted in B1. Dr. Killian 07/07/2016 4:25 PM End of Report Specimen Performing Organization Address City/State/ZIP Code Phon e Number [facility] LABORATORY [address] [place] [address] SERVICES (ABNORMAL) GLUCOSE, GLUCOMETER (07/06/2016 6:21 EST) Glucose, 163 (H) 70 - 100 [facility] Fingerstick mg/dl LABORATORY SERVICES Concrete Float Maker [place] [id number]: [facility] Test Performed by LABORATORY Nursing Services SERVICES Specimen Blood Performing Organization Address City/State/ZIP Code Phon e Number [facility]OR[facility]ORY [address] [place] [address] SERVICES (ABNORMAL) GLUCOSE, GLUCOMETER (07/06/2016 0:19 EST) Glucose, 144 (H) 70 - 100 [facility] Fingerstick mg/dl LABORATORY SERVICES Concrete Float Maker [place] [id number]: [facility] Test Performed by LABORATORY Nursing Services SERVICES Specimen Blood Performing Organization Address City/[facility]/ZIP Code Phon e Number [facility]OR[facility]ORY [address] [place] [address] SERVICES (ABNORMAL) GLUCOSE, GLUCOMETER (07/05/2016 18:12 EST) Glucose, 202 (H) 70 - 100 [facility] Fingerstick mg/dl LABORATORY SERVICES Concrete Float Maker [place] [id number]: [facility] Test Performed by LABORATORY Nursing Services SERVICES Specimen Blood Performing Organization Address City/[facility]/ZIP Code Phon e Number [facility] LABORATORY [address] [place] [address] SERVICES NM CARDIAC SPECT STUDY WAVEFORM (07/05/2016 13:30 EST) Specimen Narrative [facility] EKG - 07/05/2016 14:0 9 EST For report of this Waveform, see associated Image Study. ? [facility] Stress ? Test Date: ?2016-07-05 Pat Name: ? PHIL COURSER ? Department: ? Room: ? Gender: ? 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 : ?1940 ? Requested By: JOSIE Zavala Number: [id number] ?Anna ALVARADO: ? 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 [facility] Cent[facility] r Stress Test Date: 2016-07-05 Pat Name: PHIL COURSER Department: Room: Gender: Waste Disposal Plant Operator: : 1940 Requested By: JOSIE Stratton Order Number: [id number] Anna ALVARADO: Interpretive Statements Performing Organization Address [facility]/ZIP Code Phon e Number [facility] EKG INPATIENT ADD-ON (07/05/2016 13:00 EST) Tests to be added LIPASE,ALK [facility] PHOS,ALT,AST,[place] [id number] [facility] problems LABORATORY SERVICES Accession number [id number]: [facility] Corrected on 07/05 LABORATORY SERVICES AT 1310: Previously reported as [id number] Specimen Other Performing Organization Address [facility] Phon e Number [facility] LABORATORY [address] [place] [address] SERVICES (ABNORMAL) GLUCOSE, GLUCOMETER (07/05/2016 11:55 EST) Glucose, 152 (H) 70 - 100 [facility] Fingerstick mg/dl LABORATORY SERVICES Concrete Float Maker [place] [id number]: [facility] Test Performed by LABORATORY Nursing Services SERVICES Specimen Blood Performing Organization Address City/[facility]/ZIP [facility] Phon e Number [facility] LABORATORY [address] [place] [address] SERVICES TYPE AND SCREEN (07/05/2016 11:33 EST) ABO O [facility] BLOOD BANK Rh Factor Negative [facility] BLOOD BANK Antibody Screen Negative [facility] BLOOD BANK Specimen Expires: 07/08/2016 @ 23:59 [facility] R BLOOD BANK Specimen Blood specimen (specimen) Performing Organization Address [facility]/ZIP [facility] Phon e Number [facility] BLOOD BANK [address] BLOOD BANK PREPARE RED BLOOD CELLS (07/05/2016 11:00 EST) Product Code [id number]: [facility] E0336 -1 RED [facility] BLOOD BANK CELLS, Leukocytes Reduced Donor Number [id number] [facility] BLOOD BANK Unit ABO O [facility] BLOOD BANK Unit Rh NEG [facility] BLOOD BANK Unit Status RE^Released From [facility] BLOOD BANK Product Expiration [id number] [facility] BLOOD BANK Unit Blood Type 9500 [facility] BLOOD BANK Coding System [id number] [facility] BLOOD BANK Specimen Performing Organization Address [facility] Phon e [facility] BLOOD BANK [address] [place] [address] BLOOD BANK PREPARE RED BLOOD CELLS (07/05/2016 11:00 EST) Product Code [id number]: [facility] E0382 -3 RED BLOOD [facility] BLOOD BANK CELLS, Leukocytes Reduced Donor Number [id number] [facility] BLOOD BANK Unit ABO O [facility] BLOOD BANK Unit Rh NEG [facility] BLOOD BANK Unit Status RE^Released From [facility] BLOOD BANK Product Expiration [id number] [facility] BLOOD BANK Unit Blood Type 9500 [facility] BLOOD BANK Coding System [id number] [facility] BLOOD BANK Specimen Blood specimen (specimen) Performing Organization Address [facility]/ZIP Code Phon e Number [facility] BLOOD BANK [address] [place] [address] BLOOD BANK BILIRUBIN, TOTAL (07/05/2016 8:16 EST) Pathologist Sig nature Bilirubin, Total 1.1 <1.4 mg/dl [facility] LABOR ATORY SERVICES Specimen Blood Performing Organization Address City/[facility]/ZIP Code Phon e Number [facility] LABORATORY [address] [place] [address] SERVICES (ABNORMAL) LIPASE (07/05/2016 8:16 EST) Pathologist Sig nature Lipase 572 (H) <251 U/L [facility] LABORATOR Y SERVICES Specimen Blood Performing Organization Address City/[facility]/ZIP Code Phon e Number [facility] LABORATORY [address] [place] [address] SERVICES (ABNORMAL) AST (07/05/2016 8:16 EST) Pathologist Sig nature AST 14 (L) 15 - 46 U/L [facility] LABORATOR Y SERVICES Specimen Blood Performing Organization Address [facility]/ZIP [facility] Phon e Number [facility] LABORATORY [address] [place] [address] SERVICES ALT (07/05/2016 8:16 EST) Pathologist Sig nature ALT 21 21 - 72 U/L [facility] LABORATOR Y SERVICES Specimen Blood Performing Organization Address City/[facility]/ZIP [facility] Phon e Number [facility] LABORATORY [address] [place] [address] SERVICES ALKALINE PHOSPHATASE (07/05/2016 8:16 EST) Pathologist Sig nature Total Alkaline 68 38 - 126 U/L [facility] Phosphatase LABORATORY SERVICES Specimen Blood Performing Organization Address [facility]/ZIP [facility] Phon e Number [facility] LABORATORY [address] [place] [address] SERVICES BUN (07/05/2016 8:16 EST) Pathologist Sig nature BUN 15 10 - 26 mg/dl [facility] LABORATO RY SERVICES Specimen Blood specimen (specimen) - Blood Performing Organization Address City/[facility]/ZIP [facility] Phon e Number [facility] LABORATORY [address] [place] [address] SERVICES CREATININE (07/05/2016 8:16 EST) Creatinine 1.09 0.66 - 1.25 [facility] mg/dl LABORATORY SERVICES GFR, Calculated 66 >60 [facility] Comment: ml/min/1.73m2 LABORATORY eGFR calculated using CKD-EPI equation for SERVICES non Americans. Multiply eGFR by 1.16 for Americans. Specimen Blood specimen (specimen) - Blood Performing Organization Address City/[facility]/ZIP Code Phon e Number [facility] LABORATORY [address] [place] [address] SERVICES ELECTROLYTES (07/05/2016 8:16 EST) Pathologist Sig nature Sodium 138 136 - 145 mEq/L [facility] LABORATORY SERVICES Potassium 4.3 3.5 - 5.0 mEq/L [facility] LABORATORY SERVICES Chloride 105 96 - 110 mEq/L [facility] LABORATORY SERVICES CO2 25Comment: Note new 22 - 32 mEq/L [facility] reference range LABORATORY SERVICES 04/20/16 Specimen Blood specimen (specimen) - Blood Performing Organization Address City/[facility]/ZIP Code Phon e Number [facility] LABORATORY [address] [place] [address] SERVICES (ABNORMAL) HEMAGRAM (07/05/2016 8:16 EST) Pathologist Sig nature WBC 5.49 4.0 - 10.4 K/cmm [facility] LABORATORY SERVICES RBC 3.54 (L) 4.36 - 5.78 M/cmm [facility] LABORATORY SERVICES Hemoglobin 10.6 (L) 13.8 - 17.3 gm/dl [facility] LABORATORY SERVICES HCT 32.3 (L) 39.5 - 50.2 % [facility] LABORATORY SERVICES MCV 91 81 - 95 fl [facility] LABORATORY SERVICES MCH 29.9 27.6 - 33.0 pg [facility] LABORATORY SERVICES MCHC 32.8 32.8 - 36.4 gm/dl [facility] LABORATORY SERVICES RDW-CV 13.0 11.8 - 14.1 % [facility] LABORATORY SERVICES RDW-SD 43.7 36.5 - 45.9 fl [facility] LABORATORY SERVICES PLT 140 (L) 141 - 377 K/cmm [facility] LABORATORY SERVICES MPV 10.5 9.5 - 12.7 fl [facility] LABORATORY SERVICES Specimen Blood specimen (specimen) - Blood Performing Organization Address City/State/ZIP Code Phon e Number [facility] LABORATORY [address] [place] [address] SERVICES CHEST PA AND LATERAL (07/05/2016 7:50 EST) Anatomical Region Laterality Modality Other Specimen Narrative [facility] RADIOLOGY MAIN CAMPUS - 07/05/2016 12:13 EST CHEST PA AND LATERAL ??07/05/2016 7:50 AM CLINICAL HISTORY/COMMENTS: Pre-operative evaluation; N17.9 Acute ki dney failure, unspecified. TECHNIQUE: ?? Frontal and lateral views of the chest w ere performed. COMPARISON: ?? July 02, 2016 FINDINGS: A nasogastric tube is present, its tip i s in the stomach. Again seen is a large hiatal hernia. The re is vascular crowding in the left lower lobe. Blunting of the lef t costophrenic angle is present. The right lung is clear. Heart size is normal. Patient is status post CABG. Degenerative changes are present in the thoracic spine. IMPRESSIONS: 1. Large hiatal hernia. 2. Left lower lobe subsegmental atelecta sis. 3. Small left pleural effusion. Procedure Note Fanny Marlow MD - 07/05/2016 CHEST PA AND LATERAL 07/05/2016 7:50 AM CLINICAL HISTORY/COMMENTS: Pre-operative evaluation; N17.9 Acute ki dney failure, unspecified. TECHNIQUE: Frontal and lateral views of the chest w ere performed. COMPARISON: July 02, 2016 FINDINGS: A nasogastric tube is present, its tip i s in the stomach. Again seen is a large hiatal hernia. The re is vascular crowding in the left lower lobe. Blunting of the lef t costophrenic angle is present. The right lung is clear. Heart size is normal. Patient is status post CABG. Degenerative changes are present in the thoracic spine. IMPRESSIONS: 1. Large hiatal hernia. 2. Left lower lobe subsegmental atelecta sis. 3. Small left pleural effusion. Performing Organization Address City/[facility]/ZIP Code Phon e Number [facility] RADIOLOGY MAIN CAMPUS (ABNORMAL) GLUCOSE, GLUCOMETER (07/05/2016 5:29 EST) Glucose, 108 (H) 70 - 100 [facility] Fingerstick mg/dl LABORATORY SERVICES Concrete Float Maker [place] [id number]: [facility] Test Performed by LABORATORY Nursing Services SERVICES Specimen Blood Performing Organization Address [facility] Phon e Number [facility] LABORATORY [address] [place] [address] SERVICES (ABNORMAL) GLUCOSE, GLUCOMETER (07/05/2016 1:57 EST) Glucose, 103 (H) 70 - 100 [facility] Fingerstick mg/dl LABORATORY SERVICES Concrete Float Maker [place] [id number]: [facility] Test Performed by LABORATORY Nursing Services SERVICES Specimen Blood Performing Organization Address [facility] Phon e Number [facility] LABORATORY [address] [place] [phone] SERVICES GLUCOSE, GLUCOMETER (07/04/2016 23:50 EST) Glucose, 92 70 - 100 [facility] Fingerstick mg/dl LABORATORY SERVICES Concrete Float Maker [place] [id number]: [facility] Test Performed by LABORATORY Nursing Services SERVICES Specimen Blood Performing Organization Address City/State/ZIP Code Phon e Number [facility] LABORATORY [address] [place] [address] SERVICES (ABNORMAL) GLUCOSE, GLUCOMETER (07/04/2016 20:19 EST) Glucose, 134 (H) 70 - 100 [facility] Fingerstick mg/dl LABORATORY SERVICES Concrete Float Maker [place] [id number]: [facility] Test Performed by LABORATORY Nursing Services SERVICES Specimen Blood Performing Organization Address City/[facility]/ZIP Code Phon e Number [facility] LABORATORY [address] [place] [address] SERVICES (ABNORMAL) GLUCOSE, GLUCOMETER (07/04/2016 19:31 EST) Glucose, 164 (H) 70 - 100 [facility] Fingerstick mg/dl LABORATORY SERVICES Concrete Float Maker [place] [id number]: [facility] Test Performed by LABORATORY Nursing Services SERVICES Specimen Blood Performing Organization Address [facility]/ZIP Code Phon e Number [facility] LABORATORY [address] [place] [address] SERVICES (ABNORMAL) GLUCOSE, GLUCOMETER (07/04/2016 19:07 EST) Glucose, 67 (L) 70 - 100 [facility] Fingerstick mg/dl LABORATORY SERVICES Concrete Float Maker [place] [id number]: [facility] Test Performed by LABORATORY Nursing Services SERVICES Specimen Blood Performing Organization Address [facility]/ZIP Code Phon e Number [facility] LABORATORY [address] [place] [address] SERVICES GLUCOSE, GLUCOMETER (07/04/2016 17:10 EST) Glucose, 84 70 - 100 [facility] Fingerstick mg/dl LABORATORY SERVICES Concrete Float Maker [place] [id number]: [facility] CENTER Test Performed by LABORATORY Nursing Services SERVICES Specimen Blood Performing Organization Address City/State/ZIP Code Phon e Number [facility] LABORATORY [address] [place] [address] SERVICES (ABNORMAL) GLUCOSE, GLUCOMETER (07/04/2016 16:38 EST) Glucose, 46 (LL) 70 - 100 [facility] Fingerstick mg/dl LABORATORY SERVICES Concrete Float Maker [place] [id number]: [facility] Test Performed by LABORATORY Nursing Services SERVICES Specimen Blood Performing Organization Address City/[facility]/ZIP Code Phon e Number [facility] LABORATORY [address] [place] [address] SERVICES GLUCOSE, GLUCOMETER (07/04/2016 13:36 EST) Glucose, 87 70 - 100 [facility] Fingerstick mg/dl LABORATORY SERVICES Concrete Float Maker [place] [id number]: [facility] CENTER Test Performed by LABORATORY Nursing Services SERVICES Specimen Blood Performing Organization Address City/[facility]/ZIP [facility] Phon e Number [facility] LABORATORY [address] [place] [address] SERVICES (ABNORMAL) GLUCOSE, GLUCOMETER (07/04/2016 12:44 EST) Glucose, 127 (H) 70 - 100 [facility] Fingerstick mg/dl LABORATORY SERVICES Concrete Float Maker [place] [id number]: [facility] CENTER Test Performed by LABORATORY Nursing Services SERVICES Specimen Blood Performing Organization Address City/[facility]/ZIP Code Phon e Number [facility] LABORATORY [address] [place] [address] SERVICES (ABNORMAL) GLUCOSE, GLUCOMETER (07/04/2016 12:29 EST) Glucose, 64 (L) 70 - 100 [facility] Fingerstick mg/dl LABORATORY SERVICES Concrete Float Maker [place] [id number]: [facility] CENTER Test Performed by LABORATORY Nursing Services SERVICES Specimen Blood Performing Organization Address City/[facility]/ZIP Code Phon e Number [facility] LABOR[facility]ORY [address] [place] [address] SERVICES (ABNORMAL) GLUCOSE, GLUCOMETER (07/04/2016 12:27 EST) Glucose, 49 (LL) 70 - 100 [facility] Fingerstick mg/dl LABORATORY SERVICES Concrete Float Maker [place] [id number]: [facility] Test Performed by LABORATORY Nursing Services SERVICES Specimen Blood Performing Organization Address City/State/ZIP Code Phon e Number [facility] LABORATORY [address] [place] [address] SERVICES GLUCOSE, GLUCOMETER (07/04/2016 6:16 EST) Glucose, 75 70 - 100 [facility] Fingerstick mg/dl LABORATORY SERVICES Concrete Float Maker [place] [id number]: [facility] Test Performed by LABORATORY Nursing Services SERVICES Specimen Blood Performing Organization Address City/State/ZIP Code Phon e Number [facility] LABORATORY [address] [place] [address] SERVICES ELECTROLYTES (07/04/2016 5:24 EST) Pathologist Sig nature Sodium 142 136 - 145 mEq/L [facility] LABORATORY SERVICES Potassium 4.4 3.5 - 5.0 mEq/L [facility] LABORATORY SERVICES Chloride 107 96 - 110 mEq/L [facility] LABORATORY SERVICES CO2 30Comment: Note new 22 - 32 mEq/L [facility] reference range LABORATORY SERVICES 04/20/16 Specimen Blood specimen (specimen) - Blood Performing Organization Address [facility]/ZIP Code Phon e Number [facility] LABORATORY [address] [place] [address] SERVICES (ABNORMAL) CREATININE (07/04/2016 5:24 EST) Creatinine 1.27 (H) 0.66 - 1.25 [facility] mg/dl LABORATORY SERVICES GFR, Calculated 55 (L) >60 [facility] Comment: ml/min/1.73m2 LABORATORY eGFR calculated using CKD-EPI equation for SERVICES non Americans. Multiply eGFR by 1.16 for Americans. Specimen Blood specimen (specimen) - Blood Performing Organization Address [facility] Phon e Number [facility] LABORATORY [address] [place] [address] SERVICES BUN (07/04/2016 5:24 EST) Pathologist Sig nature BUN 23 10 - 26 mg/dl [facility] LABORATO RY SERVICES Specimen Blood specimen (specimen) - Blood Performing Organization Address [facility] Phon e Number [facility] LABOR[facility]ORY [address] [place] [address] SERVICES GLUCOSE, GLUCOMETER (07/04/2016 1:54 EST) Glucose, 88 70 - 100 [facility] Fingerstick mg/dl LABORATORY SERVICES Concrete Float Maker [place] [id number]: [facility] Test Performed by LABORATORY Nursing Services SERVICES Specimen Blood Performing Organization Address City/[facility]/ZIP Code Phon e Number [facility] LABORATORY [address] [place] [address] SERVICES GLUCOSE, GLUCOMETER (07/03/2016 23:42 EST) Glucose, 98 70 - 100 [facility] Fingerstick mg/dl LABORATORY SERVICES Concrete Float Maker [place] [id number]: [facility] Test Performed by LABORATORY Nursing Services SERVICES Specimen Blood Performing Organization Address [facility]/ZIP Code Phon e Number [facility] LABORATORY [address] [place] [address] SERVICES (ABNORMAL) GLUCOSE, GLUCOMETER (07/03/2016 18:07 EST) Glucose, 122 (H) 70 - 100 [facility] Fingerstick mg/dl LABORATORY SERVICES Concrete Float Maker [place] [id number]: [facility] Test Performed by LABORATORY Nursing Services SERVICES Specimen Blood Performing Organization Address City/State/ZIP Code Phon e Number [facility] LABORATORY [address] [place] [address] SERVICES EKG 12-LEAD (07/03/2016 12:37 EST) Specimen Narrative [facility] EKG - 07/08/2016 14:0 3 EST ? [facility] ? Test Date: ?2016-07-03 Pat Name: ? PHIL COURSER ? Department: ?? Ruiz 6 ? Room: ? B694 Gender: ? 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 Requested By: SHAILA BHATT Order Number: [id number] ? Anna ALVARADO: ?? PANCHITO DHILLON MD ? Measurements Intervals ?[place] ? Rate: ? 57 ? P: ?-52 [place]: ? 84 ? QRS: ?39 QRSD: ? 96 ? T: ?87 QT: ? 470 ? QTc: ?459 ? Interpretive Statements SINUS BRADYCARDIA WITH SHORT [place] INTERVAL LOW QRS VOLTAGE IN EXTREMITY LEADS POSSIBLE ANTERIOR MYOCARDIAL INFARCTION , OF INDETERMINATE AGE MARKED ST ELEVATION, CONSIDER INFERIOR I NJURY ACUTE SD No previous ECG available for comparison I reviewed the tracing and have either a greed or edited the findings in this report. Electronically Signed On 7 14:03:32 EST by PANCHITO DHILLON MD. Procedure Note Panchito Dhillon MD - 07/08/[address] 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 Electronically Signed On 14:03:32 EST by PANCHITO DHILLON MD. Performing Organization Address City/[facility]/ZIP Code Phon e Number [facility] EKG (ABNORMAL) GLUCOSE, GLUCOMETER (07/03/2016 12:21 EST) Glucose, 101 (H) 70 - 100 [facility] Fingerstick mg/dl LABORATORY SERVICES Concrete Float Maker [place] [id number]: [facility] Test Performed by LABORATORY Nursing Services SERVICES Specimen Blood Performing Organization Address [facility] Phon e Number [facility] LABORATORY [address] [place] [address] SERVICES GLUCOSE, GLUCOMETER (07/03/2016 8:37 EST) Glucose, 74 70 - 100 [facility] Fingerstick mg/dl LABORATORY SERVICES Concrete Float Maker [place] [id number]: [facility] Test Performed by LABORATORY Nursing Services SERVICES Specimen Blood Performing Organization Address [facility] Phon e Number [facility] LABORATORY [address] [place] [address] SERVICES GLUCOSE, GLUCOMETER (07/03/2016 7:29 EST) Glucose, 99 70 - 100 [facility] Fingerstick mg/dl LABORATORY SERVICES Concrete Float Maker [place] [id number]: [facility] Test Performed by LABORATORY Nursing Services SERVICES Specimen Blood Performing Organization Address [facility] Phon e Number [facility] LABORATORY [address] [place] [address] SERVICES (ABNORMAL) HEMAGRAM AND DIFFERENTIAL (07/03/2016 6:59 EST) Pathologist Sig nature WBC 9.49 4.0 - 10.4 [facility] K/[facility] LABORATORY SERVICES RBC 3.53 (L) 4.36 - 5.78 [facility] M/[facility] LABORATORY SERVICES Hemoglobin 10.8 (L) 13.8 - 17.3 [facility] gm/dl LABORATORY SERVICES HCT 32.2 (L) 39.5 - 50.2 % [facility] LABORATORY SERVICES MCV 91 81 - 95 fl [facility] LABORATORY SERVICES MCH 30.6 27.6 - 33.0 pg [facility] LABORATORY SERVICES MCHC 33.5 32.8 - 36.4 [facility] gm/dl LABORATORY SERVICES RDW-CV 13.2 11.8 - 14.1 % [facility] LABORATORY SERVICES RDW-SD 43.8 36.5 - 45.9 fl [facility] LABORATORY SERVICES PLT 157 141 - 377 K/[facility] LABORATORY SERVICES MPV 11.1 9.5 - 12.7 fl [facility] LABORATORY SERVICES Neutrophils 87.9 % [facility] LABORATORY SERVICES Lymphocytes 7.1 % [facility] LABORATORY SERVICES Monocytes 4.2 % [facility] LABORATORY SERVICES Eosinophils 0.2 % [facility] LABORATORY SERVICES Basophils 0.1 % [facility] LABORATORY SERVICES Immature Grans 0.5 % [facility] LABORATORY SERVICES ABS Neutrophils 8.34 2.20 - 8.85 [facility] K/[facility] LABORATORY SERVICES ABS Lymphs 0.67 (L) 1.09 - 3.30 [facility] LABORATORY SERVICES ABS Monocytes 0.40 0.1 - 0.8 K/[facility] LABORATORY SERVICES ABS Eosinophils 0.02 (L) 0.03 - 0.61 [facility] LABORATORY SERVICES ABS Basophils 0.01 0.01 - 0.11 [facility] LABORATORY SERVICES ABS Immature Grans 0.05 0 - 0.06 /[facility] LABORATORY SERVICES Type of Diff: Automated [facility] LABORATORY SERVICES Specimen Blood specimen (specimen) - Blood Performing Organization Address City/[facility]/ZIP Code Phon e Number [facility] LABORATORY [address] [place] [address] SERVICES (ABNORMAL) LIPASE (07/03/2016 6:59 EST) Pathologist Sig nature Lipase 1,842 (H) <251 U/L [facility] LABORATOR Y SERVICES Specimen Blood specimen (specimen) - Blood Performing Organization Address City/[facility]/ZIP [facility] Phon e Number [facility] LABORATORY [address] [place] [address] SERVICES (ABNORMAL) ELECTROLYTES (07/03/2016 6:59 EST) Pathologist Sig nature Sodium 138 136 - 145 mEq/L [facility] LABORATORY SERVICES Potassium 3.9 3.5 - 5.0 mEq/L [facility] LABORATORY SERVICES Chloride 99 96 - 110 mEq/L [facility] LABORATORY SERVICES CO2 33 (H)Comment: Note 22 - 32 mEq/L [facility] new reference range LABORATORY SERVICES 04/20/16 Specimen Blood specimen (specimen) - Blood Performing Organization Address [facility]/ZIP Code Phon e Number [facility] LABORATORY [address] [place] [address] SERVICES (ABNORMAL) CREATININE (07/03/2016 6:59 EST) Creatinine 1.71 (H) 0.66 - 1.25 [facility] mg/dl LABORATORY SERVICES GFR, Calculated 38 (L) >60 [facility] Comment: ml/min/1.73m2 LABORATORY eGFR calculated using CKD-EPI equation for SERVICES non Americans. Multiply eGFR by 1.16 for Americans. Specimen Blood specimen (specimen) - Blood Performing Organization Address [facility] Phon e Number [facility] LABORATORY [address] [place] [address] SERVICES (ABNORMAL) BUN (07/03/2016 6:59 EST) Pathologist Sig nature BUN 32 (H) 10 - 26 mg/dl [facility] LABORATO RY SERVICES Specimen Blood specimen (specimen) - Blood Performing Organization Address [facility] Phon e Number [facility] LABORATORY [address] [place] [address] SERVICES (ABNORMAL) GLUCOSE, GLUCOMETER (07/03/2016 6:50 EST) Glucose, 55 (L) 70 - 100 [facility] Fingerstick mg/dl LABORATORY SERVICES Concrete Float Maker [place] [id number]: [facility] Test Performed by LABORATORY Nursing Services SERVICES Specimen Blood Performing Organization Address City/[facility]/ZIP Code Phon e Number [facility] LABORATORY [address] [place] [address] SERVICES (ABNORMAL) GLUCOSE, GLUCOMETER (07/03/2016 6:25 EST) Glucose, 51 (L) 70 - 100 [facility] Fingerstick mg/dl LABORATORY SERVICES Concrete Float Maker [place] [id number]: [facility] Test Performed by LABORATORY Nursing Services SERVICES Specimen Blood Performing Organization Address City/[facility]/ZIP Code Phon e Number [facility] LABORATORY [address] [place] [address] SERVICES (ABNORMAL) GLUCOSE, GLUCOMETER (07/03/2016 6:21 EST) Glucose, 44 (LL) 70 - 100 [facility] Fingerstick mg/dl LABORATORY SERVICES Concrete Float Maker [place] [id number]: [facility] Test Performed by LABORATORY Nursing Services SERVICES Specimen Blood Performing Organization Address [facility] Phon e Number [facility] LABORATORY [address] [place] [address] SERVICES LACTIC ACID (07/03/2016 0:06 EST) Pathologist Sig nature Lactic Acid 0.9 <2.0 mmol/L [facility] LABORATOR Y SERVICES Specimen Blood specimen (specimen) - Blood Performing Organization Address [facility] Phon e Number [facility] LABORATORY [address] [place] [address] SERVICES (ABNORMAL) ELECTROLYTES (07/03/2016 0:06 EST) Pathologist Sig nature Sodium 142 136 - 145 mEq/L [facility] LABORATORY SERVICES Potassium 4.7 3.5 - 5.0 mEq/L [facility] LABORATORY SERVICES Chloride 100 96 - 110 mEq/L [facility] LABORATORY SERVICES CO2 35 (H)Comment: Note 22 - 32 mEq/L [facility] new reference range LABORATORY SERVICES 04/20/16 Specimen Blood specimen (specimen) - Blood Performing Organization Address [facility] Phon e Number [facility] LABORATORY [address] [place] [address] SERVICES (ABNORMAL) GLUCOSE, GLUCOMETER (07/02/2016 23:58 EST) Glucose, 116 (H) 70 - 100 [facility] Fingerstick mg/dl LABORATORY SERVICES Concrete Float Maker [place] [id number]: [facility] Test Performed by LABORATORY Nursing Services SERVICES Specimen Blood Performing Organization Address [facility]/ZIP [facility] Phon e Number [facility] LABORATORY [address] [place] [address] SERVICES TYPE AND SCREEN (07/02/2016 19:59 EST) ABO O [facility] BLOOD BANK Rh Factor Negative [facility] BLOOD BANK Antibody Screen Negative [facility] BLOOD BANK Specimen Expires: 07/05/2016 @ 23:59 [facility] BLOOD BANK Specimen Blood specimen (specimen) Performing Organization Address City/[facility]/ZIP [facility] Phon e Number [facility] BLOOD BANK [address] [place] [address] [facility] BLOOD BANK (ABNORMAL) GLUCOSE, GLUCOMETER (07/02/2016 19:45 EST) Glucose, 247 (H) 70 - 100 [facility] Fingerstick mg/dl LABORATORY SERVICES Concrete Float Maker ID [id number]: [facility] Test Performed by LABORATORY Nursing Services SERVICES Specimen Blood Performing Organization Address City/State/ZIP Code Phon e Number [facility] LABORATORY [address] [place] [address] ABDOMEN, PELVIS WO CONTRAST (07/02/2016 18:58 EST) Anatomical Region Laterality Modality Other Specimen Narrative [facility] RADIOLOGY [facility] - 07/03/2016 7:[address] ABDOMEN, PELVIS WO CONTRAST ??07/02/2016 6:58 PM Signs and Symptoms/Comments: ?? severe abd pain, renal injury, no contra st Technique: CT of the abdomen and pelvis was performed without the administration of intravenous contrast. Comparison: Outside CT dated May Findings: Lower chest: Visible portions of the sofiya gs are clear. Coronary atherosclerosis is present. There is a s mall left pleural effusion. Hepatobiliary: Liver shows no significan t normality. Numerous gallstones are noted within the gallblad sorin lumen with no associated wall thickening, pericholecystic fluid o r stranding. No intrahepatic ductal dilation. Spleen, pancreas, adrenal glands: . The pancreatic fluid near the body and tail though interspersed in oth er portions of the retroperitoneum and peritoneum. Kidneys, ureters, bladder: The kidneys s how symmetric size and morphology. A punctate calcification rig ht upper pole cortical reflects a nonobstructing calculus (axia l 101). There is no hydronephrosis. Nonspecific mild bilater al perinephric stranding is present. The urinary bladder is unremark able. Prostate, seminal vesicles: Unremarkable . Bowel: There is a large paraesophageal h ernia with the majority of the fluid-filled gastric body and antrum located within the chest cavity. The gastroesophageal junction ap pears in normal position. A transesophageal tube terminates near the gastric fundus. The small bowel show no significant abnormality. S cattered diverticula are seen throughout the colon with no adjace nt fat stranding. Incidental note is made of a normal appendix positi oned midline anteriorly within the abdominal cavity approximatel y 4 cm below the sternal xiphoid. There is no evidence of pneumat osis. Peritoneal cavity: No free intraperineal air or drainable fluid collection. Some fat stranding is seen s urrounding the herniated stomach as well as within the left upper quadrant. A small amount of free fluid is noted adjacent to the sple en and pancreas. Lymphovascular: Atherosclerotic calcific ations are seen throughout the aorta and major branches. No portal venous or mesenteric venous gas is identified. Abdominal wall: No significant abnormali ty. Musculoskeletal: Multilevel degenerative changes are again seen within the thoracolumbar spine and pelvi s. There is levoscoliosis of the lumbar spine. No acute bony abnormal ity is seen. Impression: 1. 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 The arias ant sump tube does not extend into this region; there is new fl uid or stranding in the left upper quadrant adjacent to the spleen an d pancreas. This is indeterminate in etiology, differential diagnosis including pancreatitis, or inflammatory changes of other etiology. 2. Cholelithiasis without evidence of ac [place] cholecystitis. 3. Diverticulosis without evidence of ac [place] diverticulitis. 4. Likely nonobstructing right renal hawa culus. I have personally reviewed the images an d the above interpretation and agree with the findings. Procedure Note Edward Longoria MD - 07/03/2016 CT ABDOMEN, PELVIS WO CONTRAST 6 6:58 PM Signs and Symptoms/Comments: severe abd pain, renal injury, no contra st Technique: CT of the abdomen and pelvis was performed without the administration of intravenous contrast. Comparison: Outside CT dated May Findings: Lower chest: Visible portions of the sofiya gs are clear. Coronary atherosclerosis is present. There is a s mall left pleural effusion. Hepatobiliary: Liver shows no significan t normality. Numerous gallstones are noted within the gallblad sorin lumen with no associated wall thickening, pericholecystic fluid o r stranding. No intrahepatic ductal dilation. Spleen, pancreas, adrenal glands: . The pancreatic fluid near the body and tail though interspersed in oth er portions of the retroperitoneum and peritoneum. Kidneys, ureters, bladder: The kidneys s how symmetric size and morphology. A punctate calcification rig ht upper pole cortical reflects a nonobstructing calculus (axia l 101). There is no hydronephrosis. Nonspecific mild bilater al perinephric stranding is present. The urinary bladder is unremark able. Prostate, seminal vesicles: Unremarkable . Bowel: There is a large paraesophageal h ernia with the majority of the fluid-filled gastric body and antrum located within the chest cavity. The gastroesophageal junction ap pears in normal position. A transesophageal tube terminates near the gastric fundus. The small bowel show no significant abnormality. S cattered diverticula are seen throughout the colon with no adjace nt fat stranding. Incidental note is made of a normal appendix positi oned midline anteriorly within the abdominal cavity approximatel y 4 cm below the sternal xiphoid. There is no evidence of pneumat osis. Peritoneal cavity: No free intraperineal air or drainable fluid collection. Some fat stranding is seen s urrounding the herniated stomach as well as within the left upper quadrant. A small amount of free fluid is noted adjacent to the sple en and pancreas. Lymphovascular: Atherosclerotic calcific ations are seen throughout the aorta and major branches. No portal venous or mesenteric venous gas is identified. Abdominal wall: No significant abnormali ty. Musculoskeletal: Multilevel degenerative changes are again seen within the thoracolumbar spine and pelvi s. There is levoscoliosis of the lumbar spine. No acute bony abnormal ity is seen. Impression: 1. 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 The arias ant sump tube does not extend into this region; there is new fl uid or stranding in the left upper quadrant adjacent to the spleen an d pancreas. This is indeterminate in etiology, differential diagnosis including pancreatitis, or inflammatory changes of other etiology. 2. Cholelithiasis without evidence of ac [place] cholecystitis. 3. Diverticulosis without evidence of ac [place] diverticulitis. 4. Likely nonobstructing right renal hawa culus. I have personally reviewed the images an d the above interpretation and agree with the findings. Performing Organization Address City/State/ZIP Code Phon e Number [facility] RADIOLOGY [facility] POCT US AORTA (07/02/2016 18:44 EST) Anatomical Region Laterality Modality Other Specimen Narrative [facility] RAD[facility]OLOGY [facility] - 07/03/2016 18:21 EST [facility] - Ultrasound Exam Date: 07/02/2016 Exam Type: POCT US AORTA Concrete Float Maker: Trisha Valverde MD Attending: N/A Worksheet: POCUS_Aorta Exam Information: ?? Exam type: Clinically indicated Indication(s) for Exam: ?? The exam was performed with the foll owing indications: Abdominal pain, Pulsatile abdominal mass Views Obtained ?? Physician Signature: Transverse dist al view Findings: ?? Exam of the above structures reveale d the following findings: Indeterminate Interpretation: ?? Other: Limited exam due to large sharath unt of abdominal air anteriorly, images concerning for large bowel distension. Confirmatory study: ?? What confirmatory study was done?: C T Physician Signature: ?? I review and approve of the document ation above.: Signed by Trisha Valverde MD on July 03 at 6:20:55 PM This exam was performed and interpreted by the Emergency Department Staff Procedure Note Trisha Valverde MD - 07/03/2016 [facility] - Ultrasoun d Exam Date: 07/02/2016 Exam Type: POCT US AORTA Concrete Float Maker: Trisha Valverde MD Attending: N/A Worksheet: POCUS_Aorta Exam Information: Exam type: Clinically indicated Indication(s) for Exam: The exam was performed with the followi ng indications: Abdominal pain, Pulsatile abdominal mass Views Obtained Physician Signature: Transverse distal view Findings: Exam of the above structures revealed t he following findings: Indeterminate Interpretation: Other: Limited exam due to large amount of abdominal air anteriorly, images concerning for large bowel distension. Confirmatory study: What confirmatory study was done?: CT Physician Signature: I review and approve of the documentati on above.: Signed by Trisha Valverde MD on July 03 at 6:20:55 PM This exam was performed and interpreted by the Emergency Department Staff Performing Organization Address City/State/ZIP Code Phon e Number [facility] RAD[facility]OLOG[facility] (ABNORMAL) LACTIC ACID (07/02/2016 17:49 EST) Pathologist Sig nature Lactic Acid 3.7 (HH) <2.0 mmol/L [facility] LABORATOR Y SERVICES Specimen Blood specimen (specimen) - Blood Performing Organization Address City/State/ZIP Code Phon e Number [facility] LABORATORY [address] [place] [address] SERVICES ACUTE ABDOMEN SERIES (07/02/2016 17:44 EST) Anatomical Region Laterality Modality Other Specimen Narrative [facility] - 07/02/2016 18:18 EST ACUTE ABDOMEN SERIES ??07/02/2016 5:44 PM Signs and Symptoms/Comments: ??vomiting, NG tube placed Comparison: 05/26/2016. Technique: PA view of the chest as well as AP upright and supine views of the abdomen. FINDINGS: Chest wall: Normal. Bones: Median sternotomy wires are intac t and well aligned. There are diffuse degenerative changes in the spine. No acute abnormality. Cardiac and mediastinal contours: Multip le surgical clips overlie the mediastinum. The heart is within nor mal limits in size. Lungs/pleura: There is volume loss the l eft hemithorax and left lower lung atelectasis secondary to the large paraesophageal hernia. Abdomen: A transesophageal gastric sump tube terminates below the gastroesophageal junction with the tip i n the region of the gastric fundus. The bowel gas pattern is normal. There is no evidence of intraperitoneal free air. Vascular calci fications are present in the abdomen and pelvis. IMPRESSION: 1. Appropriately positioned transesophag eal tube. 2. Large paraesophageal hernia. I have personally reviewed the images an d the above interpretation and agree with the findings. Procedure Note Thiago Hinton MD - 07/02/2016 ACUTE ABDOMEN SERIES 07/02/2016 5:44 PM Signs and Symptoms/Comments: vomiting, N G tube placed Comparison: 05/26/2016. Technique: PA view of the chest as well as AP upright and supine views of the abdomen. FINDINGS: Chest wall: Normal. Bones: Median sternotomy wires are intac t and well aligned. There are diffuse degenerative changes in the spine. No acute abnormality. Cardiac and mediastinal contours: Multip le surgical clips overlie the mediastinum. The heart is within nor mal limits in size. Lungs/pleura: There is volume loss the l eft hemithorax and left lower lung atelectasis secondary to the large paraesophageal hernia. Abdomen: A transesophageal gastric sump tube terminates below the gastroesophageal junction with the tip i n the region of the gastric fundus. The bowel gas pattern is normal. There is no evidence of intraperitoneal free air. Vascular calci fications are present in the abdomen and pelvis. IMPRESSION: 1. Appropriately positioned transesophag eal tube. 2. Large paraesophageal hernia. I have personally reviewed the images an d the above interpretation and agree with the findings. Performing Organization Address City/State/ZIP Code Phon e Number [facility] RAD[facility]OLOGY [facility] (ABNORMAL) LACTIC ACID (07/02/2016 15:28 EST) Pathologist Sig nature Lactic Acid 5.4 (HH) <2.0 mmol/L [facility] LABORATOR Y SERVICES Specimen Blood specimen (specimen) - Blood Performing Organization Address City/State/ZIP Code Phon e Number [facility] LABORATORY [address] [place] [address] SERVICES (ABNORMAL) HEMAGRAM AND DIFFERENTIAL (07/02/2016 15:28 EST) Pathologist Sig nature WBC 6.08 4.0 - 10.4 [facility] K/[facility] LABORATORY SERVICES RBC 4.67 4.36 - 5.78 [facility] LABORATORY SERVICES Hemoglobin 14.1 13.8 - 17.3 [facility] gm/dl LABORATORY SERVICES HCT 42.1 39.5 - 50.2 % [facility] LABORATORY SERVICES MCV 90 81 - 95 fl [facility] LABORATORY SERVICES MCH 30.2 27.6 - 33.0 pg [facility] LABORATORY SERVICES MCHC 33.5 32.8 - 36.4 [facility] gm/dl LABORATORY SERVICES RDW-CV 13.2 11.8 - 14.1 % [facility] LABORATORY SERVICES RDW-SD 43.5 36.5 - 45.9 fl [facility] LABORATORY SERVICES PLT 198 141 - 377 K/[facility] LABORATORY SERVICES MPV 11.0 9.5 - 12.7 fl [facility] LABORATORY SERVICES Neutrophils 87.0 % [facility] LABORATORY SERVICES Lymphocytes 6.4 % [facility] LABORATORY SERVICES Monocytes 5.9 % [facility] LABORATORY SERVICES Eosinophils 0.0 % [facility] LABORATORY SERVICES Basophils 0.2 % [facility] LABORATORY SERVICES Immature Grans 0.5 % [facility] LABORATORY SERVICES ABS Neutrophils 5.29 2.20 - 8.85 [facility] K[facility] [facility] ABS Lymphs 0.39 (L) 1.09 - 3.30 [facility] K/cm LABORATORY SERVICES ABS Monocytes 0.36 0.1 - 0.8 K/cmm [facility] LABORATORY SERVICES ABS Eosinophils 0.00 (L) 0.03 - 0.61 [facility] K/cm LABORATORY SERVICES ABS Basophils 0.01 0.01 - 0.11 [facility] K/[facility] LABORATORY SERVICES ABS Immature Grans 0.03 0 - 0.06 /[facility] LABORATORY SERVICES Type of Diff: Automated [facility] LABORATORY SERVICES Specimen Blood specimen (specimen) - Blood Performing Organization Address City/[facility]/ZIP Code Phon e Number [facility] LABORATORY [address] [place] [address] SERVICES (ABNORMAL) LIPASE (07/02/2016 15:28 EST) Pathologist Sig nature Lipase 5,467 (H) <251 U/L [facility] LABORATOR Y SERVICES Specimen Blood specimen (specimen) - Blood Performing Organization Address [facility]/ZIP [facility] Phon e Number [facility] LABORATORY [address] [place] [address] SERVICES (ABNORMAL) COMPREHENSIVE METABOLIC PANEL (CMP) (07/02/2016 15:28 EST) Potassium 5.3 (H) 3.5 - 5.0 [facility] mEq/L [facility] Sodium 142 136 - 145 [facility] mEq/L [facility] Chloride 92 (L) 96 - 110 [facility] mEq/L [facility] CO2 30Comment: Note new 22 - 32 [facility] reference range mEq/L [facility] 04/20/16 SERVICES Total Alkaline 111 38 - 126 U/L [facility] Phosphatase [facility] Bilirubin, Total 0.8 <1.4 mg/dl [facility] LABORATORY SERVICES AST 21 15 - 46 U/L [facility] LABORATORY SERVICES ALT 17 (L) 21 - 72 U/L [facility] LABORATORY SERVICES Albumin 4.5 3.4 - 4.9 [facility] g/dl [facility] Total Protein 8.1 6.3 - 8.2 [facility] g/dl [facility] Creatinine 2.48 (H) 0.66 - 1.25 [facility] mg/dl [facility] GFR, Calculated 24 (L) >60 [facility] Comment: ml/min/1.73m [facility] eGFR calculated using CKD-EPI equation for 2 SERVICES non Americans. Multiply eGFR by 1.16 for Americans. BUN 39 (H) 10 - 26 [facility] mg/dl [facility] Calcium 10.5 8.5 - 10.5 [facility] mg/dl [facility] SERVICES Calculated Calcium 10.1 8.5 - 10.5 [facility] Comment: mg/dl [facility] Note new formula for calculation SERVICES in use 04/07/2016 Glucose, Serum 401 (H) 70 - 100 [facility] mg/dl [facility] SERVICES Fasting? Unknown [facility] LABORATORY SERVICES Specimen Blood specimen (specimen) - Blood Performing Organization Address City/State/ZIP Code Phon e Number [facility] LABORATORY [address] [place] [address] SERVICES documented in this encounter Visit Diagnoses Diagnosis Intestinal obstruction, unspecified type - Primary Dehydration Acute kidney injury (HCC-CMS) (HCC) Acute kidney failure, unspecified Paraesophageal hernia Diaphragmatic hernia without mention of obstruction or gangrene Intestinal obstruction (HCC-CMS) (HCC) Unspecified intestinal obstruction documented in this encounter Administered Medications Inactive Administered Medications - up to 3 most recent administrations Medication Order MAR Action Action Date Dose Rate Site aspirin chewable tablet 81 mg Given 07/10/2016 9:37 EST 81 mg 81 mg, oral, DAILY, First dose on 07/10/16 at 0900, Until Discontinued, Routine atorvastatin (LIPITOR) tablet 40 mg Given 07/10/2016 9:37 EST 40 mg 40 mg, oral, DAILY, First dose on 07/10/16 at 0900, Until Discontinued, Routine ceFAZolin (ANCEF) 2,000 mg in sodium chloride Given 7:42 EST 2,000 mg 0.9% 50 mL IVPB 2,000 mg, intravenous, Administer over 30 Minutes, EVERY 8 HOURS, 2 doses, First dose (after last modification) on Tue07/07/16 at 0130, Last dose on Tue07/07/16 at 0800, STAT Given 07/07/2016 1:29 EST 2,000 mg clindamycin (CLEOCIN) IVPB 900 mg Given 07/06/2016 14:09 EST 900 mg 900 mg, intravenous, Administer over 30 Minutes, PRE-OP ONCE, 1 dose, On Tue07/06/16 at 0700, Routine dextrose 10 % (D10W) infusion New Bag 07/05/2016 7:31 EST 50 mL/hr at 50 mL/hr, intravenous, CONTINUOUS, Starting on 07/04/16 at 2045, Until 07/05/16 at 1026, Routine Restarted 07/04/2016 21:00 EST 50 mL/hr New Bag 07/04/2016 20:33 EST 50 mL/hr dextrose 5 % and 0.45 % NaCl with Rate Documented 07/07/2016 0:39 EST 75 mL/hr KCl 20 mEq/L infusion at 75 mL/hr, intravenous, CONTINUOUS, Starting on Tue07/05/16 at 1045, Until 07/07/16 at 0912, Routine New Bag 07/06/2016 22:16 EST 75 mL/hr Rate Documented 07/06/2016 0:16 EST 75 mL/hr dextrose 5 % and 0.9 % NaCl with KCl 20 New Bag 07/04/2016 13:[address] 100 mL/hr mEq/L infusion at 100 mL/hr, intravenous, CONTINUOUS, Starting on 07/03/16 at 0915, Until 07/04/16 at 2017, Routine Rate Change 07/04/2016 8:25 EST 100 mL/hr New Bag 07/03/2016 22:21 EST 150 mL/hr dextrose 50 % solution 12.5 g Given 07/04/2016 19:15 EST 12.5 g 12.5 g (25 mL), intravenous, PRN, Starting on Tue07/02/16 at 1927, Until 07/10/16 at 0710, Low Blood Sugar, Routine Given 07/04/2016 16:45 EST 12.5 g Given 07/04/2016 12:32 EST 12.5 g dextrose 50 % solution 12.5 g 12.5 g (25 mL), intravenous, PRN, Starti ng on Tue07/09/16 at 2200, Until 07/10/16 at 1819, Low Blood Sugar, Routine DIAZepam (VALIUM) solution 2 mg Given 07/09/2016 21:46 EST 2 mg 2 mg, oral, EVERY 8 HOURS PRN, Starting on Tue07/09/16 at 0804, Until 07/10/16 at 0514, Anxiety, Routine DIAZepam (VALIUM) solution 5 mg 5 mg, oral, EVERY 8 HOURS PRN, Starting on 07/10/16 at 0514, Until 07/10/16 at 1819, Anxiety, Routine DIAZepam (VALIUM) syringe 2.5 mg Given 07/08/2016 20:36 EST 2.5 mg 2.5 mg, intravenous, EVERY 6 HOURS PRN, Starting on Helen 07/08/16 at 1045, Until Tue07/09/16 at 0808, Pain, muscle spasm, Routine diphenhydrAMINE (BENADRYL) injection 25 mg Given 07/02/2016 22:01 EST 25 mg 25 mg, intravenous, NOW X1, 1 dose, On 07/02/16 at 2115, Routine diphenhydrAMINE (BENADRYL) injection 25 mg Given 07/05/2016 21:38 EST 25 mg 25 mg, intravenous, ONCE PRN, 1 dose, Starting on 07/05/16 at 2119, Until 07/05/16 at 2138, other, Routine electrolyte-A (PLASMALYTE-A) New Bag 07/03/2016 2:44 EST 150 mL/hr 150 mL/hr solution at 150 mL/hr, 150 mL/hr, intravenous, CONTINUOUS, Starting on Tue07/02/16 at 1945, Until 07/03/16 at 0849, Routine, On Unit New Bag 07/02/2016 19:57 EST 150 mL/hr 150 mL/hr electrolyte-A (PLASMALYTE-A) solution New Bag 07/09/2016 5:38 EST 75 mL/hr at 75 mL/hr, intravenous, CONTINUOUS, Starting on Tue07/07/16 at 0930, Until Tue07/09/16 at 0757, Routine Rate Documented 07/08/2016 20:30 EST 75 mL/hr New Bag 07/08/2016 15:24 EST 75 mL/hr glucagon (human recombinant) injection 1 mg 1 mg, intramuscular, PRN, Starting on Fr i 07/09/16 at 2200, Until 07/10/16 at 1819, Low blood sugar, Routine heparin injection 5,000 Units Given 07/10/2016 9:36 EST 5,000 Units 5,000 Units, subcutaneous, EVERY 12 HOURS, First dose on 07/03/16 at 0900, Until Discontinued, Routine Given 07/09/2016 20:58 EST 5,000 Units Given 07/09/2016 8:45 EST 5,000 Units HYDROmorphone (DILAUDID) 1 mg/mL injecti on 1 dose, Starting on Tue07/02/16 at 1629, Until Tue at 1641 HYDROmorphone (DILAUDID) injection 0.2 m g Given 07/08/2016 3:35 EST 0.2 mg 0.2 mg, intravenous, EVERY 4 HOURS PRN, Starting on Tue07/02/16 at 1927, Until Tue07/09/16 at 0803, Pain, Routine Given 07/07/2016 21:07 EST 0.2 mg Given 07/07/2016 14:45 EST 0.2 mg HYDROmorphone (DILAUDID) injection 0.5 m g Given 07/02/2016 15:45 EST 0.5 mg 0.5 mg, intravenous, NOW X1, 1 dose, On Tue07/02/16 at 1530, STAT HYDROmorphone (DILAUDID) injection 0.5 m g Given 07/02/2016 16:41 EST 0.5 mg 0.5 mg, intravenous, NOW X1, 1 dose, On Tue07/02/16 at 1645, STAT insulin aspart (NOVOLOG FLEXPEN) injecti on Given 07/09/2016 18:41 EST 1 Units subcutaneous, EVERY 6 HOURS, First dose on Tue07/02/16 at 1945, Until Discontinued, Routine Given 07/09/2016 12:30 EST 1 Units Given 07/09/2016 0:11 EST 1 Units insulin aspart (NOVOLOG FLEXPEN) injecti on Given 07/10/2016 13:25 EST 1 Units subcutaneous, 3 TIMES DAILY WITH MEALS, First dose on Tue07/10/16 at 0800, Until Discontinued, Routine isosorbide dinitrate (ISORDIL) tablet 30 mg Given 07/10/2016 13:25 EST 30 mg 30 mg, oral, 4 TIMES DAILY, First dose on Tue07/09/16 at 1200, Until Discontinued, Routine Given 07/10/2016 9:37 EST 30 mg Given 07/09/2016 20:59 EST 30 mg ketOROLAC (TORADOL) injection 15 mg Given 07/08/2016 17:41 EST 15 mg 15 mg, intravenous, NOW X1, 1 dose, On Helen 07/08/16 at 1730, Routine lactated ringers (LR) infusion New Bag 07/06/2016 13:39 EST 25 mL/hr at 25 mL/hr, intravenous, CONTINUOUS, Starting on Tue07/06/16 at 1300, Until Tue07/07/16 at 0910, Routine lactated ringers BOLUS 1,000 mL New Bag 07/02/2016 15:45 EST 1,000 mL 1,000 mL, intravenous, NOW X1, 1 dose, On Tue07/02/16 at 1530, STAT lactated ringers BOLUS 1,000 mL New Bag 07/02/2016 16:27 EST 1,000 mL 1,000 mL, intravenous, NOW X1, 1 dose, On Tue07/02/16 at 1630, STAT lansoprazole (PREVACID SOLUTAB) disintegrating Given 07/10/2016 9:37 EST 15 mg tablet 15 mg 15 mg, oral, DAILY, First dose on Tue07/09/16 at 0900, Until Discontinued, Routine Given 07/09/2016 8:45 EST 15 mg metoprolol (LOPRESSOR) 5 mg in sodium chloride Given 07/10/2016 2:06 EST 5 mg (NS) 0.9 % 50 mL IVPB 5 mg, intravenous, Administer over 20 Minutes, EVERY 6 HOURS, First dose on Tue07/02/16 at 2000, Until Discontinued, Routine Given 07/09/2016 20:58 EST 5 mg Given 07/08/2016 15:25 EST 5 mg metoprolol (LOPRESSOR) tablet 25 mg Given 07/10/2016 9:37 EST 25 mg 25 mg, oral, 2 TIMES DAILY, First dose on 07/10/16 at 0900, Until Discontinued, Routine ondansetron (PF) (ZOFRAN) injection 4 mg Given 07/02/2016 15:45 EST 4 mg 4 mg, intravenous, NOW X1, 1 dose, On Tue07/02/16 at 1530, STAT ondansetron (ZOFRAN-ODT) disintegrating tablet 4 mg 4 mg, oral, EVERY 4 HOURS PRN, Starting on Tue07/09/16 at 0805, Until 07/10/16 at 1819, Nausea, Routine oxyCODONE (ROXICODONE) solution 5 mg 5 mg, oral, EVERY 4 HOURS PRN, Starting on Tue07/09/16 at 0803, Until 07/10/16 at 1819, Pain, Routine pantoprazole (PROTONIX) injection 40 mg Given 07/08/2016 10:35 EST 40 mg 40 mg, intravenous, DAILY, First dose on Tue07/02/16 at 1945, Until Discontinued, Routine Given 07/07/2016 9:00 EST 40 mg Given 07/06/2016 8:33 EST 40 mg phenol (PHENASEPTIC,CHLORASEPTIC) 1.4 % Given 07/02/2016 19:[address] solution/spray topical, PRN, Starting on Tue07/02/16 at 1817, Until 07/10/16 at 1819, Pain Given 07/02/2016 18:49 EST sodium chloride 0.9 % BOLUS 1,000 mL New Bag 07/02/2016 18:27 EST 1,000 mL 1,000 mL, intravenous, NOW X1, 1 dose, On Tue07/02/16 at 1730, STAT sodium chloride 0.9 % with KCl 20 mEq/L Restarted 07/04/2016 21: 00 EST 50 mL/hr infusion at 50 mL/hr, intravenous, CONTINUOUS, Starting on 07/04/16 at 2045, Until 07/05/16 at 1026, Routine New Bag 07/04/2016 20:33 EST 50 mL/hr thiamine (VITAMIN B-1) 100 mg in sodium chloride Given 07/07/2016 9:00 EST 100 mg (NS) 0.9 % 50 mL IVPB 100 mg, intravenous, Administer over 15 Minutes, DAILY, First dose on Tue07/04/16 at 0900, Until Discontinued, Routine Given 07/06/2016 8:33 EST 100 mg Given 07/05/2016 8:47 EST 100 mg documented in this encounter Discontinued Medications Medication Sig Discontinue Reason Start Date End Date vitamin E 400 unit capsule Take 400 Units by 07/09/2016 mouth daily. lansoprazole (PREVACID Take 1 Tab by 07/09/201601/2017 SOLUTAB) 15 mg mouth daily for 14 disintegrating tablet days. ondansetron (ZOFRAN-ODT) 4 Take 1 Tab by 07/09/2016 07/10/2016 mg disintegrating tablet mouth every 4 hours as needed for Nausea. losartan (COZAAR) 25 mg Take 25 mg by 01/2017 tablet mouth daily. metoprolol (LOPRESSOR) 25 Take 25 mg by 0 07/10/2016 mg tablet mouth 2 times daily. documented as of this encounter Active and Recently Administered Medications Times are shown in EST. Scheduled Medication Order 07/08/2016 07/09/2016 07/10/2016 aspirin chewable tablet 81 mg 09 37 (Given - Provider: Catina Fonseca RN) 81 mg, oral, DAILY, First dose on 07/10/16 at 0900, Until Discontinued, Routine atorvastatin (LIPITOR) tablet 40 mg 0937 (Given - Provider: Catina Fonseca, CAROL) 40 mg, oral, DAILY, First dose on 07/10/16 at 0900, Until Discontinued, Routine heparin injection 5,000 Units 1035 (Given - Provider: Philomena Cai)2036 (Given - Provider: Radha Avendano RN) 0845 (Given - Provider: Catina Fonseca RN)205 (Given - Provider: Jennifer Velarde RN) 0936 (Given - Provider: Catina Fonseca RN) 5,000 Units, subcutaneous, EVERY 12 HOUR S, First dose on 07/03/16 at 0900, Until Discontinued, Routine insulin aspart (NOVOLOG FLEXPEN) injection 0020 (Given - Provider: Radha Avendano RN)0700 (Not Given - Provider: Radha Avendano RN - Reason: Order parameters not met - Comment: [phone] (Not Given - Provider: America Willard RN - Reason: Order parameters not met) 0011 (Given - Provider: Radha Avendano RN - Comment: [phone] (Not Given - Provider: Radha Avendano RN - Reason: Order parameters not met - Comment: [phone] (Given - Provider: Catina oneill RN) subcutaneous, EVERY 6 HOURS, First dose on Tue07/02/16 at 1945, Until Discontinued 185 (Not Given - Provider: America goetz RN - Reason: Order parameters not met) 1841 (Given - Provider: Catina Fonseca RN) insulin aspart (NOVOLOG FLEXPEN) injection 0815 (Not Given - Provider: Catina Fonseca RN - Reason: Order parameters not met)1325 (Given - Provider: Catina Fonseca RN) subcutaneous, 3 TIMES DAILY WITH MEALS, First dose on 07/10/16 at 0800, Until Discontinued isosorbide dinitrate (ISORDIL) tablet 30 mg 1243 (Given - Provider: Catina Fonseca RN)1842 (Given - Provider: Catina Fonseca RN)205 (Given - Provider: Jennifer Velarde RN) 0937 (Given - Provider: Catina Fonseca RN)1325 (Given - Provider: Catina Fonseca RN) 30 mg, oral, 4 TIMES DAILY, First dose o n Tue07/09/16 at 1200, Until Discontinued, Routine ketOROLAC (TORADOL) injection 15 mg (COMPLETED) 174 ( Given - Provider: America Willard RN) 15 mg, intravenous, NOW X1, 1 dose, Helen 07/08/16 at 1730, Routine lansoprazole (PREVACID SOLUTAB) disintegrating tablet 15 mg 0845 (Given - Provider: Catina Fonseca RN) 0937 (Given - Provider: Catina Fonseca RN) 15 mg, oral, DAILY, First dose on 12/18 at 0900, Until Discontinued, Routine metoprolol (LOPRESSOR) 5 mg in sodium chloride (NS) 0. 9 % 50 mL IVPB 0233 (Given - Provider: Radha Avendano RN)1034 (Given - Provider: Philomena Cai)1525 (Given - Provider: America Willard RN)203 (Hold - Provider: Radha Avendano RN - Reason: Order parameters not met - Comment: HR 52-62) 0207 (Not Given - Provider: Radha Avendano RN - Reason: Order parameters not met - Comment: HR persists in the 50s56 now)0845 (Not Given - Provider: Catina Fonseca RN - Reason: Order parameters not met) 0206 (Given - Provider: Ekta Lubin) 5 mg, intravenous, Administer over 20 Mi nutes, EVERY 6 HOURS, First dose on Tue07/02/16 at 2000, Until Discontinued, Routine 1522 (No t Given - Provider: Catina Fonseca RN - Reason: Order parameters not met)205 (Given - Provider: Jennifer Velarde RN) metoprolol (LOPRESSOR) tablet 25 mg 0937 (Given - Provider: Catina Fonseca RN) 25 mg, oral, 2 TIMES DAILY, First dose o n 07/10/16 at 0900, Until Discontinued, Routine pantoprazole (PROTONIX) injection 40 mg (CANCELED) 103 5 (Given - Provider: Philomena Cai) 40 mg, intravenous, DAILY, First dose on Tue07/02/16 at 1945, Until Discontinued, Routine Continuous Medication Order 07/08/2016 07/09/2016 07/10/2016 electrolyte-A (PLASMALYTE-A) solution (CANCELED) 0025 (New Bag - Provider: Radha Avendano RN)0654 (Rate Documented - Provider: Radha Avendano, CAROL)0720 (Rate Documented - Provider: America Willard, CAROL)1524 (New Bag - Provider: America Willard RN) 0538 (New Bag - Provider: Radha Avendano, CAROL) at 75 mL/hr, intravenous, CONTINUOUS, St arting 07/07/16 at 0930, Until Tue07/09/16 at 0757, Routine 2030 (Rate Documented - Provider: Radha Avendano RN) PRN Medication Order 07/08/2016 07/09/2016 07/10/2016 dextrose 50 % solution 12.5 g 12.5 g (25 mL), intravenous, PRN, Starti ng Fri 07/02/16 at 1927, Until 07/10/16 at 0710, Low Blood Sugar, Routine dextrose 50 % solution 12.5 g 12.5 g (25 mL), intravenous, PRN, Starti ng Tue07/09/16 at 2200, Until 07/10/16 at 1819, Low Blood Sugar, Routine DIAZepam (VALIUM) solution 2 mg 2145 (Given - Pr ovider: Jennifer Velarde RN) 2 mg, oral, EVERY 8 HOURS PRN, Starting 07/09/16 at 0804, Until 07/10/16 at 0514, Anxiety, Routine DIAZepam (VALIUM) solution 5 mg 5 mg, oral, EVERY 8 HOURS PRN, Starting 07/10/16 at 0514, Until 07/10/16 at 1819, Anxiety, Routine DIAZepam (VALIUM) syringe 2.5 mg (CANCELED) 2035 (Give n - Provider: Radha Avendano RN) 2.5 mg, intravenous, EVERY 6 HOURS PRN, Starting Helen 07/08/16 at 1045, Until 07/09/16 at 0808, Pain, muscle spasm, Routine glucagon (human recombinant) injection 1 mg 1 mg, intramuscular, PRN, Starting Fri at 1927, Until 07/10/16 at 0710, Low blood sugar, Routine glucagon (human recombinant) injection 1 mg 1 mg, intramuscular, PRN, Starting Tue at 2200, Until 07/10/16 at 1819, Low blood sugar, Routine HYDROmorphone (DILAUDID) injection 0.2 mg (CANCELED) 0 335 (Given - Provider: Radha Avendano RN) 0.2 mg, intravenous, EVERY 4 HOURS PRN, Starting 07/02/16 at 1927, Until 07/09/16 at 0803, Pain, Routine ondansetron (ZOFRAN-ODT) disintegrating tablet 4 mg 4 mg, oral, EVERY 4 HOURS PRN, Starting 07/09/16 at 0805, Until 07/10/16 at 1819, Nausea, Routine oxyCODONE (ROXICODONE) solution 5 mg 5 mg, oral, EVERY 4 HOURS PRN, Starting Tue07/09/16 at 0803, Until 07/10/16 at 1819, Pain, Routine phenol (PHENASEPTIC,CHLORASEPTIC) 1.4 % solution/spray topical, PRN, Starting 07/02/16 at 1817, Until 07/10/16 at 1819, Pain documented in this encounter Orders Medications Ordered That Might Not Have Count Last Ord ered Date First Ordered Date Been Administered DIAZepam (VALIUM) solution 5 mg 1 07/10/2016 dextrose 50 % solution 12.5 g 1 07/09/2016 glucagon (human recombinant) injection 1 2 017 07/02/2016 mg ondansetron (ZOFRAN-ODT) disintegrating 1 07/09/19 17 tablet 4 mg oxyCODONE (ROXICODONE) solution 5 mg 1 07/09/2016 DIAZepam (VALIUM) syringe 2.5 mg 1 07/08/2016 ceFAZolin (ANCEF) 1,555 mg in sodium 1 07/07/2016 chloride (NS) 0.9 % 50 mL IVPB ceFAZolin (ANCEF) 2,000 mg in sodium 1 07/07/2016 chloride 0.9% 50 mL IVPB acetaminophen (TYLENOL) tablet 1,000 mg 1 07/06/19 17 atropine 0.1 mg/mL syringe 0.5 mg 1 07/06/2016 diphenhydrAMINE (BENADRYL) injection 6.25 1 2016 mg fentaNYL citrate (PF) 50 mcg/mL injection 1 2016 25-100 mcg HYDROmorphone (DILAUDID) injection 0.2-1 1 017 mg ibuprofen (MOTRIN) tablet 600 mg 1 07/06/2016 lactated ringers (LR) infusion 1 07/06/2016 naloxone (NARCAN) injection 0.2 mg 1 07/06/2016 ondansetron (PF) (ZOFRAN) injection 2 mg 1 017 oxyCODONE (ROXICODONE) immediate release 1 017 tablet 5 mg diphenhydrAMINE (BENADRYL) 25 mg in sodium 1 07/05 chloride (NS) 0.9 % 50 mL IVPB diphenhydrAMINE (BENADRYL) capsule 25 mg 1 017 ramelteon (ROZEREM) tablet 8 mg 1 07/05/2016 ondansetron (PF) (ZOFRAN) injection 2-4 mg 1 07/02 Imaging Orders Without Results Count Last Ordered Date First Ordered Date STRESS TEST - SCANNED 1 07/15/2016 Procedures Count Last Ordered Date First Ordered Date ECG REPORT - SCANNED 4 07/15/2016 07/09/2016 IMPLANT RECORD - SCANNED 2 07/15/2016 Diet Count Last Ordered Date First Ordered Date DISCHARGE DIET 2 07/10/2016 Nursing Count Last Ordered Date First Ordered Date ACTIVITY INSTRUCTIONS 1 07/10/2016 BATHING INSTRUCTIONS 1 07/10/2016 DRIVING INSTRUCTIONS 1 07/10/2016 WOUND CARE INSTRUCTIONS 1 07/10/2016 FROST CATHETER - DISCONTINUE 1 07/07/2016 REMOVE ARTERIAL LINE 1 07/06/2016 NOTIFY WOODWORK TEACHER 1 07/03/2016 INSERT PERIPHERAL IV 1 07/02/2016 NASOGASTRIC TUBE MAINTENANCE 1 07/02/2016 IV Count Last Ordered Date First Ordered Date IV REQUEST 2 07/04/2016 07/03/2016 Admission Count Last Ordered Date First Ordered Date ED BED REQUEST 1 07/02/2016 STATUS: INPATIENT DOSA/DOPA DAY OF 1 07/02/2016 SURGERY/PROCEDURE ADMISSION Transfer Count Last Ordered Date First Ordered Date NOTIFY PPS OF DISCHARGE COMPLETE 1 07/10/2016 NOTIFY PPS PATIENT TRANSFERRED OUT OF PACU 1 07/07 PPS NOTIFICATION OF PATIENT ARRIVAL ON 4 7 07/02/2016 UNIT NOTIFY PPS PATIENT ARRIVAL IN PACU 1 07/06/2016 UR PATIENT STATUS CHANGE 1 07/03/2016 Discharge Count Last Ordered Date First Ordered Date DISCHARGE PATIENT 1 07/10/2016 documented in this encounter Care Teams Swaging Machine Operator Relationship Specialty Start Date End Date Pricilla Jennings, SKIDDER LOADER PCP - General 06/08/[address] [place] [phone] documented as of this encounter
--- OUTSIDE RECORDS SUMMARY | 2022-03-19 01:24 | XMS_ITS | Encounter Summary ---
:1940 Author Organization [facility] Address [address] [place] [id number] Care Team Providers Name Role Phone Pricilla Kline GLUE MILL OPERATOR Primary Care Provider Reason for Visit Reason Onset Date Comments Appointment Related 06/15/2016 MOVED UP APPOINTMENT TO 06/21/16 @ 11:00 Encounter Details Date Type Department Care Team Description 06/15/2016 Telephone [facility] Pedro Luis Acuna ntment Related General Surgery - Nika Foy (MOVED UP APPOINTMENT [address] TO 06/21/16 @ 11:00) [address] [place] [address] [id number], [place] [phone] (Wo rk) Social History Tobacco Use Types Packs/Day Years Used Date Never Assessed Sex Assigned at Date Recorded Not on file documented as of this encounter Miscellaneous Notes Telephone Encounter - Elmira Chavez - 06/15/2016 1611 EST Called patient and moved up (per Dr. Schaffer request) appointment to this Tuesday at 11:00. Pt agreed. documented in this encounter Plan of Treatment Not on filedocumented as of this encounter Visit Diagnoses Not on filedocumented in this encounter Care Teams Corporate Lawyer Relationship Specialty Start Date End Date Pricilla Kline NP PCP - General 06/08/[address] [place] [phone] documented as of this encounter
--- OUTSIDE RECORDS SUMMARY | 2022-03-19 01:24 | XMS_ITS | Encounter Summary ---
:1940 Author Organization [facility] Address [address] [place] [id number] Care Team Providers Name Role Phone Pricilla Kline NP Primary Care Provider Reason for Referral Cardiology (Routine/Next Available) - Specialty Report Received Specialty Diagnoses / Procedures Referred By Contact Refer red To Contact Diagnoses Unspecified cardiovascular disease Diaphragmatic hernia without mention of obstruction or gangrene Pedro Luis Acuna Procedures EXERCISE TOLERANCE TEST MD Law [address] [place] [phone] Referral ID Status Reason Start Date Expiration Date Visits V isits Requested Authorized [id number] Specialty 06/21/2016 1 1 Report Received Encounter Details Date Type Department Care Team Description 06/21/2016 Orders Only [facility] Pedro Luis Acuna Unspe cified cardiovascular disease (Primary Dx); General Surgery - Nika Foy Diaphragmatic hernia without mention of obstruction or gangrene [address] [phone] [phone] (Wo rk) Social History Tobacco Use Types Packs/Day Years Used Date Never Smoker Alcohol Use Standard Drinks/Week Comments No 0 (1 standard drink = 0.6 oz pure alcoho l) Sex Assigned at Date Recorded Not on file documented as of this encounter Functional Status Functional Status Response Date of Assessment Because of a physical, mental, or emotional condition, No 06/21/2016 does this person have difficulty doing errands alone such as visiting a doctor's office or shopping? Cognitive Status Response Date of Assessment Because of a physical, mental, or emotional condition, No 06/21/2016 does this person have serious difficulty concentrating, remembering, or making decisions? documented as of this encounter Plan of Treatment Not on filedocumented as of this encounter Visit Diagnoses Diagnosis Unspecified cardiovascular disease - Lynnette henrique Diaphragmatic hernia without mention of obstruction or gangrene documented in this encounter Orders Cardiac Services Count Last Ordered Date First Ordered Date EXERCISE TOLERANCE TEST 1 06/21/2016 documented in this encounter Care Teams Field Technical Specialist Relationship Specialty Start Date End Date Pricilla Kline LAUNDRY HELPER PCP - General 06/08/[address] [place] [phone] documented as of this encounter
--- OUTSIDE RECORDS SUMMARY | 2022-03-19 01:24 | XMS_ITS | Encounter Summary ---
:1940 Author Organization [facility] Address [address] [place] [address] Care Team Providers Name Role Phone Pricilla Kline REGULATORY SUBMISSIONS ASSOCIATE Primary Care Provider Reason for Visit Reason Onset Date Comments Appointment Related 06/10/2016 Pt's called; sa id pt should have a sooner appointment; said cordell gomez MD spoke w/Dr. Acuna Encounter Details Date Type Department Care Team Description 06/10/2016 Telephone [facility] Pedro Luis Acuna ntment Related General Surgery - Nika Foy (Pt's called; [place] [address] said pt should have a [address] [facility] sooner appointment; [place] [address] Michelliliaure, Level 5 said referring MD [phone] [place], [place] spoke w/Dr. Sinan mercer) [phone] (Wo rk) Social History Tobacco Use Types Packs/Day Years Used Date Never Assessed Sex Assigned at Date Recorded Not on file documented as of this encounter Plan of Treatment Not on filedocumented as of this encounter Visit Diagnoses Not on filedocumented in this encounter Care Teams Histologist Relationship Specialty Start Date End Date Pricilla Kline, REGULATORY SUBMISSIONS ASSOCIATE PCP - General 06/08/16 [address] [place] [phone] documented as of this encounter
--- OUTSIDE RECORDS SUMMARY | 2022-03-19 01:24 | XMS_ITS | Encounter Summary ---
:1940 Author Organization [facility] Address [address] [place] [address] Care Team Providers Name Role Phone Pricilla Kline NP Primary Care Provider Encounter Details Date Type Department Care Team Description 07/05/2016 Results Only Imaging [facility]- Sonia Saucedo MD PRISM [id number] [phone] (Wo rk) Social History Tobacco Use Types [...] Name Priority Date/Time Associated Diagnosis Comme nts NM CARDIAC SPECT 07/05/2016 11:30 Results for this STUDY EST procedure are i n the results section. documented in this encounter Results NM CARDIAC SPECT STUDY (07/05/2016 11:30 EST) Specimen Narrative [facility] STEPHANIE S - 07/07/2016 9:58 EST *[facility] Cardiology [facility]* [address] [place] [address] *Interpreting Groups:* *[facility]* Myocardial Perfusion Imaging - SPECT Regadenoson Date of study: ??07/05/2016 *PATIENT PRESENTATION* Height: ? 167.6cm ((66in) ) Blood Pressure: Weight: ? 62.3kg ((137lb) ) BSA: ?1.7m^2 Ordering physician: Sonia Saucedo Impressions: - Abnormal study after pharmacologic str ess. - Incidental SPECT findings: large gastr ic hernia Summary: 1. Myocardial perfusion imaging: There i s a small sized, mildly intense, ?? fully reversible defect involving th e inferior wall(s). This suggests ?? small ischemia in the distribution o f the right coronary artery. ?? There is a small sized, moderately i ntense, fully reversible defect ?? involving the anterolateral wall(s). This suggests small ischemia in ?? the distribution of the left anterio r descending coronary artery. 2. The calculated left ventricular eject ion fraction after stress: 52%. ?? LV global systolic function is low n ormal. 3. Stress ECG conclusions: The stress EC G is positive. Occasional atrial ?? ectopy. Occasional ventricular ectop y. 4. Stress: There is resting hypertension . The patient experienced no ?? chest pain during stress. CAD likelihood: ??Pre test likelihood of CAD: 100%. Post test likelihood of CAD: 100%. Indication: ?? (preop for gallbladder an d hernia repair, hx CAD). History: ?? Patient's presenting symptom s: asymptomatic. ??Coronary artery disease. 76 year old male, known CAD, pr esents for preop evaluation. Pt admitted to [place] [address] for abdominal pain, nausea and emesis, hiatal hernia repair and gallbladder removal surgery i s planned tentatively for 07/06/16 . Pt denies chest pain or SOB. States he had CABG 22 years ago at [facility] with cardiac stent years later . Denies current pain. ??Risk factors: ??Family history of coronary ar chris disease. Diabetes mellitus. Medications: ??Aspirin. Insulin. Imaging Technique: Protocol: ??Regadenoson. Acquisition: ?? Gated SPECT; 1 day - res t/stress. ?The patient was imaged in the supine position. Attenuati on correction used. Isotope administration: - Rest. Tc[99m]-sestamibi. Dose: 8.8mCi. Injection to stress time: ??00:45. Administered by: Ross Aragon [facility]. - Stress. Tc[99m]-sestamibi. Dose: 23.9m Ci. Injected at: peak ??pharmacologic stress. Administered by : Jelena Knight [facility]. Labs, prior tests, procedures, and surge ry: Coronary artery bypass grafting. Stress protocol: +--------+--+------+ +------+-- -------+ +--------+ Stage ?? HR BP ? ST/T ? Rhy [facility] Symptoms Pharmaceutical Comments ? (mmHg) ? s ? +--------+--+------+ +------+-- -------+ +--------+ Baseline 62 183/83 Normal ? Sinus None ? (116) ST-T ? r hythm ? , ? occasi ? onal ? PAC's, ? occasi ? onal ? PVC's ? +--------+--+------+ +------+-- -------+ +--------+ Standing 75 ? +--------+--+------+ +------+-- -------+ +--------+ 1 min ?? 93 ? Inject ? Regadeno ? son. ? +--------+--+------+ +------+-- -------+ +--------+ 2 min ?? 87 154/78 Horizontal ? Abdominal ? (103) depression ? bloating ? , <0.5 mm ? and ? in II, ? pressure ? III, aVF, ? V6 ? +--------+--+------+ +------+-- -------+ +--------+ 3 min ?? 94 ? +--------+--+------+ +------+-- -------+ +--------+ 4 min ?? 79 154/79 Horizontal Same ? (104) depression as ? , 0.5-0.99 a crystal ? mm in II, ? III, aVF, ? V5, V6 ? +--------+--+------+ +------+-- -------+ +--------+ 5 min ?? 77 ? Same as ? above ? +--------+--+------+ +------+-- -------+ +--------+ 6 min ?? 78 163/77 ? (106) ? +--------+--+------+ +------+-- -------+ +--------+ 7 min ?? 78 ? +--------+--+------+ +------+-- -------+ +--------+ 8 min ?? 88 166/80 ? Pt had ? (109) ? small ? bowel ? movement ? +--------+--+------+ +------+-- -------+ +--------+ 9 min ?? 88 ? Downslopin ? Resolved ? g ? depression ? , 1.0 mm ? in II, III ? and aVF, ? V5, V6 ? +--------+--+------+ +------+-- -------+ +--------+ 10 min ?? 86 186/92 ? (123) ? +--------+--+------+ +------+-- -------+ +--------+ ? 95 166/81 ? Theophylline ? (109) ? 75 mg IV, 11 ? min 30 sec ? into stage, ? Administered ? by: Robert, ? Shannan RN ? +--------+--+------+ +------+-- -------+ +--------+ ? 79 ? Resolving ? +--------+--+------+ +------+-- -------+ +--------+ ? 87 165/86 Resolving Same ? (112) ? as ? above ? +--------+--+------+ +------+-- -------+ +--------+ * Stress results: ??There is resting hyper tension. ??The patient experienced no chest pain during stress. ?? The delphine ent experienced no dyspnea in response to stress. Stress ECG: ?? The stress ECG is positiv e. ?Occasional atrial ectopy. Occasional ventricular ectopy. Myocardial perfusion: ?? Imaging informa tion: gated. The image quality was fair. Image quality reduced due to m arked gastric activity. Left ventricular size is normal. Right ventri cular size is normal. There is a small sized, mildly intense, fully rever sible defect involving the inferior wall(s). This suggests small is chemia in the distribution of the right coronary artery. There is a sm all sized, moderately intense, fully reversible defect involving the an terolateral wall(s). This suggests small ischemia in the distribut ion of the left anterior descending coronary artery. Ventricular Function (Wall Motion): ?? T he calculated left ventricular ejection fraction after stress: 52%. LV global systolic function is low normal. ?? Right ventricular function is normal. Study data: ??This study was interpreted by [facility] Rad[facility]. ??Study status: ??Routine. Consent: ??The risks, benefits, and alte rnatives to the procedure were explained to the patient and informed co nsent was obtained. ??Procedure: Initial setup. A baseline ECG was record ed. ECG tracings were obtained using the X-scribe 4 machine. Surface EC G leads and manual cuff blood pressure measurements were monitored. He art sounds: Normal. Lung sounds: Normal. ??Regadenoson stress test. Stres s testing was performed, with regadenoson by intravenous bolus, for a total dose of 0.4mgover 10.00sec, followed by a 5ml saline flush . The infusion was terminated due to per protocol. The patient was srini ble to exercise due to deconditioning and or frailty. ??Study c ompletion: ??All catheters inserted during the procedure were remov ed. The patient tolerated the procedure well and was [facility]. ??Discharge: ??The patient left the laboratory in stable condition. ? Birthdate: ??Patient birthdate: 1940. ??Sex: ??Gender: male. ??Study date: ??Study date: 07/05/2016. Study time: 11:30 AM. Signature Documentation: - The imaging portion of this study was interpreted by Nuclear ??Radiologist Dr. Vic Grijalva. - Entry Level Assistant Manager Dr. Aníbal patel rticipated in image ??interpretation. - The Stress ECG portion of this study w as interpreted by Dr. Dan ??Haleigh. Electronically signed by Sy Ricardo MD 07/07/2016 09:58 Procedure Note Sy Ricardo MD - 07/07/2016 *[facility]* [address] [place] [address] *Interpreting Groups:* *[facility] Cardiology and Radiology* Myocardial Perfusion Imaging - SPECT Regadenoson Date of study: 07/05/2016 *PATIENT PRESENTATION* Height: 167.6cm ((66in) ) Blood Pressure: Weight: 62.3kg ((137lb) ) BSA: 1.7m^2 Ordering physician: Sonia Saucedo Impressions: - Abnormal study after pharmacologic str ess. - Incidental SPECT findings: large gastr ic hernia Summary: 1. Myocardial perfusion imaging: There i s a small sized, mildly intense, fully reversible defect involving the i nferior wall(s). This suggests small ischemia in the distribution of t he right coronary artery. There is a small sized, moderately inte nse, fully reversible defect involving the anterolateral wall(s). Th is suggests small ischemia in the distribution of the left anterior d escending coronary artery. 2. The calculated left ventricular eject ion fraction after stress: 52%. LV global systolic function is low norm al. 3. Stress ECG conclusions: The stress EC G is positive. Occasional atrial ectopy. Occasional ventricular ectopy. 4. Stress: There is resting hypertension . The patient experienced no chest pain during stress. CAD likelihood: Pre test likelihood of C AD: 100%. Post test likelihood of CAD: 100%. Indication: (preop for gallbladder and h ernia repair, hx CAD). History: Patient's presenting symptoms: asymptomatic. Coronary artery disease. 76 year old male, known CAD, pr esents for preop evaluation. Pt admitted to [place] [address] for abdominal pain, nausea and emesis, hiatal hernia repair and gallbladder removal surgery i s planned tentatively for 07/06/16 . Pt denies chest pain or SOB. States he had CABG 22 years ago at [facility] with cardiac stent years later . Denies current pain. Risk factors: Family history of coronary yasir ry disease. Diabetes mellitus. Medications: Aspirin. Insulin. Imaging Technique: Protocol: Regadenoson. Acquisition: Gated SPECT; 1 day - rest/s tress. The patient was imaged in the supine position. Attenuati on correction used. Isotope administration: - Rest. Tc[99m]-sestamibi. Dose: 8.8mCi. Injection to stress time: 00:45. Administered by: Ross Aragon [facility] . - Stress. Tc[99m]-sestamibi. Dose: 23.9m Ci. Injected at: peak pharmacologic stress. Administered by: Jelena Knight [facility]. Labs, prior tests, procedures, and surge ry: Coronary artery bypass grafting. Stress protocol: +--------+--+------+ +------+-- -------+ +--------+ Stage HR BP ST/T Rhythm Symptoms Ph armaceutical Comments (mmHg) s +--------+--+------+ +------+-- -------+ +--------+ Baseline 62 183/83 Normal Sinus None (116) ST-T rhythm , occasi onal PAC's, occasi onal PVC's +--------+--+------+ +------+-- -------+ +--------+ Standing 75 +--------+--+------+ +------+-- -------+ +--------+ 1 min 93 Inject Regadeno son. +--------+--+------+ +------+-- -------+ +--------+ 2 min 87 154/78 Horizontal Abdominal (103) depression bloating , <0.5 mm and in II, pressure III, aVF, V6 +--------+--+------+ +------+-- -------+ +--------+ 3 min 94 +--------+--+------+ +------+-- -------+ +--------+ 4 min 79 154/79 Horizontal Same (104) depression as , 0.5-0.99 above mm in II, III, aVF, V5, V6 +--------+--+------+ +------+-- -------+ +--------+ 5 min 77 Same as above +--------+--+------+ +------+-- -------+ +--------+ 6 min 78 163/77 (106) +--------+--+------+ +------+-- -------+ +--------+ 7 min 78 +--------+--+------+ +------+-- -------+ +--------+ 8 min 88 166/80 Pt had (109) small bowel movement +--------+--+------+ +------+-- -------+ +--------+ 9 min 88 Downslopin Resolved g depression , 1.0 mm in II, III and aVF, V5, V6 +--------+--+------+ +------+-- -------+ +--------+ 10 min 86 186/92 (123) +--------+--+------+ +------+-- -------+ +--------+ 95 166/81 Theophylline (109) 75 mg IV, 11 min 30 sec into stage, Administered by: Shannan Jones RN +--------+--+------+ +------+-- -------+ +--------+ 79 Resolving +--------+--+------+ +------+-- -------+ +--------+ 87 165/86 Resolving Same (112) as above +--------+--+------+ +------+-- -------+ +--------+ * Stress results: There is resting hyperte nsion. The patient experienced no chest pain during stress. The patient experienced no dyspnea in response to stress. Stress ECG: The stress ECG is positive. Occasional atrial ectopy. Occasional ventricular ectopy. Myocardial perfusion: Imaging informatio n: gated. The image quality was fair. Image quality reduced due to m arked gastric activity. Left ventricular size is normal. Right ventri cular size is normal. There is a small sized, mildly intense, fully rever sible defect involving the inferior wall(s). This suggests small is chemia in the distribution of the right coronary artery. There is a sm all sized, moderately intense, fully reversible defect involving the an terolateral wall(s). This suggests small ischemia in the distribut ion of the left anterior descending coronary artery. Ventricular Function (Wall Motion): The calculated left ventricular ejection fraction after stress: 52%. LV global systolic function is low normal. Right ventricular function is no rmal. Study data: This study was interpreted b y [facility] Radiology. Study status: Routine. Consent: The risks, benefits, and altern atives to the procedure were explained to the patient and informed co nsent was obtained. Procedure: Initial setup. A baseline ECG was record ed. ECG tracings were obtained using the X-scribe 4 machine. Surface EC G leads and manual cuff blood pressure measurements were monitored. He art sounds: Normal. Lung sounds: Normal. Regadenoson stress test. Stress testing was performed, with regadenoson by intravenous bolus, for a total dose of 0.4mgover 10.00sec, followed by a 5ml saline flush . The infusion was terminated due to per protocol. The patient was srini ble to exercise due to deconditioning and or frailty. Study com pletion: All catheters inserted during the procedure were remov ed. The patient tolerated the procedure well and was discharged [facility]. Discharge: The patient left the laboratory in stable condition. Birthdate: Patient birthdate: 1940. Sex: Gender: male . Study date: Study date: 07/05/2016. Study time: 11:30 AM. Signature Documentation: - The imaging portion of this study was interpreted by Nuclear Radiologist Dr. Vic Grijalva. - Entry Level Assistant Manager Dr. Aníbal patel rticipated in image interpretation. - The Stress ECG portion of this study w as interpreted by Dr. Sy Ricardo. Electronically signed by Sy Ricardo MD 07/07/2016 09:58 Performing Organization Address City/State/ZIP Code Phon e Number [facility] documented in this encounter Visit Diagnoses Not on filedocumented in this encounter Care Teams Hides Inspector Relationship Specialty Start Date End Date Pricilla Kline CUSTOMER CARE PROFESSIONAL PCP - General 06/08/[address] [place] [phone] documented as of this encounter
--- OUTSIDE RECORDS SUMMARY | 2022-03-19 01:24 | XMS_ITS | Encounter Summary ---
:1940 Author Organization [facility] Address [address] [place] [id number] Care Team Providers Name Role Phone FlorentinPricilla coronado MACHINE TECH Primary Care Provider Reason for Referral Consult, Test and Treat (Routine) - Closed Specialty Diagnoses / Referred By Contact Referred To Contact Procedures Gastroenterology and Diagnoses Paraesophageal hernia Pedro Luis Acuna Steven D, Hepatology Procedures ESOPHAGEAL MANOMETRY MD JENNY Foy PhD [address] [place], [place] [phone] Fax: Referral ID Status Reason Start Date Expiration Date Visits Requ ested Visits Authorized [id number] Closed 06/21/2016 1 1 adiology Services (Routine) - Specialty Report Received Specialty Diagnoses / Procedures Referred By Contact Refer red To Contact Diagnoses Paraesophageal hernia Pedro Luis Acuna Procedures FL UGI AIR CONTRAST W/O KIMMIE Foy MD [address] [place] [phone] Referral ID Status Reason Start Date Expiration Date Visits V isits Requested Authorized [id number] Specialty 06/21/2016 1 1 Report Received Reason for Visit Reason Comments New Patient Visit Hiatal Hernia Larose spok e w ed Consult (Routine) - Closed Specialty Diagnoses / Procedures Referred By Contact Refer red To Contact General Surgery Diagnoses Hiatal hernia Armand Schaffer Edward Christopher, DO Christopher, MD [address] [facility] [address], [address] [place] [phone] Phone: Fax: Referral ID Status Reason Start Date Expiration Date Visits Requ ested Visits Authorized [id number] Closed 1 1 Encounter Details Date Type Department Care Team Description 06/21/2016 Office Visit [facility] Pedro Luis Acunae sophageal hernia General Surgery - Nika Foy (Primary Dx) [address] [address] [address], Level [place] [phone] (Wo rk) Social History Tobacco Use Types Packs/Day Years Used Date Never Smoker Alcohol Use Standard Drinks/Week Comments No 0 (1 standard drink = 0.6 oz pure alcoho l) Sex Assigned at Date Recorded Not on file documented as of this encounter Last Filed Vital Signs Vital Sign Reading Time Taken Comments Blood Pressure 130/68 06/21/2016 1056 EST Pulse 60 06/21/2016 1056 EST Temperature - - Respiratory Rate - - Oxygen Saturation - - Inhaled Oxygen Concentration - - Weight 65.2 kg (143 lb 12.8 oz) 06/21/2016 1056 EST Height 167.6 cm (5' 6) 06/21/2016 1056 EST Body Mass Index 23.21 06/21/2016 1056 EST documented in this encounter Functional Status [...] as of this encounter Discharge Diagnoses Diagnosis K44.9 Diaphragmatic hernia without obstr uction or gangrene-K44.9[ICD-10-CM] documented in this encounter Discharge Disposition Disposition Code Departure Means Destination Auto Discharge documented in this encounter Progress Notes Pedro Luis Acuna MD - 06/21/2016 1100 EST Division of General Surgery Date of Service: 06/21/2016 PROBLEM: 1. Paraesophageal hernia HISTORY OF PRESENT ILLNESS: I am seeing Phil Riggs Courser in the office today in consultation by Law Schaffer DO for 1. Paraesophageal hernia This is a 76 y.o. male Who had an episode of severe abdominal pain the day before , about a month ago. He presented to the emergency department. He had a slightly elevated lipase level, andhis ultrasound showed cholelithiasis. He also had a CT scan showing a very distended stomach with a l arge hiatal hernia. He has no anemia, no dysphagia, no early satiety, but he does get epigastric andabdominal pain and vomits to help relieve that pain. He had been vomiting occasionally in April and also developed a C. diff infection back then. It was treated and then lead to constipation, which then he says was potentially related to his abdominal pain at the end of May. He has had a 30-pound weight loss over the last 2 months. He has been eating mostly blenderized food. This morning he had oatmeal, and last night he had chicken noodle soup with some crackers. I personally reviewed the CT scan showing a very distended stomach. It appeared that about half the stomach was up in the chest and it was significantly distended to the level of the aortic arch on the. Some of the stomach was intraabdominal, but his antrum was also herniated into the mediastinum. Past Medical History Diagnosis Date ??? CAD (coronary artery disease) ??? Diabetes mellitus ??? Heart attack Past Surgical History Procedure Laterality Date ??? Cardiac surgery ??? Hernia repair Family History Problem Relation Age of Onset ??? Diabetes Mother ??? Heart Disease Father ??? Diabetes Sister Social History Social History ??? Marital status: Spouse name: N/A ??? Number of children: N/A ??? Years of education: N/A Social History Main Topics ??? Smoking status: Never Smoker ??? Smokeless tobacco: None ??? Alcohol use No ??? Drug use: No ??? Sexual activity: Yes Partners: Female Other Topics Concern ??? None Social History Narrative ??? 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 Current Outpatient Prescriptions Medication Sig Dispense Refill [...] capsule Take 400 Units by mouth daily. No current facility-administered medications for this visit. Allergies Allergen Reactions ??? Metoclopramide Other (See Comments) Was told to stop taking by Doctors ??? Penicillins Rash REVIEW OF SYSTEMS: A ten point review of systems was performed and all were negative except as listed below. Patient Active Problem List Diagnosis ??? Paraesophageal hernia OBJECTIVE: Vitals: 06/21/16 1056 BP: 130/68 Pulse: 60 Weight: 65.2 kg (143 lb 12.8 oz) Height: 167.6 cm (66) Body mass index is 23.21 kg/(m^2). He is afebrile. General: No acute distress. HEENT: Normal. Neck: Supple. Skin: Normal. Lungs: Clear, bilaterally. Heart: Regular rate and rhythm. Abdomen: Soft, nondistended, nontender, no masses, no organomegaly. Vascular: Normal. Musculoskeletal: Normal. Neurologic: Normal. ASSESSMENT & PLAN: Large paraesophageal hiatal hernia, it is symptomatic for him and can also risk gastric volvulus andnecrosis. For all these reasons, I recommended repair. The benefits and risks of the laparoscopic paraesophageal repair were discussed including infection,bleeding, injury to the esophagus, stomach, liver, spleen, heart, lungs, underlying blood vessels, persistent dysphagia, gas, bloat and recurrence of the paraesophageal hernia, GERD and conversion to an open procedure. He understood all this and was willing to proceed. Preoperative esophageal manometry is needed. He has never had an upper endoscopy. We will do that at the time of surgery, but to be sure he does not have an esophageal mass, we will obtain an upper GI study. This will give us some idea of the mucosa of the esophagus as well as tell us the configuration of the stomach. He should continue to eat multiple small meals until then, stay on a soft diet, avoiding any roughage, fruits or vegetables or nuts. He will call in the interim with any problems, otherwise, we will continue his workup with an upper GI study and esophageal manometry prior to surgery. ADDENDUM: He did have abdominal pain and a slightly elevated lipase with gallstones. It is possible that he had an episode of gallstone pancreatitis, though I think it is less likely; however, because he has this questionable history, I would recommend performing cholecystectomy at the time of his para esophageal hernia repair. Both can be completed laparoscopically. We would have to add one 5 mm portto complete the cholecystectomy at the same time. I think it would be worthwhile. I offered Mr. Lyons a laparoscopic cholecystectomy. The procedure was described. Risks and benefits were outlined, including infection bleeding, and bile duct injury or leak. There is also a chance of converting to an open procedure. He understood this and was willing to proceed. Primary Care Provider: Pricilla Kline NP Referring Provider: Law Schaffer DO Benedict Bedoya - 06/21/2016 1100 EST ..Gastroesophageal Reflux Disease Scale [facility] General Surgery Patient Name: Phil Lyons Date: 06/21/2016 GERD-HRQL SCALE Patient symptoms are noted as follows: How bad is your heartburn? 3 = Symptoms bothersome everyday Heartburn when lying down? 5 = Symptoms are incapacitating, unable to do daily activities Heartburn when standing up? 3 = Symptoms bothersome everyday Heartburn after meals? 4 = Symptoms affect daily activities Does heartburn change your diet? 4 = Symptoms affect daily activities Does heartburn wake you from sleep? 3 = Symptoms bothersome everyday Do you have difficulty swallowing? 2 = Symptoms noticeable and bothersome, but not everyday Do you have pain with swallowing? 0 = No symptoms Do you have gassy or bloating feelings? 3 = Symptoms bothersome everyday If you take medication, does it affect your daily life? 0 = No symptoms How satisfied are you with your present condition? Dissatisfied HRQL Total= 27 documented in this encounter Plan of Treatment Scheduled Orders Name Type Priority Associated Diagnoses Order S chedule ESOPHAGEAL MANOMETRY GI Routine Paraesophageal herni a Ordered: 06/21/2016 documented as of this encounter Procedures Procedure Name Priority Date/Time Associated Diagnosis Comme nts FL UGI AIR Routine 07/08/2016 9:37 Paraesophageal hernia Res ults for this CONTRAST W/O KUB EST procedure a re in the results section. documented in this encounter Results FL UGI AIR CONTRAST W/O KUB (07/08/2016 9:37 EST) Anatomical Region Laterality Modality Other Specimen Narrative [facility] - 07/08/2016 10:34 EST FL UGI AIR CONTRAST W/O KUB ??07/08/2016 9:37 AM Signs and Symptoms/Comments: ?? K44.9-Diaphragmatic hernia without obstr uction or [id number]; paraesophageal hernia Comparison: Acute abdominal series and C T abdomen and pelvis July 02, 2016. FINDINGS: The patient is status post recent paraes ophageal hernia repair, partial gastrectomy and cholecystectomy. [employer] Consultant shows a drain and surgical roxy . Enteric material is seen in the rectum from prior CT abdomen exam ination. Water-soluble contrast material followed by thin barium shows no extraluminal contrast. ??The stomach is distended status post partial gastrectomy. Impression: No evidence of leak. ??The T oupet fundoplication is intact; no recurrent herniation. ??Remai gosia stomach is distended with air. I have personally reviewed the images an d the above interpretation and agree with the findings. Procedure Note Misti Fitzgerald MD - 07/08/2016 FL UGI AIR CONTRAST W/O KUB 07/08/2016 9:3 7 AM Signs and Symptoms/Comments: K44.9-Diaphragmatic hernia without obstr uction or [id number]; paraesophageal hernia Comparison: Acute abdominal series and C T abdomen and pelvis July 02, 2016. FINDINGS: The patient is status post recent paraes ophageal hernia repair, partial gastrectomy and cholecystectomy. [employer] Consultant shows a drain and surgical roxy . Enteric material is seen in the rectum from prior CT abdomen exam ination. Water-soluble contrast material followed by thin barium shows no extraluminal contrast. The stomach is di stended status post partial gastrectomy. Impression: No evidence of leak. The Valdemar pet fundoplication is intact; no recurrent herniation. Remaini ng stomach is distended with air. I have personally reviewed the images an d the above interpretation and agree with the findings. Performing Organization Address City/State/ZIP Code Phon e Number [facility] documented in this encounter Visit Diagnoses Diagnosis Paraesophageal hernia - Primary Diaphragmatic hernia without mention of obstruction or gangrene documented in this encounter Historical Medications This list may reflect changes made after this encounter. Medication Sig Dispensed Refills Start Date End Date aspirin chewable 81 mg Take 81 mg by mouth 0 tablet daily. glipiZIDE (GLUCOTROL) 10 Take 25 mg by mouth 0 mg tablet daily. atorvastatin (LIPITOR) 40 Take 40 mg by mouth 0 mg tablet daily. isosorbide dinitrate Take 30 mg by mouth 0 (ISORDIL) 30 mg tablet daily. vitamin E 400 unit capsule Take 400 Units by 0 07/09/2016 mouth daily. metoprolol (LOPRESSOR) 25 Take 25 mg by mouth 0 07/10/2016 mg tablet 2 times daily. losartan (COZAAR) 25 mg Take 25 mg by mouth 0 07/10/2016 tablet daily. added in this encounter Care Teams Tour Bus Driver/Guide Relationship Specialty Start Date End Date Pricilla Kline NP PCP - General 06/08/[address] [place] [phone] documented as of this encounter
--- OUTSIDE RECORDS SUMMARY | 2022-03-19 01:24 | XMS_ITS | Encounter Summary ---
:1940 Author Organization [facility] Address [address] [place] [address] Care Team Providers Name Role Phone Pricilla Kline PRESTIDIGITATOR Primary Care Provider Encounter Details Date Type Department Care Team Description 06/08/2016 Results Only [facility]- Unknown, PRISM Provider, Social History Tobacco Use Types Packs/Day Years Used Date Never Assessed Sex Assigned at Date Recorded Not on file documented as of this encounter Plan of Treatment Pending Results Name Type Priority Associated Diagnoses Date/Ti me OUTSIDE IMAGES - CT BODY Imaging 12/2015 14:48 EST documented as of this encounter Visit Diagnoses Not on filedocumented in this encounter Care Teams Ophthalmic Aide Relationship Specialty Start Date End Date Pricilla Kline, PRESTIDIGITATOR PCP - General 06/08/16 [address] [place] [phone] documented as of this encounter
[2022-03-19 12:38] LABS: ALT 40 U/L (16-63); AST 29 U/L (15-37); Albumin 3.8 g/dL (3.4-5.0); Alkaline Phosphatase 129 U/L (46-116); Anion Gap 9.3 mmol/L (3-11); BUN 41 mg/dL (7-18); Bilirubin, Total 0.9 mg/dL (0.2-1.0); CO2 22.7 mmol/L (21.0-32.0); CREATININE 2.4 mg/dL (0.70-1.30); Calcium 8.6 mg/dL (8.5-10.1); Chloride 107 mmol/L (98-107); Estimated GFR 26.44 (mL/min/1.73m2); Glucose 185 mg/dL (74-106); Potassium 4.9 mmol/L (3.5-5.1); Sodium 139 mmol/L (136-145); Total Protein 7.8 g/dL (6.4-8.2)
[2022-03-19 13:56] LABS: Hemoglobin A1C 6.7 % (<5.7)
== END 2022-03-19 01:20 | disposition home or self-care (01) ==
LOC: LOS 01:19
DX: E11.65 Type 2 diabetes mellitus with hyperglycemia (principal); Z79.4 Long term (current) use of insulin; N18.4 Chronic kidney disease, stage 4 (severe)
CPT/HCPCS: 36415; 80053; 83036

== ENCOUNTER 2023-04-15 08:38 | Outpatient (CLI) | payer MEDICARE, BC, SELFPAY ==
[2023-04-15 12:35] LABS: ALT 23 U/L (16-63); AST 18 U/L (15-37); Albumin 3.9 g/dL (3.4-5.0); Alkaline Phosphatase 126 U/L (46-116); BUN 55 mg/dL (7-18); Bilirubin, Total 0.6 mg/dL (0.2-1.0); CREATININE 2.8 mg/dL (0.70-1.30); Calcium 8.3 mg/dL (8.5-10.1); Calculated LDL 65 mg/dL (<100); Chloride 108 mmol/L (98-107); Cholesterol 126 mg/dL (<200); Estimated GFR 21.71 (mL/min/1.73m2); Glucose 146 mg/dL (74-106); HDL Cholesterol 51 mg/dL (40-60); Potassium 5.7 mmol/L (3.5-5.1); Sodium 138 mmol/L (136-145); Total Protein 8.3 g/dL (6.4-8.2); Triglyceride 52 mg/dL (<150)
== END 2023-04-15 08:39 | disposition home or self-care (01) ==
LOC: LOS 08:38
PROVIDERS: PCP Nurse Practitioner Family; Referring Provider Nurse Practitioner Family; Visit Provider Nurse Practitioner Family
DX: E11.65 Type 2 diabetes mellitus with hyperglycemia (principal); Z79.4 Long term (current) use of insulin
CPT/HCPCS: 36415; 80053; 80061

== ENCOUNTER 2023-04-20 04:16 | Outpatient (CLI) | payer MEDICARE, BC, SELFPAY ==
[2023-04-20 12:18] LABS: Potassium 5.5 mmol/L (3.5-5.1)
[2023-04-20 12:50] LABS: COMMENT (LAB VIEW ONLY) 80.16 mg/dL
[2023-04-20 12:53] LABS: Microalb ug/mg Crea 257.5 ug/mg Cr
== END 2023-04-20 04:17 | disposition home or self-care (01) ==
PROVIDERS: PCP Nurse Practitioner Family; Visit Provider Nurse Practitioner Family
DX: E11.65 Type 2 diabetes mellitus with hyperglycemia (principal); Z79.4 Long term (current) use of insulin; E87.5 Hyperkalemia
CPT/HCPCS: 36415; 82043; 82570; 84132

== ENCOUNTER 2023-12-27 00:53 | Emergency (ER) | payer MEDICARE, BC, SELFPAY ==
[2023-12-27] VITALS (23 sets, daily range): BP systolic 141–216; BP diastolic 42–90; PULSE 42–56; RESP 16; TEMP 36; O2SAT 95–100
--- NOTE | 2023-12-27 00:56 | W.ED.GENAD ---
Discharge Plan Disposition Patient Disposition: Home Condition: Good Discharge Details Clinical Impression: Acute diverticulitis, Chronic kidney disease (CKD), Chronic hyperkalemia Primary Care Provider: Javier Porras ED Provider: Chin Vergara [place] Meds and New Rx's Prescriptions: New amoxicillin-pot clavulanate 500-125 mg tablet 1 tab PO BID Qty: 19 0RF Continued (DME) lancets 28 gauge misc 1 ea Miscellaneous DAILY Qty: 100 0RF Rx Instructions: FOR ONE TOUCH ULTRA MINI METER. NO INSULIN. DIAGNOSIS CODE E11.9 aspirin [Adult Aspirin Regimen] 81 mg tablet,delayed release (DR/EC) 81 mg PO DAILY loperamide 2 mg capsule 4 mg PO DAILY MDD 16mg PRN (Reason: loose stool) Qty: 60 0RF Rx Instructions: 2 caps daily and 1 capsule after each loose stool. Eliquis 2.5 mg tablet 2.5 mg PO BID Qty: 180 2RF atorvastatin [Lipitor] 40 mg tablet 40 mg PO DAILY Qty: 90 4RF Humulin N NPH Insulin KwikPen 100 unit/mL (3 mL) insulin pen 12 - 14 unit subcut BID@0800,1700 Qty: 15 12RF Rx Instructions: 10units in AM & 8units in PM isosorbide dinitrate 30 mg tablet 30 mg PO DAILY Qty: 90 3RF metoprolol tartrate 50 mg tablet 25 mg PO BID Qty: 90 4RF mirtazapine 7.5 mg tablet 7.5 mg PO QHS Qty: 90 0RF nitroglycerin [Nitrostat] 0.4 mg tablet, sublingual 0.4 mg Sublingual PRN Qty: 10 0RF Patient Comments: never used (DME) Blood Glucose Test Strip 1 ea Miscellaneous DAILY Qty: 100 4RF Rx Instructions: FOR ONE TOUCH ULTRA MINI Dx E11.9 : BID (DME) pen needle, diabetic [BD Ultra-Fine Short Pen Needle] 31 gauge x 5/16 needle See Rx Instructions .ROUTE .MEDSUPPLY Qty: 100 6RF Rx Instructions: 2 x daily - E11.9 (DME) blood-glucose meter 1 EACH misc 1 ea Miscellaneous DAILY Qty: 1 0RF Rx Instructions: ONE TOUCH ULTRA MINI DIAGNOSIS CODE E11.9 Discharge Instructions Instructions: Chronic kidney disease, Diverticulitis Additional Instructions: You were seen for a worsening of your belly pain and found to have diverticulitis which should respond to the antibiotics we have started. It is important to stay hydrated. Would maintain a bland diet for now until follow-up with primary care. You may use Tylenol as needed for pain, follow directions on the bottle, no more than 3 g in a 24-hour period. You do have slowly worsening kidney function over time. Be sure to discuss with primary care as medications may need to be adjusted. You also have some CT findings that should likely be followed up with endoscopy so please also discuss with primary care. You did not seem to have any type of allergic reaction to the antibiotic. However, if you develop any rash, itching, difficulty breathing you should discontinue the medication and return to ED. You should also return to ED if you develop fever, worsening abdominal pain, persistent vomiting, other concerns. Referrals: Javier Porras, THERMOPLASTIC TECHNICIAN [Primary Care Provider] - [facility] General Mode of arrival: ambulatory. Date/Time Provider Initiated Documentation: 12/27/23 00:56. Limitations to Documentation: no limitations. Information obtained by: patient, RN notes reviewed and old records reviewed. HPI Narrative: Patient presents to ED with complaint of right lower quadrant pain radiating to the groin and diarrhea. Patient reports that he is had diarrhea for probably 3-1/2 months now. Describes it as black at times. Has had right lower quadrant pain for a while but not able to clearly time that as well as the diarrhea. Now reports pain is significantly worse and radiates into his right groin over the last 24 hours. Denies any difficulty urinating. Denies any nausea vomiting. Has not really ate today but in general has not had problems with eating and drinking. Denies any fever. Denies any night sweats or weight loss. Has never had a colonoscopy. Denies any radiation of pain into the back. Unable to sleep tonight because of the pain and presents to ED for evaluation. Related Data Home Medications Medication Instructions Recorded Confirmed blood-glucose meter #1 ea 11/24/20 12/27/23 aspirin 81 mg tablet,delayed 81 mg PO DAILY 12/15/20 12/27/23 release (Adult Aspirin Regimen) blood sugar diagnostic (Blood #100 strips 01/22/21 12/27/23 Glucose Test strips) lancets 28 gauge #100 ea 10/12/22 12/27/23 pen needle, diabetic 31 gauge x #100 ea 05/31/23 12/27/2311/16 (BD Ultra-Fine Short Pen Needle) apixaban 2.5 mg tablet (Eliquis) 2.5 mg PO BID #180 tabs 10/18/23 12/27/23 atorvastatin 40 mg tablet (Lipitor) 40 mg PO DAILY #90 tabs 10/18/23 12/27/23 insulin NPH isoph U-100 human 100 12 - 14 unit (0.12 - 0.14 mL) 10/18/23 12/27/23 unit/mL (3 mL) subcutaneous pen subcut BID@0800,1700 E11.9 - BID (Humulin N NPH U-100 Insulin #15 mL KwikPen) isosorbide dinitrate 30 mg tablet 30 mg PO DAILY #90 tabs 10/18/23 12/27/23 loperamide 2 mg capsule 4 mg (2 x 2 mg) PO DAILY PRN loose 10/18/23 12/27/23 stool #60 caps metoprolol tartrate 50 mg tablet 25 mg (1/2 x 50 mg) PO BID #90 tabs 10/18/23 12/27/23 mirtazapine 7.5 mg tablet 7.5 mg PO QHS #90 tabs 10/18/23 12/27/23 nitroglycerin 0.4 mg sublingual 0.4 mg sublingual PRN #10 tabs 10/18/23 12/27/23 tablet (Nitrostat) amoxicillin 500 mg-potassium 1 tab PO BID #19 tabs 12/27/23 clavulanate 125 mg tablet Previous Rx's Medication Instructions Recorded blood-glucose meter #1 ea 11/24/20 blood sugar diagnostic (Blood #100 strips 01/22/21 Glucose Test strips) lancets 28 gauge #100 ea 10/12/22 pen needle, diabetic 31 gauge x #100 ea 05/31/2311/16 (BD Ultra-Fine Short Pen Needle) apixaban 2.5 mg tablet (Eliquis) 2.5 mg PO BID #180 tabs 10/18/23 atorvastatin 40 mg tablet (Lipitor) 40 mg PO DAILY #90 tabs 10/18/23 insulin NPH isoph U-100 human 100 12 - 14 unit (0.12 - 0.14 mL) 04/16/24 unit/mL (3 mL) subcutaneous pen subcut BID@0800,1700 E11.9 - BID (Humulin N NPH U-100 Insulin #15 mL KwAlona) isosorbide dinitrate 30 mg tablet 30 mg PO DAILY #90 tabs 10/18/23 loperamide 2 mg capsule 4 mg (2 x 2 mg) PO DAILY PRN loose 10/18/23 stool #60 caps metoprolol tartrate 50 mg tablet 25 mg (1/2 x 50 mg) PO BID #90 tabs 10/18/23 mirtazapine 7.5 mg tablet 7.5 mg PO QHS #90 tabs 10/18/23 nitroglycerin 0.4 mg sublingual 0.4 mg sublingual PRN #10 tabs 10/18/23 tablet (Nitrostat) amoxicillin 500 mg-potassium 1 tab PO BID #19 tabs 12/27/23 clavulanate 125 mg tablet Allergies Allergy/AdvReac Type Severity Reaction Status Date / Time metoclopramide Allergy Intermediate Skin Rash Verified 12/27/23 01:05 Penicillins Allergy Unknown Skin Rash Verified 12/27/23 01:05 General MANDI: 3 Review of Systems Narrative: Per HPI Exam Narrative Exam Narrative: Const: WDWN elderly male in NAD. VS per triage. HEENT: NC/AT. Normal facial exam. Neck: Supple. Trachea midline. Lungs: Normal respiratory effort. Lungs are clear. Cor: RRR without murmur. Good radial pulses. GI: Soft/ND. Tender in RLQ with voluntary guarding only. : No obvious inguinal hernia. No testicular tenderness. Neuro: A+O x 3. Normal speech, mentation, gait. Cranial nerves II - XII grossly intact. No gross motor or sensory deficit. Ext: No C/C/E. Medical Decision Making Patient presenting with right lower quadrant pain radiating into the right groin. Reports having this for some time though was not able to delineate exact time. Also reporting diarrhea for 3-1/2 months, at times black. Has never had a colonoscopy. Denies weight loss or night sweats. No difficulty with urination. Feels that he eats and drinks normally except for today. Is tender in the right lower quadrant. No appreciable mass, inguinal hernia. Testicles nontender. IV established and laboratory studies ordered. Fluid bolus and acetaminophen ordered. CT of the abdomen pelvis to be obtained. Patient's laboratory studies with a normal white count at 10. Hemoglobin a little low at 11 but has been stable. His kidney function has worsened over time. Creatinine is now 3.2. Potassium a little high at 5.5 but has been over the last couple of checks. 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 Liver function is unremarkable. Lipase minimally elevated. Urinalysis with no evidence of blood or infection. CT scan with evidence of sigmoid diverticulitis which explains his worsening pain. I doubt that this has anything to do with his chronic complaint of abdominal discomfort and diarrhea. He has some evidence of mural thickening both in the stomach and the colon as well as the bladder. I discussed with him once again endoscopy which he denies ever having and is not interested in having. This can be taken up by his primary care as an outpatient. Patient seems to be comfortable. Still has pain but does not wish to be admitted. Abdomen on reexam after fluids and acetaminophen is benign. Patient reports his penicillin allergy was told to him as a kid. Based on his creatinine clearance we will give 500/125 of Augmentin here and observe for a couple of hours. I am also going to repeat his BMP after fluid bolus. Patient's potassium and creatinine improved with under a liter of fluid. He has tolerated the Augmentin with no evidence of allergic reaction. Plan will be for patient to be discharged home on Augmentin twice a day. He is to follow-up with primary care later this week for recheck. Encouraged to hydrate and maintain bland diet. Return precautions provided. Medical Records Medical records reviewed: Yes I reviewed the patient's medical records. Medical records narrative: PCP notes Lab Data Lab results reviewed: Yes I reviewed the patient's lab results. Lab results narrative: See [facility] All Active Problems (Updated 12/27/23 @ 05:40 by Chin Vergara MD) Chronic hyperkalemia (Acute) Chronic kidney disease (CKD) (Chronic) Acute diverticulitis (Acute) Weight loss, unintentional (Acute 11/02/16) Muscle cramps at night (Acute) Syncope (Chronic) Back pain (Acute) Bilateral sensorineural hearing loss (Acute) Excessive cerumen in right ear canal (Acute) On anticoagulant therapy (Acute) Squamous cell carcinoma in situ (Acute) Decreased hearing (Acute) worse on left Medical History DVT (deep venous thrombosis) CKD (chronic kidney disease) stage 4, GFR 15-29 ml/min Diabetes mellitus (09/27/12) Skin lesion SQUAMOUS CELL in suto per punch biopsy - upper right back 06/09/21 Anxiety 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 Stent placement 2001 x1 Family History Mother , 78 Diabetes Essential hypertension Father , 66 Heart disease Sister Diabetes Maternal Grandfather , 93 Diabetes Maternal Grandmother Heart disease Paternal Grandfather , 77 Heart disease Paternal Grandmother No problems noted. Son No problems noted. Social History Smoking/Tobacco Use Status: Never Second Hand Exposure: Yes Smoking risk assessment performed?: Yes Alcohol Intake: never Drug use: Never Substance use type: does not use Counseling given: No Counseling provided: none Caregiver/Support person: No Household members: spouse Housing: house Communication Needs: Hard of Hearing Do you need help understanding health information?: Never Pets and animals: Yes Pets and animals: dog(s) Sexually active: Yes Do you think of yourself as: straight/heterosexual Current gender identity: male What is your relationship status?: How often do you talk on the phone with friends or family?: once per week How often do you get together with friends or relatives?: once per week How often do you attend yarsani or hinduism services?: decline to answer Do you belong to any clubs or organized social groups?: decline to answer Panel score (0-1 are the most socially isolated patients): 1 What type of physical activity do you participate in: weight lifting Duration: 30-45 minutes/day Frequency: 1-2 times per week Pilar/Druze: [employer] Special pilar needs: No Seatbelt use: always Helmet use: Yes Helmet use: always Drive intox or ride w/intox jinrikisha driver: No Do you feel safe at home: Yes Do you feel safe in your relationship?: Yes
[2023-12-27 01:23] LABS: Abs Immature Grans 0.04 10^3/uL (0.0-0.06); Absolute Basophil Count 0.07 10^3/uL (0.0-0.2); Absolute Eosinophil Count 0.14 10^3/uL (0.0-0.7); Absolute Lymphocyte Count 0.88 10^3/uL (1.2-3.4); Absolute Monocyte Count 0.82 10^3/uL (0.1-0.8); Absolute Neutrophil Count 8.01 10^3/uL (1.2-6.7); Basophils % 0.7 %; Eosinophils % 1.4 %; HCT 35.2 % (40.0-50.0); Immature Grans % 0.4 %; Lymphocytes % 8.8 %; MCH 30.4 pg (27.0-33.0); MCHC 31.3 % (32.0-36.0); MCV 97 fL (80-95); MPV 10.3 fL (8.0-11.0); Monocytes % 8.2 %; Neutrophils % 80.5 %; Platelet Count 202 10^3/uL (130-400); RBC 3.62 10^6/uL (4.36-5.78); RDW 13.2 % (11.8-14.1); RDW-SD 47.1 fL; WBC 9.96 10^3/uL (4.4-10.8)
[2023-12-27] MEDS: ACETAMINOPHEN 1,000 MG/100 ML BTL 400 MG IVPB (01:31)
--- NOTE | 2023-12-27 01:45 | DI.CT_ITS ---
Exam(s) CT ABDOMEN PELVIS WO EXAM: CT ABDOMEN PELVIS WO CLINICAL HISTORY: RLQ pain radiating to groin. TECHNIQUE: Imaging Protocol: Axial computed tomography images with coronal and sagittal reformatted images were created and reviewed. Oral: y/ no COMPARISON: CT CT RENAL COLIC WO from 11/20/2020 FINDINGS: Exam mildly limited by motion. In exam somewhat limited by lack of intra-abdominal fat oral and IV contrast.. Lung Bases: No acute findings. At heart is enlarged. Liver: Normal density. No suspicious mass. Gallbladder and biliary tract: Status post cholecystectomy. No radiodense calculus or biliary dilati on. Pancreas: Normal density. No abnormal calcifications or inflammatory process. Spleen: Normal. Kidneys: Normal size, contour and axis. No radiodense stones. No obstructive uropathy. No suspicious masses seen. Adrenal glands: No masses seen. Lymph nodes: Within normal limits. Vasculature: Abdominal aorta non-dilated. Severe atherosclerotic changes. Soft tissues: Small fatty containing right inguinal hernia. Bladder: Nearly empty. Diffuse wall thickening. No mass or calculi. Bowel: Surgical clips at GE junction. No obstruction. Prominent diverticulosis. Inflammation at th e distal sigmoid consistent with diverticulitis. No perforation or abscess. Peritoneal cavity: Small amount of free fluid in low pelvis. No focal collection. Reproductive organs: Unremarkable. Bones: Unremarkable for age. IMPRESSION: Prominent diverticulosis. Diverticulitis of the distal sigmoid. No evidence of perforation or absce ss. RADIATION DOSE DELIVERED: 817.72mGy.cm Total DLP DATA REPOSITORY: All CT scans at this facility are submitted to the National Radiology Data Registry (NRDR) Dose Index Registry (DIR) with the [employer] (A[employer]). RADIATION OPTIMIZATION: All CT scans at this facility use at least one of these dose optimization te chniques: automated exposure control; mA and/or kV adjustment per patient size (includes targeted exa ms where dose is matched to clinical indication); or iterative reconstruction.
[2023-12-27 01:47] LABS: ALT 14 U/L (16-63); AST 12 U/L (15-37); Albumin 3.5 g/dL (3.4-5.0); Alkaline Phosphatase 119 U/L (46-116); Anion Gap 13.1 mmol/L (3-11); BUN 62 mg/dL (7-18); Bilirubin, Total 0.55 mg/dL (0.2-1.0); CO2 16.9 mmol/L (21.0-32.0); CREATININE 3.2 mg/dL (0.70-1.30); Calcium 8.1 mg/dL (8.5-10.1); Chloride 107 mmol/L (98-107); Estimated GFR 18.49 (mL/min/1.73m2); Glucose 160 mg/dL (74-106); Lipase 87 U/L (16-77); Potassium 5.5 mmol/L (3.5-5.1); Sodium 137 mmol/L (136-145); Total Protein 7.9 g/dL (6.4-8.2)
[2023-12-27 02:06] LABS: Bilirubin Negative (Negative); Blood Small (Negative); Clarity Clear (Clear); Glucose Negative (Negative); Ketones Negative (Negative); Leukocyte Esterase Negative (Negative); Nitrite Negative (Negative); Urobilinogen 0.2 mg/dL (Up to 0.2); pH 5.5 (5-8)
[2023-12-27 02:14] LABS: Epithelial Cells Negative HPF (Negative); RBC 0-2 HPF (0-2); WBC Negative HPF (0-5)
[2023-12-27 02:15] LABS: Bacteria Negative HPF (Negative); C & S Indicated? No; Casts Negative LPF (Negative); Crystals Negative HPF (Negative); Mucus Trace (Negative); Other Cells Negative (Negative)
[2023-12-27] MEDS: Lactated Ringers 500 ML IV (03:00)
--- NOTE | 2023-12-27 03:56 | DI.VRAD_ITS ---
PROCEDURE INFORMATION: Exam: CT Abdomen And Pelvis Without Contrast Exam date and time: 12/27/2023 1:55 AM Age: 83 years old Clinical indication: Abdominal pain; Localized; Right lower quadrant (rlq); Prior surgery; Surgery date: 6+ months; Surgery type: Cholecystectomy; Patient HX: Rlq pain radiating to groin TECHNIQUE: Imaging protocol: Computed tomography of the abdomen and pelvis without contrast. Radiation optimization: All CT scans at this facility use at least one of these dose optimization techniques: automated exposure control; mA and/or kV adjustment per patient size (includes targeted exams where dose is matched to clinical indication); or iterative reconstruction. COMPARISON: CT RENAL COLIC WO 11/20/2020 9:17 PM FINDINGS: Limitations: Mild motion artifact. No contrast was administered, limiting evaluation for some pathologies. Coronary arteries: Coronary artery calcifications. Liver: No focal hepatic lesion identified, within the limitations of a noncontrast examination. Gallbladder and biliary ducts: Cholecystectomy. Pancreas: No CT evidence for acute pancreatitis. Spleen: No splenomegaly. Adrenal glands: Adrenal thickening. Kidneys and ureters: No radiopaque renal, ureteral, or bladder calculi are identified. There is no hydronephrosis. Stomach and bowel: Stomach appears thickened but is suboptimally evaluated due to underdistention. Colonic diverticula. Stranding of the perisigmoid fat in the pelvis with mild segmental colonic thickening, consistent with diverticulitis. No intestinal obstruction is evident. Fluid in nondilated small bowel, nonspecific. Appendix: No evidence of appendicitis. Intraperitoneal space: Trace pelvic fluid. Mild haziness of the mesenteric fat. Vasculature: Extensive arterial calcifications. Lymph nodes: Nonspecific mesenteric and retroperitoneal lymph nodes. Urinary bladder: No bladder calculi seen. Bladder wall thickening. Evaluation is suboptimal due to incomplete bladder distension. Reproductive: No acute findings. Bones/joints: No pertinent acute abnormality seen. Soft tissues: No pertinent acute abnormality seen. IMPRESSION: 1. Findings consistent with sigmoid diverticulitis. Given the presence of mural thickening, follow-up after resolution of acute episode may be considered to exclude underlying colonic lesion. 2. Bladder wall thickening. Consider cystitis, muscular hypertrophy, neoplasm. 3. Gastric thickening, may be secondary to underdistention. Cannot exclude gastritis or neoplasm. Follow-up if clinically warranted. 4. No obstructive uropathy. 5. Additional findings as above. Dictated and Authenticated by: Macrina Davis MD. Ordering:CHERYL Neely MD
[2023-12-27] MEDS: Amoxicillin 500/Clav. 125 TAB PO (04:15)
[2023-12-27 04:31] LABS: Anion Gap 12.6 mmol/L (3-11); BUN 60 mg/dL (7-18); CO2 17.4 mmol/L (21.0-32.0); Chloride 109 mmol/L (98-107); Estimated GFR 19.98 (mL/min/1.73m2); Glucose 143 mg/dL (74-106); Potassium 5.3 mmol/L (3.5-5.1); Sodium 139 mmol/L (136-145)
== END 2023-12-27 06:12 | disposition home or self-care (01) ==
PROVIDERS: Emergency Provider Emergency Medicine; PCP Nurse Practitioner Family
DX: K57.32 Diverticulitis of large intestine without perforation or abscess without bleeding (principal); R10.31 Right lower quadrant pain; R19.7 Diarrhea, unspecified; R93.5 Abnormal findings on diagnostic imaging of other abdominal regions, including retroperitoneum; E11.22 Type 2 diabetes mellitus with diabetic chronic kidney disease; I12.9 Hypertensive chronic kidney disease with stage 1 through stage 4 chronic kidney disease, or unspecified chronic kidney disease; N18.9 Chronic kidney disease, unspecified; E87.5 Hyperkalemia; I25.10 Atherosclerotic heart disease of native coronary artery without angina pectoris; Z86.718 Personal history of other venous thrombosis and embolism; Z95.1 Presence of aortocoronary bypass graft; Z90.49 Acquired absence of other specified parts of digestive tract; Z79.4 Long term (current) use of insulin; Z79.01 Long term (current) use of anticoagulants; Z79.899 Other long term (current) drug therapy
CPT/HCPCS: 36415; 80048; 80053; 83690; 96361; 96365; 99285; 74176; 81003; 81015; 85025; 99284; J0131

== ENCOUNTER 2024-02-17 19:46 | Outpatient (REF) | payer MEDICARE, BC, SELFPAY ==
[2024-02-17 21:07] LABS: HCT 34.7 % (40.0-50.0); HGB 10.7 g/dL (13.5-17.5); MCH 30.1 pg (27.0-33.0); MCHC 30.8 % (32.0-36.0); MCV 98 fL (80-95); MPV 11.2 fL (8.0-11.0); Platelet Count 137 10^3/uL (130-400); RBC 3.56 10^6/uL (4.36-5.78); RDW 14.6 % (11.8-14.1); RDW-SD 52.9 fL; WBC 5.57 10^3/uL (4.4-10.8)
[2024-02-17 21:20] LABS: ALT 32 U/L (16-63); AST 21 U/L (15-37); Albumin 3.9 g/dL (3.4-5.0); Alkaline Phosphatase 164 U/L (46-116); Anion Gap 12.4 mmol/L (3-11); BUN 71 mg/dL (7-18); Bilirubin, Total 0.63 mg/dL (0.2-1.0); CO2 17.6 mmol/L (21.0-32.0); CREATININE 3.4 mg/dL (0.70-1.30); Calcium 8.2 mg/dL (8.5-10.1); Chloride 112 mmol/L (98-107); Glucose 169 mg/dL (74-106); Sodium 142 mmol/L (136-145); Total Protein 7.6 g/dL (6.4-8.2)
[2024-02-17 21:58] LABS: Hemoglobin A1C 7.3 % (<5.7)
[2024-02-20 12:33] LABS: IgA 395 mg/dL (85-499); Interpretation (See Note); Tissue Transglutaminase IgA <4.0 CU (<20.0)
== END 2024-02-17 19:47 | disposition home or self-care (01) ==
LOC: LBN 19:46
PROVIDERS: PCP Nurse Practitioner Family; Visit Provider Nurse Practitioner Family
DX: R19.7 Diarrhea, unspecified (principal); E11.9 Type 2 diabetes mellitus without complications
CPT/HCPCS: 80053; 82784; 83516; 85027; 83036

== ENCOUNTER 2024-02-27 03:10 | Outpatient (CLI) | payer MEDICARE, BC, SELFPAY ==
[2024-02-27 11:56] LABS: Anion Gap 15.2 mmol/L (3-11); BUN 56 mg/dL (7-18); CO2 14.8 mmol/L (21.0-32.0); Calcium 7.6 mg/dL (8.5-10.1); Chloride 109 mmol/L (98-107); Estimated GFR 13.34 (mL/min/1.73m2); Glucose 70 mg/dL (74-106); Potassium 4.7 mmol/L (3.5-5.1); Sodium 139 mmol/L (136-145)
[2024-02-27 12:03] LABS: CREATININE 4.2 mg/dL (0.70-1.30)
== END 2024-02-27 03:11 | disposition home or self-care (01) ==
LOC: LOS 03:10
PROVIDERS: PCP Nurse Practitioner Family; Visit Provider Nurse Practitioner Family
DX: N18.4 Chronic kidney disease, stage 4 (severe) (principal); R19.7 Diarrhea, unspecified; E11.9 Type 2 diabetes mellitus without complications
CPT/HCPCS: 36415; 80048

== ENCOUNTER 2024-02-29 03:30 | Outpatient (CLI) | payer MEDICARE, BC, SELFPAY ==
[2024-02-29 12:25] LABS: Anion Gap 13.2 mmol/L (3-11); BUN 51 mg/dL (7-18); CO2 17.8 mmol/L (21.0-32.0); Chloride 106 mmol/L (98-107); Estimated GFR 13.34 (mL/min/1.73m2); Glucose 122 mg/dL (74-106); Sodium 137 mmol/L (136-145)
[2024-02-29 12:33] LABS: CREATININE 4.2 mg/dL (0.70-1.30)
== END 2024-02-29 03:31 | disposition home or self-care (01) ==
PROVIDERS: Family Medicine; PCP Nurse Practitioner Family; Visit Provider Nurse Practitioner Family
DX: N18.4 Chronic kidney disease, stage 4 (severe) (principal)
CPT/HCPCS: 36415; 80048

== ENCOUNTER 2024-05-08 15:35 | Outpatient (REF) | payer MEDICARE, BC, SELFPAY ==
[2024-05-08 16:58] LABS: BUN 47 mg/dL (7-18); CREATININE 3.2 mg/dL (0.70-1.30); Chloride 112 mmol/L (98-107); Estimated GFR 18.38 (mL/min/1.73m2); Glucose 190 mg/dL (74-106); Sodium 143 mmol/L (136-145)
[2024-05-08 17:11] LABS: Potassium 6.1 mmol/L (3.5-5.1)
== END 2024-05-08 15:36 | disposition home or self-care (01) ==
LOC: LBN 15:35
PROVIDERS: PCP Nurse Practitioner Family; Visit Provider Nurse Practitioner Family
DX: N18.4 Chronic kidney disease, stage 4 (severe) (principal); Z23 Encounter for immunization; Z09 Encounter for follow-up examination after completed treatment for conditions other than malignant neoplasm
CPT/HCPCS: 80048

== ENCOUNTER 2024-05-18 11:45 | Outpatient (CLI) | payer MEDICARE, BC, SELFPAY ==
[2024-05-18 12:43] LABS: BUN 67 mg/dL (7-18); CREATININE 3.3 mg/dL (0.70-1.30); Chloride 111 mmol/L (98-107); Estimated GFR 17.71 (mL/min/1.73m2); Glucose 155 mg/dL (74-106); Potassium 5.4 mmol/L (3.5-5.1); Sodium 144 mmol/L (136-145)
== END 2024-05-18 11:46 | disposition home or self-care (01) ==
LOC: LOS 11:47
PROVIDERS: PCP Nurse Practitioner Family; Visit Provider Nurse Practitioner Family
DX: N18.4 Chronic kidney disease, stage 4 (severe) (principal)
CPT/HCPCS: 36415; 80048

== ENCOUNTER 2024-12-21 17:17 | Outpatient (REF) | payer MEDICARE, BC, SELFPAY ==
[2024-12-21 20:59] LABS: HCT 28.3 % (40.0-50.0); HGB 9.2 g/dL (13.5-17.5); MCHC 32.5 % (32.0-36.0); MCV 95 fL (80-95); MPV 11.2 fL (8.0-11.0); Platelet Count 138 10^3/uL (130-400); RBC 2.97 10^6/uL (4.36-5.78); RDW 14.2 % (11.8-14.1); RDW-SD 49.1 fL; WBC 5.56 10^3/uL (4.4-10.8)
[2024-12-21 21:19] LABS: Anion Gap 15.9 mmol/L (3-11); CO2 17.1 mmol/L (21.0-32.0); Calcium 7.1 mg/dL (8.5-10.1); Chloride 107 mmol/L (98-107); Estimated GFR 10.51 (mL/min/1.73m2); Glucose 191 mg/dL (74-106); Potassium 4.6 mmol/L (3.5-5.1); Sodium 140 mmol/L (136-145)
[2024-12-21 21:32] LABS: BUN 93 mg/dL (7-18); CREATININE 5.1 mg/dL (0.70-1.30)
== END 2024-12-21 17:18 | disposition home or self-care (01) ==
LOC: LBN 17:17
PROVIDERS: PCP Nurse Practitioner Family; Visit Provider Nurse Practitioner Family
DX: N18.4 Chronic kidney disease, stage 4 (severe) (principal)
CPT/HCPCS: 80048; 85027

== ENCOUNTER 2025-01-22 01:36 | Outpatient (CLI) | payer MEDICARE, BC, SELFPAY ==
--- NOTE | 2025-01-22 | DI.US_ITS ---
Exam(s) US RENAL EXAM: US RENAL CLINICAL HISTORY: stage 5 kidney disease not on dialysis N18.5. TECHNIQUE: Szymanski scale imaging and color doppler were used. COMPARISON: CT CT ABDOMEN PELVIS WO from 12/27/2023 FINDINGS: Right kidney: 8.5cm, mild parenchymal thinning. Echogenicity: Normal Hydronephrosis: No Cyst or mass: No Nephrolithiasis: No Left kidney: 9.2cm, mild parenchymal thinning. Echogenicity: Normal Hydronephrosis: No Cyst or mass: No Nephrolithiasis: No Bladder:Not well distended. Thick wall and trabeculation. Prevoid vol:80 cc Postvoid vol:0 cc Prostate volume 38 cc. IMPRESSION: Mild bilateral renal atrophy. Thick-walled trabeculated bladder. DATA REPOSITORY:
== END 2025-01-22 01:56 ==
LOC: DI 01:36
PROVIDERS: PCP Nurse Practitioner Family; Visit Provider Internal Medicine Nephrology
DX: N18.5 Chronic kidney disease, stage 5 (principal)
CPT/HCPCS: 76770

== ENCOUNTER 2025-03-22 00:40 | Outpatient (CLI) | payer MEDICARE, BC, SELFPAY ==
[2025-03-22 15:47] LABS: Abs Immature Grans 0.02 10^3/uL (0.0-0.06); HCT 28.6 % (40.0-50.0); HGB 9.1 g/dL (13.5-17.5); Immature Grans % 0.4 %; MCH 30.6 pg (27.0-33.0); MCHC 31.8 % (32.0-36.0); MCV 96 fL (80-95); MPV 10.9 fL (8.0-11.0); Platelet Count 156 10^3/uL (130-400); RBC 2.97 10^6/uL (4.36-5.78); RDW 13.0 % (11.8-14.1); RDW-SD 45.9 fL; WBC 5.54 10^3/uL (4.4-10.8)
[2025-03-22 15:53] LABS: PROTEIN 168.1 mg/dL; Prot/Crea Ur Ratio 1.98
[2025-03-22 15:54] LABS: Albumin 4.0 g/dL (3.4-5.0); Anion Gap 10.7 mmol/L (3-11); BUN 60 mg/dL (7-18); CO2 28.3 mmol/L (21.0-32.0); Calcium 7.6 mg/dL (8.5-10.1); Chloride 104 mmol/L (98-107); Estimated GFR 14.95 (mL/min/1.73m2); Glucose 103 mg/dL (74-106); Potassium 5.0 mmol/L (3.5-5.1); Sodium 143 mmol/L (136-145); Uric Acid 7.2 mg/dL (3.5-7.2)
== END 2025-03-22 00:41 | disposition home or self-care (01) ==
LOC: LOS 00:40
PROVIDERS: PCP Nurse Practitioner Family; Visit Provider Internal Medicine Nephrology
DX: N18.5 Chronic kidney disease, stage 5 (principal)
CPT/HCPCS: 36415; 80048; 82040; 82565; 83970; 84100; 84156; 84550; 85025

== ENCOUNTER 2025-05-24 00:16 | Outpatient (CLI) | payer MEDICARE, BC, SELFPAY ==
[2025-05-24 12:15] LABS: Uric Acid 6.7 mg/dL (3.7-9.2)
[2025-05-24 12:21] LABS: Abs Immature Grans 0.02 10^3/uL (0.0-0.06); Ferritin 34 ng/mL (11-307); HCT 32.9 % (40.0-50.0); HGB 10.4 g/dL (13.5-17.5); Immature Grans % 0.4 %; Iron 56 ug/dL (65-175); MCH 30.9 pg (27.0-33.0); MCHC 31.6 % (32.0-36.0); MCV 98 fL (80-95); MPV 11.0 fL (8.0-11.0); Platelet Count 149 10^3/uL (130-400); RBC 3.37 10^6/uL (4.36-5.78); RDW 13.3 % (11.8-14.1); RDW-SD 47.8 fL; Total Iron Binding Capacity 323 ug/dL (250-425); Transferrin Sat 17 % (20-55); WBC 5.32 10^3/uL (4.4-10.8)
[2025-05-24 12:47] LABS: Albumin 4.4 g/dL (3.4-5.0); Anion Gap 10.4 mmol/L (3-11); BUN 74 mg/dL (9-23); CO2 21.6 mmol/L (20.0-31.0); Calcium 8.2 mg/dL (8.3-10.6); Chloride 111 mmol/L (98-107); Glucose 134 mg/dL (74-106); Potassium 5.0 mmol/L (3.5-5.1); Sodium 143 mmol/L (136-145)
[2025-05-24 13:55] LABS: Prot/Crea Ur Ratio 1.41 mg/mg Cr
== END 2025-05-24 00:17 | disposition home or self-care (01) ==
LOC: LOS 00:16
PROVIDERS: PCP Nurse Practitioner Family; Visit Provider Internal Medicine Nephrology
DX: N18.5 Chronic kidney disease, stage 5 (principal)
CPT/HCPCS: 36415; 80048; 82040; 82565; 82728; 83540; 83550; 83970; 84100; 84156; 84550; 85025